=== PATIENT | male | born 1945 | race Caucasian/White ===

== ENCOUNTER 2017-10-15 05:40 | Inpatient (IN) | payer MEDICARE, OTHER ==
[2017-10-15 06:41] LABS: ALT (SGPT) 83 U/L (8-55); AST (SGOT) 104 U/L (5-34); Albumin 3.8 g/dL (3.4-4.8); Alkaline Phosphatase 94 U/L (40-150); Anion Gap 16 mmol/L (10-20); BUN (Urea Nitrogen) 13 mg/dL (8.4-25.7); Bilirubin, Total 0.6 mg/dL (0.2-1.2); Calc. Creatinine Clearance 0 mL/min (70-130); Calcium 8.8 mg/dL (7.8-10.44); Carbon Dioxide 19 mmol/L (23-31); Chloride 103 mmol/L (98-107); Estimated GFR-MDRD 84; Glucose 181 mg/dL (83-110); Magnesium 2.1 mg/dL (1.6-2.6); Potassium 3.6 mmol/L (3.5-5.1); Protein, Total 6.8 g/dL (5.8-8.1); Sodium 134 mmol/L (136-145)
[2017-10-15 06:45] LABS: CKMB 3.6 ng/mL (0-6.6); Troponin I 0.083 ng/mL (< 0.028)
[2017-10-15] MEDS ORDERED: cefTRIAXone\\ROCEPHIN 2 GM, Admixture Fee 1 EACH in Sodium Chloride 0.9% 100 ML IVPB SCH (06:45)
[2017-10-15] MEDS ORDERED: Azithromycin 500 MG, Admixture Fee 1 EACH in Sodium Chloride 0.9% 250 ML 250 ML IVPB SCH (07:00)
[2017-10-15 07:11] LABS: #Lymphocytes 1.4 thou/uL (1.20-3.40); #Monocytes 0.7 thou/uL (0.11-0.59); #Neutrophils 4.1 thou/uL (1.40-6.50); %Basophils 0.5 % (0.0-1.0); %Eosinophils 0.3 % (0.0-10.0); %Lymphocytes 23.1 % (21.0-51.0); %Monocytes 10.4 % (0.0-10.0); %Neutrophils 65.7 % (42.0-75.0); Hemoglobin 14.5 g/dL (14.0-18.0); Mean Corpuscular HGB CONC 33.4 g/dL (32.0-36.0); Mean Corpuscular Hemoglobin 29.6 pg (27.0-31.0); Mean Corpuscular Volume 88.6 fl (80.0-94.0); Mean Platelet Volume 8.6 fL (7.4-10.4); PLT Morphology Comment Appears Decreased; Platelet Count 98 thou/uL (130-400); RBC Distribution Width 12.4 % (11.5-14.5); Red Blood Cell (RBC) Count 4.89 mill/uL (4.70-6.10); White Blood Cell (WBC) Count 6.3 thou/uL (4.8-10.8)
--- NOTE | 2017-10-15 08:00 | RAD ---
PORTABLE CHEST 1 VIEW: DATE: 10/15/17. TIME: 6:11 a.m. HISTORY: Fever, flu-like symptoms. FINDINGS: Comparison is made with the exam of 02/07/10. The heart size is borderline. The lungs are expanded without focal areas of consolidation, pneumotho rax, sheridan pulmonary edema, or pleural effusions. IMPRESSION: No radiographic evidence of acute cardiopulmonary process. POS: [facility]
[2017-10-15] MEDS ORDERED: Dextrose 50% Abboject 50 ML SYRINGE SLOW IVP PRN ×2 (08:45→20:38)
[2017-10-15] MEDS ORDERED: Bisacodyl 5 MG TAB PO PRN (08:45)
[2017-10-15] MEDS ORDERED: Ondansetron ODT 4 MG TAB PO PRN (08:45)
[2017-10-15] MEDS ORDERED: Ondansetron HCl/PF 4 MG/2 ML Vial IVP PRN (08:45)
[2017-10-15] MEDS ORDERED: HumaLOG 300 UNITS/3 ML VIAL SC PRN ×2 (08:45)
[2017-10-15] MEDS ORDERED: Acetaminophen 325 MG TAB PO PRN (08:45)
[2017-10-15] MEDS ORDERED: Dextrose 5% in Water 1,000 ML IV PRN ×2 (08:45→20:38)
[2017-10-15] MEDS ORDERED: Loperamide HCl 2 MG CAP PO PRN (08:45)
[2017-10-15] MEDS ORDERED: Azithromycin 500 MG in Sodium Chloride 0.9% 250 ML 250 ML IVPB SCH (09:00)
[2017-10-15] MEDS ORDERED: Insulin Detemir 100 UNITS/ML 100 UNITS in Admixture Fee 1 EACH SC SCH ×2 (09:00→21:00)
[2017-10-15] MEDS: Sodium Chloride 0.9% 1,000 ML IV SCH ×2 (09:00→16:10)
[2017-10-15] MEDS ORDERED: Non-Formulary Item 1 EACH (Clonazepam [Clonazepam] 1 MG) PO SCH (09:00)
[2017-10-15] MEDS ORDERED: Insulin Regular 300 UNITS/3 ML VIAL SC SCH ×2 (09:00→21:00)
[2017-10-15] MEDS ORDERED: clonazePAM 1 MG TAB ONE (09:15)
[2017-10-15 09:47] LABS: Troponin I 0.111 ng/mL (< 0.028)
--- NOTE | 2017-10-15 11:45 | PDOC.EVN ---
Event Note - Event Note Event Note: Attending H&P I personally evaluated the patient and discussed the management with Dr. Disla. I have reviewed the written H&P and it is repeated by me. I agree with the History, Examination, Assessment and Plan documented above with any addition or exceptions noted below.
[2017-10-15 12:53] LABS: Troponin I 0.175 ng/mL (< 0.028)
[2017-10-15] MEDS ORDERED: Digoxin 0.25 MG TAB ONE (13:53)
[2017-10-15] MEDS ORDERED: Furosemide 40 MG TAB ONE (13:53)
--- NOTE | 2017-10-15 14:00 | HP-2 ---
DATE OF ADMISSION: 10/15/2017 CODE STATUS: DO NOT INTUBATE, CPR, and chemical code will be okay, but attempt for no longer than 10 minutes. This decision was made amongst the patient, his , and his granddaughter. PRIMARY CARE PHYSICIAN: Dr. Schaefer at the [place]. ATTENDING PHYSICIAN: Dr. Mike. RESIDENT: Dr. Beatriz Disla. CHIEF COMPLAINT: Shortness of breath and difficulty breathing. HISTORY OF PRESENT ILLNESS: This is a 72-year-old male with a history of CHF with an ejection fraction possibly 30%-40% per the patient, obstructive sleep apnea, insulin-dependent diabetes, hypertension, GERD, history of MIs - no history of stent placement, COPD, he presents for difficulty breathing this morning. Patient states that he felt very weak this morning and could not get out of bed and then he slid to the floor. With help from his , he was able to get up. He states that his has had the flu for the last week and he has had similar symptoms for the last 4 days. The patient states he has had a fever of 102 for the last couple of days. He reports some nasal congestion, lethargy, malaise. Upon interview, the patient is able to answer all questions appropriately; however, he repetitively states that he is discombobulated and that he needs his clonazepam for PTSD. In the EMS en route to the ER, the patient received DuoNeb, mag, Solu-Medrol, and a fluid bolus of 500 mL. Patient received Rocephin and azithromycin in the ER. PAST MEDICAL HISTORY: 1. Insulin-dependent diabetes, type 2. 2. Obstructive sleep apnea. 3. Congestive heart failure with a questionable ejection fraction of 30%-40%. 4. Hypertension. 5. Gastroesophageal reflux disease. 6. Chronic obstructive pulmonary disease - not on any medications. 7. History of myocardial infarctions - no history of stent placement for CABG. 8. Fatty liver disease. PAST SURGICAL HISTORY: Back surgery and tonsillectomy. ALLERGIES: No known drug allergies. MEDICATIONS: 1. U-500 90 units in the morning and 65 units in the evening subcutaneously. 2. Metformin HCL 1000 mg half a tablet 2 times a day by mouth. 3. Levothyroxine 0.1 mg p.o. daily. 4. Allopurinol 150 mg p.o. daily. 5. Atenolol 25 mg tabs p.o. daily. 6. Lisinopril 40 mg p.o. daily. 7. Omeprazole 20 mg capsule p.o. 1-2 times daily. 8. Digoxin 0.25 mg p.o. daily. 9. Furosemide 40 mg p.o. 1-2 times daily pending symptoms. 10. Aspirin 81 mg p.o. daily. 11. Clonazepam 2 mg half a tablet b.i.d. 12. Nitroglycerin patch 0.2 mg per hour, 1 patch transdermally daily. FAMILY HISTORY: Mom has heart disease and lung cancer. Dad had heart disease. The daughter has severe sarcoidosis. SOCIAL HISTORY: The patient denies tobacco, alcohol, or drug use. Patient is , has children and most recently has ill contacts of the family with the flu. REVIEW OF SYSTEMS: General: Positive for fever, chills, malaise, and no energy. Eyes: No vision changes. ENT: Positive for nasal congestion, rhinorrhea. Respiratory: Positive for a nonproductive cough and congestion and difficulty breathing. Cardiovascular: The patient denies chest pain or palpitations. No edema, no PND, nor orthopnea. Gastrointestinal: Positive for nausea and he complains of diarrhea for 4 days. He does not report any abdominal pain with that; however. No GI bleeding. Genitourinary: Denies dysuria or polyuria. Skin: Denies any rashes or lesions. Musculoskeletal: Positive for myalgias, but denies any pain or tenderness. Neuro: Denies weakness or numbness. Psychiatric: Positive for PTSD. PHYSICAL EXAMINATION: VITAL SIGNS: Blood pressure 144/67, pulse 97, respiratory rate 22, T-max 99.1, pulse ox 97% on room air, and current weight 117 kilograms. VITAL SIGNS: The patient is alert and oriented x4 to person, place, date, and situation, but he does appear somewhat uncomfortable. He is morbidly obese and is appropriately interactive. He is answering questions appropriately. EYES: PERRLA, EOMI. ENT: Tympanic membranes pearly figueroa without bulging or erythema. His oropharynx is within normal limits. NECK: Supple, without lymphadenopathy or thyromegaly. CARDIOVASCULAR: Regular rate and rhythm with a systolic 2/6 murmur heard best in the second intercostal space left of the sternum. No gallops heard. RESPIRATORY: Normal effort with decreased air movement in the bilateral lower lobes, but this is very difficult to examine due to habitus. There is some E-A egophony in the right lower lobe posteriorly. ABDOMEN: Soft and nontender to palpation. Bowel sounds are present. EXTREMITIES: No clubbing, cyanosis, or edema in lower extremities noted. MUSCULOSKELETAL: His structure is within normal limits, muscle strength 5/5, and he has full range of motion. NEUROLOGIC: No focal deficits. Sensation is within normal limits. Cranial nerves II-XII appear to be intact. PSYCHIATRIC: He appears anxious. LABORATORY DATA: White blood cells 6.3, hemoglobin 14.5, hematocrit 43.4, platelets 98. Sodium 134, potassium 3.6, chloride 103, bicarbonate 19, BUN 13, creatinine 0.89, and his glucose is 181. GFR is 84. Calcium is 8.8, AST 104, ALT 83, alkaline phosphatase 94, protein 6.8, albumin 3.8. His total bilirubin is 0.6. BNP is 14.9. His lactic acid is 1.2 and his troponin is 0.083. His Flu A and B were negative. EKG showed normal sinus rhythm with no ST elevation ; however, there is some evidence for an old septal infarct in the inferior leads. Chest x-ray shows a right lower lobe infiltrate. ASSESSMENT AND PLAN: This is a 72-year-old male with a history of hypertension , uncontrolled diabetes, and congestive heart failure, who presents with complaints of difficulty breathing. 1. Sepsis secondary to community-acquired pneumonia. The patient's blood pressures remain within normal limits, he has an increased respiratory rate upon arrival, but is satting well on room air. However, supplemental oxygen will be given for comfort, he has normal lactic acid and white blood cell count at this time. The patient has been started on Rocephin and azithromycin in the ER. A 500 mL bolus was given en route to the ER and we will give another 500 mL bolus at this time and then continue him at a rate of 100 mL per hour. Due to the unknown status of his congestive heart failure, we are not being more aggressive with his fluid resuscitation and will be requesting an echocardiogram. We will check a CBC and a CMP in the morning. A pulmonary embolism was considered in this situation. However, he has a Wells score for pulmonary embolism of 0, making this a very low probability. However, we will continue to consider it depending on his clinical course. 2. Hypertension within normal limits and we will continue his home medications. 3. Insulin-dependent diabetes, type 2 - this is poorly controlled per the . He has currently been increased to U-500. We will continue his home regimen with likely an equivalent to the U-500 in the hospital and get a.c. and at bedtime Accu-Cheks and sliding scale insulin. 4. Congestive heart failure. We will be checking an echocardiogram at this time and does not appear to be fluid overload, and his BNP is within normal limits. 5. Transaminitis - patient reports a history of fatty liver disease and has had multiple attacks of his hepatitis C in the past per the as well as human immunodeficiency virus, which have all been negative. 6. History of coronary artery disease. 7. History of post-traumatic stress disorder. We will continue patient's clonazepam, which is a home medication. 8. Chronic obstructive pulmonary disease. We will be giving p.r.n. DuoNeb. However, the patient does not have a smoking history and is on no home medications for this, so this is a questionable diagnosis. 9. For deep vein thrombosis prophylaxis, platelets are at 98. We will go ahead and give a shot of Lovenox and continue to monitor his platelets. DISPOSITION AND LENGTH OF HOSPITAL STAY: Likely at least 3 days. Symptomatic medications will be provided. History and physical exam as well as management have been discussed with Dr. Mike, who is in agreement with the plan. JEROD
[2017-10-15 19:29] VITALS: BMI 43.5
[2017-10-15] MEDS: Aspirin 81 mg Enteric Coated Tablet PO SCH (19:49)
[2017-10-15] MEDS: Atenolol 25 MG TAB PO SCH (19:49)
[2017-10-15] MEDS: Allopurinol 300 MG TAB PO SCH (19:49)
[2017-10-15] MEDS: clonazePAM 1 MG TAB PO SCH ×2 (19:50→20:57)
[2017-10-15] MEDS: Digoxin 0.25 MG TAB PO SCH (19:50)
[2017-10-15] MEDS: Furosemide 40 MG TAB PO SCH (19:50)
[2017-10-15] MEDS: Lisinopril 20 MG TAB PO SCH (19:51)
[2017-10-15] MEDS: HumaLOG 300 UNITS/3 ML VIAL SC PRN (20:53)
[2017-10-16] MEDS ORDERED: Albuterol Sulfate 2.5 mg/3 ml Neb NEB PRN (00:51)
[2017-10-16] MEDS: Insulin Detemir 100 UNITS/ML 20 UNITS in Pre-Filled Syringe 1 EACH SC SCH (01:10)
[2017-10-16] MEDS: Levothyroxine Sodium 100 MCG TAB PO SCH (05:11)
[2017-10-16] MEDS: Sodium Chloride 0.9% 1,000 ML IV SCH (05:11)
[2017-10-16 05:23] LABS: #Lymphocytes 1.1 thou/uL (1.20-3.40); #Monocytes 0.5 thou/uL (0.11-0.59); #Neutrophils 4.5 thou/uL (1.40-6.50); %Basophils 0.7 % (0.0-1.0); %Eosinophils 0.1 % (0.0-10.0); %Lymphocytes 18.1 % (21.0-51.0); %Neutrophils 73.1 % (42.0-75.0); Hemoglobin 14.9 g/dL (14.0-18.0); Mean Corpuscular HGB CONC 34.4 g/dL (32.0-36.0); Mean Corpuscular Hemoglobin 30.2 pg (27.0-31.0); Mean Corpuscular Volume 87.8 fl (80.0-94.0); Mean Platelet Volume 8.7 fL (7.4-10.4); Platelet Count 115 thou/uL (130-400); RBC Distribution Width 12.2 % (11.5-14.5); Red Blood Cell (RBC) Count 4.92 mill/uL (4.70-6.10); White Blood Cell (WBC) Count 6.1 thou/uL (4.8-10.8)
[2017-10-16 05:43] LABS: ALT (SGPT) 68 U/L (8-55); AST (SGOT) 67 U/L (5-34); Albumin 3.8 g/dL (3.4-4.8); Alkaline Phosphatase 93 U/L (40-150); Anion Gap 11 mmol/L (10-20); BUN (Urea Nitrogen) 18 mg/dL (8.4-25.7); Bilirubin, Total 0.3 mg/dL (0.2-1.2); Calc. Creatinine Clearance 178 mL/min (70-130); Carbon Dioxide 25 mmol/L (23-31); Chloride 105 mmol/L (98-107); Estimated GFR-MDRD Greater than 90; Globulin 3.2 g/dL (2.4-3.5); Glucose 200 mg/dL (83-110); Potassium 4.3 mmol/L (3.5-5.1); Sodium 137 mmol/L (136-145)
[2017-10-16 08:18] LABS: Troponin I 0.42 ng/mL (< 0.028)
--- NOTE | 2017-10-16 09:09 | PDOC.FM ---
- Subjective Subjective: Patient sitting up in bed this morning and states he feels much better. He has been breathing without difficulty this morning and overnight. Denies chest pain. Tolerating PO well. He is laughing and making jokes this morning. - Objective MAR Reviewed: Yes Vital Signs & Weight: Weight Weight 141.549 kg I&O: 10/15/17 10/16/17 10/17/17 06:59 06:59 06:59 Intake Total 1483 Balance 1483 Result Diagrams: 10/16/17 04:17 10/16/17 04:17 <Beatriz Disla - Last Filed: 10/16/17 08:46> - Objective Vital Signs & Weight: Vital Signs (12 hours) Temp Pulse Resp BP BP Pulse Ox 10/16/17 09:57 58 L 138/78 10/16/17 09:56 58 L 10/16/17 08:11 96.3 F L 58 L 22 H 130/78 98 Weight Weight 141.549 kg I&O: 10/15/17 10/16/17 10/17/17 06:59 06:59 06:59 Intake Total 1483 Balance 1483 Result Diagrams: 10/16/17 04:17 10/16/17 04:17 <Tj Mike - Last Filed: 10/16/17 11:01> Phys Exam - Physical Examination Constitutional: NAD Respiratory: no wheezing, no rales, no rhonchi, clear to auscultation bilateral Difficulty to assess due to body habitus but air movement heard throughout. Cardiovascular: RRR, no significant murmur Gastrointestinal: soft, non-tender Musculoskeletal: no edema Neurological: non-focal, normal sensation, moves all 4 limbs Psychiatric: normal affect, A&O x 3 <Beatriz Disla - Last Filed: 10/16/17 08:46> Dx/Plan (1) Community acquired pneumonia Code(s): J18.9 - PNEUMONIA, UNSPECIFIED ORGANISM Status: Acute Plan: Significant improvement on azithromycin and rocephin. Will give todays dose and plan to transition to oral augmentin or levaquin. (2) Sepsis Code(s): A41.9 - SEPSIS, UNSPECIFIED ORGANISM Status: Acute Plan: improved with fluids and antibiotics. (3) Hypertension Code(s): I10 - ESSENTIAL (PRIMARY) HYPERTENSION Status: Acute Plan: well controlled on home meds. (4) Uncontrolled diabetes mellitus Code(s): E11.65 - TYPE 2 DIABETES MELLITUS WITH HYPERGLYCEMIA Status: Chronic QualifierTitle: Diabetes mellitus type: type 2 Plan: taking his home insulin since it is non formulary and BG improved with it. Cont routine outpatient mgmt. (5) PTSD (post-traumatic stress disorder) Code(s): F43.10 - POST-TRAUMATIC STRESS DISORDER, UNSPECIFIED Status: Acute (6) Hx of congestive heart failure Code(s): Z86.79 - PERSONAL HISTORY OF OTHER DISEASES OF THE CIRCULATORY SYSTEM Status: Resolved Plan: ECHO would not indicate CHF. EF 55-60% with no mention of diastolic failure. (7) Fatty liver Code(s): K76.0 - FATTY (CHANGE OF) LIVER, NOT ELSEWHERE CLASSIFIED Status: Chronic Plan: per history from , patient has known fatty liver disease and LFTs are chronically elevated. She states he has been tested for HIV and hep C numerous times and requested we not work that up further. (8) Elevated troponin I level Code(s): R74.8 - ABNORMAL LEVELS OF OTHER SERUM ENZYMES Status: Acute Plan: Patient has no complaint of chest pain or SOB, no other symptoms congruent with AK. EKG yesterday without changes, will recheck today and recheck a trop. <Beatriz Disla A - Last Filed: 10/16/17 08:46> Attending Addendum - Attending Addendum I personally evaluated the patient and discussed the management with Dr. Disla. I agree with the History, Examination, Assessment and Plan documented above with any addition or exceptions noted below. Viridiana is feeling well adn was hoping for discharge today. He denies any CP or SOB. EKG is remarkable for sinus bradycardia with rate of 58. No ischemic changes noted. If troponins continue to trend upwards, then cards consult. Trop pending. <Tj Mike - Last Filed: 10/16/17 11:01>
[2017-10-16] MEDS: Digoxin 0.25 MG TAB PO SCH (09:56)
[2017-10-16] MEDS: Allopurinol 300 MG TAB PO SCH (09:56)
[2017-10-16] MEDS: Aspirin 81 mg Enteric Coated Tablet PO SCH (09:57)
[2017-10-16] MEDS: Atenolol 25 MG TAB PO SCH (09:57)
[2017-10-16] MEDS: Furosemide 40 MG TAB PO SCH (09:57)
[2017-10-16] MEDS: clonazePAM 1 MG TAB PO SCH ×2 (09:57→21:43)
[2017-10-16] MEDS: Lisinopril 20 MG TAB PO SCH (09:57)
[2017-10-16] MEDS: Azithromycin 500 MG in Sodium Chloride 0.9% 250 ML 250 ML IVPB SCH (10:00)
[2017-10-16] MEDS: cefTRIAXone\\ROCEPHIN 2 GM in Sodium Chloride 0.9% 100 ML IVPB SCH (10:00)
[2017-10-16] MEDS: Enoxaparin Sodium 40 MG/0.4 ML SYRINGE SC SCH (10:01)
[2017-10-16] MEDS: metFORMIN 500 MG TAB PO SCH ×3 (10:01→21:43)
[2017-10-16 10:45] LABS: Troponin I 0.422 ng/mL (< 0.028)
[2017-10-16] MEDS: HumaLOG 300 UNITS/3 ML VIAL SC PRN (12:35)
[2017-10-16 15:01] LABS: Critical Call Chem Troponin I RESULT DECREASING; Troponin I 0.384 ng/mL (< 0.028)
[2017-10-16 16:23] LABS: CKMB 6.5 ng/mL (0-6.6)
[2017-10-16] MEDS ORDERED: INSULIN REGULAR HUMAN SC SCH (22:15)
[2017-10-17] MEDS: Insulin Detemir 100 UNITS/ML 20 UNITS in Pre-Filled Syringe 1 EACH SC SCH (02:37)
[2017-10-17] MEDS: Levothyroxine Sodium 100 MCG TAB PO SCH (05:38)
[2017-10-17 05:44] LABS: #Basophils 0.1 thou/uL (0.0-0.2); #Lymphocytes 2.8 thou/uL (1.20-3.40); #Monocytes 0.5 thou/uL (0.11-0.59); #Neutrophils 3.1 thou/uL (1.40-6.50); %Basophils 0.8 % (0.0-1.0); %Eosinophils 0.5 % (0.0-10.0); %Lymphocytes 43.3 % (21.0-51.0); %Monocytes 7.6 % (0.0-10.0); %Neutrophils 47.7 % (42.0-75.0); Hemoglobin 15.5 g/dL (14.0-18.0); Mean Corpuscular HGB CONC 34.3 g/dL (32.0-36.0); Mean Corpuscular Hemoglobin 30.1 pg (27.0-31.0); Mean Corpuscular Volume 87.9 fl (80.0-94.0); Mean Platelet Volume 8.4 fL (7.4-10.4); Platelet Count 124 thou/uL (130-400); RBC Distribution Width 12.3 % (11.5-14.5); Red Blood Cell (RBC) Count 5.15 mill/uL (4.70-6.10); White Blood Cell (WBC) Count 6.5 thou/uL (4.8-10.8)
[2017-10-17 06:03] LABS: ALT (SGPT) 54 U/L (8-55); AST (SGOT) 59 U/L (5-34); Albumin 3.8 g/dL (3.4-4.8); Alkaline Phosphatase 94 U/L (40-150); Anion Gap 12 mmol/L (10-20); BUN (Urea Nitrogen) 17 mg/dL (8.4-25.7); Bilirubin, Total 0.4 mg/dL (0.2-1.2); Calc. Creatinine Clearance 158 mL/min (70-130); Calcium 9.1 mg/dL (7.8-10.44); Carbon Dioxide 27 mmol/L (23-31); Chloride 104 mmol/L (98-107); Estimated GFR-MDRD 88; Globulin 3.2 g/dL (2.4-3.5); Glucose 100 mg/dL (83-110); Potassium 3.5 mmol/L (3.5-5.1); Sodium 139 mmol/L (136-145)
[2017-10-17] MEDS: cefTRIAXone\\ROCEPHIN 2 GM in Sodium Chloride 0.9% 100 ML IVPB SCH (06:38)
--- NOTE | 2017-10-17 08:57 | PDOC.FM ---
- Subjective Subjective: Patient sitting up in bed, breathing on room air and in no distress. Afebrile, VSS He is asking if he can go home - Objective MAR Reviewed: Yes Vital Signs & Weight: Vital Signs (12 hours) Temp Pulse Resp BP Pulse Ox 10/17/17 04:29 97.6 F 61 20 122/60 94 L Weight Weight 141.549 kg I&O: 10/16/17 10/17/17 10/18/17 06:59 06:59 06:59 Intake Total 1483 340 Balance 1483 340 Result Diagrams: 10/17/17 04:42 10/17/17 04:42 <Kenneth Vines - Last Filed: 10/17/17 08:55> - Objective Vital Signs & Weight: Vital Signs (12 hours) Temp Pulse Resp BP BP Pulse Ox 10/17/17 09:24 67 127/68 10/17/17 09:22 67 127/68 10/17/17 09:20 97.7 F 67 20 127/68 10/17/17 04:29 97.6 F 61 20 122/60 94 L Weight Weight 141.549 kg I&O: 10/16/17 10/17/17 10/18/17 06:59 06:59 06:59 Intake Total 1483 340 Balance 1483 340 Result Diagrams: 10/17/17 04:42 10/17/17 04:42 <Tj Mike - Last Filed: 10/17/17 11:40> Phys Exam - Physical Examination Constitutional: NAD Neck: no JVD Respiratory: no wheezing, no rales, no rhonchi reduced air movement Cardiovascular: RRR, no significant murmur Gastrointestinal: soft, non-tender Neurological: moves all 4 limbs Psychiatric: normal affect, A&O x 3 <Kenneth Vines - Last Filed: 10/17/17 08:55> Dx/Plan (1) Community acquired pneumonia Code(s): J18.9 - PNEUMONIA, UNSPECIFIED ORGANISM Status: Acute Plan: Breathing has improved. He is maintaining sats on room air. Transition to oral Abx today (2) Hypertension Code(s): I10 - ESSENTIAL (PRIMARY) HYPERTENSION Status: Acute Plan: Continue home medications (3) Uncontrolled diabetes mellitus Code(s): E11.65 - TYPE 2 DIABETES MELLITUS WITH HYPERGLYCEMIA Status: Chronic QualifierTitle: Diabetes mellitus type: type 2 Plan: Patient back on home medication regimen. Medications are not on formulary here at hospital (4) PTSD (post-traumatic stress disorder) Code(s): F43.10 - POST-TRAUMATIC STRESS DISORDER, UNSPECIFIED Status: Acute (5) Fatty liver Code(s): K76.0 - FATTY (CHANGE OF) LIVER, NOT ELSEWHERE CLASSIFIED Status: Chronic (6) Hx of congestive heart failure Code(s): Z86.79 - PERSONAL HISTORY OF OTHER DISEASES OF THE CIRCULATORY SYSTEM Status: Resolved Plan: questionable history considering normal Echo - Plan Plan: Plan: -transition to PO abx and discharge today <Kenneth Vines - Last Filed: 10/17/17 08:55> Attending Addendum - Attending Addendum I personally evaluated the patient and discussed the management with Dr. Vines. I agree with the History, Examination, Assessment and Plan documented above with any addition or exceptions noted below. Stable for discharge. <Tj Mike - Last Filed: 10/17/17 11:40>
[2017-10-17] MEDS ORDERED: INSULIN REGULAR HUMAN SC SCH ×2 (09:00→21:00)
[2017-10-17 09:21] VITALS: BP 127/68; TEMP 97.7
[2017-10-17] MEDS: Azithromycin 500 MG in Sodium Chloride 0.9% 250 ML 250 ML IVPB SCH (09:21)
[2017-10-17] MEDS: metFORMIN 500 MG TAB PO SCH (09:22)
[2017-10-17] MEDS: Furosemide 40 MG TAB PO SCH (09:22)
[2017-10-17] MEDS: Enoxaparin Sodium 40 MG/0.4 ML SYRINGE SC SCH (09:22)
[2017-10-17] MEDS: Lisinopril 20 MG TAB PO SCH (09:22)
[2017-10-17] MEDS: Aspirin 81 mg Enteric Coated Tablet PO SCH (09:22)
[2017-10-17] MEDS: Digoxin 0.25 MG TAB PO SCH (09:22)
[2017-10-17] MEDS: clonazePAM 1 MG TAB PO SCH (09:22)
[2017-10-17] MEDS: Allopurinol 300 MG TAB PO SCH (09:23)
[2017-10-17] MEDS: Atenolol 25 MG TAB PO SCH (09:24)
--- NOTE | 2017-10-17 11:10 | PQF ---
DATE: 10-17-17 ATTN: DR. CINDI YOUNG / DR. KEL IRENE Please exercise your independent, professional judgment in responding to the clarification form. Clinical indicators are provided on the bottom of this form for your review Please check appropriate box(s): [ x ] Demand Ischemia [ ] SC (type: ) [ ] Insignificant Lab Value [ ] Unable to determine In addition, please specify: Present on Admission (POA): [ x ] Yes [ ] No [ ] Unable to determine For continuity of documentation, please document condition throughout progress notes and discharge summary. Thank You. CLINICAL INDICATORS - SIGNS / SYMPTOMS/ LABS are present in the medical record: Lab Results: TROPONIN: 10-15-17: 0.083 0.111 0.175 10-16-17: 0.420 0.422 0.384 RISK FACTORS: ER DOCUMENTATION: HX OF CHF, DM 2, HTN, GERD H&P: HX OF CHF, HTN, CAD TREATMENT: SERIES OF LABS PN 10-16-17: IF TROPONIN CONTINUE TO TREND UPWARDS, THEN CARDS CONSULT. TROP PENDING. (This form is maintained as a part of the permanent medical record) 2014 [employer] All Rights Reserved JOSE [email or web address] Office: [phone] [facility] HOSPITALBeto
[2017-10-17] MEDS ORDERED: Azithromycin 250 MG TAB PO SCH (11:15)
[2017-10-18] MEDS ORDERED: cefTRIAXone\\ROCEPHIN 2 GM in Sodium Chloride 0.9% 100 ML IVPB SCH (06:00)
[2017-10-18] MEDS ORDERED: Azithromycin 250 MG TAB PO SCH (09:00)
--- NOTE | 2017-10-20 13:47 | EKG ---
Test Reason : Blood Pressure : / mmHG Vent. Rate : 095 BPM Atrial Rate : 095 BPM P-R Int : 172 ms QRS Dur : 084 ms QT Int : 380 ms P-R-T Axes : 040 049 034 degrees QTc Int : 477 ms Normal sinus rhythm Low voltage QRS Septal infarct , age undetermined Abnormal ECG Confirmed by RANDA SHEPPARD ([id number]), visual effects editor NILAM PIERCE ([id number]) on 10/20/2017 1:47:00 PM Referred By: Confirmed By:RANDA SHEPPARD
--- NOTE | 2017-10-20 14:25 | EKG ---
Test Reason : SOB Blood Pressure : / mmHG Vent. Rate : 074 BPM Atrial Rate : 074 BPM P-R Int : 200 ms QRS Dur : 084 ms QT Int : 410 ms P-R-T Axes : 052 047 027 degrees QTc Int : 455 ms Normal sinus rhythm Septal infarct , age undetermined Abnormal ECG Confirmed by BRENT BELTRAN, HERB ([id number]), editor in chief newspaper NILAM PIERCE ([id number]) on 10/20/2017 2:25:06 PM Referred By: MICHAEL Confirmed By:HERB KENNEDY MD
--- NOTE | 2017-10-22 00:42 | DIS-2 ---
DATE OF ADMISSION: 10/15/2017 DATE OF DISCHARGE: 10/17/2017 RESIDENT: Beatriz Disla M.D. DISCHARGE ATTENDING: Tj Mike M.D. ADMITTING ATTENDING: Tj Mike M.D. PRIMARY DIAGNOSES: 1. Sepsis secondary to community-acquired pneumonia. 2. Hypertension. 3. Insulin-dependent diabetes type 2. 4. Congestive heart failure with a normal echo during this hospitalization. 5. Transaminitis secondary to fatty liver disease. 6. History of coronary artery disease. 7. History of posttraumatic stress disorder. 8. Chronic obstructive pulmonary disease. DISCHARGE MEDICATIONS: 1. Allopurinol 150 mg p.o. daily. 2. Clonazepam 1 mg p.o. b.i.d. 3. Omeprazole 20 mg p.o. daily. 4. Lisinopril 40 mg p.o. daily. 5. Furosemide 20 mg p.o. b.i.d. 6. Digoxin 0.25 mg p.o. daily. 7. Atenolol 25 mg p.o. daily. 8. Aspirin 81 mg p.o. daily. 9. Nitroglycerin patch 0.2 mg topically daily. 10. Synthroid 100 mcg p.o. daily. 11. Metformin 500 mg p.o. b.i.d. 12. Humulin R u500 of 65 units subcutaneously at bedtime and 90 units subcutaneously q.a.m. 13. Levaquin 750 mg p.o. daily for 3 days. PROCEDURES AND IMAGIN. Echocardiogram notes left ventricular size to be normal, ejection fraction estimated at 55-60%. There is reported trace tricuspid regurgitation. HISTORY OF PRESENT ILLNESS AND HOSPITAL COURSE: This is a 72-year-old male with past medical history of coronary artery disease, COPD, presented to the ER with complaints of confusion and weakness and was found to meet SIRS criteria with the finding of pneumonia on chest x-ray and was given fluids and started on antibiotics appropriate for the community-acquired pneumonia. The patient's clinical course continued to improve by the second day of his hospitalization. By the second day of hospitalization, he was no longer requiring oxygen and continued to clinically improve. He was transitioned to oral antibiotics on day 3 of his hospital stay and was sent home with a short course of antibiotics. In regards to his other chronic medical conditions, he did use his home medication and his diabetes remained fairly well controlled during hospitalization. He is to follow up with his PCP for continued management of this. The patient did have troponins reach an NSTEMI range during hospitalization; however, it was thought this is likely secondary to history of coronary artery disease and strain on his heart during this acute illness. He reported no chest pain throughout hospitalization and there were no changes on EKG. He was offered an inpatient workup versus following with his [place] doctor for an outpatient stress test and the pt opted to have close followup with his city carrier assistant in the outpatient setting shortly after discharge. The patient does have stable known angina as he takes as needed nitroglycerin patch for unstable angina at home. DISPOSITION: Stable. DISCHARGE INSTRUCTIONS: 1. Location: Home. 2. Activity: As tolerated. 3. Diet: Consistent carbohydrate and heart healthy. 4. Follow up with PCP within 3-5 days and follow up with the city carrier assistant within a week. JEROD
--- NOTE | 2017-12-17 21:22 | EKG ---
Test Reason : Blood Pressure : / mmHG Vent. Rate : 058 BPM Atrial Rate : 058 BPM P-R Int : 208 ms QRS Dur : 092 ms QT Int : 428 ms P-R-T Axes : 055 054 049 degrees QTc Int : 420 ms Sinus bradycardia Anterior infarct (cited on or before 13-DEC-2005) Abnormal ECG When compared with ECG of 15-OCT-2017 11:40, (Unconfirmed) No significant change was found Confirmed by LOC BHAKTA M.D. ([id number]) on 12/17/2017 9:21:53 PM Referred By: MICHAEL Confirmed By:LOC BHAKTA M.D.
== END 2017-10-17 14:46 | disposition home or self-care (01) | DRG 871 ==
LOC: ERS 05:40 → ERHOLD 08:11 → 2NO 16:16
PROVIDERS: ADMIT Family Medicine; ATTEND Family Medicine
DX: A41.9 Sepsis, unspecified organism (principal); J18.9 Pneumonia, unspecified organism; I11.0 Hypertensive heart disease with heart failure; I24.8 Other forms of acute ischemic heart disease; E11.65 Type 2 diabetes mellitus with hyperglycemia; I50.9 Heart failure, unspecified; E66.01 Morbid (severe) obesity due to excess calories; J44.0 Chronic obstructive pulmonary disease with (acute) lower respiratory infection; Z68.41 Body mass index [BMI] 40.0-44.9, adult; Z79.4 Long term (current) use of insulin; F43.10 Post-traumatic stress disorder, unspecified; R74.8 Abnormal levels of other serum enzymes
CPT/HCPCS: 36415; 36416; 71045; 80053; 82553; 83605; 83735; 83880; 84484; 85025; 87040; 87804; 93005; 93010; 93306; 94640; 96361; 96365; G8978-GP-CH; G8979-GP-CH; G8980-GP-CH; J0456; J0696; J1650; J1815; J7050; J7620

== ENCOUNTER 2019-05-01 11:31 | Inpatient (IN) | payer MEDICARE ==
--- NOTE | 2019-05-01 12:18 | RAD ---
Exam: Chest one view HISTORY:Dyspnea. Shortness of breath Comparison: 10/15/2017 FINDINGS: Cardiac silhouette: Normal Aorta: Unremarkable Pulmonary vessels: Normal Costophrenic angles: Clear LUNGS: Hyperinflation with chronic changes. No masses or consolidation. Pneumothorax: None Osseous abnormalities: None IMPRESSION: No acute cardiopulmonary process.
[2019-05-01 12:57] LABS: #Basophils 0.1 thou/uL (0.0-0.2); #Eosinphils 0.2 thou/uL (0.0-0.7); #Lymphocytes 2.6 thou/uL (1.20-3.40); #Monocytes 0.7 thou/uL (0.11-0.59); #Neutrophils 3.7 thou/uL (1.40-6.50); %Basophils 0.9 % (0.0-1.0); %Eosinophils 2.4 % (0.0-10.0); %Monocytes 9.3 % (0.0-10.0); %Neutrophils 51.5 % (42.0-75.0); Hemoglobin 17.6 g/dL (14.0-18.0); Mean Corpuscular HGB CONC 34.1 g/dL (32.0-36.0); Mean Corpuscular Hemoglobin 29.2 pg (27.0-31.0); Mean Corpuscular Volume 85.5 fL (78.0-98.0); Platelet Count 127 thou/uL (130-400); RBC Distribution Width 12.9 % (11.5-14.5); Red Blood Cell (RBC) Count 6.02 mill/uL (4.70-6.10); White Blood Cell (WBC) Count 7.2 thou/uL (4.8-10.8)
[2019-05-01 13:06] LABS: Bicarbonate (HCO3v) 25.1 mmol/L (22.0-28.0); CO2 Tension (PvCO2) 41.4 mmHg (40.0-50.0); Calcium, Ionized 1.13 mmol/L (See Comments:); Chloride 104 mmol/L (98-107); Potassium 4.2 mmol/L (3.5-5.1); Sodium 138 mmol/L (138-145); T. Carbon Dioxide 26.4 mmol/L (22.0-28.0)
[2019-05-01 13:20] LABS: ALT (SGPT) 48 U/L (8-55); AST (SGOT) 44 U/L (5-34); Albumin 4.2 g/dL (3.4-4.8); Alkaline Phosphatase 141 U/L (40-150); Anion Gap 11 mmol/L (10-20); BUN (Urea Nitrogen) 15 mg/dL (8.4-25.7); Bilirubin, Total 0.5 mg/dL (0.2-1.2); Calc. Creatinine Clearance 0 mL/min (70-130); Calcium 9.5 mg/dL (7.8-10.44); Carbon Dioxide 26 mmol/L (23-31); Chloride 100 mmol/L (98-107); Estimated GFR-MDRD 69; Globulin 3.1 g/dL (2.4-3.5); Glucose 287 mg/dL (83-110); Lipase 38 U/L (8-78); Magnesium 1.7 mg/dL (1.6-2.6); Phosphorus 3.2 mg/dL (2.3-4.7); Potassium 4.1 mmol/L (3.5-5.1); Protein, Total 7.3 g/dL (5.8-8.1); Sodium 133 mmol/L (136-145)
[2019-05-01 13:41] LABS: CKMB 2.6 ng/mL (0-6.6)
[2019-05-01 14:22] LABS: Digoxin 1.03 ng/mL (0.8-2.0)
[2019-05-01] MEDS ORDERED: Aspirin 325 MG TAB ONE (14:50)
[2019-05-01] MEDS ORDERED: Dextrose 5% in Water 1,000 ML IV PRN (16:03)
[2019-05-01] MEDS ORDERED: HumaLOG 300 UNITS/3 ML VIAL SC PRN (16:03)
[2019-05-01] MEDS ORDERED: Dextrose 50% Abboject 50 ML SYRINGE SLOW IVP PRN (16:03)
[2019-05-01] MEDS ORDERED: Nitroglycerin 0.4 MG TAB (25 Tab Bottle) PO PRN (16:03)
--- NOTE | 2019-05-01 16:29 | PDOC.EVN ---
Event Note - Event Note Event Note: conversation re code status- full code
[2019-05-01 16:30] LABS: Troponin I 0.073 ng/mL (< 0.028)
--- NOTE | 2019-05-01 17:08 | HP ---
PRIMARY CARE PROVIDER: [facility]. Referred to [facility] by [facility]. CHIEF COMPLAINT: Shortness of breath. He states he wakes at night short of breath, confused with a burning in his chest. He notes he sleeps with CPAP and on a couple of pillows. He notes no cough, very occasional wheezing, dyspnea on exertion, usually less than 50 feet. He states he has the burning in his lungs, anxiety attacks, and takes tranquilizer to relieve it. PAST MEDICAL HISTORY: Pertinent for multiple myocardial infarctions in the past. He has insulin-dependent type 2 diabetes. He has a history of congestive heart failure. However, his last echo done 18 months ago showed a normal LVEF. He has obstructive sleep apnea, hypertension, gastroesophageal reflux disease. He has a questionable history of chronic obstructive pulmonary disease. He is not on any medicines. PAST SURGICAL HISTORY: Pertinent for back surgery, tonsillectomy, and cataract surgery. CURRENT MEDICATIONS: These were confirmed with him are, 1. Metformin 500 mg twice a day. 2. Allopurinol 150 mg once a day. 3. Atenolol 25 mg a day. 4. Lisinopril 40 mg a day. 5. Omeprazole 20 mg a day one to two times a day. 6. Digoxin 250 mcg a day. 7. Lasix 40 mg once or twice a day. 8. Aspirin 81 mg a day. 9. Klonopin 1 mg twice a day and apparently p.r.n. 10. Transdermal nitroglycerin patch 0.2 mg/hour one daily. 11. Levothyroxine 112 mcg a day. 12. He takes 90 units of insulin in the morning, 65 in the evening. ALLERGIES: HE HAS NO KNOWN DRUG ALLERGIES. FAMILY HISTORY: Mother had heart and lung disease. Father had heart disease. He has a daughter with sarcoidosis. SOCIAL HISTORY: . Chemical code only. , next of kin is surrogate decision maker. Denies tobacco, alcohol, or illicit drug use. REVIEW OF SYSTEMS: GENERAL: He gets dizzy and disoriented occasionally. No fainting. EYES: He has had recent cataract surgery and his vision is excellent at this point. EARS, NOSE, AND THROAT: No ear pain or drainage. No nasal bleeding. No trouble swallowing or oral pain. CARDIAC: See present illness. He has known definite pressure in his chest. His symptoms are consistent with orthopnea and paroxysmal nocturnal dyspnea. RESPIRATORY: See present illness. GASTROINTESTINAL: No nausea, vomiting, or abdominal pain. He does have constipation for which he takes stool softeners. GENITOURINARY: He has some hesitancy, postvoid dribbling. No hematuria. MUSCULOSKELETAL: He does not swell in his legs. Has no muscle pains or particular joint pains. NEUROLOGIC: No strokes, seizures, or focal weakness. PSYCHIATRIC: He has panic anxiety attacks when he is short of breath, gets the burning in his lungs at these times. SKIN: No bruising, bleeding, or rash. HEME/LYMPH: No tender or swollen lymph nodes in the axilla, inguinal, or cervical area. PHYSICAL EXAMINATION: GENERAL: The patient is alert, oriented, cooperative gentleman, in no distress when I saw him. VITAL SIGNS: Blood pressure 129/71, pulse is ranged from 55 to 62, respirations are 20, temperature is 97.7, and O2 saturation is 97% on room air. HEAD, EYES, EARS, NOSE, AND THROAT: Revealed bilateral lens implants. Extraocular movements are intact. Sclerae are white. Tympanic membranes are clear. Nose is clear. Oral mucous membranes are wet. Dental hygiene is good. NECK: Supple without jugular venous distention, adenopathy, thyromegaly, or bruits. CHEST: Clear to auscultation and percussion. He has good breath sounds. HEART: Regular rate and rhythm. First and second second heart sounds are clear. There are no murmurs, no gallops. ABDOMEN: Protuberant. No tenderness, hepatosplenomegaly, mass, or bruits. Bowel sounds are normal. EXTREMITIES: No cyanosis, clubbing, or edema. PULSES: Carotid, radial, femoral, and dorsalis pedis pulses intact. SKIN: Warm and dry without bruises or rash. HEME/LYMPH: No tender or swollen lymph nodes in the axilla, inguinal, or cervical area. NEUROLOGIC: Cranial nerves 2 through 12 are intact. Deep tendon reflexes minimal, symmetric. Moves all extremities. DIAGNOSTIC STUDIES: IMAGING STUDIES: EKG; regular sinus rhythm with nonspecific ST-T abnormality, reviewed by me. Chest x-ray, mild hyperinflation, no cardiomegaly, no CHF, no infiltrate, reviewed by me. LABORATORY RESULTS: Arterial blood gas shows pH of 7.39, pCO2 of 41.4, and O2 of 61.5 with greater than 90% saturation. Comprehensive metabolic profile; sodium 133, potassium 4.1, BUN 15, creatinine 1.05, blood sugar 287, calcium 9.5, bilirubin 0.5, AST 44, ALT 48, troponin 0.041. BNP 31.4. Digoxin level was 1.03. DISCUSSION: The patient's shortness of breath is not manifested by hypoxia, any wheezing or rales on chest exam. His lung evans are clear and his heart has a normal sinus. With his long-term diabetes, the burning in his chest with the shortness of breath spells, I am highly concerned that this is an acute coronary syndrome. He has coronary artery disease. He has diabetes mellitus type 2, insulin dependent. He has hypertension. He has a history of congestive heart failure, which is certainly not manifested at this time and a normal EF 18 months ago. He has possible history of chronic obstructive pulmonary disease, however, he has no bronchodilators. He has no wheezing and he has a normal O2 saturation on room air. The patient will be placed in the hospital on acute coronary syndrome protocol with serial troponins. He will be given Lovenox therapeutic dose acutely. As he is asymptomatic right now, I do not believe a Cardiology consult is required until more data is obtained. His home medicines will be continued. Accu-Cheks and sliding scales will be followed. Job ID: [id number] MTDD
--- NOTE | 2019-05-01 18:02 | PDOC.EVN ---
Event Note - Event Note Event Note: discussed with Cardiology. NPO post 12MN for probable cardiac cath
[2019-05-01] MEDS ORDERED: Enoxaparin Sodium 100 MG/ML SYRINGE SC SCH (19:30)
[2019-05-01] MEDS ORDERED: Enoxaparin Sodium 40 MG/0.4 ML SYRINGE SC SCH (19:30)
[2019-05-01 19:33] LABS: Troponin I 0.046 ng/mL (< 0.028)
[2019-05-01] MEDS: Insulin Regular 300 UNITS/3 ML VIAL SC SCH (21:00)
[2019-05-01] MEDS ORDERED: Enoxaparin Sodium 120 MG/0.8 ML SYRINGE SC SCH (21:00)
[2019-05-01] MEDS: clonazePAM 1 MG TAB PO SCH (21:00)
[2019-05-01] MEDS ORDERED: metFORMIN 500 MG TAB PO SCH (21:00)
[2019-05-01] MEDS: Furosemide 40 MG TAB PO SCH (21:00)
[2019-05-01] MEDS ORDERED: Insulin Regular 300 UNITS/3 ML VIAL SC SCH (22:30)
[2019-05-02] MEDS: Levothyroxine Sodium 100 MCG TAB PO SCH (05:38)
[2019-05-02] MEDS ORDERED: Enoxaparin Sodium 100 MG/ML SYRINGE SC SCH (09:00)
[2019-05-02] MEDS ORDERED: Enoxaparin Sodium 40 MG/0.4 ML SYRINGE SC SCH (09:00)
[2019-05-02] MEDS ORDERED: Communication Order-Pharmacy FS SCH (09:00)
[2019-05-02] MEDS ORDERED: Sodium Chloride 0.9% 1,000 ML IV SCH ×2 (09:00→11:05)
[2019-05-02] MEDS ORDERED: Lidocaine 1% (PF) 30 ML VIAL ONE (09:31)
[2019-05-02] MEDS ORDERED: Heparin 10,000 UNITS/1 ML VIAL ONE (09:31)
[2019-05-02] MEDS ORDERED: Fentanyl 100 MCG/2 ML VIAL ONE (10:09)
[2019-05-02] MEDS ORDERED: Midazolam HCl 2 mg/2 ml Vial ONE (10:09)
[2019-05-02 10:15] LABS: Cardiac Risk 7.3 (Less than 4.5); Cholesterol 218 mg/dl (< 200 Desired); HDL Cholesterol 30 mg/dL (>60 Neg Risk); Triglycerides 469 mg/dL (Less than 150)
--- NOTE | 2019-05-02 10:35 | CON ---
DATE OF CONSULTATION: HISTORY OF PRESENT ILLNESS: Hugo Odell is a 73-year-old white male, admitted with nocturnal shortness of breath and chest burning. He states that he has been told in the past that he had a weak heart; however, an echocardiogram here in September 2017 revealed that he had an ejection fraction of 55% to 60% with trace tricuspid regurgitation. He states that he has had 5 heart attacks in the past. He has never undergone cardiac catheterization. Over the last 2 months, he has had 5 episodes, where he will awaken at night extremely short of breath and with burning in his chest. He states that the chest burning would last approximately 3 hours. Also during the day, if he would walk a long distance, he would have the same type of discomfort. After the most recent episode, his brought him to the emergency room for further evaluation. PAST MEDICAL HISTORY: Hypertension, hypercholesterolemia, diabetes, GERD, obstructive sleep apnea, congestive heart failure, obesity. PAST SURGICAL HISTORY: Back surgery, tonsillectomy, cataract surgery. MEDICATIONS: (His states that he was just placed on a cholesterol medicine , but he has not picked it up). 1. Allopurinol 150 daily. 2. Aspirin 81 daily. 3. Atenolol 25 mg b.i.d. 4. Clonazepam 1 mg b.i.d. 5. Digoxin 0.25 daily. 6. Furosemide 40 b.i.d. 7. Gemfibrozil 600 mg b.i.d. 8. Humulin R. 9. Synthroid 0.15 mg daily. 10. Lisinopril 40 daily. 11. Metformin 500 b.i.d. 12. Nitroglycerin patch 0.2 topically. 13. Omeprazole 20 mg daily. ALLERGIES: NONE. SOCIAL HISTORY: He has not smoked or drank now or in the past. FAMILY HISTORY: Father of myocardial infarction in his 50s. Mother had CABG. REVIEW OF SYSTEMS: Ten-point review of systems is otherwise unremarkable. PHYSICAL EXAMINATION: VITAL SIGNS: Blood pressure of 136/65, pulse of 60. HEENT: PERRL. NECK: Supple. CHEST: Clear. CARDIAC: S1 and S2 normal without any S3, S4, or murmurs. Carotid upstrokes normal without bruits. ABDOMEN: Obese. Normal bowel sounds. No tenderness or organomegaly. EXTREMITIES: Revealed no clubbing, cyanosis, or edema. NEUROLOGIC: Grossly intact. SKIN: Warm and dry. IMAGING STUDIES: EKG reveals sinus bradycardia with a rate of 59 per minute with inverted T-waves and II, III, F, and V5 and V6. The inverted T-waves are minimal. Chest x-ray revealed no acute process. Echo is pending. LABORATORY DATA: Hemoglobin 17.6, hematocrit 51.4, white count 7200, platelets 127,000. Troponin I 0.073 (In September 2017, he had a troponin I up to 0.422). BNP 31.4. Sodium 133, potassium 4.1, chloride 100, carbon dioxide 26, BUN 15, creatinine 1.05, glucose 287. IMPRESSION: 1. Probable acute coronary syndrome with exertional episode as well as nocturnal episodes of chest burning and shortness of breath. 2. History of probable cardiomyopathy; however, last ejection fraction in September 2017 was 55% to 60%. 3. Hypertension. 4. Diabetes. 5. Hypercholesterolemia, currently not on medication. 6. Hypothyroidism. 7. Obesity. 8. Obstructive sleep apnea. 9. Gastroesophageal reflux disease. RECOMMENDATIONS: The situation discussed with Mr. Odell and his . It is recommended that he undergo cardiac catheterization. Risks of catheterization were discussed including , myocardial infarction, dye reaction, vascular injury, CVA, transfusion, limb loss, renal loss, etc. Also, risk of intervention with PTCA and stent placement were discussed including , myocardial infarction, emergent CABG, restenosis, stent thrombosis, vessel perforation, etc. He has no history of gastrointestinal bleeding and has never had a stroke. He does not have any upcoming surgical procedures planned. It is recommended that a drug-eluting stent be placed if required. The patient is uncertain if he wishes to proceed, and if he agrees , catheterization will be performed later today. Job ID: [id number] [facility]
[2019-05-02] MEDS ORDERED: Protamine Sulfate 50 MG/5 ML VIAL ONE (10:50)
[2019-05-02] MEDS ORDERED: Nitroglycerin 0.4 MG TAB (25 Tab Bottle) SL PRN (11:03)
[2019-05-02] MEDS ORDERED: Acetaminophen/Codeine 30-300mg Tablet PO PRN ×2 (11:03)
[2019-05-02] MEDS ORDERED: Sodium Chloride 0.9% 200 ML IV PRN (11:03)
[2019-05-02 11:16] LABS: Anion Gap 18 mmol/L (10-20); BUN (Urea Nitrogen) 18 mg/dL (8.4-25.7); Calc. Creatinine Clearance 108 mL/min (70-130); Calcium 9.5 mg/dL (7.8-10.44); Carbon Dioxide 22 mmol/L (23-31); Chloride 99 mmol/L (98-107); Estimated GFR-MDRD 57; Glucose 249 mg/dL (83-110); Sodium 135 mmol/L (136-145)
--- NOTE | 2019-05-02 11:59 | PDOC.HOSPP ---
- Subjective Encounter Date: 05/02/19 Encounter Time: 11:27 Subjective: 73 y/o morbidly obese male with CAD, CHF, DM, LYNDSAY on CPAP amongst others admitted with acute onset of chest pain and SOB that woke him up at night.Found to have mild elecation in troponin. Had cardiac cath which showed severe CAD and CABG is recommended. currently chest pain free. - Objective Vital Signs & Weight: Vital Signs (12 hours) Temp Pulse Resp BP Pulse Ox 05/02/19 07:33 98.7 F 60 18 136/65 94 L 05/02/19 07:10 95 05/02/19 04:00 99.3 F 77 16 104/43 L 95 05/02/19 00:00 97.5 F L 58 L 16 113/56 L 93 L Weight Weight 312 lb 3.2 oz I&O: 05/01/19 05/02/19 05/03/19 06:59 06:59 06:59 Intake Total 300 Output Total 300 Balance 0 Result Diagrams: 05/01/19 12:46 05/02/19 09:44 Additional Labs: Accuchecks 05/02/19 05/02/19 05/01/19 11:17 06:06 22:54 POC Glucose 247 H 246 H 159 H ROS - Medication Medications: Active Medications Generic Name Dose Route Start Last Admin Trade Name Maddi PRN Reason Stop Dose Admin Clonazepam 1 mg 05/01/19 21:00 05/01/19 21:00 Klonopin PO 1 mg BID ALESIA Administration Furosemide 40 mg 05/01/19 21:00 05/01/19 21:00 Lasix PO 40 mg BID ALESIA Administration Insulin Human Regular 65 units 05/01/19 21:00 05/01/19 21:00 Humulin R SC Not Given HS ALESIA Levothyroxine Sodium 100 mcg 05/02/19 06:00 05/02/19 05:38 Synthroid PO 100 mcg 0600 ALESIA Administration Sodium Chloride 10 ml 05/01/19 21:00 05/01/19 21:00 Flush - Normal Saline IVF 10 ml Q12HR ALESIA Administration - Exam awake alert General - other findings: morbidly obese Eye: anicteric sclera ENT: normocephalic atraumatic Neck: supple, symmetric Heart: RRR Respiratory: no wheezes, no rales, no ronchi, normal chest expansion Gastrointestinal: soft, non-tender, non-distended, normal bowel sounds Gastrointestinal - other findings: morbidly obese Extremities: no cyanosis, no edema Neurological: CN's grossly intact, no focal deficits Musculoskeletal: normal tone, no muscle wasting Psychiatric: normal affect, A&O x 3 Hosp A/P (1) Acute non-ST elevation myocardial infarction (NSTEMI) Code(s): I21.4 - NON-ST ELEVATION (NSTEMI) MYOCARDIAL INFARCTION Status: Acute (2) Acute coronary syndrome Code(s): I24.9 - ACUTE ISCHEMIC HEART DISEASE, UNSPECIFIED Status: Acute (3) CAD (coronary artery disease) Code(s): I25.10 - ATHSCL HEART DISEASE OF [place] CORONARY ARTERY W/O ANG PCTRS Status: Acute (4) Morbid obesity Code(s): E66.01 - MORBID (SEVERE) OBESITY DUE TO EXCESS CALORIES Status: Acute (5) LYNDSAY on CPAP Code(s): G47.33 - OBSTRUCTIVE SLEEP APNEA (ADULT) (PEDIATRIC); Z99.89 - DEPENDENCE ON OTHER ENABLING MACHINES AND DEVICES Status: Acute (6) Chronic CHF Code(s): I50.9 - HEART FAILURE, UNSPECIFIED Status: Acute (7) GERD (gastroesophageal reflux disease) Code(s): K21.9 - GASTRO-ESOPHAGEAL REFLUX DISEASE WITHOUT ESOPHAGITIS Status: Acute (8) Hypothyroidism Code(s): E03.9 - HYPOTHYROIDISM, UNSPECIFIED Status: Acute (9) Elevated troponin I level Code(s): R74.8 - ABNORMAL LEVELS OF OTHER SERUM ENZYMES Status: Acute (10) Hypertension Code(s): I10 - ESSENTIAL (PRIMARY) HYPERTENSION Status: Acute (11) PTSD (post-traumatic stress disorder) Code(s): F43.10 - POST-TRAUMATIC STRESS DISORDER, UNSPECIFIED Status: Acute (12) Uncontrolled diabetes mellitus Code(s): E11.65 - TYPE 2 DIABETES MELLITUS WITH HYPERGLYCEMIA Status: Chronic Qualifiers: Diabetes mellitus type: type 2 - Plan Change to aggressive insulin therapy Cardiothoracic consult has been requested. Continue CPAP at night. Continue benzodiazepine as needed continue to hold metformin. Will consider adding lantus. get BMP and HBa1c in the am.
[2019-05-02] MEDS: clonazePAM 1 MG TAB PO SCH ×2 (12:06→21:25)
[2019-05-02] MEDS: Lisinopril 20 MG TAB PO SCH (12:10)
[2019-05-02] MEDS: Atenolol 25 MG TAB PO SCH (12:10)
[2019-05-02] MEDS: Furosemide 40 MG TAB PO SCH ×2 (12:11→21:25)
[2019-05-02] MEDS: Aspirin 325 mg Enteric Coated Tablet PO SCH (12:11)
[2019-05-02] MEDS: Digoxin 0.25 MG TAB PO SCH (12:11)
[2019-05-02] MEDS: Allopurinol 300 MG TAB PO SCH (12:12)
[2019-05-02] MEDS: Insulin Regular 300 UNITS/3 ML VIAL SC SCH ×2 (12:13→21:20)
[2019-05-02] MEDS ORDERED: Iopamidol 370 76% 50 ML VIAL FS ONE (14:59)
[2019-05-02] MEDS ORDERED: Iopamidol 370 76% 100 ML VIAL ONE (14:59)
[2019-05-02] MEDS: Nitroglycerin 0.2mg/Hour PATCH TOP SCH (16:36)
[2019-05-03 05:34] LABS: Hemoglobin A1c 8.8 % (4.0-6.0)
[2019-05-03 05:40] LABS: Platelet Count 114 thou/uL (130-400)
[2019-05-03] MEDS: Levothyroxine Sodium 100 MCG TAB PO SCH (05:47)
[2019-05-03 05:50] LABS: Anion Gap 15 mmol/L (10-20); BUN (Urea Nitrogen) 16 mg/dL (8.4-25.7); Calc. Creatinine Clearance 129 mL/min (70-130); Calcium 9.3 mg/dL (7.8-10.44); Carbon Dioxide 24 mmol/L (23-31); Chloride 100 mmol/L (98-107); Estimated GFR-MDRD 70; Glucose 158 mg/dL (83-110); Potassium 3.7 mmol/L (3.5-5.1); Sodium 135 mmol/L (136-145)
[2019-05-03] MEDS: Allopurinol 300 MG TAB PO SCH (08:27)
[2019-05-03] MEDS: Nitroglycerin 0.2mg/Hour PATCH TOP SCH (08:27)
[2019-05-03] MEDS: Atenolol 25 MG TAB PO SCH (08:27)
[2019-05-03] MEDS: Lisinopril 20 MG TAB PO SCH (08:27)
[2019-05-03] MEDS: Aspirin 325 mg Enteric Coated Tablet PO SCH (08:27)
[2019-05-03] MEDS: Digoxin 0.25 MG TAB PO SCH (08:27)
[2019-05-03] MEDS: Furosemide 40 MG TAB PO SCH ×2 (08:28→16:21)
[2019-05-03] MEDS: clonazePAM 1 MG TAB PO SCH ×2 (08:28→20:41)
[2019-05-03] MEDS: Insulin Regular 300 UNITS/3 ML VIAL SC SCH (12:38)
[2019-05-03] MEDS ORDERED: Insulin Glargine 50 UNITS in Pre-Filled Syringe 1 EACH SC SCH (14:30)
--- NOTE | 2019-05-03 14:31 | PDOC.HOSPP ---
- Subjective Encounter Date: 05/03/19 Encounter Time: 09:30 Subjective: 73 y/o morbidly obese male with CAD, CHF, DM, LYNDSAY on CPAP amongst others admitted with acute onset of chest pain and SOB that woke him up at night. Found to have mild elevation in troponin. Had cardiac cath which showed severe 3 vessel disease with severe impaired cardiac functio. CABG is contemplated and CTS surgery consult has been requested. No new problem. chest pain free currently. - Objective Vital Signs & Weight: Vital Signs (12 hours) Temp Pulse Resp BP Pulse Ox 05/03/19 12:23 98.2 F 65 18 113/64 95 05/03/19 08:27 63 05/03/19 07:45 97.8 F 65 18 123/85 95 05/03/19 07:20 93 L 05/03/19 04:00 97.4 F L 63 20 116/57 L 96 Weight Weight 312 lb 3.2 oz I&O: 05/02/19 05/03/19 05/04/19 06:59 06:59 06:59 Intake Total 300 1090 Output Total 300 1700 Balance 0 -610 Result Diagrams: 05/03/19 05:15 05/03/19 05:15 Additional Labs: Accuchecks 05/03/19 05/03/19 05/02/19 10:38 05:51 20:23 POC Glucose 223 H 174 H 75 05/02/19 17:04 POC Glucose 117 H ROS - Medication Medications: Active Medications Generic Name Dose Route Start Last Admin Trade Name Freq PRN Reason Stop Dose Admin Allopurinol 150 mg 05/02/19 09:00 05/03/19 08:27 Zyloprim PO 150 mg DAILY ALESIA Administration Aspirin 325 mg 05/02/19 09:00 05/03/19 08:27 Ecotrin PO 325 mg DAILY ALESIA Administration Atenolol 25 mg 05/02/19 09:00 05/03/19 08:27 Tenormin PO 25 mg DAILY ALESIA Administration Clonazepam 1 mg 05/01/19 21:00 05/03/19 08:28 Klonopin PO 1 mg BID ALESIA Administration Digoxin 0.25 mg 05/02/19 09:00 05/03/19 08:27 Lanoxin PO 0.25 mg DAILY ALESIA Administration Levothyroxine Sodium 100 mcg 05/02/19 06:00 05/03/19 05:47 Synthroid PO 100 mcg 0600 ALESIA Administration Lisinopril 40 mg 05/02/19 09:00 05/03/19 08:27 Zestril PO 40 mg DAILY ALESIA Administration Nitroglycerin 0.2 mg 05/02/19 09:00 05/03/19 08:27 Nitro-Dur Patch TOP 0.2 mg DAILY ALESIA Administration Pantoprazole Sodium 40 mg 05/02/19 09:00 05/03/19 08:27 Protonix PO 40 mg DAILY ALESIA Administration Sodium Chloride 10 ml 05/01/19 21:00 05/03/19 08:32 Flush - Normal Saline IVF 10 ml Q12HR ALESIA Administration - Exam awake alert General - other findings: morbidly obese Eye: anicteric sclera ENT: normocephalic atraumatic Neck: supple Heart: RRR Respiratory: no wheezes, no rales, no ronchi Respiratory - other findings: fair air entry bilaterally Gastrointestinal: soft, non-tender, non-distended, normal bowel sounds Gastrointestinal - other findings: morbidly obese with pannus Extremities: no cyanosis, no edema Neurological: CN's grossly intact, no focal deficits Psychiatric: normal affect, A&O x 3 Hosp A/P (1) Acute non-ST elevation myocardial infarction (NSTEMI) Code(s): I21.4 - NON-ST ELEVATION (NSTEMI) MYOCARDIAL INFARCTION Status: Acute (2) Acute coronary syndrome Code(s): I24.9 - ACUTE ISCHEMIC HEART DISEASE, UNSPECIFIED Status: Acute (3) CAD (coronary artery disease) Code(s): I25.10 - ATHSCL HEART DISEASE OF [place] CORONARY ARTERY W/O ANG PCTRS Status: Acute (4) Morbid obesity Code(s): E66.01 - MORBID (SEVERE) OBESITY DUE TO EXCESS CALORIES Status: Acute (5) LYNDSAY on CPAP Code(s): G47.33 - OBSTRUCTIVE SLEEP APNEA (ADULT) (PEDIATRIC); Z99.89 - DEPENDENCE ON OTHER ENABLING MACHINES AND DEVICES Status: Acute (6) Chronic CHF Code(s): I50.9 - HEART FAILURE, UNSPECIFIED Status: Acute (7) GERD (gastroesophageal reflux disease) Code(s): K21.9 - GASTRO-ESOPHAGEAL REFLUX DISEASE WITHOUT ESOPHAGITIS Status: Acute (8) Hypothyroidism Code(s): E03.9 - HYPOTHYROIDISM, UNSPECIFIED Status: Acute (9) Elevated troponin I level Code(s): R74.8 - ABNORMAL LEVELS OF OTHER SERUM ENZYMES Status: Acute (10) Hypertension Code(s): I10 - ESSENTIAL (PRIMARY) HYPERTENSION Status: Acute (11) PTSD (post-traumatic stress disorder) Code(s): F43.10 - POST-TRAUMATIC STRESS DISORDER, UNSPECIFIED Status: Acute (12) Uncontrolled diabetes mellitus Code(s): E11.65 - TYPE 2 DIABETES MELLITUS WITH HYPERGLYCEMIA Status: Chronic Qualifiers: Diabetes mellitus type: type 2 (13) Ischemic cardiomyopathy Code(s): I25.5 - ISCHEMIC CARDIOMYOPATHY Status: Acute (14) Gout Code(s): M10.9 - GOUT, UNSPECIFIED Status: Acute (15) LYNDSAY (obstructive sleep apnea) Code(s): G47.33 - OBSTRUCTIVE SLEEP APNEA (ADULT) (PEDIATRIC) Status: Acute - Plan Change to aggressive insulin therapy with lantus and meal time short actig insulin Continue atenolol and lisinopril. PRn lasix as needed Continue CPAP at night. Awaiting CTS evaluation.
[2019-05-03] MEDS: HumaLOG 300 UNITS/3 ML VIAL SC PRN ×2 (18:51→20:44)
--- NOTE | 2019-05-03 22:08 | CON ---
DATE OF CONSULTATION: HISTORY OF PRESENT ILLNESS: Mr. Odell is a 73-year-old gentleman who was admitted on 05/02 with chest pain and shortness of breath. He has a history of previous myocardial infarctions, which were managed medically at the [facility]. He has never had a cardiac catheterization. Last echocardiogram was performed in September 2017 that showed an ejection fraction of 55% to 60% with trace tricuspid regurgitation. He underwent cardiac catheterization yesterday revealing critical severe multivessel coronary artery disease. His ejection fraction on his echo was 15%. Ventriculogram confirmed his ejection fraction. I have been asked to see him and discuss further management strategies. PAST MEDICAL HISTORY: 1. Coronary artery disease. 2. Hypertension. 3. Hypercholesterolemia. 4. Diabetes mellitus. 5. Morbid obesity. 6. GERD. 7. Obstructive sleep apnea. 8. Congestive heart failure. PAST SURGICAL HISTORY: 1. Back surgery. 2. Tonsillectomy. 3. Cataract surgery. MEDICATIONS: At home: 1. Aspirin 81 mg daily. 2. Atenolol 25 mg b.i.d. 3. Clonazepam 1 mg b.i.d. 4. Digoxin 0.25 mg daily. 5. Lasix 40 mg b.i.d. 6. Gemfibrozil 600 mg b.i.d. 7. Allopurinol 150 mg daily. 8. Humulin R per schedule. 9. Metformin 500 mg b.i.d. 10. Synthroid 0.15 mg daily. 11. Lisinopril 40 mg daily. 12. Omeprazole 20 mg daily. ALLERGIES: NONE. SOCIAL HISTORY: He does not use tobacco or alcohol. REVIEW OF SYSTEMS: A 10-point review of systems performed is negative except as above. PHYSICAL EXAMINATION: GENERAL: This is a morbidly obese gentleman, resting without complaint on the telemetry unit. VITAL SIGNS: Height 5 feet 11 inches. Weight is 312 pounds. BSA is 2.66. Temperature is 98.2, pulse is 65 and regular and blood pressure is 113/65. HEENT: Sclerae nonicteric. Pupils are equal and round bilaterally. NECK: Supple without adenopathy. There is no carotid bruit. CHEST: Clear bilaterally. HEART: Rhythm is regular without murmur. ABDOMEN: Soft and nontender. It is so obese, I could not palpate any masses, if there were present. EXTREMITIES: There is no edema. VASCULAR: Palpable carotid, radial, femoral, posterior tibial pulses bilaterally. VENOUS: There are no venous varicosities or venous stasis changes. PSYCHIATRIC: Awake, alert, and oriented to person, place, and time. LABORATORY DATA: Of note his hemoglobin A1c is 8.8, hemoglobin is 17.0, creatinine is 1.04, potassium 3.7. IMAGING: Chest x-ray shows mild cardiomegaly. There is no lung mass. ASSESSMENT AND PLAN: This is a morbidly obese uncontrolled diabetic male who has had multiple cardiac events in the past. He now has severe coronary disease. On his cath films, his ejection fraction is severely diminished. He has visualized on his films. From a surgical standpoint, bypassable targets include the ramus and posterior descending artery. There may be an OM, I cannot tell for sure. I do not think there is any left anterior diagonal or diagonal bypassable target. This is problematic as from a survival benefit. There is really no survival benefit to doing bypass, but for relief of his congestive failure and chest pain, we may be able to help him. I would like to recheck an echo next week. We will see kind of where things land from an ejection fraction standpoint after his most recent event and proceed from there. I have had a very sheridan discussion with him about the difficulties of recovering from surgery with his weight and size. We discussed sternal healing problems with his weight and size, and the question of utility of surgery and his anatomic situation. He is also at risk for needing balloon pump to come off bypass with the way his ventricle looks. We will reassess his situation as time goes and make some decisions along with him. Job ID: [id number]
[2019-05-04] MEDS: Levothyroxine Sodium 100 MCG TAB PO SCH (05:31)
[2019-05-04] MEDS: Atenolol 25 MG TAB PO SCH (08:33)
[2019-05-04] MEDS: Allopurinol 300 MG TAB PO SCH (08:34)
[2019-05-04] MEDS: Digoxin 0.25 MG TAB PO SCH (08:34)
[2019-05-04] MEDS: clonazePAM 1 MG TAB PO SCH (08:34)
[2019-05-04] MEDS: Furosemide 40 MG TAB PO SCH ×2 (08:34→16:03)
[2019-05-04] MEDS: Aspirin 325 mg Enteric Coated Tablet PO SCH (08:35)
[2019-05-04] MEDS: Nitroglycerin 0.2mg/Hour PATCH TOP SCH (08:35)
[2019-05-04] MEDS: Lisinopril 20 MG TAB PO SCH (08:35)
[2019-05-04] MEDS ORDERED: Insulin Glargine 50 UNITS in Pre-Filled Syringe 1 EACH SC SCH (09:00)
[2019-05-04] MEDS: HumaLOG 300 UNITS/3 ML VIAL SC PRN ×3 (12:14→21:41)
--- NOTE | 2019-05-04 15:37 | PDOC.HOSPP ---
- Subjective Subjective: Seen and examined. Ungergoing repeat Echo this AM. Family at bedside able to aid in history. Denies chest pain at this time. Breathing better. - Objective Vital Signs & Weight: Vital Signs (12 hours) Temp Pulse Pulse Pulse Resp BP BP 05/04/19 14:01 61 61 138/73 169/74 H 05/04/19 12:08 97.4 F L 57 L 15 05/04/19 08:34 63 05/04/19 08:28 97.5 F L 63 16 05/04/19 08:00 05/04/19 03:58 98.0 F 56 L 18 BP BP Pulse Ox 05/04/19 14:01 05/04/19 12:08 161/70 H 96 05/04/19 08:34 05/04/19 08:28 141/74 H 95 05/04/19 08:00 95 05/04/19 03:58 104/54 L 97 Weight Weight 305 lb 12.8 oz I&O: 05/03/19 05/04/19 05/05/19 06:59 06:59 06:59 Intake Total 1090 50 Output Total 1700 Balance -610 50 Result Diagrams: 05/03/19 05:15 05/03/19 05:15 Additional Labs: Accuchecks 05/04/19 05/03/19 05/03/19 11:14 20:31 16:55 POC Glucose 305 H 338 H 315 H ROS - Medication Medications: Active Medications Generic Name Dose Route Start Last Admin Trade Name Freq PRN Reason Stop Dose Admin Allopurinol 150 mg 05/02/19 09:00 05/04/19 08:34 Zyloprim PO 150 mg DAILY ALESIA Administration Aspirin 325 mg 05/02/19 09:00 05/04/19 08:35 Ecotrin PO 325 mg DAILY ALESIA Administration Atenolol 25 mg 05/02/19 09:00 05/04/19 08:33 Tenormin PO 25 mg DAILY ALESIA Administration Clonazepam 1 mg 05/01/19 21:00 05/04/19 08:34 Klonopin PO 1 mg BID ALESIA Administration Digoxin 0.25 mg 05/02/19 09:00 05/04/19 08:34 Lanoxin PO 0.25 mg DAILY ALESIA Administration Furosemide 40 mg 05/03/19 14:00 05/04/19 08:34 Lasix PO 40 mg 0900,1400 ALESIA Administration Insulin Glargine 50 units/ 0.5 mls @ 0 mls/hr 05/04/19 09:00 05/04/19 08:36 Miscellaneous Medication SC 0.5 mls QAM ALESIA Administration Insulin Human Lispro 0 units 05/02/19 12:10 05/04/19 12:14 Humalog SC 11 unit .AGGRESSIVE SLIDING PRN Administration Aggressive Correctional Scale Insulin Human Lispro 0 units 05/03/19 20:36 05/03/19 20:44 Humalog SC 4 unit .BEDTIME SLIDING SC PRN Administration Bedtime Correctional Scale Levothyroxine Sodium 100 mcg 05/02/19 06:00 05/04/19 05:31 Synthroid PO 100 mcg 0600 ALESIA Administration Lisinopril 40 mg 05/02/19 09:00 05/04/19 08:35 Zestril PO 40 mg DAILY ALESIA Administration Nitroglycerin 0.2 mg 05/02/19 09:00 05/04/19 08:35 Nitro-Dur Patch TOP 0.2 mg DAILY ALESIA Administration Pantoprazole Sodium 40 mg 05/02/19 09:00 05/04/19 08:35 Protonix PO 40 mg DAILY ALESIA Administration Sodium Chloride 10 ml 05/01/19 21:00 05/04/19 08:36 Flush - Normal Saline IVF 10 ml Q12HR ALESIA Administration - Exam NAD, awake alert Eye: PERRL Eye - other findings: EOMI ENT: normocephalic atraumatic, no oropharyngeal lesions Neck: supple, no JVD Heart: no gallops, no rubs Heart - other findings: S1 and S2 present, no murmur appreciated Respiratory: CTAB, no wheezes, no rales, no ronchi Respiratory - other findings: Decreased breath sounds secondary to body habitus Gastrointestinal: soft, non-tender, non-distended, normal bowel sounds Extremities: no cyanosis Neurological: CN's grossly intact, normal sensation to touch, no focal deficits , no new deficit Psychiatric: A&O x 3, somnolent Hosp A/P - Plan old records reviewed/req Plan: CVT surgery following, recommendations appreciated Echo repeat, pending With symptomatic multi vessel disease patient is open to options and discussing with surgery Patient with elevated BMI will be elevated risk CXR to monitor for volume overload CHF regimen: -Carvedilol 6.25 mg BID -Lasix 40mg BID -Lisinopril 40mg daily Atenolol - D/c DM regimen: -Lantus 27 units BID - increased and change to BID dosing -ISS - High/ aggressive GI PPX DVT PPX
--- NOTE | 2019-05-04 19:01 | RAD ---
PORTABLE CHEST 1 VIEW: Date: 05/04/19 Time: 1816 hours HISTORY: Shortness of breath. FINDINGS: The heart size is normal. The lungs are expanded without focal areas of consolidation, pneumothoraces , or pleural effusions. IMPRESSION: No radiographic evidence of acute cardiopulmonary process. POS: RENATAA
[2019-05-04] MEDS: clonazePAM 1 MG TAB PO PRN (20:24)
[2019-05-04] MEDS: Insulin Glargine 27 UNITS in Pre-Filled Syringe 1 EACH SC SCH (21:40)
[2019-05-05] MEDS: Lisinopril 20 MG TAB PO SCH (08:31)
[2019-05-05] MEDS: Carvedilol 6.25 MG TAB PO SCH ×2 (08:31→17:31)
[2019-05-05] MEDS: Insulin Glargine 27 UNITS in Pre-Filled Syringe 1 EACH SC SCH (08:31)
[2019-05-05] MEDS: Furosemide 40 MG TAB PO SCH ×2 (08:31→13:51)
[2019-05-05] MEDS: Digoxin 0.25 MG TAB PO SCH (08:32)
[2019-05-05] MEDS: Allopurinol 300 MG TAB PO SCH (08:32)
[2019-05-05] MEDS: Aspirin 325 mg Enteric Coated Tablet PO SCH (08:32)
[2019-05-05] MEDS: Levothyroxine Sodium 100 MCG TAB PO SCH (08:32)
[2019-05-05] MEDS: Nitroglycerin 0.2mg/Hour PATCH TOP SCH (08:35)
[2019-05-05] MEDS: HumaLOG 300 UNITS/3 ML VIAL SC PRN ×4 (08:35→21:46)
--- NOTE | 2019-05-05 13:34 | PDOC.HOSPP ---
- Subjective Subjective: Seen and examined. Clinically improving. Slept well on CPAP. Satting well off supplemental O2. No LE edema. at bedside, questions were asked and all were answered. - Objective Vital Signs & Weight: Vital Signs (12 hours) Temp Pulse Pulse Resp BP BP BP 05/05/19 12:00 98.1 F 68 18 129/79 05/05/19 10:53 66 145/77 H 05/05/19 08:32 64 05/05/19 07:46 97.6 F 64 18 118/61 05/05/19 04:00 97.7 F 68 20 115/66 05/05/19 03:10 Pulse Ox 05/05/19 12:00 64 L 05/05/19 10:53 05/05/19 08:32 05/05/19 07:46 95 05/05/19 04:00 97 05/05/19 03:10 97 Weight Weight 310 lb 4.8 oz I&O: 05/04/19 05/05/19 05/06/19 06:59 06:59 06:59 Intake Total 50 2380 Output Total 1700 Balance 50 680 Result Diagrams: 05/03/19 05:15 05/03/19 05:15 Additional Labs: Accuchecks 05/05/19 05/05/19 05/04/19 10:53 05:34 20:19 POC Glucose 268 H 309 H 313 H 05/04/19 05/04/19 16:44 05:21 POC Glucose 317 H 221 H Radiology Reviewed by me: Yes (Chest x ray) ROS - Medication Medications: Active Medications Generic Name Dose Route Start Last Admin Trade Name Freq PRN Reason Stop Dose Admin Allopurinol 150 mg 05/02/19 09:00 05/05/19 08:32 Zyloprim PO 150 mg DAILY ALESIA Administration Aspirin 325 mg 05/02/19 09:00 05/05/19 08:32 Ecotrin PO 325 mg DAILY ALESIA Administration Carvedilol 6.25 mg 05/05/19 08:00 05/05/19 08:31 Coreg PO 6.25 mg BID-WM ALESIA Administration Clonazepam 1 mg 05/04/19 15:45 05/04/19 20:24 Klonopin PO 1 mg BID PRN Administration Anxiety Digoxin 0.25 mg 05/02/19 09:00 05/05/19 08:32 Lanoxin PO 0.25 mg DAILY ALESIA Administration Furosemide 40 mg 05/03/19 14:00 05/05/19 08:31 Lasix PO 40 mg 0900,1400 ALESIA Administration Insulin Human Lispro 0 units 05/02/19 12:10 05/05/19 12:09 Humalog SC 9 unit .AGGRESSIVE SLIDING PRN Administration Aggressive Correctional Scale Insulin Human Lispro 0 units 05/03/19 20:36 05/04/19 21:41 Humalog SC 4 unit .BEDTIME SLIDING SC PRN Administration Bedtime Correctional Scale Levothyroxine Sodium 100 mcg 05/02/19 06:00 05/05/19 08:32 Synthroid PO 100 mcg 0600 ALESIA Administration Lisinopril 40 mg 05/02/19 09:00 05/05/19 08:31 Zestril PO 40 mg DAILY ALESIA Administration Nitroglycerin 0.2 mg 05/02/19 09:00 05/05/19 08:35 Nitro-Dur Patch TOP 0.2 mg DAILY ALESIA Administration Pantoprazole Sodium 40 mg 05/02/19 09:00 05/05/19 08:32 Protonix PO 40 mg DAILY LAESIA Administration Sodium Chloride 10 ml 05/01/19 21:00 05/05/19 08:38 Flush - Normal Saline IVF Not Given Q12HR ALESIA - Exam NAD, awake alert Eye: PERRL, anicteric sclera Eye - other findings: EOMI ENT: moist mucosa Neck: supple, symmetric Heart: RRR, no murmur, no gallops, no rubs Respiratory: CTAB, no wheezes, no rales, no ronchi, normal chest expansion Gastrointestinal: soft, non-tender, non-distended, no guarding, no rigidity Extremities: no edema Neurological: CN's grossly intact, no weakness, no focal deficits Musculoskeletal: normal tone, no muscle wasting Psychiatric: normal affect, A&O x 3 Hosp A/P - Plan Plan: CVT surgery following, recommendations appreciated Echo repeat, noted with improving EF now 35-40% With symptomatic multi vessel disease patient is open to options and discussing with surgery Patient with elevated BMI will be elevated risk CXR negative for acute CHF CHF regimen: -Carvedilol 6.25 mg BID -Lasix 40mg BID -Lisinopril 40mg daily Atenolol - D/c DM regimen: -Lantus 32 units BID - increased again -ISS - High/ aggressive GI PPX DVT PPX
[2019-05-05] MEDS: clonazePAM 1 MG TAB PO PRN (19:27)
[2019-05-05] MEDS ORDERED: Insulin Glargine 30 UNITS in Pre-Filled Syringe 1 EACH SC SCH (21:00)
[2019-05-05] MEDS: Insulin Glargine 32 UNITS in Pre-Filled Syringe 1 EACH SC SCH (21:42)
[2019-05-06] MEDS: Levothyroxine Sodium 100 MCG TAB PO SCH (05:51)
[2019-05-06] MEDS: clonazePAM 1 MG TAB PO PRN ×2 (07:18→20:08)
[2019-05-06] MEDS: Carvedilol 6.25 MG TAB PO SCH ×2 (09:38→16:41)
[2019-05-06] MEDS: Lisinopril 20 MG TAB PO SCH (09:38)
[2019-05-06] MEDS: Aspirin 325 mg Enteric Coated Tablet PO SCH (09:38)
[2019-05-06] MEDS: Furosemide 40 MG TAB PO SCH ×2 (09:39→14:39)
[2019-05-06] MEDS: Nitroglycerin 0.2mg/Hour PATCH TOP SCH (09:39)
[2019-05-06] MEDS: HumaLOG 300 UNITS/3 ML VIAL SC PRN ×3 (09:39→17:02)
[2019-05-06] MEDS: Digoxin 0.25 MG TAB PO SCH (09:39)
[2019-05-06] MEDS: Allopurinol 300 MG TAB PO SCH (09:39)
[2019-05-06] MEDS: Insulin Glargine 32 UNITS in Pre-Filled Syringe 1 EACH SC SCH (09:42)
[2019-05-06] MEDS ORDERED: Insulin Glargine 40 UNITS in Pre-Filled Syringe 1 EACH SC SCH ×2 (10:40→11:00)
[2019-05-06] MEDS ORDERED: Communication Order-Pharmacy FS SCH (10:49)
[2019-05-06] MEDS ORDERED: Insulin Glargine 8 UNITS in Pre-Filled Syringe 1 EACH SC SCH (11:30)
--- NOTE | 2019-05-06 12:11 | PDOC.HOSPP ---
- Subjective Subjective: Seen and examined. Clinically improving. Breathing comfortable. Walking laps around the rosales. No chest discomfort this AM. Patient discussing options with surgery. - Objective Vital Signs & Weight: Vital Signs (12 hours) Temp Pulse Resp BP Pulse Ox 05/06/19 09:39 66 05/06/19 07:31 97.5 F L 66 17 143/82 H 94 L 05/06/19 02:18 95 Weight Weight 311 lb 2 oz I&O: 05/05/19 05/06/19 05/07/19 06:59 06:59 06:59 Intake Total 2380 2560 Output Total 1700 800 Balance 680 1760 Result Diagrams: 05/03/19 05:15 05/03/19 05:15 Additional Labs: Accuchecks 05/06/19 05/05/19 05/05/19 05:38 20:23 17:06 POC Glucose 214 H 317 H 211 H ROS - Medication Medications: Active Medications Generic Name Dose Route Start Last Admin Trade Name Freq PRN Reason Stop Dose Admin Allopurinol 150 mg 05/02/19 09:00 05/06/19 09:39 Zyloprim PO 150 mg DAILY ALESIA Administration Aspirin 325 mg 05/02/19 09:00 05/06/19 09:38 Ecotrin PO 325 mg DAILY ALESIA Administration Carvedilol 6.25 mg 05/05/19 08:00 05/06/19 09:38 Coreg PO 6.25 mg BID-WM ALESIA Administration Clonazepam 1 mg 05/04/19 15:45 05/06/19 07:18 Klonopin PO 1 mg BID PRN Administration Anxiety Digoxin 0.25 mg 05/02/19 09:00 05/06/19 09:39 Lanoxin PO 0.25 mg DAILY ALESIA Administration Furosemide 40 mg 05/03/19 14:00 05/06/19 09:39 Lasix PO 40 mg 0900,1400 ALESIA Administration Insulin Human Lispro 0 units 05/02/19 12:10 05/06/19 09:39 Humalog SC 6 unit .AGGRESSIVE SLIDING PRN Administration Aggressive Correctional Scale Insulin Human Lispro 0 units 05/03/19 20:36 05/05/19 21:46 Humalog SC 4 unit .BEDTIME SLIDING SC PRN Administration Bedtime Correctional Scale Levothyroxine Sodium 100 mcg 05/02/19 06:00 05/06/19 05:51 Synthroid PO 100 mcg 0600 ALESIA Administration Lisinopril 40 mg 05/02/19 09:00 05/06/19 09:38 Zestril PO 40 mg DAILY ALESIA Administration Nitroglycerin 0.2 mg 05/02/19 09:00 05/06/19 09:39 Nitro-Dur Patch TOP 0.2 mg DAILY ALESIA Administration Pantoprazole Sodium 40 mg 05/02/19 09:00 05/06/19 09:38 Protonix PO 40 mg DAILY ALESIA Administration Sodium Chloride 10 ml 05/01/19 21:00 05/06/19 09:43 Flush - Normal Saline IVF 10 ml Q12HR ALESIA Administration - Exam NAD, awake alert Eye: PERRL, anicteric sclera ENT: moist mucosa Neck: supple, no JVD Heart: RRR, no murmur, no gallops, no rubs Heart - other findings: Distant heart sounds secondary to body habitus Respiratory: no wheezes, no rales, no ronchi Respiratory - other findings: Deminished breath sounds secondary to body habitus Gastrointestinal: soft, non-tender, non-distended, normal bowel sounds, no guarding, no rigidity Gastrointestinal - other findings: Elevated BMI Extremities: 1+ LE edema Skin: no lesions Neurological: CN's grossly intact, normal sensation to touch, no focal deficits Musculoskeletal: normal strength Psychiatric: normal affect, A&O x 3 Hosp A/P - Plan Plan: CVT surgery following, recommendations appreciated Echo repeat, noted with improving EF now 35-40% With symptomatic multi vessel disease patient is open to options and discussing with surgery Patient with elevated BMI will be elevated risk CXR negative for acute CHF CHF regimen: -Carvedilol 6.25 mg BID -Lasix 40mg BID -Lisinopril 40mg daily Atenolol - D/c DM regimen: -Lantus 32 units BID - blood sugars now in the low 200's, still spikes with meals -ISS - High/ aggressive GI PPX DVT PPX
[2019-05-06] MEDS: Insulin Glargine 40 UNITS in Pre-Filled Syringe 1 EACH SC SCH ×2 (20:08→21:37)
[2019-05-07] MEDS ORDERED: CEFAZOLIN 2 GM in Premix Bag 1 BAG IVPB SCH (02:30)
[2019-05-07] MEDS: Lisinopril 20 MG TAB PO SCH (05:34)
[2019-05-07] MEDS: Carvedilol 6.25 MG TAB PO SCH (05:34)
[2019-05-07] MEDS: Levothyroxine Sodium 100 MCG TAB PO SCH (05:34)
[2019-05-07] MEDS ORDERED: ceFAZolin Sodium (SDC) 2 GM/100 ML BAG ONE (08:36)
[2019-05-07] MEDS ORDERED: Heparin 10,000 UNITS/1 ML VIAL 30,000 UNITS in Sodium Chloride 0.9% 1,000 ML FS SCH (08:45)
[2019-05-07] MEDS ORDERED: Dexamethasone 4 mg/ml Vial ONE (08:52)
[2019-05-07] MEDS ORDERED: Bupivacaine HCl 0.5%/Epinephrine 1:200,000/PF 30 ml Vial ONE (08:52)
[2019-05-07] MEDS ORDERED: Albumin 5% 500 ML ONE ×2 (08:52→20:42)
[2019-05-07] MEDS ORDERED: Fentanyl 250 MCG/5 ML VIAL ONE ×3 (09:01→19:33)
[2019-05-07] MEDS ORDERED: Midazolam HCl 5 mg/5 ml Vial ONE ×2 (09:01→19:33)
[2019-05-07] MEDS ORDERED: Norepinephrine 4 MG/4 ML VIAL ONE ×3 (09:02→19:34)
[2019-05-07] MEDS ORDERED: Milrinone 10 MG/10 ML VIAL ONE (09:02)
[2019-05-07] MEDS ORDERED: Insulin Regular 300 UNITS/3 ML VIAL ONE (09:19)
[2019-05-07] MEDS ORDERED: Aminocaproic Acid 5 GM/20 ML VIAL ONE (11:31)
[2019-05-07] MEDS ORDERED: PHENYLEPHRINE-NS 100 MCG/ML 10 ML SYRINGE ONE (11:31)
[2019-05-07] MEDS ORDERED: Mannitol 12.5 GM/50 ML ONE (11:31)
[2019-05-07] MEDS ORDERED: Heparin 5,000 UNITS/ML VIAL ONE (11:31)
[2019-05-07] MEDS ORDERED: Protamine Sulfate 250 MG/25 ML VIAL ONE (11:31)
[2019-05-07] MEDS ORDERED: Thrombin 5000 UNITS/5 ML VIAL ONE (11:31)
[2019-05-07] MEDS ORDERED: Calcium Chloride 1 GM/10 ML Abboject SYRINGE ONE (11:31)
[2019-05-07] MEDS ORDERED: Cardioplegic Soln 1,000 ML BAG ONE (11:31)
[2019-05-07] MEDS ORDERED: Lidocaine 1% PF 5 ML VIAL ONE (11:31)
[2019-05-07] MEDS ORDERED: Magnesium 5 GM/10 ML VIAL ONE (11:31)
[2019-05-07] MEDS ORDERED: Rocuronium Bromide 10 MG/ML (10ML VIAL) ONE (11:31)
[2019-05-07] MEDS ORDERED: ePHEDrine 50 MG/ML VIAL ONE (11:31)
[2019-05-07] MEDS ORDERED: Sodium Bicarb 50 MEQ/50 ML VIAL ONE (11:31)
[2019-05-07] MEDS ORDERED: Potassium Chloride 60 MEQ/30 ML VIAL ONE (11:31)
[2019-05-07] MEDS ORDERED: Heparin 30,000 units/30 ml VIAL ONE (11:31)
[2019-05-07] MEDS ORDERED: Papaverine 60 MG/2 ML VIAL ONE (11:31)
[2019-05-07] MEDS ORDERED: Lidocaine 2% PF 100 mg/5 ml Syringe ONE (11:31)
[2019-05-07] MEDS ORDERED: Protamine Sulfate 50 MG/5 ML VIAL ONE (12:46)
--- NOTE | 2019-05-07 12:46 | PDOC.HOSPP ---
- Subjective Subjective: Seen and examined. Going for CABG this AM. resting in bed comfortably. Clinically unchanged. - Objective Vital Signs & Weight: Vital Signs (12 hours) Temp Pulse Resp BP BP Pulse Ox 05/07/19 05:34 117/59 L 05/07/19 03:35 97.7 F 60 18 117/59 L 95 Weight Weight 311 lb I&O: 05/06/19 05/07/19 05/08/19 06:59 06:59 06:59 Intake Total 2560 2410 Output Total 800 Balance 1760 2410 Result Diagrams: 05/03/19 05:15 05/03/19 05:15 Additional Labs: Accuchecks 05/07/19 05/07/19 05/07/19 12:28 12:06 11:20 POC Glucose 177 H 178 H 175 H 05/07/19 05/07/19 05/06/19 10:05 05:29 21:09 POC Glucose 221 H 230 H 291 H 05/06/19 05/06/19 16:50 10:58 POC Glucose 251 H 227 H ROS - Medication Medications: Active Medications Generic Name Dose Route Start Last Admin Trade Name Freq PRN Reason Stop Dose Admin Allopurinol 150 mg 05/02/19 09:00 05/06/19 09:39 Zyloprim PO 150 mg DAILY ALESIA Administration Aspirin 325 mg 05/02/19 09:00 05/06/19 09:38 Ecotrin PO 325 mg DAILY ALESIA Administration Carvedilol 6.25 mg 05/05/19 08:00 05/07/19 05:34 Coreg PO 6.25 mg BID-WM ALESIA Administration Clonazepam 1 mg 05/04/19 15:45 05/06/19 20:08 Klonopin PO 1 mg BID PRN Administration Anxiety Digoxin 0.25 mg 05/02/19 09:00 05/06/19 09:39 Lanoxin PO 0.25 mg DAILY ALESIA Administration Furosemide 40 mg 05/03/19 14:00 05/06/19 14:39 Lasix PO 40 mg 0900,1400 ALESIA Administration Insulin Glargine 40 units/ 0.4 mls @ 0 mls/hr 05/06/19 21:00 05/06/19 21:37 Miscellaneous Medication SC 0.4 mls BID ALESIA Administration As Directed Insulin Human Lispro 0 units 05/02/19 12:10 05/06/19 17:02 Humalog SC 9 unit .AGGRESSIVE SLIDING PRN Administration Aggressive Correctional Scale Insulin Human Lispro 0 units 05/03/19 20:36 05/05/19 21:46 Humalog SC 4 unit .BEDTIME SLIDING SC PRN Administration Bedtime Correctional Scale Levothyroxine Sodium 100 mcg 05/02/19 06:00 05/07/19 05:34 Synthroid PO Not Given 0600 ALESIA Lisinopril 40 mg 05/02/19 09:00 05/07/19 05:34 Zestril PO 40 mg DAILY ALESIA Administration Nitroglycerin 0.2 mg 05/02/19 09:00 05/06/19 09:39 Nitro-Dur Patch TOP 0.2 mg DAILY ALESIA Administration Pantoprazole Sodium 40 mg 05/02/19 09:00 05/06/19 09:38 Protonix PO 40 mg DAILY ALESIA Administration Sodium Chloride 10 ml 05/06/19 21:00 05/06/19 20:13 Flush - Normal Saline IVF Not Given Q12HR ALESIA - Exam NAD, awake alert Eye: anicteric sclera Eye - other findings: EOMI ENT: normocephalic atraumatic, dry oral mucosa Neck: supple, no JVD Heart: RRR, no murmur, no rubs Respiratory: CTAB, no wheezes, no rales Respiratory - other findings: Faint breath sounds Gastrointestinal: soft, non-tender, no guarding, no rigidity Extremities: 1+ LE edema Skin: no rashes Neurological: CN's grossly intact, no weakness, no focal deficits, no new deficit Musculoskeletal: normal strength Psychiatric: normal affect, A&O x 3 Hosp A/P - Plan Plan: CABG this AM Pulm/ CC consult, recommendations appreciated Post op care/ drip management CVT surgery following, recommendations appreciated Echo repeat, noted with improving EF now 35-40% With symptomatic multi vessel disease patient is open to options and discussing with surgery Patient with elevated BMI will be elevated risk CHF regimen: -Carvedilol 6.25 mg BID -Lasix 40mg BID -Lisinopril 40mg daily Atenolol - D/c DM regimen: -Lantus 40 units BID -ISS - High/ aggressive GI PPX DVT PPX
[2019-05-07] MEDS ORDERED: HYDROcodone/Acetaminophen 5/325 mg Tablet PO PRN ×2 (13:48)
[2019-05-07] MEDS ORDERED: Bisacodyl 10 MG SUPP PR PRN (13:48)
[2019-05-07] MEDS ORDERED: Mag-Al 1200 mg/1200 mg/30 ML UDCUP PO PRN (13:48)
[2019-05-07] MEDS ORDERED: Norepinephrine 8 MG/0.9% NS 250 ML IVPB PRN (13:48)
[2019-05-07] MEDS ORDERED: Hetastarch 6% 500 ML 500 ML IVPB PRN (13:48)
[2019-05-07] MEDS ORDERED: hydrALAZINE 20 MG/ML VIAL SLOW IVP PRN (13:48)
[2019-05-07] MEDS ORDERED: Fentanyl 100 MCG/2 ML VIAL SLOW IVP PRN (13:48)
[2019-05-07] MEDS ORDERED: Guaifenesin DM 100-10/5 ML UDCUP PO PRN (13:48)
[2019-05-07] MEDS ORDERED: Potassium Chloride 20 MEQ/100 ML PREMIX BAG IVPB PRN (13:48)
[2019-05-07] MEDS ORDERED: Bisacodyl 5 MG TAB PO PRN (13:48)
[2019-05-07] MEDS ORDERED: Magnesium 2 GM/50 ML 2 GM in Premix Bag 1 BAG IVPB SCH (13:48)
[2019-05-07] MEDS ORDERED: Post-Op Insulin Drip Protocol IVPB ONE (13:48)
[2019-05-07] MEDS ORDERED: Promethazine HCl 25 MG/ML VIAL IM PRN (13:48)
[2019-05-07] MEDS ORDERED: Nitroglycerin 50 MG/250 ML BOT 250 ML IVPB PRN (13:48)
[2019-05-07] MEDS ORDERED: Nitroglycerin 0.4 MG TAB (25 Tab Bottle) ONE (14:16)
[2019-05-07] MEDS ORDERED: Dextrose 5% in Water 1,000 ML IV PRN (14:17)
[2019-05-07] MEDS ORDERED: Dextrose 50% Abboject 50 ML SYRINGE SLOW IVP PRN (14:17)
[2019-05-07] MEDS ORDERED: Nitroglycerin 50 MG/250 ML BOT 250 ML ONE ×2 (14:17→19:34)
[2019-05-07 14:23] LABS: #Eosinphils 0.2 thou/uL (0.0-0.7); #Lymphocytes 2.9 thou/uL (1.20-3.40); #Monocytes 0.5 thou/uL (0.11-0.59); #Neutrophils 10.8 thou/uL (1.40-6.50); %Basophils 0.2 % (0.0-1.0); %Eosinophils 1.3 % (0.0-10.0); %Lymphocytes 20.1 % (21.0-51.0); %Monocytes 3.3 % (0.0-10.0); Hemoglobin 14.2 g/dL (14.0-18.0); Mean Corpuscular HGB CONC 34.4 g/dL (32.0-36.0); Mean Corpuscular Hemoglobin 29.3 pg (27.0-31.0); Mean Corpuscular Volume 85.2 fL (78.0-98.0); Mean Platelet Volume 8.6 fL (7.4-10.4); Platelet Count 131 thou/uL (130-400); RBC Distribution Width 12.6 % (11.5-14.5); Red Blood Cell (RBC) Count 4.84 mill/uL (4.70-6.10); White Blood Cell (WBC) Count 14.5 thou/uL (4.8-10.8)
[2019-05-07 14:31] LABS: INR-International Normal Ratio 1.2; PTT 39.3 SEC (22.9-36.1); Prothrombin Time 15.6 SEC (12.0-14.7)
[2019-05-07 14:37] LABS: Anion Gap 14 mmol/L (10-20); BUN (Urea Nitrogen) 16 mg/dL (8.4-25.7); Calc. Creatinine Clearance 119 mL/min (70-130); Carbon Dioxide 22 mmol/L (23-31); Chloride 104 mmol/L (98-107); Estimated GFR-MDRD 64; Potassium 3.9 mmol/L (3.5-5.1); Sodium 136 mmol/L (136-145)
[2019-05-07 14:38] LABS: Calcium 8.1 mg/dL (7.8-10.44); Glucose 151 mg/dL (83-110)
[2019-05-07] MEDS: Fentanyl 100 MCG/2 ML VIAL SLOW IVP PRN ×2 (14:43→18:20)
[2019-05-07] MEDS: D5 1/2 NS w/20 mEq KCL 1,000 ML IV SCH (14:45)
[2019-05-07] MEDS: Morphine 4 MG/ML VIAL ONE ×3 (14:55→15:47)
[2019-05-07] MEDS: HUMULIN R 100 UNITS in Sodium Chloride 0.9% 100 ML IVPB SCH (14:56)
[2019-05-07 15:14] LABS: Actual Bicarbonate (HCO3a) 21.7 mEq/L (22-28); Base Excess (BEa) -3.2 mEq/L (-2.0 to +3.0); CO2 Tension 38.6 mmHg (35.0-45.0); Calcium, Ionized 1.03 mmol/L (1.12-1.30); Carboxyhemoglobin (COHb) 1.6 gm% (0.0-3.0); O2 Tension (PaO2) 166.6 mmHg (> 70.0); Potassium - ABG Lab 3.46 mmol/L (3.70-5.30); pH, Arterial 7.37 (7.35-7.45)
[2019-05-07 15:15] LABS: Puncture Site ALINE
--- NOTE | 2019-05-07 15:40 | RAD ---
RADIOGRAPH CHEST 1 VIEW: DATE: 05/07/2019 TIME: 2:00 PM HISTORY: 73-year-old male status post open heart surgery COMPARISON: 05/04/2019 FINDINGS: New findings of widening of mediastinum, endotracheal tube at mid thoracic trachea, sternotomy wires, and right subclavian central line overlying the SVC/right atrial junction and 2 paramedian chest tubes ascending from below overlying right and left cardiac shadows. No pneumothorax or pulmonary diana ma. No gross consolidation. Lateral costophrenic angles are sharp. IMPRESSION: Recently status post open heart surgery with life support lines as listed above.
[2019-05-07] MEDS: CEFAZOLIN 2 GM in Premix Bag 1 BAG IVPB SCH (17:59)
[2019-05-07] MEDS: Ketorolac Tromethamine 30 MG/ML VIAL IVP SCH ×2 (18:14→23:03)
[2019-05-07] MEDS ORDERED: Propofol 1,000 MG/100 ML VIAL IV ONE (19:17)
[2019-05-07] MEDS ORDERED: Heparin 10,000 UNITS/1 ML VIAL 30,000 UNITS in Sodium Chloride 0.9% 1,000 ML IVPB SCH (19:30)
[2019-05-07] MEDS ORDERED: Phenylephrine HCL 10 MG/ML VIAL ONE (19:34)
[2019-05-07 19:38] LABS: Hemoglobin 10.7 g/dL (14.0-18.0)
[2019-05-07 19:46] LABS: Potassium 3.1 mmol/L (3.5-5.1)
[2019-05-07 20:03] LABS: INR-International Normal Ratio 1.4; PTT 46.4 SEC (22.9-36.1); Prothrombin Time 16.9 SEC (12.0-14.7)
--- NOTE | 2019-05-07 20:45 | OP ---
DATE OF PROCEDURE: 05/07/2019 PREOPERATIVE DIAGNOSES: Coronary artery disease/status post myocardial infarction/severely depressed left ventricular ejection fraction/hypertension/dyslipidemia/morbid obesity/diabetes mellitus. POSTOPERATIVE DIAGNOSES: Coronary artery disease/status post myocardial infarction/severely depressed left ventricular ejection fraction/hypertension/dyslipidemia/morbid obesity/diabetes mellitus. PROCEDURES PERFORMED: Coronary artery bypass grafting x3; 1. Left internal mammary artery 2.5 mm distal LAD at the apex - good conduit target. Note, the apex was infarcted, thinned, and there was no viable muscle on the left ventricular apical area of the heart. 2. Reverse saphenous vein to 2.0 mm diffusely diseased, heavily calcified OM. 3. Reverse saphenous vein to 2.0 mm diffusely diseased, heavily calcified PDA. Note, I would not redo this patient under any circumstance. WOODWORKING BENCH CARPENTER SURGEON: Dr. Eusebio Sahni. ANESTHESIA: General endotracheal - Dr. Ger Zamora. PUMP TIME: 62 minutes. CROSS-CLAMP TIME: 32 minutes. LOW CORE TEMPERATURE: 34-degree Celsius. SOLAR INSTALLATION SUPERVISOR: Raysa Lawson. DRAINS: 24-Nigerian chest tubes x2. DRIPS: Levophed at 5 mcg. TRANSFUSIONS: None. DESCRIPTION OF PROCEDURE: After consent was obtained, the patient was brought to the operating room, placed in supine position on the operating room table. Appropriate central line and monitors were placed, and general endotracheal anesthesia was induced. Chest and legs were prepped and draped in usual sterile fashion. Greater saphenous vein was harvested from the left lower extremity utilizing an endoscopic technique. Wound was irrigated and closed in layers. Median sternotomy was performed. Left internal mammary artery was harvested as a pedicle graft. The patient was systemically heparinized. Distal pedicle was divided and infused with papaverine. Thymic fat and pericardium were divided with electrocautery. Pericardial stay sutures were placed. Aortic and atrial cannulations were performed. After adequate heparinization, retrograde prime was performed. The patient was placed on cardiopulmonary bypass. Distal targets were marked. Aortic cross-clamp was applied. An antegrade sanguineous cardioplegic arrest was obtained. 1 L of antegrade cold [place] cardioplegia was given. Topical cold solution was used. Reverse saphenous vein was anastomosed to the PDA in end-to-side fashion 7-0 Prolene suture. Anastomosis was tested and was hemostatic. Reverse saphenous vein was anastomosed to the OM in end-to-side fashion with running 7-0 Prolene suture. Anastomosis was tested and was hemostatic. Mammary artery was brought through a window in the pericardium and anastomosed to distal LAD in end-to-side fashion with running 7-0 Prolene suture. On release of mammary clamps, there were good hooding of anastomosis and good distal flow. Pedicle was secured with interrupted 6-0 Prolene suture. Cross-clamp was removed, and partial occluding clamp was placed. Saphenous veins were anastomosed to individual punch sites on the aorta with running 6-0 Prolene suture. Partial-occluding clamp was removed. Dital anastomoses were inspected for hemostasis, which was good. The patient was warmed and weaned from cardiopulmonary bypass. After resumption of sinus rhythm, good hemodynamics, temperature greater than 36.5, bypass was discontinued. Transfusion was given. Protamine was administered. Decannulation was performed, and pursestring suture was secured. 24-Nigerian chest tubes x2 were placed in the mediastinum. Sternum was treated with vancomycin paste. After adequate hemostasis had been obtained, sternum was closed with #7 wire, 3 in the manubrium, 1 in the distal sternum, and 4 zip ties in the body of the sternum. Sternum was treated with platelet-rich plasma, and wires were twisted. Zip ties were tightened and cut. Wound was irrigated and treated with platelet poor plasma and closed in multiple layers. Needle, sponge, and instrument counts were all reported as correct at the end of the procedure. The patient tolerated the procedure well, was transferred to the intensive care unit in stable, but critical condition. Job ID: [id number]
[2019-05-07] MEDS ORDERED: Ventilator Sedation Protocol 1 EACH FS SCH (21:36)
[2019-05-07] MEDS ORDERED: Lorazepam 2 MG/ML VIAL SLOW IVP PRN (21:43)
[2019-05-07] MEDS ORDERED: Propofol BOLUS 1,000 MG/100 ML VIAL IV PRN (21:43)
[2019-05-07] MEDS ORDERED: Fentanyl BOLUS 250 ML IVPB PRN (21:43)
[2019-05-07] MEDS ORDERED: DISCONTINUE PREVIOUS NARCOTIC PAIN MEDICATIONS AND BENZODIAZEPINES FS SCH (21:43)
[2019-05-07] MEDS ORDERED: Morphine 2 MG/ML SYRINGE SLOW IVP PRN (21:43)
[2019-05-07 21:56] LABS: #Lymphocytes 0.7 thou/uL (1.20-3.40); #Monocytes 0.5 thou/uL (0.11-0.59); #Neutrophils 11.3 thou/uL (1.40-6.50); %Basophils 0.2 % (0.0-1.0); %Eosinophils 0.4 % (0.0-10.0); %Lymphocytes 5.8 % (21.0-51.0); %Monocytes 3.9 % (0.0-10.0); %Neutrophils 89.7 % (42.0-75.0); Hemoglobin 13.2 g/dL (14.0-18.0); Mean Corpuscular HGB CONC 34.5 g/dL (32.0-36.0); Mean Corpuscular Volume 86.8 fL (78.0-98.0); Mean Platelet Volume 8.8 fL (7.4-10.4); Platelet Count 129 thou/uL (130-400); White Blood Cell (WBC) Count 12.6 thou/uL (4.8-10.8)
[2019-05-07] MEDS: Aspirin 325 mg Enteric Coated Tablet PO SCH (22:12)
[2019-05-07] MEDS: Allopurinol 300 MG TAB PO SCH (22:12)
[2019-05-07 22:13] LABS: Anion Gap 13 mmol/L (10-20); BUN (Urea Nitrogen) 15 mg/dL (8.4-25.7); Calc. Creatinine Clearance 127 mL/min (70-130); Calcium 7.6 mg/dL (7.8-10.44); Carbon Dioxide 20 mmol/L (23-31); Chloride 108 mmol/L (98-107); Estimated GFR-MDRD 69; Glucose 218 mg/dL (83-110); Potassium 4.1 mmol/L (3.5-5.1); Sodium 137 mmol/L (136-145)
[2019-05-07] MEDS: Nitroglycerin 0.2mg/Hour PATCH TOP SCH (22:13)
[2019-05-07] MEDS: Digoxin 0.25 MG TAB PO SCH (22:13)
[2019-05-07] MEDS: Furosemide 40 MG TAB PO SCH (22:13)
[2019-05-07] MEDS: Insulin Glargine 40 UNITS in Pre-Filled Syringe 1 EACH SC SCH (22:13)
[2019-05-07] MEDS: Famotidine/PF 20 mg/2ml Vial SLOW IVP SCH (23:03)
--- NOTE | 2019-05-07 23:44 | OP ---
DATE OF PROCEDURE: 05/07/2019 PREOPERATIVE DIAGNOSIS: Postoperative hemorrhage, status post coronary artery bypass grafting. POSTOPERATIVE DIAGNOSIS: Postoperative hemorrhage, status post coronary artery bypass grafting. PROCEDURE PERFORMED: Sternal re-exploration and controlled hemorrhage. ANESTHESIA: General endotracheal. DESCRIPTION OF PROCEDURE: The patient was emergently brought back from the intensive care unit after he began to have significant drainage from his chest tubes approximately 8 hours postoperatively. On opening the chest, he was found to have a large amount of clot both anterior to the heart and surrounding the heart to the pericardium. The clot was completely evacuated. There was an area on the PDA graft that was bleeding just proximal to the anastomosis. This was controlled with interrupted 6-0 Prolene pursestring suture. The chest was completely irrigated and there was no other areas of bleeding. All anastomoses and cannulation sites were inspected. The sternum was hemostatic. Mammary bed was hemostatic. After clearing the chest of clot and confirming there was no further hemorrhage, sternum was reclosed with #7 wire, three in the manubrium, one in the distal sternum, and four zip ties in the mid body of the sternum. Wounds were then irrigated, closed in multiple layers and Dermabond applied to the skin. The patient was transferred back to the intensive care unit in critical condition. Job ID: [id number]
[2019-05-08] MEDS: HUMULIN R 100 UNITS in Sodium Chloride 0.9% 100 ML IVPB SCH ×2 (01:05→10:02)
[2019-05-08] MEDS: Propofol 1,000 MG/100 ML VIAL IV PRN ×3 (01:05→20:56)
[2019-05-08] MEDS: CEFAZOLIN 2 GM in Premix Bag 1 BAG IVPB SCH ×2 (01:06→09:27)
[2019-05-08] MEDS: Norepinephrine 8 MG, Admixture Fee 1 EACH in Sodium Chloride 0.9% 250 ML 250 ML IVPB PRN ×3 (03:42→21:53)
[2019-05-08 05:14] LABS: #Lymphocytes 1.1 thou/uL (1.20-3.40); #Neutrophils 9.9 thou/uL (1.40-6.50); %Basophils 0.3 % (0.0-1.0); %Eosinophils 0.4 % (0.0-10.0); %Lymphocytes 8.8 % (21.0-51.0); %Monocytes 8.2 % (0.0-10.0); %Neutrophils 82.3 % (42.0-75.0); Hemoglobin 13.2 g/dL (14.0-18.0); Mean Corpuscular HGB CONC 32.9 g/dL (32.0-36.0); Mean Corpuscular Hemoglobin 28.8 pg (27.0-31.0); Mean Corpuscular Volume 87.5 fL (78.0-98.0); Platelet Count 129 thou/uL (130-400); RBC Distribution Width 13.1 % (11.5-14.5); Red Blood Cell (RBC) Count 4.59 mill/uL (4.70-6.10); White Blood Cell (WBC) Count 12.1 thou/uL (4.8-10.8)
[2019-05-08 05:20] LABS: Anion Gap 13 mmol/L (10-20); BUN (Urea Nitrogen) 16 mg/dL (8.4-25.7); Calc. Creatinine Clearance 110 mL/min (70-130); Calcium 8.1 mg/dL (7.8-10.44); Carbon Dioxide 22 mmol/L (23-31); Chloride 108 mmol/L (98-107); Estimated GFR-MDRD 59; Glucose 142 mg/dL (83-110); Potassium 4.3 mmol/L (3.5-5.1); Sodium 139 mmol/L (136-145)
[2019-05-08] MEDS: Ketorolac Tromethamine 30 MG/ML VIAL IVP SCH ×3 (05:20→17:44)
[2019-05-08] MEDS ORDERED: Furosemide 40 MG/4 ML VIAL SLOW IVP SCH (06:45)
[2019-05-08 06:46] LABS: Actual Bicarbonate (HCO3a) 21.4 mEq/L (22-28); Base Excess (BEa) -2.4 mEq/L (-2.0 to +3.0); Calcium, Ionized 1.06 mmol/L (1.12-1.30); Carboxyhemoglobin (COHb) 1.2 gm% (0.0-3.0); Hemoglobin (Hb) 13.6 g/dL (14.0-18.0); O2 Tension (PaO2) 140.7 mmHg (> 70.0); Potassium - ABG Lab 4.11 mmol/L (3.70-5.30); pH, Arterial 7.42 (7.35-7.45)
--- NOTE | 2019-05-08 07:20 | CON ---
DATE OF CONSULTATION: HISTORY OF PRESENT ILLNESS: He is a 73-year-old morbidly obese gentleman, status post CABG. He is still intubated on the vent. His is at the bedside, who gave more than adequate history. He has been consulted regarding his ICU care. He has been in the hospital since the , underwent further workup. His EF was 55% to 60%. He has had previous multiple myocardial infarction. He has never undergone cardiac catheterization. His states he gets care normally in the [place] system. On most days, he can barely walk even a couple of 100 feet without getting marked short of breath. He has gained considerable weight. He is a former smoker. No history of TB, pneumonia, or asthma. PAST MEDICAL HISTORY: Hypertension, CHF, sleep apnea, COPD, diabetes, and reflux. PAST SURGICAL HISTORY: Previous surgeries; cataract, tonsil, and back surgery. HOME MEDICATIONS: Includes; 1. Clonazepam 1 mg b.i.d. 2. Omeprazole 20. 3. Insulin 50 units. 4. Atenolol 25 b.i.d. 5. Allopurinol 150. 6. Lasix 40 b.i.d. 7. Digoxin 0.25 daily. 8. Aspirin. 9. Synthroid. 10. Lisinopril 40. 11. Nitroglycerin. 12. Metformin 500 b.i.d. ALLERGIES: NONE. REVIEW OF SYSTEMS: Otherwise unobtainable, on the vent. PHYSICAL EXAMINATION: GENERAL: He is awake and responsive. VITAL SIGNS: Temperature 97, blood pressure 120/53, saturations 95%, respiratory rate 18, and pulse 60. CHEST: Decreased breath sounds. Anterior rhonchi. CARDIAC: Normal S1 and S2. No gallops. ABDOMEN: No masses. EXTREMITIES: No edema. LABORATORY DATA: A pO2 is 166, pCO2 is 38, pH 7.37, rate 12 and 650 tidal volume. Creatinine normal. Glucose 151. Chest x-ray shows no acute infiltrates. White count 14,000 and platelet count is normal. ASSESSMENT: 1. Status post coronary artery bypass grafting. 2. Morbid obesity, sleep apnea, diabetes, and hypertension. PLAN: Wean per protocol. was told to bring his home CPAP, which he will continue daily and nighttime. Empiric NEB treatments. Aggressive PT and supportive care. We will follow while in the ICU. Consultation note, 70 minutes, 50% direct patient care. Job ID: [id number]
[2019-05-08 07:22] LABS: Puncture Site ALINE
--- NOTE | 2019-05-08 08:40 | PRG ---
DATE OF SERVICE: 05/08/2019 SUBJECTIVE: This morning, he is awake, alert, responsive, he went back to surgery last night. Postoperative hemorrhage, status post bypass graft, total reexploration and control of hemorrhage was done. This morning, his x-ray still looks relatively clear. He is awake and responsive. OBJECTIVE: VITAL SIGNS: Blood pressure 123/59, pulse 80, respiratory rate 18, saturations 95%. NEUROLOGIC: Awake, alert and responsive. CHEST: Decreased breath sounds. No wheezing. CARDIAC: Normal S1, S2. No gallops. ABDOMEN: No masses. LABORATORY DATA: His PO2 was 140, pCO2 34, on a rate of 12 and 40%. His white count 00975, H and H 13 and 40. His creatinine is 1.21. ASSESSMENT: 1. Status post coronary artery bypass graft. 2. Status post sternal wound bleed. 3. Obesity. 4. Sleep apnea. 5. Chronic obstructive pulmonary disease. PLAN: Wean per protocol. Neb treatments and supportive care we will follow. One-half hour of critical time. Job ID: [id number]
[2019-05-08 09:27] LABS: Actual Bicarbonate (HCO3a) 16.3 mEq/L (22-28); Base Excess (BEa) -4.3 mEq/L (-2.0 to +3.0); Calcium, Ionized 1.03 mmol/L (1.12-1.30); Carboxyhemoglobin (COHb) 1.5 gm% (0.0-3.0); O2 Tension (PaO2) 98.9 mmHg (> 70.0); Potassium - ABG Lab 3.88 mmol/L (3.70-5.30); pH, Arterial 7.52 (7.35-7.45)
[2019-05-08] MEDS: Magnesium 2 GM/50 ML 2 GM in Premix Bag 1 BAG IVPB SCH (09:27)
[2019-05-08] MEDS: Famotidine/PF 20 mg/2ml Vial SLOW IVP SCH ×2 (09:27→20:01)
[2019-05-08 09:35] LABS: CO2 Tension 20.2 mmHg (35.0-45.0); Puncture Site ALINE
[2019-05-08] MEDS: fentaNYL Citrate/PF 2,000 MCG in Sodium Chloride 0.9% 60 ML IV SCH (09:53)
--- NOTE | 2019-05-08 10:23 | RAD ---
CHEST 1 VIEW: HISTORY: Heart surgery. Followup. COMPARISON: 05/07/2019. FINDINGS: Cardiac silhouette is magnified and enlarged. Pulmonary vasculature remains engorged. Mediastinum i s midline with postoperative changes. New opaque catheter over the midline has the appearance of a n asogastric tube, although the distal portion is not well visualized. Other lines and tubes appear un changed in position. Mild left basilar atelectasis. library monitor leads overlie the chest. IMPRESSION: 1. Probable new nasogastric tube. Distal portion not well visualized. 2. Otherwise, stable postoperative appearance of the chest. POS: [facility]
[2019-05-08] MEDS: Aspirin 325 MG TAB PO SCH (10:57)
[2019-05-08] MEDS: D5 1/2 NS w/20 mEq KCL 1,000 ML IV SCH (14:22)
--- NOTE | 2019-05-08 21:07 | PDOC.HOSPP ---
- Subjective Encounter Date: 05/08/19 Encounter Time: 08:30 non-verbal Subjective: Patient seen and examined for NSTEMI. s/p CABG. On [facility] Vent. No overnight events - Objective Vital Signs & Weight: Vital Signs (12 hours) Temp Pulse Resp BP Pulse Ox 05/08/19 20:00 98 05/08/19 19:00 99.2 F 05/08/19 18:45 79 12 98 05/08/19 18:00 12 05/08/19 16:00 98.9 F 12 05/08/19 14:59 86 121/59 L 05/08/19 14:00 16 05/08/19 13:14 83 116/64 05/08/19 13:12 85 12 97 05/08/19 12:00 99.7 F H 19 05/08/19 11:46 83 100/52 L 05/08/19 10:00 15 Weight Admit Weight 312 lb Weight 319 lb 3.669 oz Most Recent Monitor Data Heart Rate from ECG 81 NIBP 118/59 NIBP BP-Mean 78 Respiration from ECG 12 SpO2 97 I&O: 05/07/19 05/08/19 05/09/19 06:59 06:59 06:59 Intake Total 2410 1310.4 911.3 Output Total 985 840 Balance 2410 325.4 71.3 Result Diagrams: 05/09/19 04:20 05/09/19 04:20 Additional Labs: Accuchecks 05/08/19 05/08/19 05/08/19 18:54 17:46 16:25 POC Glucose 129 H 162 H 158 H 05/08/19 05/08/19 05/08/19 15:27 13:59 12:48 POC Glucose 128 H 139 H 95 05/08/19 05/08/19 05/08/19 12:03 10:29 09:22 POC Glucose 107 153 H 164 H 05/08/19 05/08/19 05/08/19 08:02 06:38 03:38 POC Glucose 165 H 97 134 H 05/08/19 05/08/19 05/08/19 02:19 01:18 00:05 POC Glucose 156 H 177 H 176 H 05/07/19 05/07/19 22:32 21:28 POC Glucose 202 H 214 H EKG Reviewed by me: Yes (Tele SR) ROS - Review of Systems ROS unobtainable: due to mental status - Medication Medications: Active Medications Generic Name Dose Route Start Last Admin Trade Name Panchitoq PRN Reason Stop Dose Admin Albuterol/Ipratropium 3 ml 05/07/19 19:00 05/08/19 18:45 Duoneb NEB 3 ml [id number] ALESIA Administration Aspirin 325 mg 05/08/19 09:00 05/08/19 10:57 Aspirin PO Not Given DAILY ALESIA Famotidine 20 mg 05/07/19 21:00 05/08/19 20:01 Pepcid SLOW IVP 20 mg Q12HR ALESIA Administration Potassium Chloride/Dextrose/Sod Cl 1,000 mls @ 40 mls/hr 05/07/19 13:48 05/08 14:22 D5 1/2 Ns W/20 Meq Kcl IV 1,000 mls .Q24H ALESIA Administration Magnesium Sulfate 2 gm/ Device 50 mls @ 50 mls/hr 05/08/19 09:00 05/08/19 09: 27 IVPB 05/09/19 09:59 50 mls QAM ALESIA Administration Insulin Human Regular 100 101 mls @ 0 mls/hr 05/07/19 14:17 05/08/19 10:02 units/ Sodium Chloride IVPB 101 mls INF ALESIA Administration Protocol As Directed Norepinephrine Bitartrate 8 mg 258 mls @ 0 mls/hr 05/07/19 19:09 05/08/19 05: 21 / Miscellaneous Medication 1 IVPB 258 mls each/ Sodium Chloride PRN PRN Administration To maintain SBP > 90 mmHG Protocol Titrate Fentanyl Citrate 2,000 mcg/ 100 mls @ 0 mls/hr 05/07/19 21:43 05/08/19 09:53 Sodium Chloride IV 06/06/19 21:43 100 mls INF ALESIA Administration Protocol Per Protocol Ketorolac Tromethamine 30 mg 05/07/19 18:00 05/08/19 17:44 Toradol IVP 05/10/19 18:01 30 mg Q6HR ALESIA Administration Lorazepam 2 mg 05/07/19 21:43 05/08/19 12:47 Ativan SLOW IVP 06/06/19 21:43 2 mg Q1H PRN Administration Breakthrough agitation Potassium Chloride 20 meq 05/07/19 13:48 05/07/19 17:47 Kcl IVPB 20 meq PRN PRN Administration K level </= 4.0 Propofol 1,000 mg 05/07/19 21:43 05/08/19 20:56 Diprivan IV 06/06/19 21:43 1,000 mg INF PRN Administration TO ACHIEVE GOAL RASS Protocol - Exam NAD (on Vent) Neck: no JVD Heart: RRR, no gallops Respiratory: CTAB, no rales Gastrointestinal: soft, non-tender, normal bowel sounds Extremities: no cyanosis, no clubbing Hosp A/P (1) Acute non-ST elevation myocardial infarction (NSTEMI) Code(s): I21.4 - NON-ST ELEVATION (NSTEMI) MYOCARDIAL INFARCTION Status: Acute (2) CAD (coronary artery disease) Code(s): I25.10 - ATHSCL HEART DISEASE OF [place] CORONARY ARTERY W/O ANG PCTRS Status: Chronic (3) GERD (gastroesophageal reflux disease) Code(s): K21.9 - GASTRO-ESOPHAGEAL REFLUX DISEASE WITHOUT ESOPHAGITIS Status: Chronic (4) Hypothyroidism Code(s): E03.9 - HYPOTHYROIDISM, UNSPECIFIED Status: Chronic (5) DM2 (diabetes mellitus, type 2) Status: Chronic Qualifiers: Chronic kidney disease stage: stage 2 (mild) (6) Morbid obesity with BMI of 40.0-44.9, adult Code(s): E66.01 - MORBID (SEVERE) OBESITY DUE TO EXCESS CALORIES; Z68.41 - BODY MASS INDEX (BMI) 40.0-44.9, ADULT Status: Chronic (7) S/P CABG (coronary artery bypass graft) Code(s): Z95.1 - PRESENCE OF AORTOCORONARY BYPASS GRAFT Status: Acute (8) Other issues per previous notes - Plan DVT proph w/SCDs Cont supportive care Cont ASA On Insulin drip Vent sedation protocol Cont other med as below
[2019-05-09] MEDS: Ketorolac Tromethamine 30 MG/ML VIAL IVP SCH ×4 (00:35→17:33)
[2019-05-09] MEDS: fentaNYL Citrate/PF 2,000 MCG in Sodium Chloride 0.9% 60 ML IV SCH (02:32)
[2019-05-09] MEDS: HUMULIN R 100 UNITS in Sodium Chloride 0.9% 100 ML IVPB SCH (04:14)
[2019-05-09] MEDS: Propofol 1,000 MG/100 ML VIAL IV PRN (04:15)
[2019-05-09 04:35] LABS: #Basophils 0.1 thou/uL (0.0-0.2); #Eosinphils 0.2 thou/uL (0.0-0.7); #Lymphocytes 3.4 thou/uL (1.20-3.40); #Monocytes 1.5 thou/uL (0.11-0.59); #Neutrophils 10.6 thou/uL (1.40-6.50); %Basophils 0.6 % (0.0-1.0); %Eosinophils 1.3 % (0.0-10.0); %Lymphocytes 21.4 % (21.0-51.0); %Monocytes 9.6 % (0.0-10.0); %Neutrophils 67.2 % (42.0-75.0); Hemoglobin 11.9 g/dL (14.0-18.0); Mean Corpuscular HGB CONC 34.3 g/dL (32.0-36.0); Mean Corpuscular Hemoglobin 30.4 pg (27.0-31.0); Mean Corpuscular Volume 88.7 fL (78.0-98.0); Mean Platelet Volume 8.5 fL (7.4-10.4); Platelet Count 149 thou/uL (130-400); RBC Distribution Width 13.3 % (11.5-14.5); Red Blood Cell (RBC) Count 3.91 mill/uL (4.70-6.10); White Blood Cell (WBC) Count 15.9 thou/uL (4.8-10.8)
[2019-05-09 04:54] LABS: Anion Gap 12 mmol/L (10-20); BUN (Urea Nitrogen) 18 mg/dL (8.4-25.7); Calc. Creatinine Clearance 112 mL/min (70-130); Calcium 8.1 mg/dL (7.8-10.44); Carbon Dioxide 24 mmol/L (23-31); Chloride 107 mmol/L (98-107); Estimated GFR-MDRD 58; Glucose 125 mg/dL (83-110); Potassium 4.1 mmol/L (3.5-5.1); Sodium 139 mmol/L (136-145)
[2019-05-09 07:18] LABS: Actual Bicarbonate (HCO3a) 23.7 mEq/L (22-28); Base Excess (BEa) -1.5 mEq/L (-2.0 to +3.0); CO2 Tension 41.4 mmHg (35.0-45.0); Calcium, Ionized 1.09 mmol/L (1.12-1.30); Carboxyhemoglobin (COHb) 1.2 gm% (0.0-3.0); Hemoglobin (Hb) 12.3 g/dL (14.0-18.0); O2 Tension (PaO2) 94.1 mmHg (> 70.0); Potassium - ABG Lab 4.13 mmol/L (3.70-5.30); pH, Arterial 7.38 (7.35-7.45)
[2019-05-09 07:20] LABS: Puncture Site LINE
[2019-05-09] MEDS ORDERED: DC Sedation Protocol FS ONE (07:49)
--- NOTE | 2019-05-09 07:57 | RAD ---
PORTABLE CHEST 1 VIEW: Date: 05/09/19 Time: 0429 hours HISTORY: Postop open heart surgery. Respiratory failure. FINDINGS/IMPRESSION: The nasogastric tube appears to have been removed in the interim. The remainder of the exam is otherw ise stable. POS: [facility]
--- NOTE | 2019-05-09 08:38 | PRG ---
DATE OF SERVICE: 05/09/2019 SUBJECTIVE: This morning, is awake, alert, responsive, and agitated. He is coughing and gagging. OBJECTIVE: VITAL SIGNS: Blood pressure is 137/56, pulse 107, respiratory rate 18, sats %. GENERAL: He is awake. CHEST: Decreased breath sounds. Minimal rhonchi. CARDIAC: Normal S1, S2. No gallops. ABDOMEN: No masses. EXTREMITIES: Moves all 4 extremities. No edema. IMPRESSION: 1. Status post coronary artery bypass graft. 2. Chronic obstructive pulmonary disease. 3. Obesity sleep apnea, mild azotemia. PLAN: We are going to wean and extubate today. Continue CPAP, neb treatment, supportive care. We will follow. One-half hour of critical time. Job ID: [id number]
[2019-05-09] MEDS: Famotidine/PF 20 mg/2ml Vial SLOW IVP SCH ×2 (09:10→20:36)
[2019-05-09] MEDS: Ondansetron PF 4 MG/2 ML Vial IVP PRN ×2 (09:10→18:45)
[2019-05-09] MEDS: Magnesium 2 GM/50 ML 2 GM in Premix Bag 1 BAG IVPB SCH (09:12)
--- NOTE | 2019-05-09 09:48 | PQF ---
DATE: 05-09-19 ATTN: DR. INGRID GARCIA Please exercise your independent, professional judgment in responding to the clarification form. Clinical indicators are provided on the bottom of this form for your review Please check appropriate box(s): [ x] Hyponatremia please specify etiology, if known [ ] Insignificant Lab Values [ ] Other diagnosis [ ] Unable to determine In addition, please specify: Present on Admission (POA): [x] Yes [ ] No [ ] Unable to determine CLINICAL INDICATORS - SIGNS / SYMPTOMS / LABS: SODIUM: 05-01-19: 133 05-02-19: 135 05-03-19: 135 H&P: SOB, CONFUSED RISK FACTORS: H&P: SOB, CONFUSED WITH BURNING IN HIS CHEST, CPAP AT NIGHT AND PILLOWS, HX LA, DM 2, CHF, HTN, GERD, COPD TREATMENTS: ER: NS IVF SERIES OF LABS (This form is maintained as a part of the permanent medical record) 2014 [employer]. All Rights Reserved JOSE [email or web address] Office: [phone] [facility]
--- NOTE | 2019-05-09 10:22 | PQF ---
DATE: 05-09-19 ATTN: DR. INGRID GARCIA Please exercise your independent, professional judgment in responding to the clarification form. Clinical indicators are provided on the bottom of this form for your review Please check appropriate box(s): HEART FAILURE: A. TYPE: [ ] Systolic / HFrEF [ ] Diastolic / HFpEF [ x ] Combined Systolic / Diastolic B. ACUITY [ ] Acute [ x ] Acute on Chronic [ ] Chronic [ ] Other diagnosis [ ] Unable to determine In addition, please specify: Present on Admission (POA): [ x ] Yes [ ] No [ ] Unable to determine For continuity of documentation, please document condition throughout progress notes and discharge summary. Thank You. CLINICAL INDICATORS - SIGNS / SYMPTOMS / LABS: H&P: SOB, HE SLEEPS WITH CPAP AND ON COUPLE OF PILLOWS, HX CHF, DM2 H&P: CURRENT MEDS: LASIX, LISINOPRIL ECHO 05-02-19: EF ESTIMATED 20-25% ECHO 05-04-19: EF ESTIMATED 35-40% PN DR. SWE[place] 05-04-19: CHF REGIMEN: CARVEDILOL , LASIX, LISINOPRIL RISKS: H&P: SOB, HE SLEEPS WITH CPAP AND ON COUPLE OF PILLOWS, HX CHF, DM2 ER: HX CHF, DM 2, PNEUMONIA, HTN, GERD, PTSD TREATMENTS: ECHO 05-02-19 AND 05-04-19 LASIX IV 05-08-19 (This form is maintained as a part of the permanent medical record) 2014 [employer]. All Rights Reserved JOSE [email or web address] Office: [phone] [facility]
[2019-05-09] MEDS: Insulin Regular 300 UNITS/3 ML VIAL SC PRN ×3 (12:06→21:33)
[2019-05-09] MEDS: Acetaminophen 325 MG TAB PO PRN (12:06)
[2019-05-09] MEDS: Aspirin 325 MG TAB PO SCH (12:10)
[2019-05-09] MEDS ORDERED: HYDROcodone/Acetaminophen 7.5/325 mg Tablet PO PRN (13:32)
[2019-05-09] MEDS: HYDROcodone/Acetaminophen 7.5/325 mg Tablet PO PRN ×2 (13:42→20:37)
[2019-05-09] MEDS: D5 1/2 NS w/20 mEq KCL 1,000 ML IV SCH (17:33)
[2019-05-09] MEDS ORDERED: NPH, Human Insulin Isophane 300 UNIT/3 ML VIAL SC SCH (18:30)
[2019-05-09] MEDS ORDERED: 1/2 NS w/KCL 20 mEq 1,000 ML IV SCH (18:30)
[2019-05-09] MEDS: Budesonide 0.5 MG/2 ML NEB INH SCH (18:40)
--- NOTE | 2019-05-09 19:55 | PDOC.HOSPP ---
- Subjective Encounter Date: 05/09/19 Encounter Time: 18:15 Subjective: Patient seen and examined for NSTEMI. s/p CABG. Extubated. No overnight events - Objective Vital Signs & Weight: Vital Signs (12 hours) Temp Pulse Resp Pulse Ox 05/09/19 18:40 97 18 95 05/09/19 17:00 99.4 F 05/09/19 13:57 95 21 H 99 05/09/19 13:00 99.0 F 05/09/19 09:00 98.7 F Weight Admit Weight 312 lb Weight 320 lb 1.779 oz Most Recent Monitor Data Heart Rate from ECG 95 NIBP 153/71 NIBP BP-Mean 98 Respiration from ECG 15 SpO2 94 I&O: 05/08/19 05/09/19 05/10/19 06:59 06:59 06:59 Intake Total 1310.4 1808.3 557.8 Output Total 985 1320 830 Balance 325.4 488.3 -272.2 Result Diagrams: 05/10/19 05:00 05/10/19 03:30 Additional Labs: Accuchecks 05/09/19 05/09/19 05/09/19 17:27 12:08 09:12 POC Glucose 305 H 243 H 184 H 05/09/19 05/09/19 05/09/19 07:22 06:16 03:02 POC Glucose 127 H 131 H 123 H 05/09/19 05/08/19 05/08/19 01:03 23:29 22:05 POC Glucose 143 H 139 H 141 H 05/08/19 05/08/19 21:02 20:00 POC Glucose 107 117 H EKG Reviewed by me: Yes (Tele SR) ROS - Review of Systems ROS unobtainable: due to mental status - Medication Medications: Active Medications Generic Name Dose Route Start Last Admin Trade Name Freq PRN Reason Stop Dose Admin Acetaminophen 650 mg 05/07/19 13:48 05/09/19 12:06 Tylenol PO 650 mg Q6H PRN Administration Headache/Fever Or Mild Pain Hydrocodone Bitart/Acetaminophen 2 tab 05/09/19 13:32 05/09/19 13:42 [place] 7.5/325 PO 2 tab Q6H PRN Administration Severe Pain (7-10) Albuterol/Ipratropium 3 ml 05/07/19 19:00 05/09/19 18:40 Duoneb NEB 3 ml [id number] ALESIA Administration Aspirin 325 mg 05/08/19 09:00 05/09/19 12:10 Aspirin PO 325 mg DAILY ALESIA Administration Budesonide 0.5 mg 05/09/19 18:30 05/09/19 18:40 Pulmicort Neb Solution INH 0.5 mg BID-RT ALESIA Administration Famotidine 20 mg 05/07/19 21:00 05/09/19 09:10 Pepcid SLOW IVP 20 mg Q12HR ALESIA Administration Insulin Human Regular 0 units 05/07/19 14:17 05/09/19 17:25 Humulin R SC 10 unit Q4H PRN Administration POST CABG SLIDING SCALE Protocol Ketorolac Tromethamine 30 mg 05/07/19 18:00 05/09/19 17:33 Toradol IVP 05/10/19 18:01 30 mg Q6HR ALSEIA Administration Ondansetron HCl 4 mg 05/07/19 13:48 05/09/19 18:45 Zofran IVP 4 mg Q6H PRN Administration Nausea/Vomiting Potassium Chloride 20 meq 05/07/19 13:48 05/07/19 17:47 Kcl IVPB 20 meq PRN PRN Administration K level </= 4.0 - Exam NAD Heart: RRR, no rubs Respiratory: CTAB, no rales Respiratory - other findings: dec AE at bases Gastrointestinal: soft, non-tender, normal bowel sounds Hosp A/P (1) Acute non-ST elevation myocardial infarction (NSTEMI) Code(s): I21.4 - NON-ST ELEVATION (NSTEMI) MYOCARDIAL INFARCTION Status: Acute (2) DM (diabetes mellitus), type 2, uncontrolled Code(s): E11.65 - TYPE 2 DIABETES MELLITUS WITH HYPERGLYCEMIA Status: Acute (3) S/P CABG (coronary artery bypass graft) Code(s): Z95.1 - PRESENCE OF AORTOCORONARY BYPASS GRAFT (4) Acute on chronic combined systolic and diastolic heart failure Code(s): I50.43 - ACUTE ON CHRONIC COMBINED SYSTOLIC AND DIASTOLIC HRT FAIL Status: Acute (5) CAD (coronary artery disease) Code(s): I25.10 - ATHSCL HEART DISEASE OF [place] CORONARY ARTERY W/O ANG PCTRS Status: Chronic (6) Hyponatremia Code(s): E87.1 - HYPO-OSMOLALITY AND HYPONATREMIA Status: Acute (7) Morbid obesity with BMI of 40.0-44.9, adult Code(s): E66.01 - MORBID (SEVERE) OBESITY DUE TO EXCESS CALORIES; Z68.41 - BODY MASS INDEX (BMI) 40.0-44.9, ADULT Status: Chronic (8) Hypothyroidism Code(s): E03.9 - HYPOTHYROIDISM, UNSPECIFIED Status: Chronic (9) GERD (gastroesophageal reflux disease) Code(s): K21.9 - GASTRO-ESOPHAGEAL REFLUX DISEASE WITHOUT ESOPHAGITIS Status: Chronic (10) Other issues per previous notes - Plan Add NPH 10 units BID - unable to verify home insulin dose - He is only on short acting insulin per home med list No family at bedside Cont CABG sliding scale DC IVF with Dextrose Cont Q4h sugar check Cont ASA Cont other med as below
[2019-05-10] MEDS: Ketorolac Tromethamine 30 MG/ML VIAL IVP SCH ×2 (01:34→06:11)
[2019-05-10] MEDS: HYDROcodone/Acetaminophen 7.5/325 mg Tablet PO PRN ×2 (01:35→20:48)
[2019-05-10 05:22] LABS: #Eosinphils 0.1 thou/uL (0.0-0.7); #Lymphocytes 1.9 thou/uL (1.20-3.40); #Monocytes 0.8 thou/uL (0.11-0.59); #Neutrophils 7.3 thou/uL (1.40-6.50); %Basophils 0.1 % (0.0-1.0); %Eosinophils 0.7 % (0.0-10.0); %Lymphocytes 19.2 % (21.0-51.0); %Monocytes 7.5 % (0.0-10.0); %Neutrophils 72.4 % (42.0-75.0); Elliptocytes SLIGHT = 2-5 cells (100X) (0-1/hpf); Hemoglobin 10.3 g/dL (14.0-18.0); MDiff Complete? YES; Mean Corpuscular HGB CONC 33.6 g/dL (32.0-36.0); Mean Corpuscular Volume 89.3 fL (78.0-98.0); Mean Platelet Volume 8.2 fL (7.4-10.4); Platelet Count 108 thou/uL (130-400); Platelet Morphology Comment Appears Decreased; RBC Distribution Width 13.4 % (11.5-14.5); Red Blood Cell (RBC) Count 3.44 mill/uL (4.70-6.10); White Blood Cell (WBC) Count 10.1 thou/uL (4.8-10.8)
[2019-05-10 05:24] LABS: Anion Gap 12 mmol/L (10-20); BUN (Urea Nitrogen) 26 mg/dL (8.4-25.7); Calc. Creatinine Clearance 105 mL/min (70-130); Calcium 8.3 mg/dL (7.8-10.44); Carbon Dioxide 25 mmol/L (23-31); Chloride 105 mmol/L (98-107); Estimated GFR-MDRD 54; Glucose 274 mg/dL (83-110); Potassium 4.6 mmol/L (3.5-5.1); Sodium 137 mmol/L (136-145)
[2019-05-10] MEDS: Insulin Regular 300 UNITS/3 ML VIAL SC PRN ×3 (06:12→17:18)
[2019-05-10] MEDS: Budesonide 0.5 MG/2 ML NEB INH SCH ×2 (07:09→18:42)
[2019-05-10] MEDS ORDERED: Dextrose 5% in Water 1,000 ML IV PRN (07:46)
[2019-05-10] MEDS: Acetaminophen 325 MG TAB PO PRN (08:35)
[2019-05-10] MEDS: Famotidine 20 MG TAB PO SCH ×2 (08:35→20:52)
[2019-05-10] MEDS: Aspirin 325 MG TAB PO SCH (08:35)
[2019-05-10] MEDS ORDERED: NPH, Human Insulin Isophane 300 UNIT/3 ML VIAL SC SCH ×2 (09:00)
--- NOTE | 2019-05-10 09:00 | PRG ---
DATE OF SERVICE: 05/10/2019 SUBJECTIVE: Mr. Odell this morning, sitting on the side of the bed. He said he is sick. Asked him any question, he is sick. Short of breath, he is sick. OBJECTIVE: VITAL SIGNS: But, his saturations are 98% on room air, pulse 80, blood pressure 169/70, and respiratory rate 18. CHEST: No wheezing or crackles. CARDIAC: Normal S1 and S2. No gallops. ABDOMEN: No masses. LABORATORY DATA: Creatinine 1.31, baseline slightly elevated. White count 10,000, H and H 10 and 30, and platelet count is 108. IMPRESSION: 1. Status post coronary artery bypass graft. 2. Status post resternotomy for bleeding. 3. Mild azotemias. 4. Sleep apnea. 5. Chronic obstructive pulmonary disease. 6. Severe deconditioning. PLAN: His cough has been much improved. Continue neb treatments, Symbicort, PT, and supportive care. Eventually transferred out of the ICU. We will follow. Job ID: [id number]
--- NOTE | 2019-05-10 09:02 | PDOC.CTH ---
Cardiology Progress Note - Subjective Complaining of nausea No CP. Mild SOB Increase bP to 215 systolic - Objective Vital Signs Temp Pulse Resp BP Pulse Ox 05/10/19 08:36 80 169/70 H 05/10/19 07:09 84 16 98 05/10/19 07:06 84 16 98 05/10/19 05:00 98.3 F 05/10/19 01:00 99.0 F Admit Weight 312 lb Weight 320 lb 1.779 oz 05/09/19 05/10/19 05/11/19 06:59 06:59 06:59 Intake Total 1808.3 1066.8 Output Total 1320 1405 Balance 488.3 -338.2 - Physical Examination General/Neuro: NAD Neck: no JVD present Lungs: CTA, unlabored respirations Heart: PMI normal, RRR Abdomen: NT/ND, soft Extremities: + femoral B - Labs Result Diagrams: 05/10/19 05:00 05/10/19 03:30 Troponin/CKMB CK-MB (CK-2) 2.6 ng/mL (0-6.6) 05/01/19 12:46 Troponin I 0.046 ng/mL (< 0.028) H 05/01/19 18:58 - Assessment/Plan NQWMI CAD s/p CABG DM Add BB, statin Add IV nitro as BP meds take effect No PO BP meds given this am As BP meds begin to take effect, wean off nitro Lasix IV
--- NOTE | 2019-05-10 09:24 | RAD ---
CHEST 1 VIEW: COMPARISON: 05/09/2019. HISTORY: Status post open heart surgery. FINDINGS: There are sternotomy wires. There is a stable right-sided central venous catheter. Interval removal of endotracheal tube. Heart is enlarged and pulmonary vessels are prominent. Patchy interstitial opacities, similar to the previous examination. Improved aeration of the left lung base. IMPRESSION: Findings compatible with a recent open heart surgery. POS: [facility]
[2019-05-10] MEDS: Ondansetron PF 4 MG/2 ML Vial IVP PRN ×2 (11:14→21:38)
[2019-05-10] MEDS ORDERED: Insulin Regular 300 UNITS/3 ML VIAL SC SCH ×2 (11:30→16:30)
[2019-05-10] MEDS ORDERED: Mag-Al 1200 mg/1200 mg/30 ML UDCUP PO PRN (11:32)
[2019-05-10] MEDS ORDERED: Calcium Carbonate 500 MG ChewTAB PO PRN (11:33)
[2019-05-10] MEDS ORDERED: Furosemide 40 MG/4 ML VIAL IVP SCH (11:45)
[2019-05-10] MEDS ORDERED: Carvedilol 3.125 MG TAB PO SCH ×2 (11:45→17:00)
[2019-05-10] MEDS ORDERED: Lisinopril 20 MG TAB PO SCH (12:00)
[2019-05-10] MEDS ORDERED: Carvedilol 6.25 MG TAB PO SCH (12:15)
[2019-05-10] MEDS: Carvedilol 6.25 MG TAB PO SCH (20:49)
[2019-05-10] MEDS: Atorvastatin Calcium 10 MG TAB PO SCH (20:53)
[2019-05-10] MEDS ORDERED: Insulin Glargine 20 UNITS in Pre-Filled Syringe 1 EACH SC SCH (21:00)
--- NOTE | 2019-05-10 21:28 | PDOC.HOSPP ---
- Subjective Encounter Date: 05/10/19 Encounter Time: 08:00 Subjective: Patient seen and examined for NSTEMI. Sitting on chair. Nausea +. No new complaints. No overnight events - Objective Vital Signs & Weight: Vital Signs (12 hours) Temp Pulse Resp BP Pulse Ox 05/10/19 20:49 162/73 H 05/10/19 18:43 80 10 L 97 05/10/19 18:42 80 15 93 L 05/10/19 16:00 97.4 F L 05/10/19 14:20 77 17 98 05/10/19 12:13 169/70 H 05/10/19 12:00 97.9 F Weight Admit Weight 312 lb Weight 320 lb 1.779 oz Most Recent Monitor Data Heart Rate from ECG 77 NIBP 114/44 NIBP BP-Mean 67 Respiration from ECG 19 SpO2 96 I&O: 05/09/19 05/10/19 05/11/19 06:59 06:59 06:59 Intake Total 1808.3 1066.8 116 Output Total 1320 1405 1765 Balance 488.3 -338.2 -1649 Result Diagrams: 05/11/19 04:15 05/11/19 04:15 Additional Labs: Accuchecks 05/10/19 05/10/19 05/10/19 20:53 17:19 11:14 POC Glucose 248 H 298 H 312 H 05/10/19 05/09/19 06:11 21:30 POC Glucose 312 H 313 H ROS - Review of Systems Respiratory: denies: cough, dry, shortness of breath, hemoptysis, SOB with excertion, pleuritic pain, sputum, wheezing, other Cardiovascular: denies: chest pain, palpitations, orthopnea, paroxysmal noc. dyspnea, edema, light headedness, other - Medication Medications: Active Medications Generic Name Dose Route Start Last Admin Trade Name Freq PRN Reason Stop Dose Admin Acetaminophen 650 mg 05/07/19 13:48 05/10/19 08:35 Tylenol PO 650 mg Q6H PRN Administration Headache/Fever Or Mild Pain Hydrocodone Bitart/Acetaminophen 2 tab 05/09/19 13:32 05/10/19 20:48 [place] 7.5/325 PO 2 tab Q6H PRN Administration Severe Pain (7-10) Al Hydroxide/Mg Hydroxide 30 ml 05/10/19 11:32 05/10/19 11:44 Maalox PO 30 ml Q6H PRN Administration Heartburn or Indigestion Albuterol/Ipratropium 3 ml 05/07/19 19:00 05/10/19 18:43 Duoneb NEB 3 ml [id number] ALESIA Administration Aspirin 325 mg 05/08/19 09:00 05/10/19 08:35 Aspirin PO 325 mg DAILY ALESIA Administration Atorvastatin Calcium 10 mg 05/10/19 21:00 05/10/19 20:53 Lipitor PO 10 mg HS ALESIA Administration Budesonide 0.5 mg 05/09/19 18:30 05/10/19 18:42 Pulmicort Neb Solution INH 0.5 mg BID-RT ALESIA Administration Carvedilol 6.25 mg 05/10/19 21:00 05/10/19 20:49 Coreg PO 6.25 mg BID ALESIA Administration Famotidine 20 mg 05/10/19 09:00 05/10/19 20:52 Pepcid PO 20 mg BID ALESIA Administration Hydralazine HCl 10 mg 05/07/19 13:48 05/10/19 08:36 Apresoline SLOW IVP 10 mg Q6H PRN Administration To Maintain SBP< 140mmHG Nitroglycerin/Dextrose 250 mls @ 0 mls/hr 05/07/19 13:48 05/10/19 11:30 Nitroglycerin 50 Mg/250 Ml Bot IVPB 250 mls PRN PRN Administration To Maintain SBP< 140mmHG Protocol Titrate Insulin Glargine 20 units/ 0.2 mls @ 20 mls/hr 05/10/19 21:00 05/10/19 20:54 Miscellaneous Medication SC 0.2 mls HS ALESIA Administration Insulin Human Regular 0 units 05/07/19 14:17 05/10/19 17:18 Humulin R SC 8 unit Q4H PRN Administration POST CABG SLIDING SCALE Protocol Ondansetron HCl 4 mg 05/07/19 13:48 05/10/19 11:14 Zofran IVP 4 mg Q6H PRN Administration Nausea/Vomiting Potassium Chloride 20 meq 05/07/19 13:48 05/07/19 17:47 Kcl IVPB 20 meq PRN PRN Administration K level </= 4.0 - Exam NAD Heart: RRR, no rubs Respiratory: CTAB, no rales Respiratory - other findings: dec AE at bases Gastrointestinal: soft, non-tender, normal bowel sounds Neurological: no new deficit Psychiatric: somnolent Hosp A/P (1) Acute non-ST elevation myocardial infarction (NSTEMI) Code(s): I21.4 - NON-ST ELEVATION (NSTEMI) MYOCARDIAL INFARCTION Status: Acute (2) DM (diabetes mellitus), type 2, uncontrolled Code(s): E11.65 - TYPE 2 DIABETES MELLITUS WITH HYPERGLYCEMIA Status: Acute Qualifiers: Glycemic state: with hyperglycemia Qualified Code(s): E11.65 - Type 2 diabetes mellitus with hyperglycemia (3) S/P CABG (coronary artery bypass graft) Code(s): Z95.1 - PRESENCE OF AORTOCORONARY BYPASS GRAFT (4) Acute on chronic combined systolic and diastolic heart failure Code(s): I50.43 - ACUTE ON CHRONIC COMBINED SYSTOLIC AND DIASTOLIC HRT FAIL Status: Acute (5) CAD (coronary artery disease) Code(s): I25.10 - ATHSCL HEART DISEASE OF [place] CORONARY ARTERY W/O ANG PCTRS Status: Chronic (6) Hyponatremia Code(s): E87.1 - HYPO-OSMOLALITY AND HYPONATREMIA Status: Acute (7) Morbid obesity with BMI of 40.0-44.9, adult Code(s): E66.01 - MORBID (SEVERE) OBESITY DUE TO EXCESS CALORIES; Z68.41 - BODY MASS INDEX (BMI) 40.0-44.9, ADULT Status: Chronic (8) Hypothyroidism Code(s): E03.9 - HYPOTHYROIDISM, UNSPECIFIED Status: Chronic (9) GERD (gastroesophageal reflux disease) Code(s): K21.9 - GASTRO-ESOPHAGEAL REFLUX DISEASE WITHOUT ESOPHAGITIS Status: Chronic (10) Other issues per previous notes - Plan plan discussed w/ family Home meds verified - He takes concentrated Regular insulin 125 units QAM, 90 units QPM (Can add 10 more units if sugars elevated) Lantus 20 units BID started - Will increase as needed Cont CABG sliding scale DC IVF Cont Q4h acuchecks Cont ASA Lisinopril/Coreg restarted Cont other med as below
[2019-05-11 04:32] LABS: #Eosinphils 0.2 thou/uL (0.0-0.7); #Lymphocytes 2.2 thou/uL (1.20-3.40); #Monocytes 0.8 thou/uL (0.11-0.59); #Neutrophils 6.8 thou/uL (1.40-6.50); %Basophils 0.3 % (0.0-1.0); %Eosinophils 1.6 % (0.0-10.0); %Lymphocytes 22.3 % (21.0-51.0); %Monocytes 7.6 % (0.0-10.0); %Neutrophils 68.2 % (42.0-75.0); Hemoglobin 10.2 g/dL (14.0-18.0); Mean Corpuscular HGB CONC 33.6 g/dL (32.0-36.0); Mean Corpuscular Hemoglobin 30.1 pg (27.0-31.0); Mean Corpuscular Volume 89.3 fL (78.0-98.0); Platelet Count 135 thou/uL (130-400); RBC Distribution Width 13.4 % (11.5-14.5); Red Blood Cell (RBC) Count 3.39 mill/uL (4.70-6.10)
[2019-05-11 04:49] LABS: Anion Gap 14 mmol/L (10-20); BUN (Urea Nitrogen) 25 mg/dL (8.4-25.7); Calc. Creatinine Clearance 128 mL/min (70-130); Calcium 8.7 mg/dL (7.8-10.44); Carbon Dioxide 25 mmol/L (23-31); Chloride 106 mmol/L (98-107); Estimated GFR-MDRD 68; Glucose 242 mg/dL (83-110); Magnesium 2.1 mg/dL (1.6-2.6); Potassium 4.5 mmol/L (3.5-5.1); Sodium 140 mmol/L (136-145)
[2019-05-11] MEDS: Levothyroxine 150 MCG TAB PO SCH (05:36)
[2019-05-11] MEDS: HYDROcodone/Acetaminophen 7.5/325 mg Tablet PO PRN (05:37)
[2019-05-11] MEDS: Insulin Regular 300 UNITS/3 ML VIAL SC PRN (06:33)
[2019-05-11] MEDS: Budesonide 0.5 MG/2 ML NEB INH SCH ×2 (06:47→19:13)
[2019-05-11] MEDS ORDERED: Mag-Al 1200 mg/1200 mg/30 ML UDCUP PO PRN (07:20)
[2019-05-11] MEDS ORDERED: Guaifenesin DM 100-10/5 ML UDCUP PO PRN (07:20)
[2019-05-11] MEDS ORDERED: Nitroglycerin 0.4 MG TAB (25 Tab Bottle) SL PRN (07:20)
[2019-05-11] MEDS ORDERED: Bisacodyl 5 MG TAB PO PRN (07:20)
[2019-05-11] MEDS ORDERED: Bisacodyl 10 MG SUPP PR PRN (07:20)
[2019-05-11] MEDS ORDERED: Acetaminophen 325 MG TAB PO PRN (07:20)
[2019-05-11] MEDS ORDERED: Mineral Oil ENEMA PR PRN (07:20)
[2019-05-11] MEDS ORDERED: Milk Of Magnesia 30 ML UDCUP PO PRN (07:20)
[2019-05-11] MEDS ORDERED: Insulin Regular 300 UNITS/3 ML VIAL SC SCH (07:30)
[2019-05-11] MEDS: Ibuprofen 600 MG TAB PO SCH ×3 (08:00→21:35)
[2019-05-11] MEDS ORDERED: Potassium Chloride 10 MEQ TAB PO SCH (08:00)
[2019-05-11] MEDS: Lisinopril 20 MG TAB PO SCH (08:01)
[2019-05-11] MEDS: Aspirin 325 mg Enteric Coated Tablet PO SCH (08:01)
[2019-05-11] MEDS: clonazePAM 0.5 MG TAB PO SCH ×2 (08:01→21:35)
[2019-05-11] MEDS: Carvedilol 6.25 MG TAB PO SCH ×2 (08:01→21:35)
[2019-05-11] MEDS: Polyethylene Glycol 3350 17 GM Packet PO SCH (08:02)
[2019-05-11] MEDS: Insulin Glargine 40 UNITS in Pre-Filled Syringe 1 EACH SC SCH (08:10)
[2019-05-11] MEDS ORDERED: Furosemide 40 MG/4 ML VIAL SLOW IVP SCH (09:00)
[2019-05-11] MEDS ORDERED: Insulin Glargine 20 UNITS in Pre-Filled Syringe 1 EACH SC SCH (09:00)
[2019-05-11] MEDS ORDERED: Insulin Glargine 30 UNITS in Pre-Filled Syringe 1 EACH SC SCH ×2 (09:00→21:00)
[2019-05-11] MEDS ORDERED: Nitroglycerin 50 MG/250 ML BOT IVPB SCH (09:00)
--- NOTE | 2019-05-11 10:12 | PRG ---
DATE OF SERVICE: 05/11/2019 SUBJECTIVE: This morning, he is still complaining he is sick, vague chest pain, and shortness of breath. OBJECTIVE: VITAL SIGNS: Saturations are 98% on room air, blood pressure 160/73, respiratory rate 18, and pulse 80. CHEST: No wheezing or crackles. CARDIAC: Normal S1 and S2. No gallops. ABDOMEN: No masses. LABORATORY DATA: Glucose 260. ASSESSMENT: Chronic obstructive pulmonary disease, morbid obesity, sleep apnea, status post coronary artery bypass grafting, and cough. PLAN: He is better. Continue aggressive PT and supportive care. We will follow. Job ID: [id number]
[2019-05-11] MEDS ORDERED: Ketorolac Tromethamine 30 MG/ML VIAL IVP SCH (12:45)
--- NOTE | 2019-05-11 12:47 | PDOC.CTH ---
Cardiology Progress Note - Subjective C/O MSK pain. Recently up with rehab team. No SOB. - Objective Vital Signs Temp Pulse Pulse Pulse Resp BP BP 05/11/19 11:36 119/74 05/11/19 09:26 70 70 136/65 05/11/19 08:01 162/73 H 05/11/19 07:35 05/11/19 07:00 97.4 F L 05/11/19 06:47 70 17 05/11/19 06:45 74 19 05/11/19 04:00 98.3 F BP BP Pulse Ox Pulse Ox Pulse Ox 05/11/19 11:36 120/59 L 140/60 05/11/19 09:26 120/57 L 96 96 05/11/19 08:01 05/11/19 07:35 98 05/11/19 07:00 05/11/19 06:47 100 05/11/19 06:45 98 05/11/19 04:00 Admit Weight 312 lb Weight 310 lb 3.046 oz 05/10/19 05/11/19 05/12/19 06:59 06:59 06:59 Intake Total 1066.8 116 Output Total 1405 2750 0 Balance -338.2 -2634 0 - Physical Examination General/Neuro: alert & oriented x3 Neck: no JVD present Lungs: CTA Heart: RRR Abdomen: NT/ND - Telemetry Telemetry Rhythm: SR - Labs Result Diagrams: 05/11/19 04:15 05/11/19 04:15 Troponin/CKMB CK-MB (CK-2) 2.6 ng/mL (0-6.6) 05/01/19 12:46 Troponin I 0.046 ng/mL (< 0.028) H 05/01/19 18:58 - Assessment/Plan 1. NQWMI 2. CAD s/p CABG 3. DM 4. HTN Add toradol x 1 for pain. BP improving. Continue rehab.
--- NOTE | 2019-05-11 14:20 | PDOC.HOSPP ---
- Subjective Encounter Date: 05/11/19 Encounter Time: 14:17 Subjective: Patient seen and examined for NSTEMI. No CP. No new complaints. No overnight events - Objective Vital Signs & Weight: Vital Signs (12 hours) Temp Pulse Pulse Pulse Resp BP BP 05/11/19 13:43 75 16 05/11/19 11:36 119/74 05/11/19 09:26 70 70 136/65 05/11/19 08:01 162/73 H 05/11/19 07:35 05/11/19 07:00 97.4 F L 05/11/19 06:47 70 17 05/11/19 06:45 74 19 05/11/19 04:00 98.3 F BP BP Pulse Ox Pulse Ox Pulse Ox 05/11/19 13:43 96 05/11/19 11:36 120/59 L 140/60 05/11/19 09:26 120/57 L 96 96 05/11/19 08:01 05/11/19 07:35 98 05/11/19 07:00 05/11/19 06:47 100 05/11/19 06:45 98 05/11/19 04:00 Weight Admit Weight 312 lb Weight 310 lb 3.046 oz Most Recent Monitor Data Heart Rate from ECG 72 NIBP 158/73 NIBP BP-Mean 101 Respiration from ECG 15 SpO2 100 I&O: 05/10/19 05/11/19 05/12/19 06:59 06:59 06:59 Intake Total 1066.8 116 Output Total 1405 2750 0 Balance -338.2 -2634 0 Result Diagrams: 05/11/19 04:15 05/11/19 04:15 Additional Labs: Accuchecks 05/11/19 05/10/19 05/10/19 06:32 20:53 17:19 POC Glucose 260 H 248 H 298 H EKG Reviewed by me: Yes (Tele SR) ROS - Review of Systems Cardiovascular: denies: chest pain, palpitations, orthopnea, paroxysmal noc. dyspnea, edema, light headedness, other Gastrointestinal: denies: nausea, vomitting, abdominal pain, diarrhea, constipation, melena, hematochezia, other - Medication Medications: Active Medications Generic Name Dose Route Start Last Admin Trade Name Freq PRN Reason Stop Dose Admin Albuterol/Ipratropium 3 ml 05/07/19:00 05/11/19 13:43 Duoneb NEB 3 ml [id number] ALESIA Administration Aspirin 325 mg 05/11/19 09:00 05/11/19 08:01 Ecotrin PO 325 mg DAILY ALESIA Administration Atorvastatin Calcium 10 mg 05/10/19 21:00 05/10/19 20:53 Lipitor PO 10 mg HS ALESIA Administration Budesonide 0.5 mg 05/09/19 18:30 05/11/19 06:47 Pulmicort Neb Solution INH 0.5 mg BID-RT ALESIA Administration Carvedilol 6.25 mg 05/10/19 21:00 05/11/19 08:01 Coreg PO 6.25 mg BID ALESIA Administration Clonazepam 0.5 mg 05/11/19 09:00 05/11/19 08:01 Klonopin PO 0.5 mg BID ALESIA Administration Furosemide 40 mg 05/11/19 09:00 05/11/19 08:01 Lasix SLOW IVP 40 mg DAILY ALESIA Administration Hydralazine HCl 10 mg 05/07/19 13:48 05/10/19 08:36 Apresoline SLOW IVP 10 mg Q6H PRN Administration To Maintain SBP< 140mmHG Insulin Glargine 40 units/ 0.4 mls @ 0 mls/hr 05/11/19 09:00 05/11/19 08:10 Miscellaneous Medication SC 0.4 mls QAM ALESIA Administration Ibuprofen 600 mg 05/11/19 08:00 05/11/19 13:15 Motrin PO 600 mg Q6H ALESIA Administration Ketorolac Tromethamine 15 mg 05/11/19 12:45 05/11/19 13:16 Toradol IVP 05/11/19 16:00 15 mg NOW ALESIA Administration Levothyroxine Sodium 150 mcg 05/11/19 06:00 05/11/19 05:36 Synthroid PO 150 mcg 0600 ALESIA Administration Lisinopril 40 mg 05/11/19 09:00 05/11/19 08:01 Zestril PO 40 mg DAILY ALESIA Administration Polyethylene Glycol 17 gm 05/11/19 09:00 05/11/19 08:02 Miralax PO 17 gm DAILY ALESIA Administration Potassium Chloride 10 meq 05/11/19 08:00 05/11/19 08:01 Klor-Con 10 PO 10 meq QAM-WM ALESIA Administration Sodium Chloride 10 ml 05/11/19 09:00 05/11/19 08:03 Flush - Normal Saline IVF 10 ml Q12HR ALESIA Administration - Exam NAD Neck: supple, no JVD Heart: RRR, no rubs Respiratory: CTAB, no wheezes Respiratory - other findings: dec AE at bases Gastrointestinal: soft, non-tender, normal bowel sounds Neurological: no new deficit Hosp A/P (1) Acute non-ST elevation myocardial infarction (NSTEMI) Code(s): I21.4 - NON-ST ELEVATION (NSTEMI) MYOCARDIAL INFARCTION Status: Acute (2) DM (diabetes mellitus), type 2, uncontrolled Code(s): E11.65 - TYPE 2 DIABETES MELLITUS WITH HYPERGLYCEMIA Status: Chronic Qualifiers: Glycemic state: with hyperglycemia Qualified Code(s): E11.65 - Type 2 diabetes mellitus with hyperglycemia (3) S/P CABG (coronary artery bypass graft) Code(s): Z95.1 - PRESENCE OF AORTOCORONARY BYPASS GRAFT (4) Acute on chronic combined systolic and diastolic heart failure Code(s): I50.43 - ACUTE ON CHRONIC COMBINED SYSTOLIC AND DIASTOLIC HRT FAIL Status: Acute (5) CAD (coronary artery disease) Code(s): I25.10 - ATHSCL HEART DISEASE OF [place] CORONARY ARTERY W/O ANG PCTRS Status: Chronic (6) Hyponatremia Code(s): E87.1 - HYPO-OSMOLALITY AND HYPONATREMIA Status: Acute (7) Morbid obesity with BMI of 40.0-44.9, adult Code(s): E66.01 - MORBID (SEVERE) OBESITY DUE TO EXCESS CALORIES; Z68.41 - BODY MASS INDEX (BMI) 40.0-44.9, ADULT Status: Chronic (8) Hypothyroidism Code(s): E03.9 - HYPOTHYROIDISM, UNSPECIFIED Status: Chronic (9) GERD (gastroesophageal reflux disease) Code(s): K21.9 - GASTRO-ESOPHAGEAL REFLUX DISEASE WITHOUT ESOPHAGITIS Status: Chronic (10) Other issues per previous notes - Plan plan discussed w/ family, DVT proph w/SCDs Increase Lantus 40 QAM and 30 HS Cont CABG sliding scale ACHS acuchecks Cont ASA/Lisinopril/Coreg Cont other med as below Cardiac Rehab
[2019-05-11] MEDS: HYDROcodone/Acetaminophen 5/325 mg Tablet PO PRN (17:34)
[2019-05-11] MEDS ORDERED: Metoclopramide HCl 10 MG/2 ML VIAL IVP SCH (18:45)
[2019-05-11] MEDS: Atorvastatin Calcium 10 MG TAB PO SCH (21:36)
[2019-05-11] MEDS: Fentanyl 100 MCG/2 ML VIAL SLOW IVP PRN (21:43)
[2019-05-12] MEDS: Fentanyl 100 MCG/2 ML VIAL SLOW IVP PRN ×2 (00:03→22:46)
[2019-05-12] MEDS: Metoclopramide HCl 10 MG/2 ML VIAL IVP SCH ×4 (00:03→17:54)
[2019-05-12] MEDS: HYDROcodone/Acetaminophen 5/325 mg Tablet PO PRN ×4 (02:09→20:24)
[2019-05-12] MEDS: Ibuprofen 600 MG TAB PO SCH ×4 (02:10→20:23)
[2019-05-12 05:31] LABS: Anion Gap 12 mmol/L (10-20); BUN (Urea Nitrogen) 25 mg/dL (8.4-25.7); Calc. Creatinine Clearance 121 mL/min (70-130); Calcium 8.5 mg/dL (7.8-10.44); Carbon Dioxide 26 mmol/L (23-31); Chloride 102 mmol/L (98-107); Estimated GFR-MDRD 66; Glucose 204 mg/dL (83-110); Potassium 3.8 mmol/L (3.5-5.1); Sodium 136 mmol/L (136-145)
[2019-05-12] MEDS: Levothyroxine 150 MCG TAB PO SCH (05:49)
[2019-05-12] MEDS: Budesonide 0.5 MG/2 ML NEB INH SCH ×2 (06:42→18:11)
[2019-05-12] MEDS: Polyethylene Glycol 3350 17 GM Packet PO SCH (08:27)
[2019-05-12] MEDS: Carvedilol 6.25 MG TAB PO SCH ×2 (08:28→20:23)
[2019-05-12] MEDS: Aspirin 325 mg Enteric Coated Tablet PO SCH (08:28)
[2019-05-12] MEDS: clonazePAM 0.5 MG TAB PO SCH ×2 (08:29→20:24)
[2019-05-12] MEDS: Potassium Chloride 10 MEQ TAB PO SCH ×2 (08:29→18:01)
[2019-05-12] MEDS: Insulin Glargine 40 UNITS in Pre-Filled Syringe 1 EACH SC SCH (08:29)
[2019-05-12] MEDS: Lisinopril 20 MG TAB PO SCH (08:29)
--- NOTE | 2019-05-12 10:08 | PRG ---
DATE OF SERVICE: 05/12/2019 SUBJECTIVE: This morning, he is awake, alert, responsive, doing better, less pain, and less shortness of breath. OBJECTIVE: VITAL SIGNS: Temperature 97, blood pressure 120/57, pulse 67, and saturations 94 on room air. CHEST: No wheezing or crackles. CARDIAC: Normal S1 and S2. No gallops. ABDOMEN: No masses. LABORATORY DATA: Lytes are normal. Creatinine is normal. Glucose 277. ASSESSMENT: Morbid obesity, chronic obstructive pulmonary disease, sleep apnea, status post coronary artery bypass grafting, and severe deconditioning. PLAN: Continue PT, supportive care, and nocturnal CPAP. We will follow. Job ID: [id number]
[2019-05-12] MEDS: Furosemide 40 MG/4 ML VIAL SLOW IVP SCH (15:19)
[2019-05-12] MEDS ORDERED: Insulin Regular 300 UNITS/3 ML VIAL SC PRN (16:33)
[2019-05-12] MEDS: Insulin Regular 300 UNITS/3 ML VIAL SC PRN (18:00)
[2019-05-12] MEDS: Atorvastatin Calcium 10 MG TAB PO SCH (20:24)
[2019-05-12] MEDS: Nystatin Powder 15 GM BOT TOP SCH (20:24)
[2019-05-12] MEDS: Insulin Glargine 40 UNITS in Pre-Filled Syringe SC SCH (20:44)
--- NOTE | 2019-05-12 21:53 | PDOC.HOSPP ---
- Subjective Encounter Date: 05/12/19 Encounter Time: 17:00 Subjective: Patient seen and examined for NSTEMI s/p CABG. No CP or SOB. No new complaints. No overnight events - Objective Vital Signs & Weight: Vital Signs (12 hours) Temp Pulse Resp BP BP BP Pulse Ox 05/12/19 20:23 132/62 05/12/19 18:11 74 18 95 05/12/19 16:20 97.9 F 80 18 119/58 L 93 L 05/12/19 13:03 77 16 98 05/12/19 12:10 98.2 F 78 20 129/74 95 Weight Admit Weight 312 lb 3.2 oz Weight 313 lb Most Recent Monitor Data Heart Rate from ECG 72 NIBP 158/73 NIBP BP-Mean 101 Respiration from ECG 15 SpO2 100 I&O: 05/11/19 05/12/19 05/13/19 06:59 06:59 06:59 Intake Total 116 1020 120 Output Total 2750 1260 600 Balance -7204 -903 -471 Result Diagrams: 05/11/19 04:15 05/12/19 04:53 Additional Labs: Accuchecks 05/12/19 05/12/19 05/12/19 20:32 16:37 10:15 POC Glucose 222 H 252 H 301 H 05/12/19 05:37 POC Glucose 227 H EKG Reviewed by me: Yes (Tele SR) ROS - Review of Systems Cardiovascular: denies: chest pain, palpitations, orthopnea, paroxysmal noc. dyspnea, edema, light headedness, other Gastrointestinal: denies: nausea, vomitting, abdominal pain, diarrhea, constipation, melena, hematochezia, other - Medication Medications: Active Medications Generic Name Dose Route Start Last Admin Trade Name Freq PRN Reason Stop Dose Admin Hydrocodone Bitart/Acetaminophen 1 tab 05/11/19 07:20 05/12/19 20:24 [place] 5/325 PO 1 tab Q4H PRN Administration Moderate Pain (4-6) Al Hydroxide/Mg Hydroxide 30 ml 05/11/19 07:20 05/11/19 16:09 Maalox PO 30 ml Q4H PRN Administration Indigestion Albuterol/Ipratropium 3 ml 05/07/19 19:00 05/12/19 18:11 Duoneb NEB 3 ml [id number] ALESIA Administration Aspirin 325 mg 05/11/19 09:00 05/12/19 08:28 Ecotrin PO 325 mg DAILY ALESIA Administration Atorvastatin Calcium 10 mg 05/10/19 21:00 05/12/19 20:24 Lipitor PO 10 mg HS ALESIA Administration Budesonide 0.5 mg 05/09/19 18:30 05/12/19 18:11 Pulmicort Neb Solution INH 0.5 mg BID-RT ALESIA Administration Calcium Carbonate 1,000 mg 05/10/19 11:33 05/11/19 17:26 Tums PO 1,000 mg Q4H PRN Administration Heartburn or Indigestion Carvedilol 6.25 mg 05/10/19 21:00 05/12/19 20:23 Coreg PO 6.25 mg BID ALESIA Administration Clonazepam 0.5 mg 05/11/19 09:00 05/12/19 20:24 Klonopin PO 0.5 mg BID ALESIA Administration Fentanyl 25 mcg 05/11/19 07:20 05/12/19 00:03 Sublimaze SLOW IVP 25 mcg Q2H PRN Administration Moderate breakthrough pain Furosemide 40 mg 05/12/19 14:00 05/12/19 15:19 Lasix SLOW IVP 40 mg 0600,1400 ALESIA Administration Hydralazine HCl 10 mg 05/07/19 13:48 05/10/19 08:36 Apresoline SLOW IVP 10 mg Q6H PRN Administration To Maintain SBP< 140mmHG Insulin Glargine 40 units/ 0.4 mls @ 0 mls/hr 05/12/19 21:00 05/12/19 20:44 Miscellaneous Medication SC 0.4 mls HS ALESIA Administration Ibuprofen 600 mg 05/11/19 08:00 05/12/19 20:23 Motrin PO 600 mg Q6H ALESIA Administration Insulin Human Regular 0 units 05/12/19 16:33 05/12/19 18:00 Humulin R SC 9 units .AGGRESSIVE SLIDING PRN Administration Aggressive Sliding Scale Levothyroxine Sodium 150 mcg 05/11/19 06:00 05/12/19 05:49 Synthroid PO 150 mcg 0600 ALESIA Administration Lisinopril 40 mg 05/11/19 09:00 05/12/19 08:29 Zestril PO 40 mg DAILY ALESIA Administration Metoclopramide HCl 10 mg 05/11/19 23:59 05/12/19 17:54 Reglan IVP 10 mg Q6HR ALESIA Administration Nystatin 0 gm 05/12/19 21:00 05/12/19 20:24 Mycostatin Powder TOP 1 applic BID ALESIA Administration Polyethylene Glycol 17 gm 05/11/19 09:00 05/12/19 08:27 Miralax PO 17 gm DAILY ALESIA Administration Potassium Chloride 10 meq 05/12/19 08:00 05/12/19 18:01 Klor-Con 10 PO 10 meq BID-WM ALESIA Administration Sodium Chloride 10 ml 05/11/19 09:00 05/12/19 20:24 Flush - Normal Saline IVF 10 ml Q12HR ALESIA Administration - Exam NAD Heart: RRR, no rubs Respiratory: CTAB, no ronchi Gastrointestinal: soft, non-tender, normal bowel sounds Hosp A/P (1) Acute non-ST elevation myocardial infarction (NSTEMI) Code(s): I21.4 - NON-ST ELEVATION (NSTEMI) MYOCARDIAL INFARCTION Status: Acute (2) DM (diabetes mellitus), type 2, uncontrolled Code(s): E11.65 - TYPE 2 DIABETES MELLITUS WITH HYPERGLYCEMIA Status: Chronic Qualifiers: Glycemic state: with hyperglycemia Qualified Code(s): E11.65 - Type 2 diabetes mellitus with hyperglycemia (3) S/P CABG (coronary artery bypass graft) Code(s): Z95.1 - PRESENCE OF AORTOCORONARY BYPASS GRAFT (4) Acute on chronic combined systolic and diastolic heart failure Code(s): I50.43 - ACUTE ON CHRONIC COMBINED SYSTOLIC AND DIASTOLIC HRT FAIL Status: Acute (5) CAD (coronary artery disease) Code(s): I25.10 - ATHSCL HEART DISEASE OF [place] CORONARY ARTERY W/O ANG PCTRS Status: Chronic (6) Hyponatremia Code(s): E87.1 - HYPO-OSMOLALITY AND HYPONATREMIA Status: Acute (7) Morbid obesity with BMI of 40.0-44.9, adult Code(s): E66.01 - MORBID (SEVERE) OBESITY DUE TO EXCESS CALORIES; Z68.41 - BODY MASS INDEX (BMI) 40.0-44.9, ADULT Status: Chronic (8) Hypothyroidism Code(s): E03.9 - HYPOTHYROIDISM, UNSPECIFIED Status: Chronic (9) GERD (gastroesophageal reflux disease) Code(s): K21.9 - GASTRO-ESOPHAGEAL REFLUX DISEASE WITHOUT ESOPHAGITIS Status: Chronic (10) Other issues per previous notes - Plan dc guevara (in AM) Increase Lantus 50 QAM and 40 HS Cont sliding scale - Aggressive ACHS acuchecks Cont ASA,Lisinopril & Coreg Cont other med as below Cont Cardiac Rehab DC Guevara in AM
[2019-05-13] MEDS: Metoclopramide HCl 10 MG/2 ML VIAL IVP SCH ×4 (00:15→18:10)
[2019-05-13] MEDS: Ibuprofen 600 MG TAB PO SCH ×4 (03:31→20:04)
[2019-05-13] MEDS ORDERED: Metolazone 5 MG TAB PO SCH (05:30)
[2019-05-13] MEDS: Furosemide 40 MG/4 ML VIAL SLOW IVP SCH ×2 (06:09→13:44)
[2019-05-13] MEDS: Levothyroxine 150 MCG TAB PO SCH (06:10)
[2019-05-13] MEDS: Budesonide 0.5 MG/2 ML NEB INH SCH ×2 (06:52→18:02)
[2019-05-13] MEDS: Aspirin 325 MG TAB PO SCH (09:21)
[2019-05-13] MEDS: Carvedilol 6.25 MG TAB PO SCH ×2 (09:21→20:05)
[2019-05-13] MEDS: Lisinopril 20 MG TAB PO SCH (09:21)
--- NOTE | 2019-05-13 09:21 | PRG ---
DATE OF SERVICE: 05/13/2019 SUBJECTIVE: This morning, he is better, still weak, less short of breath. OBJECTIVE: VITAL SIGNS: Temperature 99, pulse 84, respirations 18, saturations 94% on room air, blood pressure 125/59. CHEST: No wheezing or crackles. CARDIAC: Normal S1 and S2. No gallops. ABDOMEN: No masses. IMPRESSION: Status post coronary artery bypass graft, sleep apnea, and chronic obstructive pulmonary disease, stable. DISPOSITION: As per surgery. PT, supportive care. We will follow. Job ID: [id number] MTDD
[2019-05-13] MEDS: Polyethylene Glycol 3350 17 GM Packet PO SCH ×2 (09:22→09:27)
[2019-05-13] MEDS: clonazePAM 0.5 MG TAB PO SCH ×2 (09:22→20:06)
[2019-05-13] MEDS: Insulin Glargine 50 UNITS in Pre-Filled Syringe SC SCH (09:22)
[2019-05-13] MEDS: HYDROcodone/Acetaminophen 5/325 mg Tablet PO PRN ×3 (09:40→20:05)
[2019-05-13] MEDS: Potassium Chloride 10 MEQ TAB PO SCH (10:33)
[2019-05-13] MEDS: Nystatin Powder 15 GM BOT TOP SCH ×2 (10:37→20:06)
[2019-05-13] MEDS: Insulin Regular 300 UNITS/3 ML VIAL SC PRN ×2 (13:45→18:11)
--- NOTE | 2019-05-13 19:48 | PDOC.HOSPP ---
- Subjective Encounter Date: 05/13/19 Encounter Time: 12:00 Subjective: Patient seen and examined for CAD/NSTEMI s/p CABG. Isaac shepherd today. No CP or SOB. No new complaints. No overnight events - Objective Vital Signs & Weight: Vital Signs (12 hours) Temp Pulse Pulse Pulse Resp BP BP 05/13/19 18:02 81 14 05/13/19 15:40 98.4 F 79 18 05/13/19 13:34 82 16 05/13/19 13:24 82 80 120/71 121/73 05/13/19 11:44 97.7 F 75 18 05/13/19 09:03 86 142/65 H 05/13/19 08:14 99.2 F 83 18 BP BP Pulse Ox Pulse Ox Pulse Ox 05/13/19 18:02 98 05/13/19 15:40 105/57 L 97 05/13/19 13:34 98 05/13/19 13:24 98 99 05/13/19 11:44 131/68 95 05/13/19 09:03 95 05/13/19 08:14 125/59 L 95 Weight Admit Weight 312 lb 3.2 oz Weight 317 lb Most Recent Monitor Data Heart Rate from ECG 72 NIBP 158/73 NIBP BP-Mean 101 Respiration from ECG 15 SpO2 100 I&O: 05/12/19 05/13/19 05/14/19 06:59 06:59 06:59 Intake Total 1020 120 950 Output Total 9196 516 3506 [facility] -480 -2011 Result Diagrams: 05/14/19 05:04 05/14/19 05:04 Additional Labs: Accuchecks 05/13/19 05/13/19 05/13/19 16:55 10:46 05:26 POC Glucose 191 H 189 H 153 H 05/12/19 20:32 POC Glucose 222 H EKG Reviewed by me: Yes (Tele SR) Hospitalist ROS - Review of Systems Cardiovascular: denies: chest pain, palpitations, orthopnea, paroxysmal noc. dyspnea, edema, light headedness, other Gastrointestinal: denies: nausea, vomitting, abdominal pain, diarrhea, constipation, melena, hematochezia, other - Medication Medications: Active Medications Generic Name Dose Route Start Last Admin Trade Name Freq PRN Reason Stop Dose Admin Hydrocodone Bitart/Acetaminophen 1 tab 05/11/19 07:20 05/13/19 14:22 [place] 5/325 PO 1 tab Q4H PRN Administration Moderate Pain (4-6) Al Hydroxide/Mg Hydroxide 30 ml 05/11/19 07:20 05/11/19 16:09 Maalox PO 30 ml Q4H PRN Administration Indigestion Albuterol/Ipratropium 3 ml 05/07/19 19:00 05/13/19 18:02 Duoneb NEB 3 ml [id number] ALESIA Administration Aspirin 325 mg 05/13/19 09:00 05/13/19 09:21 Aspirin PO 325 mg DAILY ALESIA Administration Atorvastatin Calcium 10 mg 05/10/19 21:00 05/12/19 20:24 Lipitor PO 10 mg HS ALESIA Administration Budesonide 0.5 mg 05/09/19 18:30 05/13/19 18:02 Pulmicort Neb Solution INH 0.5 mg BID-RT ALESIA Administration Calcium Carbonate 1,000 mg 05/10/19 11:33 05/11/19 17:26 Tums PO 1,000 mg Q4H PRN Administration Heartburn or Indigestion Carvedilol 6.25 mg 05/10/19 21:00 05/13/19 09:21 Coreg PO 6.25 mg BID ALESIA Administration Clonazepam 0.5 mg 05/11/19 09:00 05/13/19 09:22 Klonopin PO 0.5 mg BID ALESIA Administration Fentanyl 25 mcg 05/11/19 07:20 05/12/19 22:46 Sublimaze SLOW IVP 25 mcg Q2H PRN Administration Moderate breakthrough pain Furosemide 40 mg 05/12/19 14:00 05/13/19 13:44 Lasix SLOW IVP 40 mg 0600,1400 ALESIA Administration Hydralazine HCl 10 mg 05/07/19 13:48 05/10/19 08:36 Apresoline SLOW IVP 10 mg Q6H PRN Administration To Maintain SBP< 140mmHG Insulin Glargine 40 units/ 0.4 mls @ 0 mls/hr 05/12/19 21:00 05/12/19 20:44 Miscellaneous Medication SC 0.4 mls HS ALESIA Administration Insulin Glargine 50 units/ 0.5 mls @ 0 mls/hr 05/13/19 09:00 05/13/19 09:22 Miscellaneous Medication SC 0.5 mls QAM ALESIA Administration Ibuprofen 600 mg 05/11/19 08:00 05/13/19 13:44 Motrin PO 600 mg Q6H ALESIA Administration Insulin Human Regular 0 units 05/12/19 16:33 05/13/19 18:11 Humulin R SC 3 units .AGGRESSIVE SLIDING PRN Administration Aggressive Sliding Scale Levothyroxine Sodium 150 mcg 05/11/19 06:00 05/13/19 06:10 Synthroid PO 150 mcg 0600 ALESIA Administration Lisinopril 40 mg 05/11/19 09:00 05/13/19 09:21 Zestril PO 40 mg DAILY ALESIA Administration Metoclopramide HCl 10 mg 05/11/19 23:59 05/13/19 18:10 Reglan IVP 10 mg Q6HR ALESIA Administration Nystatin 0 gm 05/12/19 21:00 05/13/19 10:37 Mycostatin Powder TOP Not Given BID ALESIA Polyethylene Glycol 17 gm 05/11/19 09:00 05/13/19 09:27 Miralax PO Not Given DAILY ALESIA Potassium Chloride 10 meq 05/13/19 08:00 05/13/19 18:10 Klor-Con PO 10 meq BID-WM ALESIA Administration Sodium Chloride 10 ml 05/11/19 09:00 05/13/19 09:22 Flush - Normal Saline IVF 10 ml Q12HR ALESIA Administration - Exam General Appearance: NAD Heart: RRR, no rubs Respiratory: CTAB, no ronchi Gastrointestinal: soft, non-tender, normal bowel sounds Extremities: no edema Neurological: no new deficit Hosp A/P (1) Acute non-ST elevation myocardial infarction (NSTEMI) Code(s): I21.4 - NON-ST ELEVATION (NSTEMI) MYOCARDIAL INFARCTION Status: Acute (2) DM (diabetes mellitus), type 2, uncontrolled Code(s): E11.65 - TYPE 2 DIABETES MELLITUS WITH HYPERGLYCEMIA Status: Chronic Qualifiers: Glycemic state: with hyperglycemia Qualified Code(s): E11.65 - Type 2 diabetes mellitus with hyperglycemia (3) S/P CABG (coronary artery bypass graft) Code(s): Z95.1 - PRESENCE OF AORTOCORONARY BYPASS GRAFT (4) Acute on chronic combined systolic and diastolic heart failure Code(s): I50.43 - ACUTE ON CHRONIC COMBINED SYSTOLIC AND DIASTOLIC HRT FAIL Status: Acute (5) CAD (coronary artery disease) Code(s): I25.10 - ATHSCL HEART DISEASE OF [place] CORONARY ARTERY W/O ANG PCTRS Status: Chronic (6) Hyponatremia Code(s): E87.1 - HYPO-OSMOLALITY AND HYPONATREMIA Status: Acute (7) Morbid obesity with BMI of 40.0-44.9, adult Code(s): E66.01 - MORBID (SEVERE) OBESITY DUE TO EXCESS CALORIES; Z68.41 - BODY MASS INDEX (BMI) 40.0-44.9, ADULT Status: Chronic (8) Hypothyroidism Code(s): E03.9 - HYPOTHYROIDISM, UNSPECIFIED Status: Chronic (9) GERD (gastroesophageal reflux disease) Code(s): K21.9 - GASTRO-ESOPHAGEAL REFLUX DISEASE WITHOUT ESOPHAGITIS Status: Chronic (10) Other issues per previous notes - Plan Cont ASA, Lisinopril & Coreg Cont Lantus 50 QAM and 40 HS Cont sliding scale - Aggressive ACHS acuchecks Cont other med as below Await repeat Echo Isaac shepherd today
[2019-05-13] MEDS: Atorvastatin Calcium 10 MG TAB PO SCH (20:04)
[2019-05-13] MEDS: Insulin Glargine 40 UNITS in Pre-Filled Syringe SC SCH (22:14)
[2019-05-14] MEDS: Ibuprofen 600 MG TAB PO SCH ×4 (02:04→21:12)
[2019-05-14] MEDS: Metoclopramide HCl 10 MG/2 ML VIAL IVP SCH ×5 (02:04→22:44)
[2019-05-14] MEDS: Furosemide 40 MG/4 ML VIAL SLOW IVP SCH ×2 (05:30→14:17)
[2019-05-14] MEDS: Levothyroxine 150 MCG TAB PO SCH (05:30)
[2019-05-14 05:31] LABS: #Basophils 0.1 thou/uL (0.0-0.2); #Eosinphils 0.5 thou/uL (0.0-0.7); #Lymphocytes 4.6 thou/uL (1.20-3.40); #Monocytes 1.2 thou/uL (0.11-0.59); #Neutrophils 9.7 thou/uL (1.40-6.50); %Basophils 0.5 % (0.0-1.0); %Eosinophils 2.8 % (0.0-10.0); %Lymphocytes 28.5 % (21.0-51.0); %Monocytes 7.5 % (0.0-10.0); %Neutrophils 60.7 % (42.0-75.0); Mean Corpuscular HGB CONC 34.4 g/dL (32.0-36.0); Mean Corpuscular Hemoglobin 30.2 pg (27.0-31.0); Mean Corpuscular Volume 87.9 fL (78.0-98.0); Mean Platelet Volume 7.6 fL (7.4-10.4); Platelet Count 246 thou/uL (130-400); RBC Distribution Width 13.5 % (11.5-14.5); Red Blood Cell (RBC) Count 4.32 mill/uL (4.70-6.10)
[2019-05-14] MEDS: HYDROcodone/Acetaminophen 5/325 mg Tablet PO PRN ×3 (05:45→18:49)
[2019-05-14 05:54] LABS: Anion Gap 17 mmol/L (10-20); BUN (Urea Nitrogen) 19 mg/dL (8.4-25.7); Calc. Creatinine Clearance 114 mL/min (70-130); Calcium 9.6 mg/dL (7.8-10.44); Carbon Dioxide 26 mmol/L (23-31); Chloride 96 mmol/L (98-107); Estimated GFR-MDRD 64; Glucose 140 mg/dL (83-110); Potassium 3.5 mmol/L (3.5-5.1); Sodium 135 mmol/L (136-145)
[2019-05-14] MEDS: Budesonide 0.5 MG/2 ML NEB INH SCH ×2 (06:49→18:32)
[2019-05-14 08:24] LABS: Actual Bicarbonate (HCO3a) 22.3 mEq/L (22-28); Analyzer IN Cardio OR; Base Excess (BEa) -2.6 mEq/L (-2.0 to +3.0); CO2 Tension 39.3 mmHg (35.0-45.0); Calcium, Ionized 1.07 mmol/L (1.12-1.30); Carboxyhemoglobin (COHb) 1.3 gm% (0.0-3.0); O2 Tension (PaO2) 291.1 mmHg (> 70.0); Potassium - ABG Lab 3.45 mmol/L (3.70-5.30); pH, Arterial 7.37 (7.35-7.45)
[2019-05-14 08:24] LABS: Analyzer IN Cardio OR; Base Excess (BEa) -1.3 mEq/L (-2.0 to +3.0); CO2 Tension 47.2 mmHg (35.0-45.0); Calcium, Ionized 1.13 mmol/L (1.12-1.30); Carboxyhemoglobin (COHb) 1.2 gm% (0.0-3.0); Hemoglobin (Hb) 15.9 g/dL (14.0-18.0); O2 Tension (PaO2) 393.9 mmHg (> 70.0); Potassium - ABG Lab 4.02 mmol/L (3.70-5.30); pH, Arterial 7.34 (7.35-7.45)
[2019-05-14 08:25] LABS: Actual Bicarbonate (HCO3a) 22.9 mEq/L (22-28); Analyzer IN Cardio OR; Base Excess (BEa) -2.7 mEq/L (-2.0 to +3.0); CO2 Tension 43.1 mmHg (35.0-45.0); Calcium, Ionized 1.02 mmol/L (1.12-1.30); Hemoglobin (Hb) 12.5 g/dL (14.0-18.0); O2 Tension (PaO2) 460.7 mmHg (> 70.0); Potassium - ABG Lab 3.77 mmol/L (3.70-5.30); pH, Arterial 7.34 (7.35-7.45)
[2019-05-14 08:26] LABS: Analyzer IN Cardio OR; Base Excess (BEa) 1.2 mEq/L (-2.0 to +3.0); CO2 Tension 47.7 mmHg (35.0-45.0); Calcium, Ionized 0.95 mmol/L (1.12-1.30); Carboxyhemoglobin (COHb) 0.7 gm% (0.0-3.0); Hemoglobin (Hb) 11.8 g/dL (14.0-18.0); Potassium - ABG Lab 3.79 mmol/L (3.70-5.30); pH, Arterial 7.37 (7.35-7.45)
[2019-05-14 08:27] LABS: Actual Bicarbonate (HCO3a) 24.5 mEq/L (22-28); Analyzer IN Cardio OR; Base Excess (BEa) -0.9 mEq/L (-2.0 to +3.0); CO2 Tension 43.3 mmHg (35.0-45.0); Calcium, Ionized 1.03 mmol/L (1.12-1.30); Carboxyhemoglobin (COHb) 0.9 gm% (0.0-3.0); Hemoglobin (Hb) 12.2 g/dL (14.0-18.0); O2 Tension (PaO2) 345.2 mmHg (> 70.0); Potassium - ABG Lab 3.56 mmol/L (3.70-5.30); pH, Arterial 7.37 (7.35-7.45)
[2019-05-14 08:27] LABS: Actual Bicarbonate (HCO3a) 19.3 mEq/L (22-28); Analyzer IN Cardio OR; Base Excess (BEa) -6.9 mEq/L (-2.0 to +3.0); CO2 Tension 40.9 mmHg (35.0-45.0); Calcium, Ionized 1.01 mmol/L (1.12-1.30); Carboxyhemoglobin (COHb) 0.6 gm% (0.0-3.0); Hemoglobin (Hb) 12.9 g/dL (14.0-18.0); O2 Tension (PaO2) 445.2 mmHg (> 70.0); Potassium - ABG Lab 4.43 mmol/L (3.70-5.30); pH, Arterial 7.29 (7.35-7.45)
[2019-05-14 08:28] LABS: Puncture Site ALINE
[2019-05-14 08:28] LABS: Puncture Site ALINE
[2019-05-14 08:29] LABS: Puncture Site ALINE
[2019-05-14 08:29] LABS: Puncture Site ALINE
[2019-05-14 08:30] LABS: Puncture Site ALINE
[2019-05-14 08:31] LABS: Puncture Site ALINE
[2019-05-14] MEDS: clonazePAM 0.5 MG TAB PO SCH ×2 (08:59→21:13)
[2019-05-14] MEDS: Aspirin 325 MG TAB PO SCH (08:59)
[2019-05-14] MEDS: Lisinopril 20 MG TAB PO SCH (09:00)
[2019-05-14] MEDS: Nystatin Powder 15 GM BOT TOP SCH ×2 (09:00→21:12)
[2019-05-14] MEDS: Polyethylene Glycol 3350 17 GM Packet PO SCH (09:01)
[2019-05-14] MEDS: Carvedilol 6.25 MG TAB PO SCH ×2 (09:02→21:12)
[2019-05-14] MEDS: Insulin Glargine 50 UNITS in Pre-Filled Syringe SC SCH ×2 (09:22→21:51)
--- NOTE | 2019-05-14 09:27 | PRG ---
DATE OF SERVICE: 05/14/2019 SUBJECTIVE: This morning, he is doing better, walking in the halls. OBJECTIVE: VITAL SIGNS: Saturations are 94% on room air, respiratory rate 18, temperature 97, blood [id number]. CHEST: No wheezing or crackles. CARDIAC: Normal S1 and S2. No gallops. ABDOMEN: No masses. ASSESSMENT: Coronary artery bypass graft, sleep apnea, congestive heart failure , deconditioning. PLAN: Disposition as per Surgery. Continue neb treatment and PT. Job ID: [id number] [facility]
[2019-05-14] MEDS: Insulin Regular 300 UNITS/3 ML VIAL SC PRN ×2 (11:31→17:49)
[2019-05-14] MEDS: Atorvastatin Calcium 10 MG TAB PO SCH (21:12)
--- NOTE | 2019-05-14 22:03 | PDOC.HOSPP ---
- Subjective Encounter Date: 05/14/19 Encounter Time: 09:30 Subjective: Patient seen and examined for ACS. Pain controlled. Sitting on chair. No CP or SOB. No new complaints. No overnight events - Objective Vital Signs & Weight: Vital Signs (12 hours) Temp Pulse Pulse Resp BP BP BP 05/14/19 18:33 73 16 05/14/19 18:32 73 16 05/14/19 16:10 98.1 F 92 16 107/64 05/14/19 14:33 97 119/71 05/14/19 13:21 82 14 05/14/19 11:25 96.4 F L 88 16 89/52 L Pulse Ox 05/14/19 18:33 97 05/14/19 18:32 97 05/14/19 16:10 96 05/14/19 14:33 05/14/19 13:21 98 05/14/19 11:25 96 Weight Admit Weight 312 lb 3.2 oz Weight 298 lb Most Recent Monitor Data Heart Rate from ECG 72 NIBP 158/73 NIBP BP-Mean 101 Respiration from ECG 15 SpO2 100 I&O: 05/13/19 05/14/19 05/15/19 06:59 06:59 06:59 Intake Total 120 950 Output Total 600 2962 Balance - Result Diagrams: 05/15/19 06:29 05/14/19 23:55 Additional Labs: Accuchecks 05/14/19 05/14/19 05/14/19 21:03 17:13 11:12 POC Glucose 161 H 173 H 322 H 05/14/19 05/14/19 05:15 02:56 POC Glucose 146 H 134 H EKG Reviewed by me: Yes (Tele SR) Hospitalist ROS - Review of Systems Respiratory: denies: cough, dry, shortness of breath, hemoptysis, SOB with excertion, pleuritic pain, sputum, wheezing, other Cardiovascular: denies: chest pain, palpitations, orthopnea, paroxysmal noc. dyspnea, edema, light headedness, other - Medication Medications: Active Medications Generic Name Dose Route Start Last Admin Trade Name Freq PRN Reason Stop Dose Admin Hydrocodone Bitart/Acetaminophen 1 tab 05/11/19 07:20 05/14/19 18:49 [place] 5/325 PO 1 tab Q4H PRN Administration Moderate Pain (4-6) Al Hydroxide/Mg Hydroxide 30 ml 05/11/19 07:20 05/11/19 16:09 Maalox PO 30 ml Q4H PRN Administration Indigestion Albuterol/Ipratropium 3 ml 05/07/19 19:00 05/14/19 18:33 Duoneb NEB 3 ml [id number] ALESIA Administration Aspirin 325 mg 05/13/19 09:00 05/14/19 08:59 Aspirin PO 325 mg DAILY ALESIA Administration Atorvastatin Calcium 10 mg 05/10/19 21:00 05/14/19 21:12 Lipitor PO 10 mg HS ALESIA Administration Budesonide 0.5 mg 05/09/19 18:30 05/14/19 18:32 Pulmicort Neb Solution INH 0.5 mg BID-RT ALESIA Administration Calcium Carbonate 1,000 mg 05/10/19 11:33 05/11/19 17:26 Tums PO 1,000 mg Q4H PRN Administration Heartburn or Indigestion Carvedilol 6.25 mg 05/10/19 21:00 05/14/19 21:12 Coreg PO 6.25 mg BID ALESIA Administration Clonazepam 0.5 mg 05/11/19 09:00 05/14/19 21:13 Klonopin PO 0.5 mg BID ALESIA Administration Fentanyl 25 mcg 05/11/19 07:20 05/12/19 22:46 Sublimaze SLOW IVP 25 mcg Q2H PRN Administration Moderate breakthrough pain Furosemide 40 mg 05/12/19 14:00 05/14/19 14:17 Lasix SLOW IVP 40 mg 0600,1400 ALESIA Administration Hydralazine HCl 10 mg 05/07/19 13:48 05/10/19 08:36 Apresoline SLOW IVP 10 mg Q6H PRN Administration To Maintain SBP< 140mmHG Insulin Glargine 50 units/ 0.5 mls @ 0 mls/hr 05/14/19 21:00 05/14/19 21:51 Miscellaneous Medication SC 0.5 mls HS ALESIA Administration As Directed Ibuprofen 600 mg 05/11/19 08:00 05/14/19 21:12 Motrin PO 600 mg Q6H ALESIA Administration Insulin Human Regular 0 units 05/12/19 16:33 05/14/19 17:49 Humulin R SC 3 units .AGGRESSIVE SLIDING PRN Administration Aggressive Sliding Scale Levothyroxine Sodium 150 mcg 05/11/19 06:00 05/14/19 05:30 Synthroid PO 150 mcg 0600 ALESIA Administration Lisinopril 40 mg 05/11/19 09:00 05/14/19 09:00 Zestril PO 40 mg DAILY ALESIA Administration Metoclopramide HCl 10 mg 05/11/19 23:59 05/14/19 17:48 Reglan IVP 10 mg Q6HR ALESIA Administration Nystatin 0 gm 05/12/19 21:00 05/14/19 21:12 Mycostatin Powder TOP Not Given BID ALESIA Polyethylene Glycol 17 gm 05/11/19 09:00 05/14/19 09:01 Miralax PO Not Given DAILY ALESIA Potassium Chloride 10 meq 05/13/19 08:00 05/14/19 17:49 Klor-Con PO 10 meq BID-WM ALESIA Administration Sodium Chloride 10 ml 05/11/19 09:00 05/14/19 21:14 Flush - Normal Saline IVF 10 ml Q12HR ALESIA Administration - Exam General Appearance: NAD Heart: RRR, no gallops Respiratory: CTAB, no rales Gastrointestinal: soft, non-tender, normal bowel sounds Neurological: no new deficit Hosp A/P (1) Acute non-ST elevation myocardial infarction (NSTEMI) Code(s): I21.4 - NON-ST ELEVATION (NSTEMI) MYOCARDIAL INFARCTION Status: Acute (2) DM (diabetes mellitus), type 2, uncontrolled Code(s): E11.65 - TYPE 2 DIABETES MELLITUS WITH HYPERGLYCEMIA Status: Chronic Qualifiers: Glycemic state: with hyperglycemia Qualified Code(s): E11.65 - Type 2 diabetes mellitus with hyperglycemia (3) S/P CABG (coronary artery bypass graft) Code(s): Z95.1 - PRESENCE OF AORTOCORONARY BYPASS GRAFT (4) Acute on chronic combined systolic and diastolic heart failure Code(s): I50.43 - ACUTE ON CHRONIC COMBINED SYSTOLIC AND DIASTOLIC HRT FAIL Status: Acute (5) CAD (coronary artery disease) Code(s): I25.10 - ATHSCL HEART DISEASE OF [place] CORONARY ARTERY W/O ANG PCTRS Status: Chronic (6) Hyponatremia Code(s): E87.1 - HYPO-OSMOLALITY AND HYPONATREMIA Status: Acute (7) Morbid obesity with BMI of 40.0-44.9, adult Code(s): E66.01 - MORBID (SEVERE) OBESITY DUE TO EXCESS CALORIES; Z68.41 - BODY MASS INDEX (BMI) 40.0-44.9, ADULT Status: Chronic (8) Hypothyroidism Code(s): E03.9 - HYPOTHYROIDISM, UNSPECIFIED Status: Chronic (9) GERD (gastroesophageal reflux disease) Code(s): K21.9 - GASTRO-ESOPHAGEAL REFLUX DISEASE WITHOUT ESOPHAGITIS Status: Chronic (10) Other issues per previous notes - Plan Cont ASA, Lisinopril & Coreg Cont Lantus 50 QAM and 40 HS Cont sliding scale - Aggressive ACHS acuchecks Cont other med as below [facility] at dc Patient agrees with short stay at rehab
[2019-05-14] MEDS: Ondansetron PF 4 MG/2 ML Vial IVP PRN (22:45)
[2019-05-14] MEDS ORDERED: Sodium Chloride 0.9% 500 ML IV SCH (23:45)
--- NOTE | 2019-05-14 23:50 | RAD ---
RADIOGRAPH CHEST 1 VIEW: DATE: 05/14/2019 Time: 11:16 PM HISTORY: 73-year-old male with hypotension and dyspnea FINDINGS: Suboptimal study due to suboptimal positioning: Reversed lordotic. There is no airspace density, pulm onary edema, or pneumothorax. The lateral costophrenic angles are not effaced. Nonspecific partial effacement of left hemidiaphragm, perhaps representing mild left lower lobe atelectasis and/or small left pleural effusion. This appears similar to 05/10/2019. Sternotomy wires. IMPRESSION: 1. Questionable mild atelectasis and/or small left pleural effusion at left lung base. 2. No other evidence of potentially acute pulmonary findings. 3. Status post open heart surgery..
[2019-05-15 00:10] LABS: Mean Corpuscular Volume 86.9 fL (78.0-98.0)
[2019-05-15 00:18] LABS: Actual Bicarbonate (HCO3a) 25.9 mEq/L (22-28); Base Excess (BEa) 3.2 mEq/L (-2.0 to +3.0); CO2 Tension 33.7 mmHg (35.0-45.0); Calcium, Ionized 1.08 mmol/L (1.12-1.30); Carboxyhemoglobin (COHb) 1.7 gm% (0.0-3.0); Hemoglobin (Hb) 13.2 g/dL (14.0-18.0); Potassium - ABG Lab 3.59 mmol/L (3.70-5.30)
[2019-05-15 00:25] LABS: Anion Gap 18 mmol/L (10-20); BUN (Urea Nitrogen) 27 mg/dL (8.4-25.7); Band 3 % (5-11); Calc. Creatinine Clearance 75 mL/min (70-130); Calcium 9.3 mg/dL (7.8-10.44); Carbon Dioxide 25 mmol/L (23-31); Chloride 95 mmol/L (98-107); Estimated GFR-MDRD 40; Glucose 156 mg/dL (83-110); Hemoglobin 13.1 g/dL (14.0-18.0); Lymphocytes 15 % (21-51); MDiff Complete? YES; Mean Corpuscular HGB CONC 35.2 g/dL (32.0-36.0); Mean Corpuscular Hemoglobin 30.6 pg (27.0-31.0); Mean Platelet Volume 7.8 fL (7.4-10.4); Monocytes 6 % (0-10); Neutrophil 76 % (42-75); Platelet Count 267 thou/uL (130-400); Platelet Morphology Comment Appears Adequate; Potassium 3.8 mmol/L (3.5-5.1); RBC Distribution Width 13.6 % (11.5-14.5); Red Blood Cell (RBC) Count 4.28 mill/uL (4.70-6.10); Sodium 134 mmol/L (136-145); White Blood Cell (WBC) Count 22.8 thou/uL (4.8-10.8)
[2019-05-15] MEDS ORDERED: Sodium Chloride 0.9% 500 ML IV SCH (00:30)
[2019-05-15] MEDS ORDERED: DOBUTamine 500 mg/250 ml 500 MG in Premix Bag 1 BAG IVPB SCH (00:30)
--- NOTE | 2019-05-15 01:54 | PDOC.EVN ---
Event Note - Event Note Event Note: Patient became diaphoretic and pale while ambulating to the bathroom. [place] SOB , and lightheaded. BP initially 80s systolic, then 60s per manual cuff. Patient lethargic, and slow to respond. Patient moved to CCU: labwork indicated patient dry, fluids given, and dobutamine started. Dr. Davila and myself have seen and evaluated the patient.
[2019-05-15] MEDS: Ibuprofen 600 MG TAB PO SCH ×4 (03:23→20:46)
[2019-05-15 05:06] LABS: Bacteria/HPF 4+ HPF (None Seen); Bilirubin Negative (Negative); Blood, Urine 1+ (Negative); Clarity Turbid (Clear); Glucose, Urine (Dipstick) Normal (Negative); Leukocyte 500 Leu/uL (Negative); Nitrite Negative (Negative); Protein, Urine (Dipstick) 20 mg/dL (Neg-Trace); Squamous Epithelial 0-3 HPF (0-3); WBC/HPF Greater than 50 HPF (0-3)
[2019-05-15 05:08] LABS: Urine Culture Reflex Yes Yes
[2019-05-15] MEDS: Furosemide 40 MG/4 ML VIAL SLOW IVP SCH (05:44)
[2019-05-15] MEDS: Metoclopramide HCl 10 MG/2 ML VIAL IVP SCH ×2 (05:44→11:25)
[2019-05-15] MEDS: Levothyroxine 150 MCG TAB PO SCH (05:44)
[2019-05-15] MEDS: Insulin Regular 300 UNITS/3 ML VIAL SC PRN ×2 (05:52→10:51)
[2019-05-15 06:29] LABS: ALV-art Gradient 33.605 (0-20)
[2019-05-15 06:54] LABS: Hemoglobin 12.9 g/dL (14.0-18.0); Mean Corpuscular Hemoglobin 30.1 pg (27.0-31.0); Mean Corpuscular Volume 86.2 fL (78.0-98.0); Mean Platelet Volume 7.8 fL (7.4-10.4); Platelet Count 259 thou/uL (130-400); RBC Distribution Width 13.6 % (11.5-14.5); Red Blood Cell (RBC) Count 4.28 mill/uL (4.70-6.10); White Blood Cell (WBC) Count 22.4 thou/uL (4.8-10.8)
[2019-05-15] MEDS: Budesonide 0.5 MG/2 ML NEB INH SCH ×2 (07:50→18:16)
[2019-05-15] MEDS: metroNIDAZOLE 500 MG in Premix Bag 1 BAG IVPB SCH ×2 (07:51→16:49)
[2019-05-15] MEDS: Carvedilol 6.25 MG TAB PO SCH (08:14)
[2019-05-15] MEDS: Lisinopril 20 MG TAB PO SCH (08:15)
[2019-05-15] MEDS: Nystatin Powder 15 GM BOT TOP SCH ×2 (08:15→20:46)
[2019-05-15 08:18] LABS: Band 4 % (5-11); Lymphocytes 13 % (21-51); MDiff Complete? YES; Monocytes 4 % (0-10); Neutrophil 79 % (42-75); RBC Morphology Normal
[2019-05-15] MEDS: clonazePAM 0.5 MG TAB PO SCH ×2 (08:30→20:46)
[2019-05-15] MEDS: Aspirin 325 MG TAB PO SCH (08:30)
[2019-05-15] MEDS: Insulin Glargine 60 UNITS in Pre-Filled Syringe SC SCH (08:31)
[2019-05-15] MEDS: Meropenem 2 GM, Admixture Fee 1 EACH in Sodium Chloride 0.9% 100 ML IVPB SCH ×3 (08:36→23:15)
[2019-05-15] MEDS: Polyethylene Glycol 3350 17 GM Packet PO SCH (08:37)
--- NOTE | 2019-05-15 09:21 | PRG ---
DATE OF SERVICE: 05/15/2019 SUBJECTIVE: This morning, he is awake, alert, and responsive. Events noted. Last night, he became nauseated, going to the bathroom became hypotensive and diaphoretic. Blood pressure dropped. He was transferred to the ICU. This morning, he is still on his nasal CPAP. OBJECTIVE: VITAL SIGNS: Pulse 82, saturations are 100%, respiratory rate 18, and blood pressure 94/56. GENERAL: He said he is not feeling well, but he is moving all 4 extremities. CHEST: Decreased breath sounds. No wheezing. CARDIAC: Normal S1 and S2. No gallops. ABDOMEN: No masses. LABORATORY DATA: His blood gases last night, pO2 of 74 and pCO2 30%, pH 7.50 apparently room air. His white count is elevated 22,000, H and H 12 and 36, and platelet count normal. His creatinine has increased to 1.70. He got evidence of may be UTI. ASSESSMENT AND PLAN: Hypertension, rule out sepsis, urinary tract infection, chronic obstructive pulmonary disease, sleep apnea, and status post coronary artery bypass grafting. He is started on meropenem this morning. Continue supportive care and PT. We will follow. Job ID: [id number]
--- NOTE | 2019-05-15 16:22 | PDOC.HOSPP ---
- Subjective Encounter Date: 05/15/19 Encounter Time: 13:30 Subjective: Patient seen and examined for CHF/NSTEMI. No CP. No new complaints. Overnight events noted. - Objective Vital Signs & Weight: Vital Signs (12 hours) Temp Pulse Resp BP Pulse Ox 05/15/19 13:28 101 H 23 H 99 05/15/19 12:00 98.4 F 05/15/19 08:15 94/56 L 05/15/19 08:14 94/58 L 05/15/19 07:50 93 17 98 05/15/19 07:48 93 17 98 05/15/19 07:23 100 Weight Admit Weight 312 lb 3.2 oz Weight 296 lb 4.82 oz Most Recent Monitor Data Heart Rate from ECG 92 NIBP 114/66 NIBP BP-Mean 82 Respiration from ECG 31 SpO2 100 I&O: 05/14/19 05/15/19 05/16/19 06:59 06:59 06:59 Intake Total 950 976 260 Output Total 2962 125 1200 897 -564 Result Diagrams: 05/15/19 06:29 05/14/19 23:55 Additional Labs: Accuchecks 05/15/19 05/14/19 05/14/19 00:06 22:59 21:03 POC Glucose 158 H 175 H 161 H 05/14/19 17:13 POC Glucose 173 H EKG Reviewed by me: Yes (Tele SR) Hospitalist ROS - Review of Systems Cardiovascular: denies: chest pain, palpitations, orthopnea, paroxysmal noc. dyspnea, edema, light headedness, other Gastrointestinal: denies: nausea, vomitting, abdominal pain, diarrhea, constipation, melena, hematochezia, other - Medication Medications: Active Medications Generic Name Dose Route Start Last Admin Trade Name Freq PRN Reason Stop Dose Admin Hydrocodone Bitart/Acetaminophen 1 tab 05/11/19 07:20 05/14/19 18:49 [place] 5/325 PO 1 tab Q4H PRN Administration Moderate Pain (4-6) Al Hydroxide/Mg Hydroxide 30 ml 05/11/19 07:20 05/11/19 16:09 Maalox PO 30 ml Q4H PRN Administration Indigestion Albuterol/Ipratropium 3 ml 05/15/19 07:00 05/15/19 13:28 Duoneb EZPAP 3 ml [id number] ALESIA Administration Aspirin 325 mg 05/13/19 09:00 05/15/19 08:30 Aspirin PO 325 mg DAILY ALESIA Administration Atorvastatin Calcium 10 mg 05/10/19 21:00 05/14/19 21:12 Lipitor PO 10 mg HS ALESIA Administration Budesonide 0.5 mg 05/09/19 18:30 05/15/19 07:50 Pulmicort Neb Solution INH 0.5 mg BID-RT ALESIA Administration Calcium Carbonate 1,000 mg 05/10/19 11:33 05/11/19 17:26 Tums PO 1,000 mg Q4H PRN Administration Heartburn or Indigestion Clonazepam 0.5 mg 05/11/19 09:00 05/15/19 08:30 Klonopin PO 0.5 mg BID ALESIA Administration Fentanyl 25 mcg 05/11/19 07:20 05/12/19 22:46 Sublimaze SLOW IVP 25 mcg Q2H PRN Administration Moderate breakthrough pain Hydralazine HCl 10 mg 05/07/19 13:48 05/10/19 08:36 Apresoline SLOW IVP 10 mg Q6H PRN Administration To Maintain SBP< 140mmHG Insulin Glargine 50 units/ 0.5 mls @ 0 mls/hr 05/14/19 21:00 05/14/19 21:51 Miscellaneous Medication SC 0.5 mls HS ALESIA Administration As Directed Insulin Glargine 60 units/ 0.6 mls @ 0 mls/hr 05/15/19 09:00 05/15/19 08:31 Miscellaneous Medication SC 0.6 mls QAM ALESIA Administration As Directed Meropenem 2 gm/ Miscellaneous 100 mls @ 200 mls/hr 05/15/19 08:00 05/15/19 08 :36 Medication 1 each/ Sodium IVPB 100 mls Chloride 0800,1600,2359 ALESIA Administration Metronidazole 500 mg/ Device 100 mls @ 100 mls/hr 05/15/19 08:00 05/15/19 07: 51 IVPB 100 mls 0800,1600,2359 ALESIA Administration Ibuprofen 600 mg 05/11/19 08:00 05/15/19 13:52 Motrin PO 600 mg Q6H ALESIA Administration Insulin Human Regular 0 units 05/12/19 16:33 05/15/19 10:51 Humulin R SC 3 units .AGGRESSIVE SLIDING PRN Administration Aggressive Sliding Scale Levothyroxine Sodium 150 mcg 05/11/19 06:00 05/15/19 05:44 Synthroid PO 150 mcg 0600 ALESIA Administration Metoclopramide HCl 10 mg 05/11/19 23:59 05/15/19 11:25 Reglan IVP Not Given Q6HR ALESIA Nystatin 0 gm 05/12/19 21:00 05/15/19 08:15 Mycostatin Powder TOP 1 applic BID ALESIA Administration Ondansetron HCl 4 mg 05/11/19 18:33 05/14/19 22:45 Zofran IVP 4 mg Q6H PRN Administration Nausea/Vomiting Polyethylene Glycol 17 gm 05/11/19 09:00 05/15/19 08:37 Miralax PO Not Given DAILY ALESIA Potassium Chloride 10 meq 05/13/19 08:00 05/15/19 08:14 Klor-Con PO 10 meq BID-WM ALESIA Administration Sodium Chloride 10 ml 05/11/19 09:00 05/15/19 08:37 Flush - Normal Saline IVF 10 ml Q12HR ALESIA Administration - Exam General Appearance: NAD Heart: RRR, no rubs Respiratory: CTAB, no ronchi Gastrointestinal: soft, non-tender, normal bowel sounds Hosp A/P (1) Acute non-ST elevation myocardial infarction (NSTEMI) Code(s): I21.4 - NON-ST ELEVATION (NSTEMI) MYOCARDIAL INFARCTION Status: Acute (2) DM (diabetes mellitus), type 2, uncontrolled Code(s): E11.65 - TYPE 2 DIABETES MELLITUS WITH HYPERGLYCEMIA Status: Chronic Qualifiers: Glycemic state: with hyperglycemia Qualified Code(s): E11.65 - Type 2 diabetes mellitus with hyperglycemia (3) S/P CABG (coronary artery bypass graft) Code(s): Z95.1 - PRESENCE OF AORTOCORONARY BYPASS GRAFT (4) Acute on chronic combined systolic and diastolic heart failure Code(s): I50.43 - ACUTE ON CHRONIC COMBINED SYSTOLIC AND DIASTOLIC HRT FAIL Status: Acute (5) CAD (coronary artery disease) Code(s): I25.10 - ATHSCL HEART DISEASE OF [place] CORONARY ARTERY W/O ANG PCTRS Status: Chronic (6) Hyponatremia Code(s): E87.1 - HYPO-OSMOLALITY AND HYPONATREMIA Status: Acute (7) Morbid obesity with BMI of 40.0-44.9, adult Code(s): E66.01 - MORBID (SEVERE) OBESITY DUE TO EXCESS CALORIES; Z68.41 - BODY MASS INDEX (BMI) 40.0-44.9, ADULT Status: Chronic (8) Hypothyroidism Code(s): E03.9 - HYPOTHYROIDISM, UNSPECIFIED Status: Chronic (9) GERD (gastroesophageal reflux disease) Code(s): K21.9 - GASTRO-ESOPHAGEAL REFLUX DISEASE WITHOUT ESOPHAGITIS Status: Chronic (10) Diarrhea Code(s): R19.7 - DIARRHEA, UNSPECIFIED Status: Acute Qualifiers: Diarrhea type: unspecified type Qualified Code(s): R19.7 - Diarrhea, unspecified (11) UTI (urinary tract infection) Status: Acute (12) Other issues per previous notes - Plan Cont ASA Lisinopril, Lasix & Coreg held due to hypotension Cont Lantus with sliding scale Stool negative for C diff On Meropenem Cont other med as below Hold Reglan and Miralax due to diarrhea [facility]
[2019-05-15] MEDS ORDERED: Senokot 8.6 MG TAB PO PRN (16:28)
[2019-05-15] MEDS: Insulin Glargine 50 UNITS in Pre-Filled Syringe SC SCH (20:46)
[2019-05-15] MEDS: Atorvastatin Calcium 10 MG TAB PO SCH (20:46)
[2019-05-15] MEDS: Saccharomyces boulardii 250 MG CAP PO SCH (20:46)
[2019-05-16] MEDS: metroNIDAZOLE 500 MG in Premix Bag 1 BAG IVPB SCH (00:24)
[2019-05-16] MEDS: Ibuprofen 600 MG TAB PO SCH ×3 (03:17→15:57)
[2019-05-16 05:52] LABS: #Basophils 0.1 thou/uL (0.0-0.2); #Eosinphils 0.2 thou/uL (0.0-0.7); #Lymphocytes 3.7 thou/uL (1.20-3.40); #Monocytes 1.6 thou/uL (0.11-0.59); #Neutrophils 16.4 thou/uL (1.40-6.50); %Basophils 0.2 % (0.0-1.0); %Eosinophils 0.8 % (0.0-10.0); %Lymphocytes 16.8 % (21.0-51.0); %Monocytes 7.4 % (0.0-10.0); %Neutrophils 74.7 % (42.0-75.0); Hemoglobin 13.4 g/dL (14.0-18.0); Mean Corpuscular HGB CONC 34.4 g/dL (32.0-36.0); Mean Corpuscular Hemoglobin 30.5 pg (27.0-31.0); Mean Corpuscular Volume 88.8 fL (78.0-98.0); Mean Platelet Volume 7.6 fL (7.4-10.4); Platelet Count 234 thou/uL (130-400); RBC Distribution Width 13.5 % (11.5-14.5); Red Blood Cell (RBC) Count 4.38 mill/uL (4.70-6.10)
[2019-05-16 05:55] LABS: ALT (SGPT) 20 U/L (8-55); AST (SGOT) 25 U/L (5-34); Albumin 3.4 g/dL (3.4-4.8); Alkaline Phosphatase 165 U/L (40-150); Anion Gap 17 mmol/L (10-20); BUN (Urea Nitrogen) 31 mg/dL (8.4-25.7); Bilirubin, Total 1.2 mg/dL (0.2-1.2); Calc. Creatinine Clearance 90 mL/min (70-130); Carbon Dioxide 24 mmol/L (23-31); Chloride 95 mmol/L (98-107); Estimated GFR-MDRD 49; Globulin 3.2 g/dL (2.4-3.5); Glucose 128 mg/dL (83-110); Magnesium 1.9 mg/dL (1.6-2.6); Phosphorus 3.4 mg/dL (2.3-4.7); Potassium 3.3 mmol/L (3.5-5.1); Protein, Total 6.6 g/dL (5.8-8.1); Sodium 133 mmol/L (136-145)
[2019-05-16] MEDS: Levothyroxine 150 MCG TAB PO SCH (06:01)
[2019-05-16] MEDS: Meropenem 2 GM, Admixture Fee 1 EACH in Sodium Chloride 0.9% 100 ML IVPB SCH ×3 (08:30→23:48)
[2019-05-16] MEDS: clonazePAM 0.5 MG TAB PO SCH ×2 (08:31→21:36)
[2019-05-16] MEDS: Aspirin 325 MG TAB PO SCH (08:31)
[2019-05-16] MEDS: Budesonide 0.5 MG/2 ML NEB INH SCH ×2 (08:40→18:47)
[2019-05-16] MEDS: Nystatin Powder 15 GM BOT TOP SCH ×2 (08:42→21:38)
--- NOTE | 2019-05-16 09:45 | PRG ---
DATE OF SERVICE: 05/16/2019 SUBJECTIVE: This morning, he is awake, alert, and responsive, in no distress. He is weak though. OBJECTIVE: VITAL SIGNS: Temperature 98, pulse 104, saturations 90%, and blood pressure 90/56. CHEST: Decreased breath sounds. No wheezing. CARDIAC: Normal S1 and S2. No gallops. ABDOMEN: No masses. LABORATORY DATA: Creatinine 1.4. White count 20,000. IMPRESSION: 1. Severe deconditioning post coronary artery bypass graft. 2. Sleep apnea. 3. UTI. PLAN: He is on meropenem, which should be adequate. Otherwise continue PT and supportive care. We will follow. Job ID: [id number]
[2019-05-16] MEDS: Insulin Glargine 60 UNITS in Pre-Filled Syringe SC SCH (09:51)
[2019-05-16] MEDS: Ondansetron PF 4 MG/2 ML Vial IVP PRN (20:03)
[2019-05-16] MEDS: Atorvastatin Calcium 10 MG TAB PO SCH (21:36)
[2019-05-16] MEDS: Insulin Glargine 50 UNITS in Pre-Filled Syringe SC SCH (21:36)
[2019-05-16] MEDS: Saccharomyces boulardii 250 MG CAP PO SCH (21:36)
--- NOTE | 2019-05-16 22:36 | PDOC.HOSPP ---
- Subjective Encounter Date: 05/16/19 Encounter Time: 08:00 Subjective: Patient seen and examined for NSTEMI. BP better. Sitting on EOB. No new complaints. No overnight events - Objective Vital Signs & Weight: Vital Signs (12 hours) Temp Pulse Pulse Pulse Pulse Resp BP 05/16/19 20:00 98.7 F 05/16/19 18:48 103 H 28 H 05/16/19 18:47 106 H 23 H 05/16/19 15:35 98.2 F 05/16/19 14:51 100 102 H 98 106/81 05/16/19 13:20 102 H 15 05/16/19 11:12 98.3 F BP BP Pulse Ox 05/16/19 20:00 05/16/19 18:48 97 05/16/19 18:47 97 05/16/19 15:35 05/16/19 14:51 127/67 104/58 L 05/16/19 13:20 05/16/19 11:12 Weight Admit Weight 312 lb 3.2 oz Weight 290 lb 9.108 oz Most Recent Monitor Data Heart Rate from ECG 94 NIBP 103/50 NIBP BP-Mean 67 Respiration from ECG 31 SpO2 75 I&O: 05/15/19 05/16/19 05/17/19 06:59 06:59 06:59 Intake Total 976 720 680 Output Total 125 1550 Balance 851 -830 680 Result Diagrams: 05/16/19 05:12 05/17/19 03:55 Additional Labs: Accuchecks 05/16/19 05/16/19 05/16/19 20:40 16:35 10:56 POC Glucose 210 H 210 H 195 H 05/15/19 05/15/19 05/15/19 10:52 05:54 00:58 POC Glucose 159 H 164 H 153 H EKG Reviewed by me: Yes (Tele SR) Hospitalist ROS - Review of Systems Cardiovascular: denies: chest pain, palpitations, orthopnea, paroxysmal noc. dyspnea, edema, light headedness, other Gastrointestinal: denies: nausea, vomitting, abdominal pain, diarrhea, constipation, melena, hematochezia, other - Medication Medications: Active Medications Generic Name Dose Route Start Last Admin Trade Name Freq PRN Reason Stop Dose Admin Hydrocodone Bitart/Acetaminophen 1 tab 05/11/19 07:20 05/14/19 18:49 [place] 5/325 PO 1 tab Q4H PRN Administration Moderate Pain (4-6) Al Hydroxide/Mg Hydroxide 30 ml 05/11/19 07:20 05/11/19 16:09 Maalox PO 30 ml Q4H PRN Administration Indigestion Albuterol/Ipratropium 3 ml 05/15/19 07:00 05/16/19 18:48 Duoneb EZPAP 3 ml Q6EX-EN ALESIA Administration Aspirin 325 mg 05/13/19 09:00 05/16/19 08:31 Aspirin PO 325 mg DAILY ALESIA Administration Atorvastatin Calcium 10 mg 05/10/19 21:00 05/16/19 21:36 Lipitor PO 10 mg HS ALESIA Administration Budesonide 0.5 mg 05/09/19 18:30 05/16/19 18:47 Pulmicort Neb Solution INH 0.5 mg BID-RT ALESIA Administration Calcium Carbonate 1,000 mg 05/10/19 11:33 05/11/19 17:26 Tums PO 1,000 mg Q4H PRN Administration Heartburn or Indigestion Clonazepam 0.5 mg 05/11/19 09:00 05/16/19 21:36 Klonopin PO 0.5 mg BID ALESIA Administration Fentanyl 25 mcg 05/11/19 07:20 05/12/19 22:46 Sublimaze SLOW IVP 25 mcg Q2H PRN Administration Moderate breakthrough pain Hydralazine HCl 10 mg 05/07/19 13:48 05/10/19 08:36 Apresoline SLOW IVP 10 mg Q6H PRN Administration To Maintain SBP< 140mmHG Insulin Glargine 50 units/ 0.5 mls @ 0 mls/hr 05/14/19 21:00 05/16/19 21:36 Miscellaneous Medication SC 0.5 mls HS ALESIA Administration As Directed Insulin Glargine 60 units/ 0.6 mls @ 0 mls/hr 05/15/19 09:00 05/16/19 09:51 Miscellaneous Medication SC 0.6 mls QAM ALESIA Administration As Directed Meropenem 2 gm/ Miscellaneous 100 mls @ 200 mls/hr 05/15/19 08:00 05/16/19 17 :17 Medication 1 each/ Sodium IVPB 100 mls Chloride 0800,1600,2359 ALESIA Administration Insulin Human Regular 0 units 05/12/19 16:33 05/15/19 10:51 Humulin R SC 3 units .AGGRESSIVE SLIDING PRN Administration Aggressive Sliding Scale Levothyroxine Sodium 150 mcg 05/11/19 06:00 05/16/19 06:01 Synthroid PO 150 mcg 0600 ALESIA Administration Nystatin 0 gm 05/12/19 21:00 05/16/19 21:38 Mycostatin Powder TOP 1 applic BID ALESIA Administration Ondansetron HCl 4 mg 05/11/19 18:33 05/16/19 20:03 Zofran IVP 4 mg Q6H PRN Administration Nausea/Vomiting Potassium Chloride 10 meq 05/13/19 08:00 05/16/19 17:17 Klor-Con PO 10 meq BID-WM ALESIA Administration Saccharomyces Boulardii 250 mg 05/15/19 21:00 05/16/19 21:36 Florastor PO 250 mg HS ALESIA Administration Sodium Chloride 10 ml 05/11/19 09:00 05/16/19 20:03 Flush - Normal Saline IVF 10 ml Q12HR ALESIA Administration - Exam General Appearance: NAD Heart: RRR, no gallops Respiratory: CTAB, no wheezes, no ronchi Gastrointestinal: soft, non-tender, normal bowel sounds Hosp A/P (1) Acute non-ST elevation myocardial infarction (NSTEMI) Code(s): I21.4 - NON-ST ELEVATION (NSTEMI) MYOCARDIAL INFARCTION Status: Acute (2) S/P CABG (coronary artery bypass graft) Code(s): Z95.1 - PRESENCE OF AORTOCORONARY BYPASS GRAFT (3) Acute on chronic combined systolic and diastolic heart failure Code(s): I50.43 - ACUTE ON CHRONIC COMBINED SYSTOLIC AND DIASTOLIC HRT FAIL Status: Acute (4) CAD (coronary artery disease) Code(s): I25.10 - ATHSCL HEART DISEASE OF [place] CORONARY ARTERY W/O ANG PCTRS Status: Chronic (5) Hyponatremia Code(s): E87.1 - HYPO-OSMOLALITY AND HYPONATREMIA Status: Acute (6) Morbid obesity with BMI of 40.0-44.9, adult Code(s): E66.01 - MORBID (SEVERE) OBESITY DUE TO EXCESS CALORIES; Z68.41 - BODY MASS INDEX (BMI) 40.0-44.9, ADULT Status: Chronic (7) GERD (gastroesophageal reflux disease) Code(s): K21.9 - GASTRO-ESOPHAGEAL REFLUX DISEASE WITHOUT ESOPHAGITIS Status: Chronic (8) Acute kidney injury superimposed on CKD Code(s): N17.9 - ACUTE KIDNEY FAILURE, UNSPECIFIED; N18.9 - CHRONIC KIDNEY DISEASE, UNSPECIFIED Status: Acute (9) Diarrhea Code(s): R19.7 - DIARRHEA, UNSPECIFIED Status: Acute Qualifiers: Diarrhea type: unspecified type Qualified Code(s): R19.7 - Diarrhea, unspecified (10) UTI (urinary tract infection) Status: Acute (11) DM2 (diabetes mellitus, type 2) Status: Acute Qualifiers: Chronic kidney disease stage: stage 2 (mild) (12) Hypothyroidism Code(s): E03.9 - HYPOTHYROIDISM, UNSPECIFIED Status: Chronic (13) Other issues per previous notes - Plan Lisinopril, Lasix & Coreg on hold due to hypotension Cont current dose of Lantus with sliding scale On Meropenem for UTI - Await cultures Cont other med as above [facility] eval
[2019-05-17 04:34] LABS: Anion Gap 14 mmol/L (10-20); BUN (Urea Nitrogen) 29 mg/dL (8.4-25.7); Calc. Creatinine Clearance 102 mL/min (70-130); Carbon Dioxide 26 mmol/L (23-31); Chloride 96 mmol/L (98-107); Estimated GFR-MDRD 58; Glucose 132 mg/dL (83-110); Potassium 3.2 mmol/L (3.5-5.1); Sodium 133 mmol/L (136-145)
[2019-05-17] MEDS: Levothyroxine 150 MCG TAB PO SCH (05:11)
[2019-05-17] MEDS: Budesonide 0.5 MG/2 ML NEB INH SCH ×2 (06:39→18:38)
[2019-05-17] MEDS: clonazePAM 0.5 MG TAB PO SCH ×2 (08:42→20:32)
[2019-05-17] MEDS: Meropenem 2 GM, Admixture Fee 1 EACH in Sodium Chloride 0.9% 100 ML IVPB SCH ×3 (09:09→23:43)
[2019-05-17] MEDS: Aspirin 325 MG TAB PO SCH (09:09)
[2019-05-17] MEDS: Nystatin Powder 15 GM BOT TOP SCH ×2 (09:09→20:32)
[2019-05-17] MEDS: Insulin Glargine 60 UNITS in Pre-Filled Syringe SC SCH (11:11)
--- NOTE | 2019-05-17 15:15 | PDOC.HOSPP ---
- Subjective Subjective: Seen and examined. Significant other at bedside, able to aid in history. Patient worked with therapy, out of bed to chair and is exhausted after. Low energy/ easily fatigable. Sleeping comfortably on room air. Diarrhea improving. Not eating much. - Objective Vital Signs & Weight: Vital Signs (12 hours) Temp Pulse Resp Pulse Ox 05/17/19 12:26 104 H 24 H 05/17/19 10:23 99.2 F 05/17/19 07:06 99.3 F 05/17/19 06:56 99 05/17/19 06:39 103 H 22 H 99 05/17/19 03:54 98.7 F Weight Admit Weight 312 lb 3.2 oz Weight 290 lb 12.635 oz Most Recent Monitor Data Heart Rate from ECG 101 NIBP 129/74 NIBP BP-Mean 92 Respiration from ECG 23 SpO2 100 I&O: 05/16/19 05/17/19 05/18/19 06:59 06:59 06:59 Intake Total 720 1400 Output Total 1550 Balance -830 1400 Result Diagrams: 05/16/19 05:12 05/17/19 03:55 Additional Labs: Accuchecks 05/17/19 05/17/19 05/16/19 10:09 06:09 20:40 POC Glucose 174 H 133 H 210 H 05/16/19 05/15/19 05/15/19 16:35 10:52 05:54 POC Glucose 210 H 159 H 164 H 05/15/19 00:58 POC Glucose 153 H Hospitalist ROS - Medication Medications: Active Medications Generic Name Dose Route Start Last Admin Trade Name [facility] PRN Reason Stop Dose Admin Acetaminophen 650 mg 05/11/19 07:20 05/17/19 11:12 Tylenol PO 650 mg Q6H PRN Administration Headache/Fever or Pain Hydrocodone Bitart/Acetaminophen 1 tab 05/11/19 07:20 05/14/19 18:49 [place] 5/325 PO 1 tab Q4H PRN Administration Moderate Pain (4-6) Al Hydroxide/Mg Hydroxide 30 ml 05/11/19 07:20 05/11/19 16:09 Maalox PO 30 ml Q4H PRN Administration Indigestion Albuterol/Ipratropium 3 ml 05/15/19 07:00 05/17/19 12:26 Duoneb EZPAP 3 ml [id number] ALESAI Administration Aspirin 325 mg 05/13/19 09:00 05/17/19 09:09 Aspirin PO 325 mg DAILY ALESIA Administration Atorvastatin Calcium 10 mg 05/10/19 21:00 05/16/19 21:36 Lipitor PO 10 mg HS ALESIA Administration Budesonide 0.5 mg 05/09/19 18:30 05/17/19 06:39 Pulmicort Neb Solution INH 0.5 mg BID-RT ALESIA Administration Calcium Carbonate 1,000 mg 05/10/19 11:33 05/11/19 17:26 Tums PO 1,000 mg Q4H PRN Administration Heartburn or Indigestion Clonazepam 0.5 mg 05/11/19 09:00 05/17/19 08:42 Klonopin PO Not Given BID ALESIA Fentanyl 25 mcg 05/11/19 07:20 05/12/19 22:46 Sublimaze SLOW IVP 25 mcg Q2H PRN Administration Moderate breakthrough pain Hydralazine HCl 10 mg 05/07/19 13:48 05/10/19 08:36 Apresoline SLOW IVP 10 mg Q6H PRN Administration To Maintain SBP< 140mmHG Insulin Glargine 50 units/ 0.5 mls @ 0 mls/hr 05/14/19 21:00 05/16/19 21:36 Miscellaneous Medication SC 0.5 mls HS ALESIA Administration As Directed Insulin Glargine 60 units/ 0.6 mls @ 0 mls/hr 05/15/19 09:00 05/17/19 11:11 Miscellaneous Medication SC 0.6 mls QAM ALESIA Administration As Directed Meropenem 2 gm/ Miscellaneous 100 mls @ 200 mls/hr 05/15/19 08:00 05/17/19 09 :09 Medication 1 each/ Sodium IVPB 100 mls Chloride 0800,1600,2359 ALESIA Administration Insulin Human Regular 0 units 05/12/19 16:33 05/15/19 10:51 Humulin R SC 3 units .AGGRESSIVE SLIDING PRN Administration Aggressive Sliding Scale Levothyroxine Sodium 150 mcg 05/11/19 06:00 05/17/19 05:11 Synthroid PO 150 mcg 0600 ALESIA Administration Nystatin 0 gm 05/12/19 21:00 05/17/19 09:09 Mycostatin Powder TOP 1 applic BID ALESIA Administration Ondansetron HCl 4 mg 05/11/19 18:33 05/16/19 20:03 Zofran IVP 4 mg Q6H PRN Administration Nausea/Vomiting Potassium Chloride 10 meq 05/13/19 08:00 05/17/19 09:09 Klor-Con PO 10 meq BID-WM ALESIA Administration Saccharomyces Boulardii 250 mg 05/15/19 21:00 05/16/19 21:36 Florastor PO 250 mg HS ALESIA Administration Sodium Chloride 10 ml 05/11/19 09:00 05/17/19 09:09 Flush - Normal Saline IVF 10 ml Q12HR ALESIA Administration - Exam General Appearance: NAD General - other findings: Resting comfortable Eye: PERRL Eye - other findings: EOMI ENT: moist mucosa Neck: supple, no JVD Heart: RRR, no murmur, no gallops Heart - other findings: Midline sternal incision healing well Respiratory: CTAB, no wheezes, no rales, no ronchi, normal chest expansion Gastrointestinal: soft, non-tender, non-distended Skin: no lesions, no rashes Neurological: CN's grossly intact, no focal deficits Musculoskeletal: generalized weakness Psychiatric: A&O x 3, somnolent Hosp A/P (1) Acute coronary syndrome Code(s): I24.9 - ACUTE ISCHEMIC HEART DISEASE, UNSPECIFIED Status: Resolved (2) Acute on chronic combined systolic and diastolic heart failure Code(s): I50.43 - ACUTE ON CHRONIC COMBINED SYSTOLIC AND DIASTOLIC HRT FAIL Status: Chronic (3) DM2 (diabetes mellitus, type 2) Status: Chronic Qualifiers: Chronic kidney disease stage: stage 2 (mild) (4) Diarrhea Code(s): R19.7 - DIARRHEA, UNSPECIFIED Status: Acute Qualifiers: Diarrhea type: unspecified type Qualified Code(s): R19.7 - Diarrhea, unspecified (5) Morbid obesity Code(s): E66.01 - MORBID (SEVERE) OBESITY DUE TO EXCESS CALORIES Status: Chronic (6) LYNDSAY on CPAP Code(s): G47.33 - OBSTRUCTIVE SLEEP APNEA (ADULT) (PEDIATRIC); Z99.89 - DEPENDENCE ON OTHER ENABLING MACHINES AND DEVICES Status: Chronic (7) UTI (urinary tract infection) Status: Acute (8) Sepsis Code(s): A41.9 - SEPSIS, UNSPECIFIED ORGANISM Status: Resolved - Plan Plan: IMCU CVT surgery following, recommendations appreciated Cardiology following, recommendations appreciated Pulm/ CC following, recommendations appreciated Off all titrateable drips Klebsiella UTI sensitive to Meropenem Probiotic to replenish gut amalia C.diff negative Cardiomyopathy regimen, as tolerated by vitals Long and stort acting insulin for glucose control GI PPX DVT PPX
--- NOTE | 2019-05-17 18:01 | PRG ---
DATE OF SERVICE: 05/17/2019 SUBJECTIVE: Hugo Odell was sitting up in a chair, taking a nap. OBJECTIVE: GENERAL: He is in no distress. VITAL SIGNS: He is afebrile. Blood pressure is 101/53, heart rate is 92, respiratory rate in the low 20s. LUNGS: Clear. HEART: Regular rhythm. ABDOMEN: Soft. LABORATORY DATA: Sodium 133, potassium 3.2, chloride 96, bicarb 26, BUN 29, and creatinine 1.2. IMPRESSION: 1. Status post coronary artery bypass grafting. 2. Deconditioning. 3. Obesity. 4. Sleep apnea. 5. Urinary tract infection. PLAN: Continue antimicrobial therapy, physical therapy, etc. He appears to be stable at this time. Job ID: [id number]
[2019-05-17] MEDS: Ibuprofen 600 MG TAB PO PRN (20:31)
[2019-05-17] MEDS: Saccharomyces boulardii 250 MG CAP PO SCH (20:31)
[2019-05-17] MEDS: Atorvastatin Calcium 10 MG TAB PO SCH (20:32)
[2019-05-17] MEDS: Insulin Glargine 50 UNITS in Pre-Filled Syringe SC SCH (20:32)
[2019-05-18] MEDS: Levothyroxine 150 MCG TAB PO SCH (05:26)
[2019-05-18] MEDS: Budesonide 0.5 MG/2 ML NEB INH SCH ×2 (06:48→18:50)
[2019-05-18] MEDS: clonazePAM 0.5 MG TAB PO SCH ×2 (09:21→20:22)
[2019-05-18] MEDS: Aspirin 325 MG TAB PO SCH (09:21)
[2019-05-18] MEDS: Meropenem 2 GM, Admixture Fee 1 EACH in Sodium Chloride 0.9% 100 ML IVPB SCH ×2 (09:34→17:44)
[2019-05-18] MEDS: Nystatin Powder 15 GM BOT TOP SCH ×2 (09:35→20:22)
[2019-05-18] MEDS: Insulin Glargine 60 UNITS in Pre-Filled Syringe SC SCH (09:36)
--- NOTE | 2019-05-18 12:34 | PDOC.HOSPP ---
- Subjective Subjective: Seen and examined. Clinically improving. Ambulating better today. Less short of breath. Diarrhea is slowing per patient. Afebrile. Non toxic appearing. - Objective Vital Signs & Weight: Vital Signs (12 hours) Temp Pulse Resp Pulse Ox 05/18/19 10:37 99.2 F 05/18/19 08:00 100 05/18/19 07:08 98.6 F 05/18/19 07:05 100 05/18/19 06:48 85 19 100 05/18/19 03:12 98.0 F Weight Admit Weight 312 lb 3.2 oz Weight 298 lb 11.622 oz Most Recent Monitor Data Heart Rate from ECG 88 NIBP 107/68 NIBP BP-Mean 81 Respiration from ECG 24 SpO2 100 I&O: 05/17/19 05/18/19 05/19/19 06:59 06:59 06:59 Intake Total 1400 2220 Output Total 700 Balance 1400 1520 Result Diagrams: 05/16/19 05:12 05/17/19 03:55 Additional Labs: Accuchecks 05/18/19 05/18/19 05/17/19 10:16 05:49 20:07 POC Glucose 240 H 145 H 202 H 05/17/19 16:19 POC Glucose 175 H Hospitalist ROS - Medication Medications: Active Medications Generic Name Dose Route Start Last Admin Trade Name Freq PRN Reason Stop Dose Admin Acetaminophen 650 mg 05/11/19 07:20 05/17/19 11:12 Tylenol PO 650 mg Q6H PRN Administration Headache/Fever or Pain Hydrocodone Bitart/Acetaminophen 1 tab 05/11/19 07:20 05/14/19 18:49 [place] 5/325 PO 1 tab Q4H PRN Administration Moderate Pain (4-6) Al Hydroxide/Mg Hydroxide 30 ml 05/11/19 07:20 05/11/19 16:09 Maalox PO 30 ml Q4H PRN Administration Indigestion Albuterol/Ipratropium 3 ml 05/15/19 07:00 05/18/19 06:48 Duoneb EZPAP 3 ml [id number] ALESIA Administration Aspirin 325 mg 05/13/19 09:00 05/18/19 09:21 Aspirin PO 325 mg DAILY ALESIA Administration Atorvastatin Calcium 10 mg 05/10/19 21:00 05/17/19 20:32 Lipitor PO 10 mg HS ALESIA Administration Budesonide 0.5 mg 05/09/19 18:30 05/18/19 06:48 Pulmicort Neb Solution INH 0.5 mg BID-RT ALESIA Administration Calcium Carbonate 1,000 mg 05/10/19 11:33 05/11/19 17:26 Tums PO 1,000 mg Q4H PRN Administration Heartburn or Indigestion Clonazepam 0.5 mg 05/11/19 09:00 05/18/19 09:21 Klonopin PO 0.5 mg BID ALESIA Administration Fentanyl 25 mcg 05/11/19 07:20 05/12/19 22:46 Sublimaze SLOW IVP 25 mcg Q2H PRN Administration Moderate breakthrough pain Hydralazine HCl 10 mg 05/07/19 13:48 05/10/19 08:36 Apresoline SLOW IVP 10 mg Q6H PRN Administration To Maintain SBP< 140mmHG Insulin Glargine 50 units/ 0.5 mls @ 0 mls/hr 05/14/19 21:00 05/17/19 20:32 Miscellaneous Medication SC 0.5 mls HS ALESIA Administration As Directed Insulin Glargine 60 units/ 0.6 mls @ 0 mls/hr 05/15/19 09:00 05/18/19 09:36 Miscellaneous Medication SC 0.6 mls QAM ALESIA Administration As Directed Meropenem 2 gm/ Miscellaneous 100 mls @ 200 mls/hr 05/15/19 08:00 05/18/19 09 :34 Medication 1 each/ Sodium IVPB 100 mls Chloride 0800,1600,2359 ALESIA Administration Ibuprofen 600 mg 05/16/19 16:08 05/17/19 20:31 Motrin PO 600 mg Q6H PRN Administration Pain Insulin Human Regular 0 units 05/12/19 16:33 05/15/19 10:51 Humulin R SC 3 units .AGGRESSIVE SLIDING PRN Administration Aggressive Sliding Scale Levothyroxine Sodium 150 mcg 05/11/19 06:00 05/18/19 05:26 Synthroid PO 150 mcg 0600 ALESIA Administration Nystatin 0 gm 05/12/19 21:00 05/18/19 09:35 Mycostatin Powder TOP 1 applic BID ALESIA Administration Ondansetron HCl 4 mg 05/11/19 18:33 05/16/19 20:03 Zofran IVP 4 mg Q6H PRN Administration Nausea/Vomiting Potassium Chloride 10 meq 05/13/19 08:00 05/18/19 09:21 Klor-Con PO 10 meq BID-WM ALESIA Administration Saccharomyces Bokarriedii 250 mg 05/15/19 21:00 05/17/19 20:31 Florastor PO 250 mg HS ALESIA Administration Sodium Chloride 10 ml 05/11/19 09:00 05/18/19 09:53 Flush - Normal Saline IVF Not Given Q12HR ALESIA - Exam General Appearance: NAD, awake alert Eye: PERRL Eye - other findings: EOMI ENT: moist mucosa Neck: supple, symmetric Heart: no murmur, no gallops, no rubs Heart - other findings: S1 and S2 present. Respiratory: CTAB, no wheezes, no rales, no ronchi Gastrointestinal: soft, non-tender, non-distended, no guarding, no rigidity Extremities: no edema Skin: no lesions, no rashes Neurological: CN's grossly intact, no weakness, no focal deficits Musculoskeletal: normal strength Psychiatric: normal affect, A&O x 3 Hosp A/P (1) Acute coronary syndrome Code(s): I24.9 - ACUTE ISCHEMIC HEART DISEASE, UNSPECIFIED Status: Resolved (2) Acute on chronic combined systolic and diastolic heart failure Code(s): I50.43 - ACUTE ON CHRONIC COMBINED SYSTOLIC AND DIASTOLIC HRT FAIL Status: Chronic (3) DM2 (diabetes mellitus, type 2) Status: Chronic Qualifiers: Chronic kidney disease stage: stage 2 (mild) (4) Diarrhea Code(s): R19.7 - DIARRHEA, UNSPECIFIED Status: Acute Qualifiers: Diarrhea type: unspecified type Qualified Code(s): R19.7 - Diarrhea, unspecified (5) Morbid obesity Code(s): E66.01 - MORBID (SEVERE) OBESITY DUE TO EXCESS CALORIES Status: Chronic (6) LYNDSAY on CPAP Code(s): G47.33 - OBSTRUCTIVE SLEEP APNEA (ADULT) (PEDIATRIC); Z99.89 - DEPENDENCE ON OTHER ENABLING MACHINES AND DEVICES Status: Chronic (7) UTI (urinary tract infection) Status: Acute (8) Sepsis Code(s): A41.9 - SEPSIS, UNSPECIFIED ORGANISM Status: Resolved - Plan Plan: IMCU CVT surgery following, recommendations appreciated Cardiology following, recommendations appreciated Pulm/ CC following, recommendations appreciated Clinically improving with maximum medical therapy Off all titrateable drips Klebsiella UTI sensitive to Meropenem Probiotic to replenish gut amalia C.diff negative Cardiomyopathy regimen, as tolerated by vitals Blood sugars controlled on Long and stort acting insulin GI PPX DVT PPX
[2019-05-18] MEDS: HYDROcodone/Acetaminophen 5/325 mg Tablet PO PRN ×2 (14:15→17:43)
--- NOTE | 2019-05-18 15:29 | PRG ---
DATE OF SERVICE: 05/18/2019 SUBJECTIVE: Hugo Odell is in no distress. His says he is much better than he was yesterday. OBJECTIVE: VITAL SIGNS: Heart rate is 98, respiratory rate is 23, oximetry is 95% on room air. He has been up ambulating. His blood pressure is 127/83. Intake and outputs recorded as positive 1520. LUNGS: Clear. HEART: Regular rhythm. ABDOMEN: Soft. IMPRESSION: 1. Status post coronary artery bypass grafting. 2. Deconditioning. 3. Obesity. 4. Sleep apnea. 5. Urinary tract infection. Klebsiella isolated in his urine. For all practical purposes, this is pansensitive. 6. Appears his antibiotics have been discontinued. We will continue to follow. Job ID: [id number]
[2019-05-18] MEDS: Insulin Glargine 50 UNITS in Pre-Filled Syringe SC SCH (20:22)
[2019-05-18] MEDS: Saccharomyces boulardii 250 MG CAP PO SCH (20:22)
[2019-05-18] MEDS: Atorvastatin Calcium 10 MG TAB PO SCH (20:22)
[2019-05-19] MEDS: Meropenem 2 GM, Admixture Fee 1 EACH in Sodium Chloride 0.9% 100 ML IVPB SCH ×3 (01:26→17:05)
[2019-05-19] MEDS: Levothyroxine 150 MCG TAB PO SCH (05:59)
[2019-05-19] MEDS: Budesonide 0.5 MG/2 ML NEB INH SCH ×2 (07:59→19:23)
[2019-05-19] MEDS: Aspirin 325 MG TAB PO SCH (09:11)
[2019-05-19] MEDS: clonazePAM 0.5 MG TAB PO SCH ×2 (09:11→21:06)
[2019-05-19] MEDS: HYDROcodone/Acetaminophen 5/325 mg Tablet PO PRN ×2 (09:11→13:39)
[2019-05-19] MEDS: Ibuprofen 600 MG TAB PO PRN (09:14)
[2019-05-19] MEDS: Insulin Glargine 60 UNITS in Pre-Filled Syringe SC SCH (09:15)
[2019-05-19] MEDS: Nystatin Powder 15 GM BOT TOP SCH ×2 (09:15→21:05)
--- NOTE | 2019-05-19 12:05 | PDOC.HOSPP ---
- Subjective Subjective: Seen and examined. Clinically improving. Walking around the unit with improved exercise tolerance. Still with shortness of breath at times, improving. Still with loose stools, improving. Patient looking very good this AM. - Objective Vital Signs & Weight: Vital Signs (12 hours) Temp Pulse Resp Pulse Ox 05/19/19 11:10 97.2 F L 05/19/19 08:00 95 05/19/19 07:59 99 05/19/19 07:56 85 15 99 05/19/19 07:38 97.7 F 05/19/19 04:00 97.8 F 05/19/19 01:08 97 Weight Admit Weight 312 lb 3.2 oz Weight 295 lb 3 oz Most Recent Monitor Data Heart Rate from ECG 92 NIBP 114/68 NIBP BP-Mean 83 Respiration from ECG 20 SpO2 97 I&O: 05/18/19 05/19/19 05/20/19 06:59 06:59 06:59 Intake Total 2220 1610 Output Total 700 1000 Balance 1520 610 Result Diagrams: 05/16/19 05:12 05/17/19 03:55 Additional Labs: Accuchecks 05/19/19 05/19/19 05/18/19 10:36 06:01 20:24 POC Glucose 215 H 85 159 H 05/18/19 16:27 POC Glucose 181 H Hospitalist ROS - Medication Medications: Active Medications Generic Name Dose Route Start Last Admin Trade Name Freq PRN Reason Stop Dose Admin Acetaminophen 650 mg 05/11/19 07:20 05/17/19 11:12 Tylenol PO 650 mg Q6H PRN Administration Headache/Fever or Pain Hydrocodone Bitart/Acetaminophen 1 tab 05/11/19 07:20 05/19/19 09:11 [place] 5/325 PO 1 tab Q4H PRN Administration Moderate Pain (4-6) Al Hydroxide/Mg Hydroxide 30 ml 05/11/19 07:20 05/11/19 16:09 Maalox PO 30 ml Q4H PRN Administration Indigestion Albuterol/Ipratropium 3 ml 05/15/19 07:00 05/19/19 07:56 Duoneb EZPAP 3 ml [id number] ALESIA Administration Aspirin 325 mg 05/13/19 09:00 05/19/19 09:11 Aspirin PO 325 mg DAILY ALESIA Administration Atorvastatin Calcium 10 mg 05/10/19 21:00 05/18/19 20:22 Lipitor PO 10 mg HS ALESIA Administration Budesonide 0.5 mg 05/09/19 18:30 05/19/19 07:59 Pulmicort Neb Solution INH 0.5 mg BID-RT ALESIA Administration Calcium Carbonate 1,000 mg 05/10/19 11:33 05/11/19 17:26 Tums PO 1,000 mg Q4H PRN Administration Heartburn or Indigestion Clonazepam 0.5 mg 05/11/19 09:00 05/19/19 09:11 Klonopin PO 0.5 mg BID ALESIA Administration Fentanyl 25 mcg 05/11/19 07:20 05/12/19 22:46 Sublimaze SLOW IVP 25 mcg Q2H PRN Administration Moderate breakthrough pain Hydralazine HCl 10 mg 05/07/19 13:48 05/10/19 08:36 Apresoline SLOW IVP 10 mg Q6H PRN Administration To Maintain SBP< 140mmHG Insulin Glargine 50 units/ 0.5 mls @ 0 mls/hr 05/14/19 21:00 05/18/19 20:22 Miscellaneous Medication SC 0.5 mls HS ALESIA Administration As Directed Insulin Glargine 60 units/ 0.6 mls @ 0 mls/hr 05/15/19 09:00 05/19/19 09:15 Miscellaneous Medication SC 0.6 mls QAM ALESIA Administration As Directed Meropenem 2 gm/ Miscellaneous 100 mls @ 200 mls/hr 05/15/19 08:00 05/19/19 09 :10 Medication 1 each/ Sodium IVPB 100 mls Chloride 0800,1600,2359 ALESIA Administration Ibuprofen 600 mg 05/16/19 16:08 05/19/19 09:14 Motrin PO 600 mg Q6H PRN Administration Pain Insulin Human Regular 0 units 05/12/19 16:33 05/15/19 10:51 Humulin R SC 3 units .AGGRESSIVE SLIDING PRN Administration Aggressive Sliding Scale Levothyroxine Sodium 150 mcg 05/11/19 06:00 05/19/19 05:59 Synthroid PO 150 mcg 0600 ALESIA Administration Nystatin 0 gm 05/12/19 21:00 05/19/19 09:15 Mycostatin Powder TOP Not Given BID ALESIA Ondansetron HCl 4 mg 05/11/19 18:33 05/16/19 20:03 Zofran IVP 4 mg Q6H PRN Administration Nausea/Vomiting Potassium Chloride 10 meq 05/13/19 08:00 05/19/19 09:10 Klor-Con PO 10 meq BID-WM ALESIA Administration Saccharomyces Boulardii 250 mg 05/15/19 21:00 05/18/19 20:22 Florastor PO 250 mg HS ALESIA Administration Sodium Chloride 10 ml 05/11/19 09:00 05/19/19 09:15 Flush - Normal Saline IVF 10 ml Q12HR ALESIA Administration - Exam General Appearance: NAD, awake alert Eye: PERRL, anicteric sclera Eye - other findings: EOMI ENT: no oropharyngeal lesions, moist mucosa Neck: supple, symmetric Heart: no murmur, no gallops, no rubs Heart - other findings: S1 and S2 present Respiratory: CTAB, no wheezes, no rales, no ronchi, normal chest expansion, no tachypnea Gastrointestinal: soft, non-tender, non-distended, normal bowel sounds, no guarding, no rigidity Extremities: 1+ LE edema Skin: no lesions, no rashes Neurological: CN's grossly intact, normal sensation to touch, no focal deficits Musculoskeletal: generalized weakness Psychiatric: normal affect, A&O x 3 Hosp A/P (1) Acute coronary syndrome Code(s): I24.9 - ACUTE ISCHEMIC HEART DISEASE, UNSPECIFIED Status: Resolved (2) Acute on chronic combined systolic and diastolic heart failure Code(s): I50.43 - ACUTE ON CHRONIC COMBINED SYSTOLIC AND DIASTOLIC HRT FAIL Status: Chronic (3) DM2 (diabetes mellitus, type 2) Status: Chronic Qualifiers: Chronic kidney disease stage: stage 2 (mild) (4) Diarrhea Code(s): R19.7 - DIARRHEA, UNSPECIFIED Status: Acute Qualifiers: Diarrhea type: unspecified type Qualified Code(s): R19.7 - Diarrhea, unspecified (5) Morbid obesity Code(s): E66.01 - MORBID (SEVERE) OBESITY DUE TO EXCESS CALORIES Status: Chronic (6) LYNDSAY on CPAP Code(s): G47.33 - OBSTRUCTIVE SLEEP APNEA (ADULT) (PEDIATRIC); Z99.89 - DEPENDENCE ON OTHER ENABLING MACHINES AND DEVICES Status: Chronic (7) UTI (urinary tract infection) Status: Acute (8) Sepsis Code(s): A41.9 - SEPSIS, UNSPECIFIED ORGANISM Status: Resolved - Plan Plan: IMCU CVT surgery following, recommendations appreciated Cardiology following, recommendations appreciated Pulm/ CC following, recommendations appreciated Continues to improve with maximum medical therapy Off all titrateable drips Klebsiella UTI sensitive to Meropenem Probiotic to replenish gut amalia C.diff negative Cardiomyopathy regimen, as tolerated by vitals Blood sugars controlled on Long and stort acting insulin PT/ OT daily, will require inpatient care on D/c GI PPX DVT PPX
[2019-05-19] MEDS: Insulin Regular 300 UNITS/3 ML VIAL SC PRN (12:18)
[2019-05-19 12:27] VITALS: BMI 41.1
[2019-05-19 12:59] VITALS: BP 142/87
--- NOTE | 2019-05-19 14:28 | PRG ---
DATE OF SERVICE: 05/19/2019 SUBJECTIVE: He is doing well. He is up in a chair. He has no complaints. OBJECTIVE: VITAL SIGNS: Temperature is 97.2, pulse 81, blood pressure 141/89. HEENT: Unremarkable. NECK: No adenopathy or JVD. CHEST: Clear anteriorly. CARDIAC: S1, S2. Regular. ABDOMEN: Soft. EXTREMITIES: No edema. LABORATORY DATA: No labs were checked today. ASSESSMENT: 1. Status post coronary artery bypass grafting surgery. 2. Deconditioning. 3. Urinary tract infection. 4. Obstructive sleep apnea. PLAN: From my standpoint, he is ready for transfer to telemetry. Continue nocturnal CPAP for LYNDSAY. Job ID: [id number]
[2019-05-19] MEDS: Carvedilol 3.125 MG TAB PO SCH (17:04)
[2019-05-19] MEDS: Atorvastatin Calcium 10 MG TAB PO SCH (21:06)
[2019-05-19] MEDS: Saccharomyces boulardii 250 MG CAP PO SCH (21:06)
[2019-05-19] MEDS: Insulin Glargine 50 UNITS in Pre-Filled Syringe SC SCH (21:06)
[2019-05-20] MEDS: Meropenem 2 GM, Admixture Fee 1 EACH in Sodium Chloride 0.9% 100 ML IVPB SCH ×2 (00:08→17:33)
[2019-05-20] MEDS: Levothyroxine 150 MCG TAB PO SCH (05:10)
[2019-05-20] MEDS: HYDROcodone/Acetaminophen 5/325 mg Tablet PO PRN (06:42)
[2019-05-20] MEDS: Budesonide 0.5 MG/2 ML NEB INH SCH ×2 (08:02→19:00)
--- NOTE | 2019-05-20 08:54 | PRG ---
DATE OF SERVICE: 05/20/2019 SUBJECTIVE: Hugo Odell is a 73-year-old gentleman this morning, he is doing better. He is less short of breath, less cough, less pain, sitting on the side of bed, eating breakfast. OBJECTIVE: VITAL SIGNS: Saturations 100% on room air, respirations 16, pulse 84, blood pressure 120/60. CHEST: Decreased breath sounds. No wheezing. CARDIAC: Normal S1 and S2. No gallops. ABDOMEN: No masses. IMPRESSION: Status post coronary artery bypass graft, chronic obstructive pulmonary disease, sleep apnea, urinary tract infection, klebsella_resolved. PLAN: Continue PT, supportive care, probably can switch him over to oral antibiotics. We will follow. Job ID: [id number] MTDD
[2019-05-20 09:32] VITALS: TEMP 98.1
[2019-05-20] MEDS: Aspirin 325 MG TAB PO SCH (10:00)
[2019-05-20] MEDS: Carvedilol 3.125 MG TAB PO SCH ×2 (10:00→17:04)
[2019-05-20] MEDS: Insulin Glargine 60 UNITS in Pre-Filled Syringe SC SCH (10:00)
[2019-05-20] MEDS: Nystatin Powder 15 GM BOT TOP SCH ×2 (10:03→20:32)
[2019-05-20] MEDS: clonazePAM 0.5 MG TAB PO SCH ×2 (10:03→20:30)
[2019-05-20] MEDS ORDERED: Lisinopril 2.5 MG TAB PO SCH (11:00)
[2019-05-20] MEDS: Cipro 250 MG TAB PO SCH ×2 (12:14→20:45)
--- NOTE | 2019-05-20 12:59 | PDOC.HOSPP ---
- Subjective Subjective: Seen and examined. Patient was up early walking around the unit. Doing well with PT/OT. Needs more inpatient rehab. Patient breathing well on room air. Does get short of breath with exertion, though improved. Patient in good spirits. - Objective Vital Signs & Weight: Vital Signs (12 hours) Temp Pulse Resp Pulse Ox 05/20/19 12:12 84 05/20/19 12:00 98.1 F 05/20/19 08:02 84 16 100 05/20/19 08:01 84 16 100 05/20/19 08:00 98.1 F 05/20/19 03:56 97.9 F Weight Admit Weight 312 lb 3.2 oz Weight 299 lb Most Recent Monitor Data Heart Rate from ECG 97 NIBP 101/65 NIBP BP-Mean 77 Respiration from ECG 24 SpO2 96 I&O: 05/19/19 05/20/19 05/21/19 06:59 06:59 06:59 Intake Total 1610 2270 Output Total 1000 625 Balance 610 1645 Result Diagrams: 05/16/19 05:12 05/17/19 03:55 Additional Labs: Accuchecks 05/20/19 05/20/19 05/19/19 11:57 05:26 20:01 POC Glucose 201 H 122 H 142 H 05/19/19 16:55 POC Glucose 94 Hospitalist ROS - Review of Systems All other systems reviewed; all pertinent +/- noted in HPI/Subj - Medication Medications: Active Medications Generic Name Dose Route Start Last Admin Trade Name Freq PRN Reason Stop Dose Admin Acetaminophen 650 mg 05/11/19 07:20 05/17/19 11:12 Tylenol PO 650 mg Q6H PRN Administration Headache/Fever or Pain Hydrocodone Bitart/Acetaminophen 1 tab 05/11/19 07:20 05/20/19 06:42 [place] 5/325 PO 1 tab Q4H PRN Administration Moderate Pain (4-6) Al Hydroxide/Mg Hydroxide 30 ml 05/11/19 07:20 05/11/19 16:09 Maalox PO 30 ml Q4H PRN Administration Indigestion Albuterol/Ipratropium 3 ml 05/15/19 07:00 05/20/19 08:01 Duoneb EZPAP 3 ml [id number] ALESIA Administration Aspirin 325 mg 05/13/19 09:00 05/20/19 10:00 Aspirin PO 325 mg DAILY ALESIA Administration Atorvastatin Calcium 10 mg 05/10/19 21:00 05/19/19 21:06 Lipitor PO 10 mg HS ALESIA Administration Budesonide 0.5 mg 05/09/19 18:30 05/20/19 08:02 Pulmicort Neb Solution INH 0.5 mg BID-RT ALESIA Administration Calcium Carbonate 1,000 mg 05/10/19 11:33 05/11/19 17:26 Tums PO 1,000 mg Q4H PRN Administration Heartburn or Indigestion Carvedilol 3.125 mg 05/19/19 17:00 05/20/19 10:00 Coreg PO 3.125 mg BID-WM ALESIA Administration Ciprofloxacin 500 mg 05/20/19 20:00 05/20/19 12:14 Cipro PO 05/25/19 20:01 500 mg BID@0600,2000 ALESIA Administration Clonazepam 0.5 mg 05/11/19 09:00 05/20/19 10:03 Klonopin PO 0.5 mg BID ALESIA Administration Fentanyl 25 mcg 05/11/19 07:20 05/12/19 22:46 Sublimaze SLOW IVP 25 mcg Q2H PRN Administration Moderate breakthrough pain Hydralazine HCl 10 mg 05/07/19 13:48 05/10/19 08:36 Apresoline SLOW IVP 10 mg Q6H PRN Administration To Maintain SBP< 140mmHG Insulin Glargine 50 units/ 0.5 mls @ 0 mls/hr 05/14/19 21:00 05/19/19 21:06 Miscellaneous Medication SC 0.5 mls HS ALESIA Administration As Directed Insulin Glargine 60 units/ 0.6 mls @ 0 mls/hr 05/15/19 09:00 05/20/19 10:00 Miscellaneous Medication SC 0.6 mls QAM ALESIA Administration As Directed Ibuprofen 600 mg 05/16/19 16:08 05/19/19 09:14 Motrin PO 600 mg Q6H PRN Administration Pain Insulin Human Regular 0 units 05/12/19 16:33 05/19/19 12:18 Humulin R SC 6 units .AGGRESSIVE SLIDING PRN Administration Aggressive Sliding Scale Levothyroxine Sodium 150 mcg 05/11/19 06:00 05/20/19 05:10 Synthroid PO 150 mcg 0600 ALESIA Administration Lisinopril 2.5 mg 05/20/19 11:00 05/20/19 12:12 Zestril PO 05/20/19 13:00 2.5 mg NOW ALESIA Administration Nystatin 0 gm 05/12/19 21:00 05/20/19 10:03 Mycostatin Powder TOP 1 applic BID ALESIA Administration Ondansetron HCl 4 mg 05/11/19 18:33 05/16/19 20:03 Zofran IVP 4 mg Q6H PRN Administration Nausea/Vomiting Potassium Chloride 10 meq 05/13/19 08:00 05/20/19 10:00 Klor-Con PO 10 meq BID-WM ALESIA Administration Saccharomyces Boulardii 250 mg 05/15/19 21:00 05/19/19 21:06 Florastor PO 250 mg HS ALESIA Administration Sodium Chloride 10 ml 05/11/19 09:00 05/20/19 10:04 Flush - Normal Saline IVF 10 ml Q12HR ALESIA Administration - Exam General Appearance: NAD, awake alert Eye: PERRL, anicteric sclera Eye - other findings: EOMI ENT: no oropharyngeal lesions, moist mucosa Neck: no JVD, no lymphadenopathy Heart: RRR, no murmur, no gallops, no rubs, normal peripheral pulses Respiratory: CTAB, no wheezes, no rales Gastrointestinal: soft, non-tender, non-distended, no guarding, no rigidity Extremities: no edema Skin: no lesions Neurological: CN's grossly intact, no focal deficits Musculoskeletal: generalized weakness Psychiatric: normal affect, A&O x 3 Hosp A/P (1) Acute coronary syndrome Code(s): I24.9 - ACUTE ISCHEMIC HEART DISEASE, UNSPECIFIED Status: Resolved (2) Acute on chronic combined systolic and diastolic heart failure Code(s): I50.43 - ACUTE ON CHRONIC COMBINED SYSTOLIC AND DIASTOLIC HRT FAIL Status: Chronic (3) DM2 (diabetes mellitus, type 2) Status: Chronic Qualifiers: Chronic kidney disease stage: stage 2 (mild) (4) Diarrhea Code(s): R19.7 - DIARRHEA, UNSPECIFIED Status: Acute Qualifiers: Diarrhea type: unspecified type Qualified Code(s): R19.7 - Diarrhea, unspecified (5) Morbid obesity Code(s): E66.01 - MORBID (SEVERE) OBESITY DUE TO EXCESS CALORIES Status: Chronic (6) LYNDSAY on CPAP Code(s): G47.33 - OBSTRUCTIVE SLEEP APNEA (ADULT) (PEDIATRIC); Z99.89 - DEPENDENCE ON OTHER ENABLING MACHINES AND DEVICES Status: Chronic (7) UTI (urinary tract infection) Status: Acute (8) Sepsis Code(s): A41.9 - SEPSIS, UNSPECIFIED ORGANISM Status: Resolved - Plan Plan: IMCU CVT surgery following, recommendations appreciated Cardiology following, recommendations appreciated Pulm/ CC following, recommendations appreciated Continues to improve with maximum medical therapy Off all titrateable drips Klebsiella UTI sensitive Cipro, changed to orals Probiotic to replenish gut amalia C.diff negative Cardiomyopathy regimen, as tolerated by vitals Caution for volume overload Blood sugars controlled on Long and stort acting insulin PT/ OT daily, will require inpatient care on D/c GI PPX DVT PPX
[2019-05-20] MEDS: Saccharomyces boulardii 250 MG CAP PO SCH (20:30)
[2019-05-20] MEDS: Atorvastatin Calcium 10 MG TAB PO SCH (20:30)
[2019-05-20] MEDS: Insulin Glargine 50 UNITS in Pre-Filled Syringe SC SCH (20:31)
[2019-05-21] MEDS ORDERED: Lisinopril 2.5 MG TAB PO SCH (09:00)
== END 2019-05-20 20:55 | DRG 233 ==
LOC: ERS 11:31 → ERHOLD 16:10 → 2NO 19:49 → CCU 05-07 08:19 → 2NO 05-11 08:47 → CCU 05-15 00:20 → IMCU/EMU 05-15 14:46
PROVIDERS: ADMIT Internal Medicine; ATTEND Internal Medicine
PROC: 4A023N7 Measurement of Cardiac Sampling and Pressure, Left Heart, Percutaneous Approach (ICD-10-PCS; principal; 2019-05-01)
PROC: B2111ZZ Fluoroscopy of Multiple Coronary Arteries using Low Osmolar Contrast (ICD-10-PCS; 2019-05-01)
PROC: B2151ZZ Fluoroscopy of Left Heart using Low Osmolar Contrast (ICD-10-PCS; 2019-05-01)
PROC: 02100Z9 Bypass Coronary Artery, One Artery from Left Internal Mammary, Open Approach (ICD-10-PCS; 2019-05-07)
PROC: 021109W Bypass Coronary Artery, Two Arteries from Aorta with Autologous Venous Tissue, Open Approach (ICD-10-PCS; 2019-05-07)
PROC: 06BQ4ZZ Excision of Left Saphenous Vein, Percutaneous Endoscopic Approach (ICD-10-PCS; 2019-05-07)
PROC: 0W3C0ZZ Control Bleeding in Mediastinum, Open Approach (ICD-10-PCS; 2019-05-07)
PROC: 0W9C0ZZ Drainage of Mediastinum, Open Approach (ICD-10-PCS; 2019-05-07)
PROC: 5A1221Z Performance of Cardiac Output, Continuous (ICD-10-PCS; 2019-05-07)
DX: I21.4 Non-ST elevation (NSTEMI) myocardial infarction (principal); A41.9 Sepsis, unspecified organism; I50.43 Acute on chronic combined systolic (congestive) and diastolic (congestive) heart failure; I97.611 Postprocedural hemorrhage of a circulatory system organ or structure following cardiac bypass; E87.1 Hypo-osmolality and hyponatremia; Z68.41 Body mass index [BMI] 40.0-44.9, adult; N39.0 Urinary tract infection, site not specified; I13.0 Hypertensive heart and chronic kidney disease with heart failure and stage 1 through stage 4 chronic kidney disease, or unspecified chronic kidney disease; I25.10 Atherosclerotic heart disease of native coronary artery without angina pectoris; J44.9 Chronic obstructive pulmonary disease, unspecified; G47.33 Obstructive sleep apnea (adult) (pediatric); I25.5 Ischemic cardiomyopathy; E78.00 Pure hypercholesterolemia, unspecified; E66.01 Morbid (severe) obesity due to excess calories; E03.9 Hypothyroidism, unspecified; N18.2 Chronic kidney disease, stage 2 (mild); F43.10 Post-traumatic stress disorder, unspecified; E11.22 Type 2 diabetes mellitus with diabetic chronic kidney disease; M10.9 Gout, unspecified; E11.65 Type 2 diabetes mellitus with hyperglycemia; K21.9 Gastro-esophageal reflux disease without esophagitis; R19.7 Diarrhea, unspecified; Y83.9 Surgical procedure, unspecified as the cause of abnormal reaction of the patient, or of later complication, without mention of misadventure at the time of the procedure; B96.1 Klebsiella pneumoniae [K. pneumoniae] as the cause of diseases classified elsewhere; Z79.4 Long term (current) use of insulin; Z87.01 Personal history of pneumonia (recurrent); I25.2 Old myocardial infarction
CPT/HCPCS: 36415; 36416; 36430; 71045; 80048; 80053; 80061; 80162; 81001; 82010; 82330; 82553; 82803; 82805; 83036; 83690; 83735; 83880; 84100; 84443; 84484; 85014; 85018; 85025; 85049; 85347; 85610; 85730; 86850; 86900; 86901; 87040; 87077; 87086; 87186; 87324; 87449; 93005; 93010; 93306; 93458; 93798; 94002; 94003; 94640; 94760; 96360; 96361; 99152; 99153; C1769; J0360; J0670; J0690; J1100; J1250; J1642; J1644; J1650; J1815; J1885; J1940; J2001; J2060; J2150; J2185; J2250; J2260; J2270; J2370; J2405; J2440; J2550; J2704; J2720; J2765; J3010; J3370; J3475; J3480; J3490; J7050; J7620; J7626; P9016; P9045; Q9967; S0017; S0028

== ENCOUNTER 2019-07-15 08:33 | Observation (INO) | payer OTHER ==
[2019-07-15] MEDS ORDERED: Aspirin 325 MG TAB ONE (09:02)
[2019-07-15 09:05] LABS: #Eosinphils 0.5 thou/uL (0.0-0.7); #Lymphocytes 2.5 thou/uL (1.20-3.40); #Monocytes 0.7 thou/uL (0.11-0.59); #Neutrophils 4.2 thou/uL (1.40-6.50); %Basophils 0.4 % (0.0-1.0); %Eosinophils 6.4 % (0.0-10.0); %Lymphocytes 32.1 % (21.0-51.0); %Monocytes 8.6 % (0.0-10.0); %Neutrophils 52.5 % (42.0-75.0); Hemoglobin 14.4 g/dL (14.0-18.0); Mean Corpuscular HGB CONC 32.7 g/dL (32.0-36.0); Mean Corpuscular Hemoglobin 27.5 pg (27.0-31.0); Mean Corpuscular Volume 84.3 fL (78.0-98.0); Mean Platelet Volume 9.3 fL (7.4-10.4); Platelet Count 147 thou/uL (130-400); RBC Distribution Width 13.2 % (11.5-14.5); Red Blood Cell (RBC) Count 5.22 mill/uL (4.70-6.10); White Blood Cell (WBC) Count 7.9 thou/uL (4.8-10.8)
[2019-07-15 09:14] LABS: ALT (SGPT) 25 U/L (8-55); AST (SGOT) 22 U/L (5-34); Albumin 4.1 g/dL (3.4-4.8); Alkaline Phosphatase 166 U/L (40-110); Anion Gap 13 mmol/L (10-20); BUN (Urea Nitrogen) 12 mg/dL (8.4-25.7); Bilirubin, Total 0.6 mg/dL (0.2-1.2); Calc. Creatinine Clearance 0 mL/min (70-130); Calcium 9.7 mg/dL (7.8-10.44); Carbon Dioxide 24 mmol/L (23-31); Chloride 104 mmol/L (98-107); Estimated GFR-MDRD 81; Globulin 3.2 g/dL (2.4-3.5); Glucose 202 mg/dL (83-110); Lipase 30 U/L (8-78); Potassium 4.3 mmol/L (3.5-5.1); Protein, Total 7.3 g/dL (5.8-8.1); Sodium 137 mmol/L (136-145)
--- NOTE | 2019-07-15 09:27 | RAD ---
XR Chest 1 View Portable History: Chest pain Comparison: Radiograph April 2019 Findings: Heart size is enlarged. Chronic appearing interstitial markings in both lung bases likely s car. No pneumothorax or effusion. Midline sternotomy wires are without displacement. No acute osseous abnormality. Impression: Chronic findings. No acute intrathoracic abnormality.
--- NOTE | 2019-07-15 11:04 | CT ---
EXAM: Abdomen and pelvic CT scan with contrast: HISTORY: Pain COMPARISON: None FINDINGS: Partially imaged moderate left pleural effusion. Adjacent atelectasis of the left lung is partially v isualized. Liver: Mild nodularity of the hepatic contour, indicative of cirrhosis. Calcification of the inferior right hepatic lobe is present adjacent to the gallbladder fossa. Gallbladder: Moderate distention. Pancreas: Unremarkable Spleen: Mild splenic enlargement Adrenal glands: Unremarkable. Kidneys: Extrarenal pelvis is present on the left. There is a large exophytic cyst that emanates from the lower pole of the left kidney Bowel: No evidence for bowel obstruction. Urinary Bladder: Mild distention with mild wall prominence which may relate to physiologic contractio n. Adenopathy: No adenopathy within the abdomen or pelvis. Free Air: No free air. Ascites: No ascites. Scattered vascular disease. Osseous structures: No acute osseous abnormalities. IMPRESSION: 1. Cirrhosis and splenic enlargement that may relate to associated portal hypertension. 2. Incidental moderate left pleural effusion with associated atelectasis. Correlate clinically. 3. Additional findings are detailed above. Transcribed Date/Time: 07/15/2019 11:17 AM
[2019-07-15 12:26] LABS: Bilirubin Negative (Negative); Blood, Urine Negative (Negative); Clarity Clear (Clear); Glucose, Urine (Dipstick) Normal (Negative); Leukocyte Negative Leu/uL (Negative); Nitrite Negative (Negative); Protein, Urine (Dipstick) 10 mg/dL (Neg-Trace); Urobilinogen Normal mg/dL (Less than 2)
[2019-07-15] MEDS ORDERED: Acetaminophen 325 MG TAB PO PRN (13:56)
[2019-07-15] MEDS ORDERED: Acetaminophen 650 MG Suppository PR PRN (13:56)
[2019-07-15] MEDS ORDERED: Dextrose 50% Abboject 50 ML SYRINGE SLOW IVP PRN (14:00)
[2019-07-15] MEDS ORDERED: Dextrose 5% in Water 1,000 ML IV PRN (14:00)
[2019-07-15] MEDS ORDERED: HumaLOG 300 UNITS/3 ML VIAL SC PRN ×2 (14:00)
--- NOTE | 2019-07-15 14:11 | PDOC.HHP ---
Hospitalist HPI - History of Present Illness shortness of breath History of Present Illness: Mr. Odell is a pleasant 73M who presents complaining of shortness of breath for the last 2-3 weeks. States he has been having pain in the left lower rib cage, he reports feeling a gurgling sensation in that area. Pain is a 7/10 in severity and he has tried antacids without relief. Reports having a constant cough and wheezing. No hemoptysis. Denies any central chest pain. No n/v but reports diarrhea for the last couple of days. He states he has been wheezing since he was discharged from the hospital. Denies history of smoking, COPD or asthma. He is status post CABG x 3 and has had 5 MIs in the past. During his last admission he had an echo that showed an EF of 20-25%. ED Course: EKG done in the ED showed NSR, HR 91 with fusion complexes and PACs, also first degree AV block. Had a chest xray done showing chronic findings with no acute intrathoracic abnormalities. Initial troponin negative. A CT A/P with contrast was done showing cirrhosis and splenic enlargement possibly associated to portal hypertension. Also an incidental moderate left pleural effusion with associated atelectasis. He was given 325 mg of Aspirin. Hospitalist ROS - Review of Systems Constitutional: reports: other (Fatigue). denies: fever, chills, sweats, weakness, malaise Eyes: denies: pain, vision change, conjunctivae inflammation, eyelid inflammation, redness, other ENT: denies: ear pain, ear discharge, nose pain, nose discharge, nose congestion , mouth pain, mouth swelling, throat pain, throat swelling, other Respiratory: reports: cough, dry, shortness of breath (at rest and worse with exertion) Cardiovascular: reports: chest pain (left lower rib cage), orthopnea (He uses a CPAP). denies: palpitations, paroxysmal noc. dyspnea, edema, light headedness, other Gastrointestinal: reports: diarrhea (for the last 2-3 days. No bloody or tarry stools.). denies: nausea, vomiting, abdominal pain, constipation, melena, hematochezia, other Genitourinary: denies: dysuria, frequency, incontinence, hematuria, retention, other Musculoskeletal: denies: neck pain, shoulder pain, arm pain, back pain, hand pain, leg pain, foot pain, other Skin: denies: rash, lesions, linda, bruising, other Neurological: denies: weakness, numbness, incoordination, change in speech, confusion, seizures, other - Exam General Appearance: NAD Eye: PERRL, anicteric sclera ENT: normocephalic atraumatic, no oropharyngeal lesions, dry oral mucosa Neck: supple, symmetric, no JVD Heart: RRR, no murmur, no rubs Respiratory: normal chest expansion, no tachypnea, wheezes Gastrointestinal: soft, non-tender, no guarding, no rigidity Gastrointestinal - other findings: obese Extremities: no cyanosis, no clubbing, no edema Skin: normal turgor, no lesions, no rashes Neurological: cranial nerve grossly intact, normal sensation to touch, no weakness, no focal deficits Musculoskeletal: normal tone, normal strength, no muscle wasting Psychiatric: normal affect, normal behavior, A&O x 3 Hospitalist Results - Labs Result Diagrams: 07/15/19 08:42 07/15/19 08:42 Lab results: WBC 7.9 thou/uL (4.8-10.8) 07/15/19 08:42 Hgb 14.4 g/dL (14.0-18.0) 07/15/19 08:42 Hct 44.1 % (42.0-52.0) 07/15/19 08:42 MCV 84.3 fL (78.0-98.0) 07/15/19 08:42 Plt Count 147 thou/uL (130-400) 07/15/19 08:42 Neutrophils % 52.5 % (42.0-75.0) 07/15/19 08:42 Sodium 137 mmol/L (136-145) 07/15/19 08:42 Potassium 4.3 mmol/L (3.5-5.1) 07/15/19 08:42 Chloride 104 mmol/L (98-107) 07/15/19 08:42 Carbon Dioxide 24 mmol/L (23-31) 07/15/19 08:42 BUN 12 mg/dL (8.4-25.7) 07/15/19 08:42 Creatinine 0.92 mg/dL (0.7-1.3) 07/15/19 08:42 Glucose 202 mg/dL (83-110) H 07/15/19 08:42 Calcium 9.7 mg/dL (7.8-10.44) 07/15/19 08:42 Total Bilirubin 0.6 mg/dL (0.2-1.2) 07/15/19 08:42 AST 22 U/L (5-34) 07/15/19 08:42 ALT 25 U/L (8-55) 07/15/19 08:42 Alkaline Phosphatase 166 U/L (40-110) H 07/15/19 08:42 Troponin I 0.024 ng/mL (< 0.028) 07/15/19 12:41 Serum Total Protein 7.3 g/dL (5.8-8.1) 07/15/19 08:42 Albumin 4.1 g/dL (3.4-4.8) 07/15/19 08:42 Lipase 30 U/L (8-78) 07/15/19 08:42 Urine Ketones Negative mg/dL (Negative) 07/15/19 12:10 Urine Blood Negative (Negative) 07/15/19 12:10 Urine Nitrite Negative (Negative) 07/15/19 12:10 Ur Leukocyte Esterase Negative Katina/uL (Negative) 07/15/19 12:10 - Radiology Interpretation CT scan - abdomen Status: report reviewed by sd Hospitalist H&P A/P - Problem (1) Moderate sized pleural effusion Code(s): J90 - PLEURAL EFFUSION, NOT ELSEWHERE CLASSIFIED Status: Acute (2) Cirrhosis of liver Code(s): K74.60 - UNSPECIFIED CIRRHOSIS OF LIVER Status: Acute (3) Diarrhea Code(s): R19.7 - DIARRHEA, UNSPECIFIED Status: Acute Qualifiers: Diarrhea type: unspecified type Qualified Code(s): R19.7 - Diarrhea, unspecified (4) Chronic CHF Code(s): I50.9 - HEART FAILURE, UNSPECIFIED Status: Acute (5) Hypertension Code(s): I10 - ESSENTIAL (PRIMARY) HYPERTENSION Status: Acute (6) S/P CABG (coronary artery bypass graft) Code(s): Z95.1 - PRESENCE OF AORTOCORONARY BYPASS GRAFT Status: Acute (7) CAD (coronary artery disease) Code(s): I25.10 - ATHSCL HEART DISEASE OF [place] CORONARY ARTERY W/O ANG PCTRS Status: Chronic (8) DM2 (diabetes mellitus, type 2) Status: Chronic Qualifiers: Chronic kidney disease stage: stage 2 (mild) (9) Morbid obesity Code(s): E66.01 - MORBID (SEVERE) OBESITY DUE TO EXCESS CALORIES Status: Chronic (10) LYNDSAY on CPAP Code(s): G47.33 - OBSTRUCTIVE SLEEP APNEA (ADULT) (PEDIATRIC); Z99.89 - DEPENDENCE ON OTHER ENABLING MACHINES AND DEVICES Status: Chronic - Plan Plan: Continue to trend troponins. Main complaint is SOB, does have a moderate sized pleural effusion. Has been having diarrhea and also underwent CT a/p with contrast, may require gentle hydration. Will discuss with Dr. Culver before diuresing. Awaiting on BNP. Venous doppler ordered. May require V/Q scan. Duonebs and continuous O2 sat monitoring. ABG. CPAP ordered for bedtime (autopap). Known CHF. Cardiac rehab consult. Monitor glucose. ISS. Monitor BP. Reconcile home medications once verified. Palliative Care consult to discuss advanced directive. Patient contemplating being DNAR. Surrogate decision maker: His Vivi Odell.
[2019-07-15 14:54] LABS: Actual Bicarbonate (HCO3a) 22.5 mEq/L (22-28); Analyzer IN Cardio ER; Base Excess (BEa) -0.8 mEq/L (-2.0 to +3.0); CO2 Tension 33.6 mmHg (35.0-45.0); Calcium, Ionized 1.17 mmol/L (1.12-1.30); Carboxyhemoglobin (COHb) 0.9 gm% (0.0-3.0); O2 Tension (PaO2) 74.1 mmHg (> 70.0); Potassium - ABG Lab 3.95 mmol/L (3.70-5.30); pH, Arterial 7.44 (7.35-7.45)
[2019-07-15 14:56] LABS: Puncture Site RRA
--- NOTE | 2019-07-15 15:37 | ULT ---
EXAM: Bilateral lower extremity venous duplex: Deep veins evaluated with color Doppler, spectral analysis, and compression. INDICATIONS: Bilateral lower extremity pain and edema. FINDINGS: Deep veins interrogated include common femoral vein, femoral vein, popliteal vein, and post erior tibial vein. These veins show normal compression and blood flow. No evidence of DVT. IMPRESSION: Negative Bilateral venous duplex exam.
[2019-07-15 16:20] VITALS: BMI 40.2
[2019-07-15 16:55] LABS: Troponin I 0.034 ng/mL (< 0.028)
[2019-07-15 18:42] LABS: Lactic Acid 1.5 mmol/L (0.5-2.2)
[2019-07-15] MEDS ORDERED: clonazePAM 1 MG TAB PO PRN (19:32)
[2019-07-15] MEDS ORDERED: Famotidine/PF 20 mg/2ml Vial SLOW IVP SCH (21:00)
[2019-07-15] MEDS ORDERED: Atorvastatin Calcium 10 MG TAB PO SCH (21:00)
--- NOTE | 2019-07-15 21:36 | NM ---
NUCLEAR MEDICINE LUNG VENTILATORY AND PERFUSION EVALUATION INDICATION: Elevated d-dimer and shortness of breath Radiopharmaceutical: Ventilation: 10.7 mCi xenon-133 inhaled. Perfusion: 6.3 mCi technetium 99m MAA IV. COMPARISON: Chest radiograph dated July 15, 2019 at 8:47 AM FINDINGS: Ventilation: There is diminished subsegmental ventilatory activity within portions of the left lower lobe Perfusion: There is a matched subsegmental diminished perfusion activity within portions of the left lower lobe Mismatch: No mismatched ventilatory or perfusion abnormality is demonstrated. Additional findings: None. IMPRESSION: Low probability VQ scan for PE. No mismatched ventilatory and perfusion abnormality demon strated. There is predominantly matched perfusion and ventilatory activity within a subsegmental distribution of the left lower lobe which may be related to subsegmental volume loss from the patient 's left-sided pleural effusion.
[2019-07-16] MEDS ORDERED: Levothyroxine 150 MCG TAB PO SCH (06:00)
[2019-07-16 06:14] LABS: #Eosinphils 0.5 thou/uL (0.0-0.7); #Lymphocytes 2.1 thou/uL (1.20-3.40); #Monocytes 0.6 thou/uL (0.11-0.59); #Neutrophils 3.4 thou/uL (1.40-6.50); %Basophils 0.5 % (0.0-1.0); %Lymphocytes 31.1 % (21.0-51.0); %Monocytes 8.3 % (0.0-10.0); Hemoglobin 13.2 g/dL (14.0-18.0); Mean Corpuscular HGB CONC 33.1 g/dL (32.0-36.0); Mean Corpuscular Hemoglobin 27.6 pg (27.0-31.0); Mean Corpuscular Volume 83.2 fL (78.0-98.0); Mean Platelet Volume 9.3 fL (7.4-10.4); Platelet Count 141 thou/uL (130-400); RBC Distribution Width 13.2 % (11.5-14.5); White Blood Cell (WBC) Count 6.6 thou/uL (4.8-10.8)
[2019-07-16 06:29] LABS: Anion Gap 14 mmol/L (10-20); BUN (Urea Nitrogen) 13 mg/dL (8.4-25.7); Calc. Creatinine Clearance 150 mL/min (70-130); Calcium 9.1 mg/dL (7.8-10.44); Carbon Dioxide 21 mmol/L (23-31); Chloride 104 mmol/L (98-107); Estimated GFR-MDRD Greater than 90; Glucose 203 mg/dL (83-110); Potassium 4.1 mmol/L (3.5-5.1); Sodium 135 mmol/L (136-145)
[2019-07-16] MEDS ORDERED: [UNRECOGNIZED DRUG - OTHER] SQ SCH (09:00)
[2019-07-16] MEDS ORDERED: Aspirin 81 mg Enteric Coated Tablet PO SCH (09:00)
[2019-07-16] MEDS ORDERED: Allopurinol 300 MG TAB PO SCH (09:00)
[2019-07-16] MEDS: Carvedilol 3.125 MG TAB PO SCH ×2 (10:00→16:51)
--- NOTE | 2019-07-16 15:26 | CT ---
CT CHEST WITHOUT CONTRAST: HISTORY: Left chest pain. Dyspnea. FINDINGS: A small amount of left pleural fluid in the dependent portion of the left pleural space. Minimal mark cent atelectasis. Mild scarring in the left upper lobe. No lobar consolidation. Right lung is well in flated. Lack of contrast limits evaluation of the soft tissues. No evidence of mediastinal adenopathy. Promin ent calcification in the coronary arteries. Degenerative changes in the thoracic spine. Findings of t he upper abdomen better detailed on recent CT abdomen. IMPRESSION: 1. Small left pleural effusion. Cause is not evident. No acute process is demonstrated. 2. Atherosclerosis. POS: TPC
[2019-07-16 16:18] VITALS: BP 109/71; TEMP 97.5
[2019-07-16] MEDS ORDERED: [UNRECOGNIZED DRUG - OTHER] SQ SCH (18:00)
== END 2019-07-16 18:47 | disposition home or self-care (01) ==
LOC: ERS 08:33 → 2SW 13:45
PROVIDERS: ADMIT Internal Medicine; ATTEND Internal Medicine
DX: J90 Pleural effusion, not elsewhere classified (principal); I25.2 Old myocardial infarction; I44.0 Atrioventricular block, first degree; K74.60 Unspecified cirrhosis of liver; R19.7 Diarrhea, unspecified; I25.10 Atherosclerotic heart disease of native coronary artery without angina pectoris; I13.0 Hypertensive heart and chronic kidney disease with heart failure and stage 1 through stage 4 chronic kidney disease, or unspecified chronic kidney disease; E11.22 Type 2 diabetes mellitus with diabetic chronic kidney disease; N18.2 Chronic kidney disease, stage 2 (mild); I50.9 Heart failure, unspecified; G47.33 Obstructive sleep apnea (adult) (pediatric); K21.9 Gastro-esophageal reflux disease without esophagitis; E66.01 Morbid (severe) obesity due to excess calories; Z68.41 Body mass index [BMI] 40.0-44.9, adult; Z79.82 Long term (current) use of aspirin; Z79.4 Long term (current) use of insulin; Z79.899 Other long term (current) drug therapy; Z95.1 Presence of aortocoronary bypass graft; Z99.89 Dependence on other enabling machines and devices
CPT/HCPCS: 36415; 36416; 71045; 71250; 74177; 78582; 80048; 80053; 81003; 82805; 83605; 83630; 83690; 83735; 83880; 84484; 85025; 85379; 87045; 87046; 87324; 87328; 87329; 87427; 87449; 93798; 93970; 94640; A9540; A9558; G0378; J7620

== ENCOUNTER 2019-08-11 12:41 | Outpatient (CLI) | payer OTHER ==
--- NOTE | 2019-08-11 14:44 | RAD ---
CHEST 2 VIEWS: Date: 08/11/19 HISTORY: Congestive heart failure, unspecified chronicity, unspecified heart failure type. COMPARISON: 07/16/19 CT chest. FINDINGS: Moderate size left pleural effusion showing increase from the prior CT scan of 07/16/19, with patchy parenchymal changes in the left mid and lower lung zone, which could possibly represent some associat ed partial atelectasis. Postop midline sternotomy. Minimal increased markings in the right perihilar region. Heart size within normal limits. IMPRESSION: Increasing left pleural effusion. Increased linear and interstitial markings in the left mid and lowe r lung zone, possibly subsegmental atelectasis versus mild pneumonitis. Stable appearing right chest. POS: TPC
== END 2019-08-11 12:42 | disposition home or self-care (01) ==
LOC: RAD 12:41
PROVIDERS: ATTEND Internal Medicine Cardiovascular Disease
DX: I50.9 Heart failure, unspecified (principal); J90 Pleural effusion, not elsewhere classified
CPT/HCPCS: 71046

== ENCOUNTER 2019-09-11 17:57 | Inpatient (IN) | payer MEDICARE, OTHER ==
[2019-09-11 18:28] LABS: #Basophils 0.1 thou/uL (0.0-0.2); #Eosinphils 0.3 thou/uL (0.0-0.7); #Lymphocytes 2.6 thou/uL (1.20-3.40); #Monocytes 0.5 thou/uL (0.11-0.59); #Neutrophils 3.6 thou/uL (1.40-6.50); %Basophils 1.1 % (0.0-1.0); %Eosinophils 4.8 % (0.0-10.0); %Lymphocytes 36.3 % (21.0-51.0); %Monocytes 7.4 % (0.0-10.0); %Neutrophils 50.4 % (42.0-75.0); Hemoglobin 14.5 g/dL (14.0-18.0); Mean Corpuscular HGB CONC 33.2 g/dL (32.0-36.0); Mean Corpuscular Hemoglobin 27.2 pg (27.0-31.0); Mean Corpuscular Volume 81.9 fL (78.0-98.0); Mean Platelet Volume 9.9 fL (7.4-10.4); Platelet Count 129 thou/uL (130-400); RBC Distribution Width 14.3 % (11.5-14.5); Red Blood Cell (RBC) Count 5.32 mill/uL (4.70-6.10); White Blood Cell (WBC) Count 7.2 thou/uL (4.8-10.8)
[2019-09-11 18:48] LABS: ALT (SGPT) 22 U/L (8-55); AST (SGOT) 21 U/L (5-34); Albumin 3.9 g/dL (3.4-4.8); Alkaline Phosphatase 137 U/L (40-110); Anion Gap 15 mmol/L (10-20); BUN (Urea Nitrogen) 15 mg/dL (8.4-25.7); Bilirubin, Total 0.5 mg/dL (0.2-1.2); CK (CPK) 32 U/L (30-200); Calc. Creatinine Clearance 0 mL/min (70-130); Calcium 9.3 mg/dL (7.8-10.44); Carbon Dioxide 24 mmol/L (23-31); Chloride 104 mmol/L (98-107); Estimated GFR-MDRD 64; Globulin 2.9 g/dL (2.4-3.5); Glucose 209 mg/dL (83-110); Potassium 4.2 mmol/L (3.5-5.1); Protein, Total 6.8 g/dL (5.8-8.1); Sodium 139 mmol/L (136-145)
--- NOTE | 2019-09-11 18:57 | RAD ---
EXAM: Two views chest PROVIDED CLINICAL HISTORY: Cough and shortness of breath. COMPARISON: 08/11/2019. FINDINGS: Moderate size left pleural effusion is again present and slightly larger in size compared to prior st udy. There are persistent linear densities in the lateral left midlung zone and at the left lung base which may be related to atelectasis. The right lung remains clear. The left cardiac border is ob scured. Median sternotomy wires are again seen. No other interval change. IMPRESSION: Moderate size left pleural effusion and associated atelectasis.
[2019-09-11] MEDS ORDERED: Furosemide 40 MG/4 ML VIAL ONE (19:28)
[2019-09-11] MEDS ORDERED: Albuterol Sulfate 2.5 mg/3 ml Neb ONE (19:57)
[2019-09-11 22:38] VITALS: BMI 40.3
[2019-09-12] MEDS ORDERED: Acetaminophen 650 MG Suppository PR PRN (01:35)
[2019-09-12] MEDS ORDERED: Dextrose 50% Abboject 50 ML SYRINGE SLOW IVP PRN (01:37)
[2019-09-12] MEDS ORDERED: Dextrose 5% in Water 1,000 ML IV PRN (01:37)
--- NOTE | 2019-09-12 03:40 | HP ---
TIME OF ADMISSION: 99 TIME OF ASSESSMENT: 99. CHIEF COMPLAINT: Shortness of breath. HISTORY OF PRESENT ILLNESS: Mr. Odell is a 73-year-old gentleman with a known history of CHF with a reduced EF of 15% to 20%, who states he has been dealing with persistent pleural effusions for the last month. The patient has been seen by Dr. Scales who is helping to manage his heart failure. He last had his medications adjusted 3 weeks ago and has been taking Lasix 40 mg p.o. daily with instructions to take 2 tablets daily if needed. He has had progressively worsening shortness of breath over the last several days, which prompted him to come to the emergency department today. He was recently hospitalized in June 2019. He was treated for a small left pleural effusion at that time. The patient is status post a CABG in April 2019. He states he has had issues with pleural effusions since that time. His last echo was on May 13, 2019, which showed overall left ventricular function severely depressed with an EF of 25% to 30% and dyskinetic motion of the apical wall noted in the left ventricle. There was moderate mitral regurgitation present and mild tricuspid regurgitation with sclerotic aortic valve present. The patient states he was told in the past he might require thoracentesis. On arrival to the emergency department today, he was noted to have normal sats and his respiratory rate was normal at 18. His states he recently has had productive cough for clear phlegm/fluid. No hemoptysis. No fevers or chills. states a recent echo was done on August 11, 2019, which showed an EF of 15% to 20%. In the ED, he had an EKG, which showed normal sinus rhythm with a heart rate of 84 and evidence of a first-degree AV block. He underwent a chest x-ray demonstrating a moderate-size left pleural effusion and associated atelectasis. The pleural effusion appeared slightly larger in size compared to prior chest x-ray done August 11, 2019. The patient was treated with DuoNeb and given 40 mg IV Lasix. According to his , she has noted brown-colored urine; however, after the Lasix, she states his urine has cleared up. Denies any hematuria. No urinary symptoms. No abdominal pain. No chest pain. All other review of systems are negative. PAST MEDICAL HISTORY: 1. CHF. 2. History of ID. 3. COPD. 4. Type 2 diabetes. 5. History of pneumonia. 6. Hypertension. 7. GERD. 8. Obesity. 9. History of PTSD. PAST SURGICAL HISTORY: 1. Tonsillectomy. 2. Back surgery. 3. CABG x3 in April 2019. SOCIAL HISTORY: The patient denies any tobacco use, alcohol consumption, or illicit drug use. ALLERGIES: NO KNOWN DRUG ALLERGIES. CURRENT MEDICATIONS: 1. Metformin. 2. Allopurinol. 3. Omeprazole. 4. Lasix. 5. Aspirin. 6. Clonazepam. 7. Levothyroxine. 8. Humulin. 9. Liptruzet. 10. Valsartan. 11. Atorvastatin. 12. Carvedilol. PHYSICAL EXAMINATION: GENERAL: The patient appears obese, well developed, in no acute distress. He was found resting comfortably with CPAP on. VITAL SIGNS: Temperature 97.5, pulse 86, blood pressure 99/70, respirations 18, O2 saturation 95%. HEENT: Normocephalic and atraumatic. Pupils are equal, round, and reactive to light. Sclerae without icterus. Oropharynx is clear. NECK: Supple. LUNGS: With reduced breath sounds at the bilateral bases. CARDIAC: Regular rate and rhythm. ABDOMEN: Soft, obese, nontender, nondistended. Normoactive bowel sounds present. No guarding or rigidity. EXTREMITIES: No lower leg swelling or edema. NEUROLOGIC: Alert and oriented x3. SKIN: Warm and dry. INVESTIGATIONS: As mentioned above in the HPI. IMPRESSION AND PLAN: Mr. Odell is a 73-year-old gentleman with known history of congestive heart failure and persisting pleural effusion, who is being admitted for management of the following. 1. Congestive heart failure exacerbation. The patient not responding to p.o. Lasix given at home. He has been following instructions provided by Dr. Scales. In the ED, he received 40 mg of IV Lasix and reports some slight improvement. The patient is expressing concern about making sure Dr. Scales is aware he is here and wants to make sure he is seen by Dr. Rosado. He states he was previously told he might benefit from thoracentesis. Consultation placed to Pulmonary Medicine. We will obtain most recent echo done in Dr. Scales's office in July 2019. Of note, the patient's BNP was elevated at 618.5, compared to 99.8 in the past. Consult placed for heart failure disease management, cardiac rehab and orders placed for fluid restrictions as well as daily weights. 2. Coronary artery disease. We will resume home medications once verified. 3. Hypertension. We will monitor blood pressure. We will hold antihypertensives for now given low blood pressure. 4. Diabetes mellitus. Monitor blood glucose and resume home medications once verified. 5. Gastroesophageal reflux disease. Resume home omeprazole. 6. Hypothyroidism. Resume home medication once verified. Check TSH. 7. Deep vein thrombosis prophylaxis with mechanical SCDs. 8. Code status full. Surrogate decision maker is his , Vivi Odell. The patient's case was discussed with attending. Job ID: [id number]
[2019-09-12] MEDS: Furosemide 40 MG/4 ML VIAL SLOW IVP SCH ×2 (04:31→14:55)
[2019-09-12 05:29] LABS: #Basophils 0.1 thou/uL (0.0-0.2); #Eosinphils 0.4 thou/uL (0.0-0.7); #Monocytes 0.5 thou/uL (0.11-0.59); #Neutrophils 3.7 thou/uL (1.40-6.50); %Basophils 0.7 % (0.0-1.0); %Lymphocytes 39.4 % (21.0-51.0); %Monocytes 6.6 % (0.0-10.0); %Neutrophils 48.2 % (42.0-75.0); Hemoglobin 14.7 g/dL (14.0-18.0); Mean Corpuscular HGB CONC 32.8 g/dL (32.0-36.0); Mean Corpuscular Hemoglobin 27.3 pg (27.0-31.0); Mean Corpuscular Volume 83.1 fL (78.0-98.0); Mean Platelet Volume 10.2 fL (7.4-10.4); Platelet Count 124 thou/uL (130-400); RBC Distribution Width 14.3 % (11.5-14.5); White Blood Cell (WBC) Count 7.6 thou/uL (4.8-10.8)
[2019-09-12 05:46] LABS: Anion Gap 13 mmol/L (10-20); BUN (Urea Nitrogen) 15 mg/dL (8.4-25.7); Calc. Creatinine Clearance 105 mL/min (70-130); Calcium 9.3 mg/dL (7.8-10.44); Carbon Dioxide 30 mmol/L (23-31); Chloride 101 mmol/L (98-107); Estimated GFR-MDRD 61; Glucose 164 mg/dL (83-110); Potassium 3.7 mmol/L (3.5-5.1); Sodium 140 mmol/L (136-145)
[2019-09-12 06:04] LABS: Magnesium 1.6 mg/dL (1.6-2.6)
[2019-09-12] MEDS: Levothyroxine Sodium 125 MCG TAB PO SCH (06:17)
[2019-09-12] MEDS: HumaLOG 300 UNITS/3 ML VIAL SC PRN ×2 (06:18→12:36)
[2019-09-12] MEDS: clonazePAM 1 MG TAB PO PRN ×2 (06:21→17:51)
[2019-09-12] MEDS ORDERED: Famotidine/PF 20 mg/2ml Vial SLOW IVP SCH (09:00)
[2019-09-12] MEDS: Allopurinol 300 MG TAB PO SCH (09:39)
[2019-09-12] MEDS: Carvedilol 3.125 MG TAB PO SCH ×2 (09:39→17:51)
[2019-09-12] MEDS: Aspirin 81 mg Enteric Coated Tablet PO SCH (09:39)
--- NOTE | 2019-09-12 11:32 | CON ---
DATE OF CONSULTATION: 09/12/2019 CONSULTING PHYSICIAN: Hospitalist Group. REASON FOR CONSULTATION: Left pleural effusion. HISTORY OF PRESENT ILLNESS: Mr. Odell is a 73-year-old, who was hospitalized yesterday with complaints of increasing shortness of breath, clear productive sputum, and a cough. Symptoms have been going on for quite sometime. He has been taking diuretics as an outpatient. He has a history of a cardiomyopathy with EF of 15% to 20%. He had undergone bypass surgery back in April that was somewhat complicated. PAST MEDICAL HISTORY: 1. Systolic heart failure. 2. Myocardial infarction. 3. COPD. 4. Diabetes mellitus. 5. Pneumonia. 6. Hypertension. 7. Gastroesophageal reflux. 8. PTSD. PAST SURGICAL HISTORY: 1. Tonsillectomy. 2. Back surgeries. 3. Coronary artery bypass grafting surgery. SOCIAL HISTORY: Denies tobacco use. Does not consume alcohol. Does not use illicit drugs. ALLERGIES: NONE. MEDICATIONS: Prior to admission; 1. Metformin. 2. Allopurinol. 3. Omeprazole. 4. Lasix. 5. Aspirin. 6. Clonazepam. 7. Levothyroxine. 8. Humulin insulin. 9. Valsartan. 10. Atorvastatin. 11. Carvedilol. Current inpatient medications; 1. Metformin. 2. Clonazepam. 3. Entresto. 4. Omeprazole. 5. Synthroid. 6. Lasix. 7. Coreg. 8. Lipitor. 9. Aspirin. 10. Allopurinol. REVIEW OF SYSTEMS: Twelve-point review of systems is otherwise negative. PHYSICAL EXAMINATION: VITAL SIGNS: Temperature 97.4, pulse 76, respirations 22, and O2 saturation is 93% on room air. HEENT: Unremarkable. NECK: No adenopathy or JVD. LUNGS: Diminished breath sounds on the left compared to right with dullness approximately 1[address] up on the left. CARDIOVASCULAR: S1 and S2. Regular. ABDOMEN: Soft and nontender. EXTREMITIES: No edema. LABORATORY DATA: Sodium 140, potassium 3.7, BUN 15, creatinine 1.1, and glucose 164. BNP 618. White blood cell count 7.6, hematocrit 44.9, and platelet count 124. Chest x-ray shows a small left pleural effusion. ASSESSMENT: 1. Acute systolic heart failure. 2. Small left pleural effusion. RECOMMENDATIONS: The effusion is too small to consider thoracentesis. I would diurese him intravenously as you are doing. He should have a followup x-ray in 48 to 96 hours. Job ID: [id number]
--- NOTE | 2019-09-12 13:53 | CON ---
DATE OF CONSULTATION: HISTORY: Hugo Odell is a 73-year-old white male, whom I initially evaluated in April 2019, when he was admitted with chest discomfort. He stated at that time that he had been told previously that he had a weak heart. However, an echocardiogram at this hospital in September 2017 revealed ejection fraction of 55 % to 60% with trace tricuspid regurgitation. He also stated that he has had five heart attacks in the past, but has never undergone cardiac catheterization. When he was admitted in April 2019, he stated that for 2 months, he has had five episodes that would awaken at night extremely short of breath with burning in his chest. The chest burning would last approximately 3 hours. Also during the day , he would walk a long distance and would have the same type of discomfort. His brought him to the emergency room after another episode. He underwent cardiac catheterization, which revealed severe global left ventricular hypokinesis with apical dyskinesis with ejection fraction of 15% to 20%. There was a 40% left main, 70% and 100% proximal LAD. The LAD filled via septal branches from the left and via the apical LAD from the right. The circumflex had a 90% mid lesion and was totally occluded distally. The obtuse marginal filled retrograde from the left. The ramus had a 99% proximal lesion and was a large vessel. The right coronary artery had 70%, 80%, and 70% mid stenosis. There was a 99% right posterolateral stenosis and a 90% intermediate branch. There was a 30% right posterior descending. He was seen by Dr. Hugo Henderson and it was felt that he was at very high risk for bypass surgery with poor targets and uncontrolled diabetes. Repeat echocardiogram prior to bypass surgery revealed that his ejection fraction had improved to 35% to 40%. He ultimately underwent CABG x3 with HUNT to the LAD, saphenous vein graft to the obtuse marginal and the right posterior descending. He needed to undergo reoperation for bleeding from the right posterior descending graft. He did have an episode of hypotension, which was felt to possibly be due to diarrhea after bypass surgery. He ultimately was discharged with a LifeVest after postoperatively another echocardiogram revealed that his ejection fraction was 25% to 30%. He has had the LifeVest since. He was readmitted on July 15, complaining of some left-sided lower chest discomfort. He was found to have a left pleural effusion as well as cirrhosis and splenic enlargement. V/Q scan was performed, which was low probability for pulmonary emboli. He was discharged the day after admission. He was last seen in the office on August 11, 2019, complaining of some dyspnea on exertion, but no edema. He denied any chest discomfort. Echocardiogram in the office on that day revealed ejection fraction of 15% to 20% with aortic valvular sclerosis, moderate mitral regurgitation, mild tricuspid regurgitation, and a moderate left pleural effusion. He was on Entresto one half b.i.d. and this was increased to 24/ one tablet b.i.d. Also an appointment was made for him to see Dr. Arango regarding an ICD. However, the states they got a call from the [place] saying that, that request had to go through his [place] physician and so they canceled the appointment. PAST MEDICAL HISTORY: Hypertension, hypercholesterolemia, diabetes, GERD, obesity, obstructive sleep apnea, congestive heart failure, multiple myocardial infarctions in the past, and COPD. PAST SURGICAL HISTORY: CABG, back surgery, tonsillectomy, and cataract surgery. MEDICATIONS: 1. Allopurinol 150 daily. 2. Aspirin 81 daily. 3. Atorvastatin 10 at bedtime. 4. Carvedilol 3.125 b.i.d. 5. Entresto 24/26 b.i.d. 6. Metformin 500 mg b.i.d. 7. Furosemide 40 mg daily. 8. Levothyroxine 125 mcg daily. 9. Omeprazole 20 mg daily. 10. Insulin. ALLERGIES: TORADOL. SOCIAL HISTORY: He does not smoke or drink. FAMILY HISTORY: Father of myocardial infarction in his 50s. Mother had CABG. REVIEW OF SYSTEMS: A 12-point review of systems negative except as noted above. PHYSICAL EXAMINATION: VITAL SIGNS: Blood pressure 122/82 and pulse 99. HEENT: PERRL. NECK: Supple. CHEST: Reveals distant breath sounds, somewhat dull with the left base. CARDIOVASCULAR: S1 and S2 normal without any S3, S4, or murmurs. ABDOMEN: Obese. Normal bowel sounds. No tenderness. EXTREMITIES: Revealed trace pretibial edema. NEUROLOGIC: Grossly intact. SKIN: Warm and dry. LABORATORY DATA: EKG revealed normal sinus rhythm with first-degree AV block, PVC, low voltage. CBC is unremarkable. Sodium 140, potassium 3.7, chloride 101, carbon dioxide 30, BUN 15, and creatinine 1.15. Cardiac enzymes were unremarkable. BNP 618.5. Cholesterol 149, triglycerides 134, HDL 38, and LDL 84. IMPRESSION: 1. Acute on chronic systolic congestive heart failure. 2. Ischemic cardiomyopathy with ejection fraction on echo one month ago of 15%- 20%. 3. Status post coronary artery bypass grafting x3 in April 2019. 4. History of five myocardial infarctions according to the patient. 5. Hypertension. 6. Hypercholesterolemia, poorly controlled. 7. Diabetes. 8. Chronic kidney disease. 9. Left pleural effusion. PLAN: Mr. Odell will be diuresed. I agree with holding the Entresto at the present time with initial blood pressure in the 80s. This may be able to be restarted at one-half tablet b.i.d. Also, Electrophysiology will be consulted for possible ICD placement, although at the present time, the patient is somewhat uncertain which way he would want to proceed. Atorvastatin will be increased to 20 mg daily. . Job ID: [id number]
--- NOTE | 2019-09-12 15:20 | PDOC.HOSPP ---
- Subjective Encounter Date: 09/12/19 Encounter Time: 10:30 Subjective: breathing better now at bedside had exertional sob prior to arrival post cabg was ambulating and doing well until now had some dietary indiscretion due to holidays but mostly compliant with diet and medicines per - Objective Vital Signs & Weight: Vital Signs (12 hours) Temp Pulse Pulse Pulse Resp BP BP 09/12/19 14:51 86 20 09/12/19 11:30 97.7 F 82 20 09/12/19 10:40 99 92 122/82 114/75 09/12/19 09:43 91 95 116/70 116/86 09/12/19 07:37 97.4 F L 76 22 H 09/12/19 05:05 86 18 09/12/19 04:00 84 18 BP Pulse Ox Pulse Ox Pulse Ox 09/12/19 14:51 112/66 95 09/12/19 11:30 103/69 95 09/12/19 10:40 09/12/19 09:43 93 L 96 09/12/19 07:37 103/60 97 09/12/19 05:05 110/76 09/12/19 04:00 84/44 L 96 Weight Weight 289 lb I&O: 09/11/19 09/12/19 09/13/19 06:59 06:59 06:59 Output Total 500 Balance -500 Result Diagrams: 09/12/19 05:02 09/12/19 05:02 Additional Labs: Accuchecks 09/12/19 09/11/19 10:34 21:36 POC Glucose 193 H 193 H Hospitalist ROS - Medication Medications: Active Medications Generic Name Dose Route Start Last Admin Trade Name Freq PRN Reason Stop Dose Admin Allopurinol 150 mg 09/12/19 09:00 09/12/19 09:39 Zyloprim PO 150 mg DAILY ALESIA Administration Aspirin 81 mg 09/12/19 09:00 09/12/19 09:39 Ecotrin PO 81 mg DAILY ALESIA Administration Carvedilol 3.125 mg 09/12/19 08:00 09/12/19 09:39 Coreg PO 3.125 mg BID-WM ALESIA Administration Clonazepam 1 mg 09/12/19 01:45 09/12/19 06:21 Klonopin PO 1 mg BID PRN Administration Anxiety Famotidine 20 mg 09/12/19 09:00 09/12/19 09:38 Pepcid SLOW IVP 20 mg Q12HR ALESIA Administration Furosemide 40 mg 09/12/19 06:00 09/12/19 14:55 Lasix SLOW IVP 40 mg 0600,1400 ALESIA Administration Insulin Human Lispro 0 units 09/12/19 01:37 09/12/19 12:36 Humalog SC 2 unit .MILD SLIDING SCALE PRN Administration Mild Correctional Scale Levothyroxine Sodium 125 mcg 09/12/19 06:00 09/12/19 06:17 Synthroid PO 125 mcg 0600 ALESIA Administration Pantoprazole Sodium 40 mg 09/12/19 09:00 09/12/19 09:39 Protonix PO 40 mg DAILY ALESIA Administration Sacubitril/Valsartan 1 tab 09/12/19 09:00 09/12/19 09:43 Entresto 24 Mg-26 Mg Tablet PO 1 tab BID ALESIA Administration - Exam General Appearance: awake alert Eye: PERRL, anicteric sclera ENT: no oropharyngeal lesions, moist mucosa Neck: supple, no JVD Heart: RRR, no murmur Respiratory: no wheezes, no rales Gastrointestinal: soft, non-tender, non-distended, normal bowel sounds Extremities: no cyanosis, no edema Neurological: cranial nerve grossly intact, no focal deficits Psychiatric: normal affect, A&O x 3 Hosp A/P (1) Acute exacerbation of CHF (congestive heart failure) Code(s): I50.9 - HEART FAILURE, UNSPECIFIED Status: Acute Qualifiers: Heart failure type: systolic Qualified Code(s): I50.23 - Acute on chronic systolic (congestive) heart failure (2) Hypertension Code(s): I10 - ESSENTIAL (PRIMARY) HYPERTENSION Status: Chronic Qualifiers: Hypertension type: essential hypertension Qualified Code(s): I10 - Essential (primary) hypertension (3) Ischemic cardiomyopathy Code(s): I25.5 - ISCHEMIC CARDIOMYOPATHY Status: Chronic (4) CAD (coronary artery disease) Code(s): I25.10 - ATHSCL HEART DISEASE OF [place] CORONARY ARTERY W/O ANG PCTRS Status: Chronic Qualifiers: Coronary Disease-Associated Artery/Lesion type: bypass graft [place] vs. transplanted heart: [place] heart Associated angina: without angina Qualified Code(s): I25.810 - Atherosclerosis of coronary artery bypass graft(s) without angina pectoris (5) DM2 (diabetes mellitus, type 2) Status: Chronic Qualifiers: Diabetes mellitus detention insulin use: with detention use (6) Fatty liver Code(s): K76.0 - FATTY (CHANGE OF) LIVER, NOT ELSEWHERE CLASSIFIED Status: Chronic (7) GERD (gastroesophageal reflux disease) Code(s): K21.9 - GASTRO-ESOPHAGEAL REFLUX DISEASE WITHOUT ESOPHAGITIS Status: Chronic Qualifiers: Esophagitis presence: esophagitis presence not specified Qualified Code(s) : K21.9 - Gastro-esophageal reflux disease without esophagitis (8) Hypothyroidism Code(s): E03.9 - HYPOTHYROIDISM, UNSPECIFIED Status: Chronic Qualifiers: Hypothyroidism type: unspecified Qualified Code(s): E03.9 - Hypothyroidism , unspecified (9) Morbid obesity with BMI of 40.0-44.9, adult Code(s): E66.01 - MORBID (SEVERE) OBESITY DUE TO EXCESS CALORIES; Z68.41 - BODY MASS INDEX (BMI) 40.0-44.9, ADULT Status: Chronic (10) Gout Code(s): M10.9 - GOUT, UNSPECIFIED Status: Chronic Qualifiers: Gout site: unspecified site (11) PTSD (post-traumatic stress disorder) Code(s): F43.10 - POST-TRAUMATIC STRESS DISORDER, UNSPECIFIED Status: Chronic (12) LYNDSAY (obstructive sleep apnea) Code(s): G47.33 - OBSTRUCTIVE SLEEP APNEA (ADULT) (PEDIATRIC) Status: Chronic - Plan is on lasix, coreg, entresto, lipitor, asp, synthroid and metformin to use home cpap as 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
--- NOTE | 2019-09-12 16:20 | CON ---
DATE OF CONSULTATION: 09/12/2019 This is Whitley Foster NP dictating a report for Jaspreet Arango MD. CONSULTING PHYSICIAN: Jaspreet Arango MD REASON FOR CONSULTATION: Cardiomyopathy and ICD consideration. HISTORY OF PRESENT ILLNESS: Mr. Odell is a 73-year-old gentleman with a known history of congestive heart failure and ischemic cardiomyopathy with severely reduced ejection fraction of 15% to 20%. His heart failure and coronary artery disease are managed by Dr. Scales. He initially had a heart attack at age 43 with cardiomyopathy, which recovered with an ejection fraction of approximately 50% to 55% after that heart attack. More recently, he had been found to have cardiomyopathy and subsequently underwent bypass grafting in 04/2019. Since that time, he continues to follow with Dr. Scales for his heart failure and coronary artery disease management. He has been on optimal medical management with carvedilol and valsartan in addition to aspirin for his heart failure. Despite that, his ejection fraction remains severely reduced at 15% to 20% by recent echocardiogram. This is actually worse ejection fraction post bypass, at which point it was 25% to 30%. His ongoing cardiomyopathy has prompted electrophysiology consultation for consideration of ICD. Mr. Odell presented to the hospital with shortness of breath and congestive heart failure exacerbation. He had been instructed to increase his Lasix as an outpatient recently, but had progressive worsening of symptoms. He has been undergoing diuresis since being admitted. He is breathing somewhat better. He is no longer having audible crackles, but continues to feel some shortness of breath, especially while recumbent. He does endorse some heart racing and palpitations from time to time, but denies any chest pain, pressure, syncope, near syncope, stroke, or stroke-like symptoms. PAST MEDICAL HISTORY: 1. Ischemic cardiomyopathy and congestive heart failure with severely reduced ejection fraction of 25% to 30%. 2. Myocardial infarctions status post coronary artery bypass grafting. 3. COPD. 4. Type 2 diabetes. 5. Pneumonia. 6. Hypertension. 7. GERD. 8. Obesity. 9. PTSD. 10. Hyperlipidemia. SURGICAL HISTORY: 1. Tonsillectomy. 2. Back surgery. 3. CABG, 3 vessel, in 04/2019. SOCIAL HISTORY: Denies any tobacco or illicit drug use. Negative for alcohol consumption. , has strong family support. FAMILY HISTORY: Negative for sudden cardiac or early onset coronary artery disease. He does have a daughter with ventricular tachycardia issues. ALLERGIES: NO KNOWN DRUG ALLERGIES. HOME MEDICATIONS: Include: 1. Metformin. 2. Allopurinol. 3. Omeprazole. 4. Lasix. 5. Aspirin. 6. Clonazepam. 7. Levothyroxine. 8. Humulin. 9. Liptruzet. 10. Valsartan. 11. Atorvastatin. 12. Carvedilol. OBJECTIVE: VITAL SIGNS: Temperature 97.7, pulse 82, blood pressure 103/69, respirations 20, and oxygen is 95% on room air. Height and weight of 5 feet 11 inches and 289 pounds, and BMI is 40.3. GENERAL: The patient is alert and oriented. Speech is clear. Affect is appropriate. He is in no apparent distress at the time of exam. He is morbidly obese, sitting upright in bed. NECK: Large and supple. There is no lymphadenopathy. Trachea is midline. Jugular venous distention is negative. Hepatojugular reflux is positive. LUNGS: Clear to auscultation bilaterally without wheezes, crackles, or rhonchi. Respirations are even and nonlabored. HEART: Rate is regularly regular with crisp S1 and S2. PMI is not palpable. ABDOMEN: Obese, soft, and nontender without palpable masses. EXTREMITIES: Warm and dry to touch with some bilateral lower extremity edema. No clubbing or cyanosis appreciated. NEUROLOGIC: Grossly intact and nonfocal. Gait was not assessed. DATABASE: EKG today shows sinus rhythm. There is occasionally a first-degree AV block. LABORATORY DATA: Hematology and chemistry were unremarkable. Most recent creatinine is 1.18. Troponins were negative. Magnesium is 1.6. IMPRESSION: 1. Ischemic cardiomyopathy with severely reduced ejection fraction. 2. Coronary artery disease with prior bypass grafting. 3. Morbid obesity. 4. Congestive heart failure exacerbation and fluid overload. PLAN AND RECOMMENDATIONS: Mr. Odell is a pleasant 73-year-old gentleman with a history of cardiomyopathy. He underwent bypass grafting in April, at which point his ejection fraction was found to be 25% to 30%. He has been medically managed by Dr. Scales since that time. Recent echocardiogram reveals his ejection fraction is worsened to 15% to 20% now. He had a long discussion regarding cardiomyopathy and potential benefit from ICD placement. He is a candidate for ICD placement for primary prevention of sudden cardiac in the setting of cardiomyopathy from potential ventricular arrhythmias. We discussed risks, benefits, and alternatives. Risks including pain, bruising, swelling, infection, hemothorax, pneumothorax, pericardial effusions, possible need for chest tube placement, device malfunction, lead fracture, and possible revision. He voices understanding and at this point he wishes to proceed. I have spoken with Dr. Scales at this point we will continue to diurese him over the weekend. We anticipate he will medically be stable for ICD implant on Sunday. We will keep him n.p.o. 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 Thank you for allowing me to participate in the care of this patient. I have participated in the exam and formulation of the above plan with mrs Kristin NP. Agree with above. Job ID: [id number] MTDD
[2019-09-12] MEDS: Famotidine 20 MG TAB PO SCH (19:51)
[2019-09-12] MEDS: Atorvastatin Calcium 20 MG TAB PO SCH (19:52)
[2019-09-12] MEDS ORDERED: Atorvastatin Calcium 10 MG TAB PO SCH (21:00)
[2019-09-13] MEDS: clonazePAM 1 MG TAB PO PRN ×2 (00:24→17:36)
[2019-09-13] MEDS: Levothyroxine Sodium 125 MCG TAB PO SCH (06:24)
[2019-09-13] MEDS: Furosemide 40 MG/4 ML VIAL SLOW IVP SCH ×2 (06:25→13:39)
[2019-09-13] MEDS: HumaLOG 300 UNITS/3 ML VIAL SC PRN ×3 (06:32→17:36)
[2019-09-13] MEDS: Famotidine 20 MG TAB PO SCH ×2 (08:36→19:55)
[2019-09-13] MEDS: Carvedilol 3.125 MG TAB PO SCH ×2 (08:36→17:34)
[2019-09-13] MEDS: Aspirin 81 mg Enteric Coated Tablet PO SCH (08:36)
[2019-09-13] MEDS: Allopurinol 300 MG TAB PO SCH (08:36)
[2019-09-13] MEDS: Acetaminophen 325 MG TAB PO PRN (13:53)
--- NOTE | 2019-09-13 16:09 | PRG ---
DATE OF SERVICE: 09/13/2019 SUBJECTIVE: Subjectively feels some better overall. He did have significant coughing attack a couple of hours ago. He produced a fair amount of white frothy sputum, but it was fairly exhausting for him. It seems to be largely resolved at this point, feels like the breathing treatments might have contributed to the production, otherwise feels overall better than presentation. OBJECTIVE: VITAL SIGNS: Temp 98.4, pulse 89, respirations 20, O2 saturation 90% to 96% on room air, BP 105/55. GENERAL APPEARANCE: Age-appropriate male, in no distress, wearing his CPAP, removes it for the exam. He is in no distress. He is morbidly obese. HEART: Regular rate and rhythm without murmurs. LUNGS: Diminished breath sounds with some mild expiratory wheezes. ABDOMEN: Obese, soft, nontender, and nondistended. EXTREMITIES: Have no edema. LABORATORY DATA: Blood sugars 206. IMPRESSION AND PLAN: 1. Acute systolic congestive heart failure. Continuing with diuresis and Entresto as his blood pressure tolerates. Cardiology following. 2. Ischemic cardiomyopathy with worsening ejection fraction post CABG. He has been seen by EP and the plan is for AICD placement apparently with the BiV pacer on Sunday. 3. Chronic obstructive pulmonary disease. Continue with nebulizer treatments and supplemental oxygen. 4. Hyperlipidemia. Continue atorvastatin at a higher dose of 20 mg. 5. Hypothyroidism. Continue levothyroxine. 6. History of gout. Continue allopurinol. 7. Diabetes mellitus. Fair control. Holding metformin for potential lab studies. Job ID: [id number]
[2019-09-13] MEDS: Atorvastatin Calcium 20 MG TAB PO SCH (19:56)
[2019-09-14 05:20] LABS: #Eosinphils 0.5 thou/uL (0.0-0.7); #Lymphocytes 2.4 thou/uL (1.20-3.40); #Monocytes 0.4 thou/uL (0.11-0.59); #Neutrophils 2.6 thou/uL (1.40-6.50); %Basophils 0.8 % (0.0-1.0); %Lymphocytes 40.1 % (21.0-51.0); %Monocytes 7.2 % (0.0-10.0); %Neutrophils 43.9 % (42.0-75.0); Hemoglobin 13.8 g/dL (14.0-18.0); Mean Corpuscular HGB CONC 33.5 g/dL (32.0-36.0); Mean Corpuscular Hemoglobin 27.5 pg (27.0-31.0); Mean Corpuscular Volume 82.2 fL (78.0-98.0); Platelet Count 102 thou/uL (130-400); RBC Distribution Width 14.2 % (11.5-14.5); Red Blood Cell (RBC) Count 5.01 mill/uL (4.70-6.10); White Blood Cell (WBC) Count 5.9 thou/uL (4.8-10.8)
[2019-09-14 05:38] LABS: Anion Gap 15 mmol/L (10-20); BUN (Urea Nitrogen) 18 mg/dL (8.4-25.7); Calc. Creatinine Clearance 116 mL/min (70-130); Calcium 8.9 mg/dL (7.8-10.44); Carbon Dioxide 25 mmol/L (23-31); Chloride 101 mmol/L (98-107); Estimated GFR-MDRD 69; Glucose 221 mg/dL (83-110); Potassium 3.6 mmol/L (3.5-5.1); Sodium 137 mmol/L (136-145)
[2019-09-14] MEDS: HumaLOG 300 UNITS/3 ML VIAL SC PRN ×3 (06:05→17:51)
[2019-09-14] MEDS: Levothyroxine Sodium 125 MCG TAB PO SCH (06:07)
[2019-09-14] MEDS: Furosemide 40 MG/4 ML VIAL SLOW IVP SCH ×2 (06:07→13:12)
--- NOTE | 2019-09-14 07:41 | RAD ---
EXAM: Single view of the chest HISTORY: Pleural effusion COMPARISON: 07/15/2019 FINDINGS: Single view of the chest shows an enlarged but stable cardiomediastinal silhouette. The pa tient is status post sternotomy. There is a moderate left pleural effusion with adjacent atelectasis. The bones are unremarkable. IMPRESSION: Left pleural effusion
[2019-09-14] MEDS: Famotidine 20 MG TAB PO SCH ×2 (09:51→20:04)
[2019-09-14] MEDS: Allopurinol 300 MG TAB PO SCH (09:51)
[2019-09-14] MEDS: Aspirin 81 mg Enteric Coated Tablet PO SCH (09:51)
[2019-09-14] MEDS: Carvedilol 3.125 MG TAB PO SCH ×2 (09:51→17:52)
[2019-09-14] MEDS: Acetaminophen 325 MG TAB PO PRN (12:00)
[2019-09-14] MEDS: clonazePAM 1 MG TAB PO PRN ×2 (13:12→20:05)
--- NOTE | 2019-09-14 13:24 | PRG ---
DATE OF SERVICE: 09/14/2019 SUBJECTIVE: He is breathing better. He had an x-ray done today, which does not show much change in the pleural effusion. OBJECTIVE: VITAL SIGNS: On examination, temperature 97.3, pulse 92, respirations 20, O2 saturation 95%, and blood pressure 148/81. HEENT: Unremarkable. NECK: No adenopathy or JVD. CHEST: Slight diminished breath sounds at the left base compared to right. CARDIAC: S1 and S2. Regular. ABDOMEN: Soft. EXTREMITIES: No edema. DIAGNOSTIC DATA: Chest x-ray shows small left effusion. It is difficult to tell true extent of the effusion because he has such cardiomegaly. ASSESSMENT: Pleural effusion, which is likely secondary to congestive heart failure or post cardiotomy. PLAN: It looks like the EP Group is planning defibrillator placement tomorrow. The patient mentioned to me this might include pacemaker, although that is not stated in the note. I would like to see how his pleural effusion does his medical management. I would not recommend thoracentesis at this time. Pulmonary is available as needed. Job ID: [id number]
--- NOTE | 2019-09-14 14:21 | PDOC.HOSPP ---
- Subjective Encounter Date: 09/14/19 Encounter Time: 14:20 Subjective: Doing ok. Has signed the consents. Had a lot of company. Says he got a little "discombobulated". A fried just committed suicide a few days ago and that is bothering him as well. Feeling ok now. - Objective Vital Signs & Weight: Vital Signs (12 hours) Temp Pulse Pulse Pulse Resp BP BP 09/14/19 11:35 106 H 96 148/81 H 114/70 09/14/19 11:07 97.3 F L 92 20 09/14/19 07:17 97.7 F 87 20 09/14/19 06:19 76 18 09/14/19 04:15 97.9 F 79 18 09/14/19 03:27 BP Pulse Ox Pulse Ox Pulse Ox 09/14/19 11:35 95 94 L 09/14/19 11:07 123/74 95 09/14/19 07:17 146/68 H 96 09/14/19 06:19 97 09/14/19 04:15 109/73 97 09/14/19 03:27 93 L Weight Weight 283 lb 9.6 oz I&O: 09/13/19 09/14/19 09/15/19 06:59 06:59 06:59 Intake Total 1190 960 360 Output Total 1150 1400 Balance 40 -440 360 Result Diagrams: 09/14/19 05:07 09/14/19 05:07 Additional Labs: Accuchecks 09/14/19 09/14/19 09/13/19 11:15 06:08 20:47 POC Glucose 249 H 202 H 290 H 09/13/19 16:50 POC Glucose 227 H Hospitalist ROS - Medication Medications: Active Medications Generic Name Dose Route Start Last Admin Trade Name Freq PRN Reason Stop Dose Admin Acetaminophen 650 mg 09/12/19 01:35 09/14/19 12:00 Tylenol PO 650 mg Q4H PRN Administration Headache/Fever/Mild Pain (1-3) Albuterol/Ipratropium 3 ml 09/13/19 02:30 09/14/19 13:27 Duoneb NEB Not Given D5BS-HR ALESIA Allopurinol 150 mg 09/12/19 09:00 09/14/19 09:51 Zyloprim PO 150 mg DAILY ALESIA Administration Aspirin 81 mg 09/12/19 09:00 09/14/19 09:51 Ecotrin PO 81 mg DAILY ALESIA Administration Atorvastatin Calcium 20 mg 09/12/19 21:00 09/13/19 19:56 Lipitor PO 20 mg HS ALESIA Administration Carvedilol 3.125 mg 09/12/19 08:00 09/14/19 09:51 Coreg PO 3.125 mg BID-WM ALESIA Administration Clonazepam 1 mg 09/12/19 01:45 09/14/19 13:12 Klonopin PO 1 mg BID PRN Administration Anxiety Famotidine 20 mg 09/12/19 21:00 09/14/19 09:51 Pepcid PO 20 mg Q12HR ALESIA Administration Furosemide 40 mg 09/12/19 06:00 09/14/19 13:12 Lasix SLOW IVP 40 mg 0600,1400 ALESIA Administration Insulin Human Lispro 0 units 09/12/19 01:37 09/14/19 11:57 Humalog SC 3 unit .MILD SLIDING SCALE PRN Administration Mild Correctional Scale Levothyroxine Sodium 125 mcg 09/12/19 06:00 09/14/19 06:07 Synthroid PO 125 mcg 0600 ALESIA Administration Pantoprazole Sodium 40 mg 09/12/19 09:00 09/14/19 09:52 Protonix PO 40 mg DAILY ALESIA Administration Sacubitril/Valsartan 1 tab 09/12/19 09:00 09/14/19 09:52 Entresto 24 Mg-26 Mg Tablet PO 1 tab BID ALESIA Administration Sodium Chloride 10 ml 09/12/19 01:35 09/12/19 19:52 Flush - Normal Saline IVF 10 ml Q12HR PRN Administration Saline Flush Sodium Chloride 10 ml 09/12/19 01:35 09/14/19 13:13 Flush - Normal Saline IVF 10 ml PRN PRN Administration Saline Flush - Exam General Appearance: NAD, awake alert General - other findings: Sleeping with CPAP, but awakens easily. Heart: RRR, no murmur, no gallops, no rubs, normal peripheral pulses Respiratory: CTAB, no wheezes, no rales, no ronchi, normal chest expansion, no tachypnea, normal percussion Gastrointestinal: soft, non-tender, non-distended, normal bowel sounds, no palpable masses, no hepatomegaly, no splenomegaly, no bruit Extremities: no cyanosis, no clubbing, no edema Psychiatric: normal affect, normal behavior, A&O x 3 Hosp A/P (1) S/P CABG (coronary artery bypass graft) Code(s): Z95.1 - PRESENCE OF AORTOCORONARY BYPASS GRAFT Status: Acute (2) Acute on chronic combined systolic and diastolic heart failure Code(s): I50.43 - ACUTE ON CHRONIC COMBINED SYSTOLIC AND DIASTOLIC HRT FAIL Status: Chronic (3) CAD (coronary artery disease) Code(s): I25.10 - ATHSCL HEART DISEASE OF [place] CORONARY ARTERY W/O ANG PCTRS Status: Chronic Qualifiers: Coronary Disease-Associated Artery/Lesion type: bypass graft [place] vs. transplanted heart: [place] heart Associated angina: without angina Qualified Code(s): I25.810 - Atherosclerosis of coronary artery bypass graft(s) without angina pectoris (4) DM2 (diabetes mellitus, type 2) Status: Chronic Qualifiers: Chronic kidney disease stage: stage 2 (mild) (5) Gout Code(s): M10.9 - GOUT, UNSPECIFIED Status: Chronic Qualifiers: Gout site: unspecified site (6) Hypertension Code(s): I10 - ESSENTIAL (PRIMARY) HYPERTENSION Status: Chronic Qualifiers: Hypertension type: essential hypertension Qualified Code(s): I10 - Essential (primary) hypertension (7) Hypothyroidism Code(s): E03.9 - HYPOTHYROIDISM, UNSPECIFIED Status: Chronic Qualifiers: Hypothyroidism type: unspecified Qualified Code(s): E03.9 - Hypothyroidism , unspecified (8) Ischemic cardiomyopathy Code(s): I25.5 - ISCHEMIC CARDIOMYOPATHY Status: Chronic (9) Morbid obesity Code(s): E66.01 - MORBID (SEVERE) OBESITY DUE TO EXCESS CALORIES Status: Chronic (10) LYNDSAY (obstructive sleep apnea) Code(s): G47.33 - OBSTRUCTIVE SLEEP APNEA (ADULT) (PEDIATRIC) Status: Chronic (11) PTSD (post-traumatic stress disorder) Code(s): F43.10 - POST-TRAUMATIC STRESS DISORDER, UNSPECIFIED Status: Chronic (12) CKD (chronic kidney disease), stage II Code(s): N18.2 - CHRONIC KIDNEY DISEASE, STAGE 2 (MILD) Status: Acute - Plan Diuresing. Entresto. Much improved. Plan is for ICD tomorrow by EP. Presumably getting BiV pacer based on what the patient indicated. He is ready for that. Continue other home meds. Continue CPAP.
[2019-09-14] MEDS: Atorvastatin Calcium 20 MG TAB PO SCH (20:04)
[2019-09-15 05:06] LABS: #Basophils 0.1 thou/uL (0.0-0.2); #Eosinphils 0.6 thou/uL (0.0-0.7); #Lymphocytes 3.1 thou/uL (1.20-3.40); #Monocytes 0.7 thou/uL (0.11-0.59); #Neutrophils 5.1 thou/uL (1.40-6.50); %Basophils 0.7 % (0.0-1.0); %Eosinophils 6.4 % (0.0-10.0); %Lymphocytes 32.2 % (21.0-51.0); %Neutrophils 53.6 % (42.0-75.0); Hemoglobin 14.6 g/dL (14.0-18.0); Mean Corpuscular HGB CONC 32.7 g/dL (32.0-36.0); Mean Corpuscular Hemoglobin 27.4 pg (27.0-31.0); Mean Corpuscular Volume 83.8 fL (78.0-98.0); Mean Platelet Volume 10.4 fL (7.4-10.4); Platelet Count 126 thou/uL (130-400); RBC Distribution Width 14.4 % (11.5-14.5); Red Blood Cell (RBC) Count 5.32 mill/uL (4.70-6.10); White Blood Cell (WBC) Count 9.5 thou/uL (4.8-10.8)
[2019-09-15 05:33] LABS: Anion Gap 15 mmol/L (10-20); BUN (Urea Nitrogen) 18 mg/dL (8.4-25.7); Calc. Creatinine Clearance 99 mL/min (70-130); Calcium 9.2 mg/dL (7.8-10.44); Carbon Dioxide 26 mmol/L (23-31); Chloride 99 mmol/L (98-107); Estimated GFR-MDRD 58; Glucose 240 mg/dL (83-110); Potassium 3.8 mmol/L (3.5-5.1); Sodium 136 mmol/L (136-145)
[2019-09-15] MEDS: Carvedilol 3.125 MG TAB PO SCH ×2 (05:55→18:42)
[2019-09-15] MEDS: Levothyroxine Sodium 125 MCG TAB PO SCH (05:55)
[2019-09-15] MEDS: Furosemide 40 MG/4 ML VIAL SLOW IVP SCH ×2 (05:56→18:43)
[2019-09-15] MEDS: clonazePAM 1 MG TAB PO PRN ×2 (07:39→22:03)
[2019-09-15] MEDS ORDERED: Rocuronium Bromide 10 MG/ML (10ML VIAL) ONE (09:38)
[2019-09-15] MEDS ORDERED: PHENYLEPHRINE-NS 100 MCG/ML 10 ML SYRINGE ONE (09:38)
[2019-09-15] MEDS ORDERED: PROPOFOL 200 MG/20 ML VIAL ONE (09:38)
[2019-09-15] MEDS ORDERED: Glycopyrrolate 0.2 MG/ML 5 ML SYRINGE ONE (09:38)
[2019-09-15] MEDS: Famotidine 20 MG TAB PO SCH ×2 (09:40→22:03)
[2019-09-15] MEDS: Aspirin 81 mg Enteric Coated Tablet PO SCH (09:40)
[2019-09-15] MEDS ORDERED: Fentanyl 100 MCG/2 ML VIAL ONE (12:42)
--- NOTE | 2019-09-15 14:55 | RAD ---
EXAM: Single view of the chest HISTORY: Postop pacemaker placement COMPARISON: 09/14/2019 FINDINGS: Single view of the chest shows an enlarged but stable cardiomediastinal silhouette. There is a left subclavian pacemaker with its tip in the right ventricle. The patient is status post sternotomy. Bilateral pulmonary vascular congestion is seen. No pneumothorax is appreciated. The bon es are unremarkable. IMPRESSION: 1. Status post pacemaker placement without evidence of consolidation 2. Findings are consistent with congestive heart failure.
[2019-09-15] MEDS: Senokot S 8.6-50 MG TAB PO SCH ×2 (15:57→22:03)
--- NOTE | 2019-09-15 17:13 | EKG ---
Test Reason : POST ICD Blood Pressure : / mmHG Vent. Rate : 088 BPM Atrial Rate : 088 BPM P-R Int : 208 ms QRS Dur : 104 ms QT Int : 408 ms P-R-T Axes : 069 092 -49 degrees QTc Int : 493 ms Sinus rhythm with frequent Premature ventricular complexes Anterolateral infarct (cited on or before 15-JUL-2019) Nonspecific ST-T changes Abnormal ECG When compared with ECG of 11-SEP-2019 18:12, (Unconfirmed) Nonspecific T wave abnormality, worse in Inferior leads Nonspecific T wave abnormality, improved in Lateral leads Confirmed by DR. Yonathan BLANTON (3) on 09/15/2019 5:13:17 PM Referred By: [facility] Confirmed By:DR. Yonathan BLANTON
[2019-09-15] MEDS: Allopurinol 300 MG TAB PO SCH (18:42)
[2019-09-15] MEDS: metFORMIN 500 MG TAB PO SCH (18:43)
[2019-09-15] MEDS: ceFAZolin 1 GM/D5W 1 GM in Premix Bag 1 BAG IVPB SCH (18:43)
--- NOTE | 2019-09-15 21:00 | PDOC.HOSPP ---
- Subjective Subjective: Doing ok. No complaints except left anterior chest pain. Woke with it. Thinks he probably slept on the monitor box. Otherwise feels ok. - Objective Vital Signs & Weight: Vital Signs (12 hours) Temp Pulse Resp BP BP Pulse Ox 09/15/19 18:49 88 18 98 09/15/19 15:36 98.0 F 94 24 H 100/68 97 09/15/19 10:53 97.8 F 86 20 140/73 96 Weight Weight 281 lb 1.6 oz I&O: 09/14/19 09/15/19 09/16/19 06:59 06:59 06:59 Intake Total 1460 940 240 Output Total 2475 300 Balance -1015 640 240 Result Diagrams: 09/15/19 04:48 09/15/19 04:48 Additional Labs: Accuchecks 09/15/19 09/15/19 16:49 10:53 POC Glucose 198 H 233 H Hospitalist ROS - Medication Medications: Active Medications Generic Name Dose Route Start Last Admin Trade Name Freq PRN Reason Stop Dose Admin Acetaminophen 650 mg 09/12/19 01:35 09/14/19 12:00 Tylenol PO 650 mg Q4H PRN Administration Headache/Fever/Mild Pain (1-3) Albuterol/Ipratropium 3 ml 09/13/19 02:30 09/15/19 18:49 Duoneb NEB 3 ml [id number] ALESIA Administration Allopurinol 150 mg 09/12/19 09:00 09/15/19 18:42 Zyloprim PO Not Given DAILY ALESIA Aspirin 81 mg 09/12/19 09:00 09/15/19 09:40 Ecotrin PO 81 mg DAILY ALESIA Administration Atorvastatin Calcium 20 mg 09/12/19 21:00 09/14/19 20:04 Lipitor PO 20 mg HS ALESIA Administration Carvedilol 3.125 mg 09/12/19 08:00 09/15/19 18:42 Coreg PO Not Given BID-WM ALESIA Clonazepam 1 mg 09/12/19 01:45 09/15/19 07:39 Klonopin PO 1 mg BID PRN Administration Anxiety Famotidine 20 mg 09/12/19 21:00 09/15/19 09:40 Pepcid PO 20 mg Q12HR ALESIA Administration Furosemide 40 mg 09/12/19 06:00 09/15/19 18:43 Lasix SLOW IVP 40 mg 0600,1400 ALESIA Administration Cefazolin Sodium/Dextrose 1 gm 50 mls @ 100 mls/hr 09/15/19 18:00 09/15/19 18 :43 / Device IVPB 09/16/19 02:29 50 mls 0200,1000,1800 ALESIA Administration Insulin Human Lispro 0 units 09/12/19 01:37 09/14/19 17:51 Humalog SC 3 unit .MILD SLIDING SCALE PRN Administration Mild Correctional Scale Levothyroxine Sodium 125 mcg 09/12/19 06:00 09/15/19 05:55 Synthroid PO 125 mcg 0600 ALESIA Administration Metformin HCl 500 mg 09/15/19 17:00 09/15/19 18:43 Glucophage PO Not Given BID-WM ALESIA Pantoprazole Sodium 40 mg 09/12/19 09:00 09/15/19 09:40 Protonix PO 40 mg DAILY ALESIA Administration Sacubitril/Valsartan 1 tab 09/12/19 09:00 09/15/19 15:57 Entresto 24 Mg-26 Mg Tablet PO Not Given BID ALESIA Senna/Docusate Sodium 2 tab 09/15/19 09:00 09/15/19 15:57 Senokot S PO Not Given BID ALESIA Sodium Chloride 10 ml 09/12/19 01:35 09/14/19 20:06 Flush - Normal Saline IVF 10 ml Q12HR PRN Administration Saline Flush Sodium Chloride 10 ml 09/12/19 01:35 09/14/19 13:13 Flush - Normal Saline IVF 10 ml PRN PRN Administration Saline Flush - Exam General Appearance: NAD, awake alert Heart: RRR, no murmur, no gallops, no rubs, normal peripheral pulses Respiratory: CTAB, no wheezes, no rales, no ronchi, normal chest expansion, no tachypnea, normal percussion Gastrointestinal: soft, non-tender, non-distended, normal bowel sounds, no palpable masses, no hepatomegaly, no splenomegaly, no bruit Extremities: no cyanosis, no clubbing, no edema Skin: normal turgor Musculoskeletal: normal tone Psychiatric: normal affect, normal behavior, A&O x 3 Hosp A/P (1) S/P CABG (coronary artery bypass graft) Code(s): Z95.1 - PRESENCE OF AORTOCORONARY BYPASS GRAFT Status: Acute (2) Acute on chronic combined systolic and diastolic heart failure Code(s): I50.43 - ACUTE ON CHRONIC COMBINED SYSTOLIC AND DIASTOLIC HRT FAIL Status: Chronic (3) CAD (coronary artery disease) Code(s): I25.10 - ATHSCL HEART DISEASE OF [place] CORONARY ARTERY W/O ANG PCTRS Status: Chronic Qualifiers: Coronary Disease-Associated Artery/Lesion type: bypass graft [place] vs. transplanted heart: [place] heart Associated angina: without angina Qualified Code(s): I25.810 - Atherosclerosis of coronary artery bypass graft(s) without angina pectoris (4) DM2 (diabetes mellitus, type 2) Status: Chronic Qualifiers: Chronic kidney disease stage: stage 2 (mild) (5) Gout Code(s): M10.9 - GOUT, UNSPECIFIED Status: Chronic Qualifiers: Gout site: unspecified site (6) Hypertension Code(s): I10 - ESSENTIAL (PRIMARY) HYPERTENSION Status: Chronic Qualifiers: Hypertension type: essential hypertension Qualified Code(s): I10 - Essential (primary) hypertension (7) Hypothyroidism Code(s): E03.9 - HYPOTHYROIDISM, UNSPECIFIED Status: Chronic Qualifiers: Hypothyroidism type: unspecified Qualified Code(s): E03.9 - Hypothyroidism , unspecified (8) Ischemic cardiomyopathy Code(s): I25.5 - ISCHEMIC CARDIOMYOPATHY Status: Chronic (9) Morbid obesity Code(s): E66.01 - MORBID (SEVERE) OBESITY DUE TO EXCESS CALORIES Status: Chronic (10) LYNDSAY (obstructive sleep apnea) Code(s): G47.33 - OBSTRUCTIVE SLEEP APNEA (ADULT) (PEDIATRIC) Status: Chronic (11) PTSD (post-traumatic stress disorder) Code(s): F43.10 - POST-TRAUMATIC STRESS DISORDER, UNSPECIFIED Status: Chronic (12) CKD (chronic kidney disease), stage II Code(s): N18.2 - CHRONIC KIDNEY DISEASE, STAGE 2 (MILD) Status: Acute - Plan Diuresing. Entresto. Much improved. ICD today. Continue other home meds. Continue CPAP.
[2019-09-15] MEDS: Atorvastatin Calcium 20 MG TAB PO SCH (22:03)
[2019-09-15] MEDS: HumaLOG 300 UNITS/3 ML VIAL SC PRN (22:05)
--- NOTE | 2019-09-16 01:09 | CON ---
DATE OF CONSULTATION: REQUESTING PHYSICIAN: Tenzin Morton MD REASON FOR CONSULTATION: Urinary retention and difficult Gray catheter placement. HISTORY OF PRESENT ILLNESS: Mr. Odell is a 73-year-old male with no significant past urologic history, who has a history of severe CHF and ischemic cardiomyopathy with a severely reduced EF of 15% to 20%. The patient is managed by Dr. Scales. The patient underwent ICD placement today. Postoperatively, he was unable to void. He was given a significant dose of Lasix. The patient became very uncomfortable. A bladder scan was performed, which demonstrated greater than 1000 mL. Two separate attempts of Gray catheter placement by separate nurses were performed and they were unsuccessful. Urology was consulted for urgent Gray catheter placement. The patient denies any voiding difficulty at home. He does not have any history of BPH and does not take BPH medication. No prior urologic procedures. No gross hematuria. No other complaints. REVIEW OF SYSTEMS: Full 12-point review of systems was performed and is negative other than that mentioned in HPI. PAST MEDICAL HISTORY: 1. Ischemic cardiomyopathy. 2. History of multiple MIs, status post CABG. 3. COPD. 4. Type 2 diabetes. 5. Pneumonia. 6. Hypertension. 7. Gastroesophageal reflux disease. 8. Obesity. 9. PTSD. 10. Hyperlipidemia. PAST SURGICAL HISTORY: 1. Tonsillectomy. 2. Back surgery. 3. Three vessel CABG, April 2019. SOCIAL HISTORY: No tobacco or illicit drug use. No alcohol. He is , lives at home with his . FAMILY HISTORY: Noncontributory. ALLERGIES: NO KNOWN DRUG ALLERGIES. HOME MEDICATIONS: These were reviewed. Please see medicine reconciliation form. There were no changes. PHYSICAL EXAMINATION: VITAL SIGNS: Temperature 97.5, pulse 95, respirations 18, blood pressure 123/76, oxygen saturation 98% on room air. GENERAL: He is awake and alert, in no apparent distress, currently on CPAP. HEENT: Normocephalic, atraumatic. NECK: Supple. No masses or lymphadenopathy. There is a supraclavicular wound, which is clean, dry, and intact from ICD placement. CARDIOVASCULAR: Regular rhythm. PULMONARY: Breathing unlabored. ABDOMEN: Obese, soft, nontender/nondistended. No masses or organomegaly. Positive suprapubic tenderness to palpation. No CVA tenderness. GENITOURINARY: Circumcised penis without concerning lesion. Meatus normal. Scrotum and testes palpably normal. EXTREMITIES: Mild bilateral lower extremity edema. LABORATORY DATA: Hemoglobin 14.6, hematocrit 44.5. Sodium 136, potassium 3.8, chloride 99, bicarb 26, BUN 18, creatinine 1.22. ASSESSMENT: A 73-year-old male with urinary retention and difficult Gray catheter placement. PLAN: The patient was evaluated at the bedside. Under sterile conditions, a single attempt at placement of a 16-Japanese silicone Gray catheter was successful with immediate return of over a liter of clear yellow urine. There was minimal resistance in the distal penile urethra, which was easily bypassed with the Gray catheter. The Gray catheter should remain in place for a minimum of 3 days. Tamsulosin 0.4 mg daily should be started if okay per primary team. The patient can undergo voiding trial potentially as an inpatient if he is still here after 3 days. If he is discharged in the interim, he can be discharged home with his Gray catheter and follow up with Urology as an outpatient for a voiding trial. Job ID: [id number]
[2019-09-16] MEDS: ceFAZolin 1 GM/D5W 1 GM in Premix Bag 1 BAG IVPB SCH (02:33)
[2019-09-16] MEDS: Levothyroxine Sodium 125 MCG TAB PO SCH (06:05)
[2019-09-16] MEDS: HumaLOG 300 UNITS/3 ML VIAL SC PRN ×3 (06:06→21:27)
[2019-09-16] MEDS: Furosemide 40 MG/4 ML VIAL SLOW IVP SCH ×2 (06:13→14:54)
[2019-09-16] MEDS: Tamsulosin HCl 0.4 MG CAP PO SCH (09:21)
[2019-09-16] MEDS: metFORMIN 500 MG TAB PO SCH ×2 (09:21→17:26)
[2019-09-16] MEDS: Allopurinol 300 MG TAB PO SCH (09:21)
[2019-09-16] MEDS: Aspirin 81 mg Enteric Coated Tablet PO SCH (09:21)
[2019-09-16] MEDS: Famotidine 20 MG TAB PO SCH ×2 (09:21→21:20)
[2019-09-16] MEDS: Carvedilol 3.125 MG TAB PO SCH ×2 (09:21→17:26)
[2019-09-16] MEDS: Senokot S 8.6-50 MG TAB PO SCH ×2 (09:25→21:47)
--- NOTE | 2019-09-16 09:45 | PDOC.EP ---
- Subjective Date: 09/16/19 Time: 09:43 Interval History: follow up after ICD implanted 09/15/19. Feeling short of breath this AM and had urine retention overnight requiring guevara placement. + tenderness at implant site when touched. - Review of Systems Constitutional: denies: chills, fever, malaise, sweats, weakness, other Respiratory: reports: shortness of breath. denies: hemoptysis, pleuritic pain, wheezing Cardiology: denies: chest pain, heart racing, light headedness, palpitations, passing out Gastrointestinal: denies: abdominal pain, constipation, diarrhea - Objective Allergies/Adverse Reactions: Allergies Allergy/AdvReac Type Severity Reaction Status Date / Time ketorolac [From Toradol] Allergy Verified 09/11/19 21:45 Current Medications Acetaminophen (Tylenol) 650 mg PO Q4H PRN PRN Reason: Headache/Fever/Mild Pain (1-3) Last Admin: 09/14/19 12:00 Dose: 650 mg Acetaminophen (Tylenol) 650 mg [place] Q4H PRN PRN Reason: Headache/Fever/Mild Pain (1-3) Acetaminophen/Codeine Phosphate (Tylenol #3) 1 tab PO Q4H PRN PRN Reason: Pain Albuterol/Ipratropium (Duoneb) 3 ml NEB [id number] [facility] Last Admin: 09/16/19 06:47 Dose: 3 ml Allopurinol (Zyloprim) 150 mg PO DAILY [facility] Last Admin: 09/16/19 09:21 Dose: 150 mg Aspirin (Ecotrin) 81 mg PO DAILY [facility] Last Admin: 09/16/19 09:21 Dose: 81 mg Atorvastatin Calcium (Lipitor) 20 mg PO HS [facility] Last Admin: 09/15/19 22:03 Dose: 20 mg Carvedilol (Coreg) 3.125 mg PO BID-WM [facility] Last Admin: 09/16/19 09:21 Dose: 3.125 mg Cephalexin (Keflex) 500 mg PO Q6HR [facility] Stop: 09/23/19 06:01 Clonazepam (Klonopin) 1 mg PO BID PRN PRN Reason: Anxiety Last Admin: 09/15/19 22:03 Dose: 1 mg Dextrose/Water (Dextrose 50%) 25 gm SLOW IVP PRN PRN PRN Reason: Hypoglycemia Famotidine (Pepcid) 20 mg PO Q12HR [facility] Last Admin: 09/16/19 09:21 Dose: 20 mg Furosemide (Lasix) 40 mg SLOW IVP 0600,1400 [facility] Last Admin: 09/16/19 06:13 Dose: 40 mg Glucagon (Glucagon) 1 mg IM PRN PRN PRN Reason: Hypoglycemia Dextrose/Water (D5w) 1,000 mls @ 0 mls/hr IV .Q0M PRN PRN Reason: Hypoglycemia Insulin Human Lispro (Humalog) 0 units SC .MILD SLIDING SCALE PRN PRN Reason: Mild Correctional Scale Last Admin: 09/16/19 06:06 Dose: 2 unit Insulin Human Lispro (Humalog) 0 units SC .BEDTIME SLIDING SC PRN PRN Reason: Bedtime Correctional Scale Last Admin: 09/15/19 22:05 Dose: 3 unit Levothyroxine Sodium (Synthroid) 125 mcg PO 0600 [facility] Last Admin: 09/16/19 06:05 Dose: 125 mcg Metformin HCl (Glucophage) 500 mg PO BID[facility] Last Admin: 09/16/19 09:21 Dose: 500 mg Pantoprazole Sodium (Protonix) 40 mg PO DAILY [facility] Last Admin: 09/16/19 09:21 Dose: 40 mg Sacubitril/Valsartan (Entresto 24 Mg-26 Mg Tablet) 0.5 tab PO BID [facility] Senna/Docusate Sodium (Senokot S) 2 tab PO BID [facility] Last Admin: 09/16/19 09:25 Dose: Not Given Sodium Chloride (Flush - Normal Saline) 10 ml IVF Q12HR PRN PRN Reason: Saline Flush Last Admin: 09/14/19 20:06 Dose: 10 ml Sodium Chloride (Flush - Normal Saline) 10 ml IVF PRN PRN PRN Reason: Saline Flush Last Admin: 09/14/19 13:13 Dose: 10 ml Tamsulosin HCl (Flomax) 0.4 mg PO DAILY [facility] Last Admin: 09/16/19 09:21 Dose: 0.4 mg Vital Signs & Weight: Vital Signs Temp Pulse Resp BP Pulse Ox 09/16/19 07:16 97.6 F 71 20 102/68 95 09/16/19 06:47 80 18 09/16/19 00:28 97.8 F 85 20 101/63 97 Weight 284 lb 3.2 oz I/O: I/O 09/15/19 09/16/19 09/17/19 06:59 06:59 06:59 Intake Total 940 1840 Output Total 300 1100 Balance 640 740 - Physical Exam General: alert & oriented x3, appears well, no apparent distress, speech clear HEENT: mucus membranes moist, normocephaly, EOMI Neck: supple neck, midline trachea, no JVD/HJR, no lymphadenopathy Cardiology: regular rate and rhythm, no murmur, regular rate, regular rhythm Lungs: bibasilar rales, oxygen Neurology: cranial nerve 2-12 intact, grossly intact, sensory function intact Abdomen: active bowel sounds, soft, no hepatosplenomegaly, HJR negative Extremities: dry, strong pulses, warm - Labs Result Diagrams: 09/15/19 04:48 09/15/19 04:48 - Assessment/Plan Assessment/Plan: 1. Single chamber ICD - placed 09/15/19 - CXR and device check stable - PO cephalexin x 7 days as ordered post implant 2. Cardiomyopathy 3. CHF -per cardiology OK for DC by EP. Continue antibiotics as ordered x7 days- Rx in chart. 2 week wound/device check will be arranged.
[2019-09-16 09:47] LABS: Bilirubin Negative (Negative); Blood, Urine 3+ (Negative); Clarity Turbid (Clear); Glucose, Urine (Dipstick) Normal (Negative); Leukocyte Negative Leu/uL (Negative); Nitrite Negative (Negative); Protein, Urine (Dipstick) 70 mg/dL (Neg-Trace); Squamous Epithelial None Seen HPF (0-3); Urobilinogen Normal mg/dL (Less than 2); WBC/HPF None Seen HPF (0-3)
[2019-09-16 09:56] LABS: Bacteria/HPF Rare-Few HPF (None Seen)
[2019-09-16 09:57] LABS: Urine Culture Reflex No No
[2019-09-16] MEDS: Cephalexin 250 MG CAP PO SCH ×3 (11:25→23:43)
--- NOTE | 2019-09-16 11:51 | RAD ---
XR Chest 1 View Portable HISTORY: Post pacemaker placement COMPARISON: Previous day FINDINGS: No significant interval change is seen since the previous day's exam IMPRESSION: Stable exam
--- NOTE | 2019-09-16 14:11 | PDOC.HOSPP ---
- Subjective Encounter Date: 09/16/19 Encounter Time: 14:08 Subjective: Patient complaining of discomfort due to the guevara catheter. He developed urine retention, initial attempt to place Guevara by RN unsuccessful due to resistance at 1 inch. Urology consulted and successfully placed Guevara. >1000 mLs on pre-guevara bladder scan. extremely concerned about patient going home with guevara in place. Cleared for d/c with guevara and fup with Urology for TWOC after 3 days and Flomax recommended. From breathing perspective, no changes. He continues with dry cough. No fevers. No chest pain. - Objective Vital Signs & Weight: Vital Signs (12 hours) Temp Pulse Pulse Pulse Resp BP BP 09/16/19 12:51 94 90 118/90 90/70 09/16/19 11:45 97.4 F L 90 20 09/16/19 10:36 90 16 09/16/19 09:42 98 118/90 09/16/19 07:16 97.6 F 71 20 09/16/19 06:47 80 18 BP Pulse Ox Pulse Ox Pulse Ox 09/16/19 12:51 99 96 09/16/19 11:45 119/67 96 09/16/19 10:36 09/16/19 09:42 09/16/19 07:16 102/68 95 09/16/19 06:47 Weight Weight 284 lb 3.2 oz I&O: 09/15/19 09/16/19 09/17/19 06:59 06:59 06:59 Intake Total 940 1840 480 Output Total 300 1100 650 Balance 640 740 -170 Result Diagrams: 09/15/19 04:48 09/15/19 04:48 Additional Labs: Accuchecks 09/16/19 09/16/19 09/15/19 10:45 06:07 21:25 POC Glucose 222 H 194 H 275 H 09/15/19 16:49 POC Glucose 198 H Radiology Reviewed by me: Yes (CXR appears stable compared to recent CXR ) Hospitalist ROS - Review of Systems Constitutional: reports: malaise. denies: fever, chills, sweats, weakness, other Eyes: denies: pain, vision change, conjunctivae inflammation, eyelid inflammation, redness, other Respiratory: reports: cough, shortness of breath (improved) Cardiovascular: reports: orthopnea, paroxysmal noc. dyspnea. denies: chest pain , palpitations, edema, light headedness, other Gastrointestinal: denies: nausea, vomiting, abdominal pain, diarrhea, constipation, melena, hematochezia, other Genitourinary: reports: retention, other (guevara in place) Musculoskeletal: denies: neck pain, shoulder pain, arm pain, back pain, hand pain, leg pain, foot pain, other Skin: denies: rash, lesions, linda, bruising, other - Medication Medications: Active Medications Generic Name Dose Route Start Last Admin Trade Name Freq PRN Reason Stop Dose Admin Acetaminophen 650 mg 09/12/19 01:35 09/14/19 12:00 Tylenol PO 650 mg Q4H PRN Administration Headache/Fever/Mild Pain (1-3) Albuterol/Ipratropium 3 ml 09/13/19 02:30 09/16/19 10:36 Duoneb NEB 3 ml [id number] ALESIA Administration Allopurinol 150 mg 09/12/19 09:00 09/16/19 09:21 Zyloprim PO 150 mg DAILY ALESIA Administration Aspirin 81 mg 09/12/19 09:00 09/16/19 09:21 Ecotrin PO 81 mg DAILY ALESIA Administration Atorvastatin Calcium 20 mg 09/12/19 21:00 09/15/19 22:03 Lipitor PO 20 mg HS ALESIA Administration Carvedilol 3.125 mg 09/12/19 08:00 09/16/19 09:21 Coreg PO 3.125 mg BID-WM ALESIA Administration Cephalexin 500 mg 09/16/19 12:00 09/16/19 11:25 Keflex PO 09/23/19 06:01 500 mg Q6HR ALESIA Administration Clonazepam 1 mg 09/12/19 01:45 09/15/19 22:03 Klonopin PO 1 mg BID PRN Administration Anxiety Famotidine 20 mg 09/12/19 21:00 09/16/19 09:21 Pepcid PO 20 mg Q12HR ALESIA Administration Furosemide 40 mg 09/12/19 06:00 09/16/19 06:13 Lasix SLOW IVP 40 mg 0600,1400 ALESIA Administration Insulin Human Lispro 0 units 09/12/19 01:37 09/16/19 11:25 Humalog SC 3 unit .MILD SLIDING SCALE PRN Administration Mild Correctional Scale Insulin Human Lispro 0 units 09/12/19 01:37 09/15/19 22:05 Humalog SC 3 unit .BEDTIME SLIDING SC PRN Administration Bedtime Correctional Scale Levothyroxine Sodium 125 mcg 09/12/19 06:00 09/16/19 06:05 Synthroid PO 125 mcg 0600 ALESIA Administration Metformin HCl 500 mg 09/15/19 17:00 09/16/19 09:21 Glucophage PO 500 mg BID-WM ALESIA Administration Pantoprazole Sodium 40 mg 09/12/19 09:00 09/16/19 09:21 Protonix PO 40 mg DAILY ALESIA Administration Senna/Docusate Sodium 2 tab 09/15/19 09:00 09/16/19 09:25 Senokot S PO Not Given BID ALESIA Sodium Chloride 10 ml 09/12/19 01:35 09/14/19 20:06 Flush - Normal Saline IVF 10 ml Q12HR PRN Administration Saline Flush Sodium Chloride 10 ml 09/12/19 01:35 09/14/19 13:13 Flush - Normal Saline IVF 10 ml PRN PRN Administration Saline Flush Tamsulosin HCl 0.4 mg 09/16/19 09:00 09/16/19 09:21 Flomax PO 0.4 mg DAILY ALESIA Administration - Exam General Appearance: NAD, awake alert Eye: PERRL, anicteric sclera ENT: normocephalic atraumatic, dry oral mucosa Neck: supple, no lymphadenopathy Heart: RRR, no murmur, no gallops, no rubs Respiratory: CTAB, no wheezes, no rales, no ronchi, normal chest expansion Gastrointestinal: soft (obese), non-tender, non-distended Extremities: no cyanosis, no clubbing, no edema Skin: normal turgor Neurological: cranial nerve grossly intact Musculoskeletal: normal tone Psychiatric: normal affect, A&O x 3 Hosp A/P (1) Urine retention Code(s): R33.9 - RETENTION OF URINE, UNSPECIFIED Status: Acute Plan: S/p guevara catheter. Seen by Urology who assisted with placement. TWOC in 3 days with outpatient follow-up if cleared for discharge before then. Awaiting UA/UCx. (2) Acute exacerbation of CHF (congestive heart failure) Code(s): I50.9 - HEART FAILURE, UNSPECIFIED Status: Acute Qualifiers: Heart failure type: systolic Qualified Code(s): I50.23 - Acute on chronic systolic (congestive) heart failure Plan: Diuresing. Entresto reduced given BP in low 100s, as per Dr. Scales. Cleared to start Tamsulosin as recommended by Urology. Disposition as per Cardiology. (3) S/P CABG (coronary artery bypass graft) Code(s): Z95.1 - PRESENCE OF AORTOCORONARY BYPASS GRAFT Status: Acute (4) CAD (coronary artery disease) Code(s): I25.10 - ATHSCL HEART DISEASE OF [place] CORONARY ARTERY W/O ANG PCTRS Status: Chronic Qualifiers: Coronary Disease-Associated Artery/Lesion type: bypass graft [place] vs. transplanted heart: [place] heart Associated angina: without angina Qualified Code(s): I25.810 - Atherosclerosis of coronary artery bypass graft(s) without angina pectoris (5) DM2 (diabetes mellitus, type 2) Status: Chronic Qualifiers: Chronic kidney disease stage: stage 2 (mild) Plan: Continue to monitor glucose. (6) Hypertension Code(s): I10 - ESSENTIAL (PRIMARY) HYPERTENSION Status: Chronic Qualifiers: Hypertension type: essential hypertension Qualified Code(s): I10 - Essential (primary) hypertension Plan: Continue to monitor BP. As mentioned Dr. Scales has adjusted Entresto. (7) GERD (gastroesophageal reflux disease) Code(s): K21.9 - GASTRO-ESOPHAGEAL REFLUX DISEASE WITHOUT ESOPHAGITIS Status: Chronic Qualifiers: Esophagitis presence: esophagitis presence not specified Qualified Code(s) : K21.9 - Gastro-esophageal reflux disease without esophagitis Plan: Continue PPI (8) Gout Code(s): M10.9 - GOUT, UNSPECIFIED Status: Chronic Qualifiers: Gout site: unspecified site Plan: Continue home meds. (9) Hypothyroidism Code(s): E03.9 - HYPOTHYROIDISM, UNSPECIFIED Status: Chronic Qualifiers: Hypothyroidism type: unspecified Qualified Code(s): E03.9 - Hypothyroidism , unspecified (10) Morbid obesity Code(s): E66.01 - MORBID (SEVERE) OBESITY DUE TO EXCESS CALORIES Status: Chronic (11) LYNDSAY on CPAP Code(s): G47.33 - OBSTRUCTIVE SLEEP APNEA (ADULT) (PEDIATRIC); Z99.89 - DEPENDENCE ON OTHER ENABLING MACHINES AND DEVICES Status: Chronic Plan: Continue CPAP. (12) PTSD (post-traumatic stress disorder) Code(s): F43.10 - POST-TRAUMATIC STRESS DISORDER, UNSPECIFIED Status: Chronic - Plan Status post single chamber ICD on 09/15/19. Continue PO cephalexin as per Dr. Arango (7 days post implant). Cleared by EP for discharge. Will require wound/device check in EP. Patient did have 16 beats of WCT today at 11:38. Will check electrolytes. Replace as necessary.
[2019-09-16 14:28] LABS: #Basophils 0.1 thou/uL (0.0-0.2); #Eosinphils 0.5 thou/uL (0.0-0.7); #Lymphocytes 2.9 thou/uL (1.20-3.40); #Monocytes 0.7 thou/uL (0.11-0.59); %Basophils 0.7 % (0.0-1.0); %Eosinophils 5.3 % (0.0-10.0); %Lymphocytes 28.4 % (21.0-51.0); %Neutrophils 58.6 % (42.0-75.0); Hemoglobin 14.8 g/dL (14.0-18.0); Mean Corpuscular HGB CONC 33.8 g/dL (32.0-36.0); Mean Corpuscular Hemoglobin 28.1 pg (27.0-31.0); Mean Corpuscular Volume 83.3 fL (78.0-98.0); Mean Platelet Volume 10.3 fL (7.4-10.4); Platelet Count 112 thou/uL (130-400); RBC Distribution Width 14.4 % (11.5-14.5); Red Blood Cell (RBC) Count 5.25 mill/uL (4.70-6.10); White Blood Cell (WBC) Count 10.1 thou/uL (4.8-10.8)
[2019-09-16 14:46] LABS: Anion Gap 15 mmol/L (10-20); BUN (Urea Nitrogen) 16 mg/dL (8.4-25.7); Calc. Creatinine Clearance 99 mL/min (70-130); Calcium 9.5 mg/dL (7.8-10.44); Carbon Dioxide 28 mmol/L (23-31); Chloride 100 mmol/L (98-107); Estimated GFR-MDRD 58; Glucose 196 mg/dL (83-110); Magnesium 1.6 mg/dL (1.6-2.6); Sodium 139 mmol/L (136-145)
[2019-09-16] MEDS: Acetaminophen/Codeine 30-300mg Tablet PO PRN (14:54)
[2019-09-16] MEDS: Atorvastatin Calcium 20 MG TAB PO SCH (21:20)
[2019-09-16] MEDS: clonazePAM 1 MG TAB PO PRN (21:20)
[2019-09-17] MEDS ORDERED: clonazePAM 0.5 MG TAB PO PRN (00:06)
[2019-09-17 05:36] LABS: Anion Gap 16 mmol/L (10-20); BUN (Urea Nitrogen) 18 mg/dL (8.4-25.7); Calc. Creatinine Clearance 108 mL/min (70-130); Carbon Dioxide 25 mmol/L (23-31); Chloride 99 mmol/L (98-107); Estimated GFR-MDRD 64; Glucose 208 mg/dL (83-110); Potassium 3.8 mmol/L (3.5-5.1); Sodium 136 mmol/L (136-145)
[2019-09-17] MEDS: Levothyroxine Sodium 125 MCG TAB PO SCH (06:05)
[2019-09-17] MEDS: Furosemide 40 MG/4 ML VIAL SLOW IVP SCH (06:05)
[2019-09-17] MEDS: Cephalexin 250 MG CAP PO SCH ×4 (06:05→23:41)
[2019-09-17] MEDS: HumaLOG 300 UNITS/3 ML VIAL SC PRN ×2 (06:06→11:45)
[2019-09-17] MEDS: Famotidine 20 MG TAB PO SCH ×2 (08:58→20:26)
[2019-09-17] MEDS: metFORMIN 500 MG TAB PO SCH ×2 (08:58→17:25)
[2019-09-17] MEDS: Senokot S 8.6-50 MG TAB PO SCH ×2 (08:58→20:26)
[2019-09-17] MEDS: Allopurinol 300 MG TAB PO SCH (08:58)
[2019-09-17] MEDS: Carvedilol 3.125 MG TAB PO SCH ×2 (08:58→17:24)
[2019-09-17] MEDS: Aspirin 81 mg Enteric Coated Tablet PO SCH (08:58)
[2019-09-17] MEDS: Tamsulosin HCl 0.4 MG CAP PO SCH (08:59)
--- NOTE | 2019-09-17 11:46 | PDOC.CPN ---
- Subjective Date: 09/17/19 Time: 12:01 Interval history: The pt seen and examined. No overnight events. No cardiac complaints. - Objective Allergies/Adverse Reactions: Allergies Allergy/AdvReac Type Severity Reaction Status Date / Time ketorolac [From Toradol] Allergy Verified 09/11/19 21:45 Visit Medications: Current Medications Acetaminophen (Tylenol) 650 mg PO Q4H PRN PRN Reason: Headache/Fever/Mild Pain (1-3) Last Admin: 09/14/19 12:00 Dose: 650 mg Acetaminophen (Tylenol) 650 mg [place] Q4H PRN PRN Reason: Headache/Fever/Mild Pain (1-3) Acetaminophen/Codeine Phosphate (Tylenol #3) 1 tab PO Q4H PRN PRN Reason: Pain Last Admin: 09/16/19 14:54 Dose: 1 tab Albuterol/Ipratropium (Duoneb) 3 ml NEB [id number] [facility] Last Admin: 09/17/19 10:23 Dose: Not Given Allopurinol (Zyloprim) 150 mg PO DAILY [facility] Last Admin: 09/17/19 08:58 Dose: 150 mg Aspirin (Ecotrin) 81 mg PO DAILY [facility] Last Admin: 09/17/19 08:58 Dose: 81 mg Atorvastatin Calcium (Lipitor) 20 mg PO HS [facility] Last Admin: 09/16/19 21:20 Dose: 20 mg Carvedilol (Coreg) 3.125 mg PO BID-[facility] Last Admin: 09/17/19 08:58 Dose: 3.125 mg Cephalexin (Keflex) 500 mg PO Q6HR [facility] Stop: 09/23/19 06:01 Last Admin: 09/17/19 06:05 Dose: 500 mg Clonazepam (Klonopin) 1 mg PO BID PRN PRN Reason: Anxiety Last Admin: 09/16/19 21:20 Dose: 1 mg Clonazepam (Klonopin) 0.5 mg PO ONE PRN PRN Reason: Anxiety Stop: 09/20/19 00:07 Last Admin: 09/17/19 00:13 Dose: 0.5 mg Dextrose/Water (Dextrose 50%) 25 gm SLOW IVP PRN PRN PRN Reason: Hypoglycemia Famotidine (Pepcid) 20 mg PO Q12HR [facility] Last Admin: 09/17/19 08:58 Dose: 20 mg Furosemide (Lasix) 40 mg SLOW IVP 0600,1400 [facility] Last Admin: 09/17/19 06:05 Dose: 40 mg Glucagon (Glucagon) 1 mg IM PRN PRN PRN Reason: Hypoglycemia Dextrose/Water (D5w) 1,000 mls @ 0 mls/hr IV .Q0M PRN PRN Reason: Hypoglycemia Insulin Human Lispro (Humalog) 0 units SC .MILD SLIDING SCALE PRN PRN Reason: Mild Correctional Scale Last Admin: 09/17/19 06:06 Dose: 2 unit Insulin Human Lispro (Humalog) 0 units SC .BEDTIME SLIDING SC PRN PRN Reason: Bedtime Correctional Scale Last Admin: 09/16/19 21:27 Dose: 3 unit Levothyroxine Sodium (Synthroid) 125 mcg PO 0600 [facility] Last Admin: 09/17/19 06:05 Dose: 125 mcg Metformin HCl (Glucophage) 500 mg PO BID-[facility] Last Admin: 09/17/19 08:58 Dose: 500 mg Pantoprazole Sodium (Protonix) 40 mg PO DAILY [facility] Last Admin: 09/17/19 08:58 Dose: 40 mg Sacubitril/Valsartan (Entresto 24 Mg-26 Mg Tablet) 0.5 tab PO BID [facility] Last Admin: 09/17/19 08:58 Dose: 0.5 tab Senna/Docusate Sodium (Senokot S) 2 tab PO BID [facility] Last Admin: 09/17/19 08:58 Dose: 2 tab Sodium Chloride (Flush - Normal Saline) 10 ml IVF Q12HR PRN PRN Reason: Saline Flush Last Admin: 09/14/19 20:06 Dose: 10 ml Sodium Chloride (Flush - Normal Saline) 10 ml IVF PRN PRN PRN Reason: Saline Flush Last Admin: 09/14/19 13:13 Dose: 10 ml Tamsulosin HCl (Flomax) 0.4 mg PO DAILY [facility] Last Admin: 09/17/19 08:59 Dose: 0.4 mg Vital Signs & Weight: Vital Signs Temp Pulse Resp BP BP Pulse Ox 09/17/19 07:30 96 09/17/19 07:29 97.2 F L 78 24 H 106/69 95 09/17/19 04:00 108 H 18 107/74 96 09/17/19 02:39 106 H 32 H 96 09/16/19 23:51 104 H 18 115/74 96 Weight 282 lb 12.8 oz - Physical Exam General: alert & oriented x3 HEENT: mucus membranes moist Neck: supple neck Cardiac: regular rate and rhythm, S1/S2 Lungs: decreased breath sounds Neuro: cranial nerve 2-12 intact Abdomen: unremarkable Extremities: no edema - Labs Result Diagrams: 09/16/19 14:18 09/17/19 04:52 Troponin/CKMB Troponin I Less than 0.010 ng/mL (< 0.028) 09/12/19 00:54 - Telemetry Sinus rhythms and dysrhythmias: sinus rhythm - Assessment/Plan Assessment/Plan: 1. Ischemic CMY with s/p Single chamber AICD on 09/15/19 - OK for DC by EP 2. Acute on Chronic systolic HF with s/p AICD placement - stable with Entresto 24/26 mg 1/2 tab BID; Metolazone x 1 today with IV Lasix for SOB with exertion today with PT 3. CAD with hx of CABG in 04/2019 - stable; on BBlocker, ASA, and statin 4. HTN - stable with current meds 5. HLD - 6. DM - 7. CKD stage 2 - 8. Lt pleural effusion - stable with RA 9. DM type 2 10. LYNDSAY with Cpap at HS 11. BPH with urine retention with s/p guevara cath placement; on Tamsulosin MAR reviewed * Dr. Scales's pt Pt. seen and eval. by me. I agree with the A/P by the COMPUTER SCIENCE INSTRUCTOR. Hopefuly home soon. arti
[2019-09-17] MEDS ORDERED: Metolazone 5 MG TAB PO SCH (13:00)
[2019-09-17] MEDS ORDERED: Metolazone 2.5 MG TAB PO SCH (13:00)
[2019-09-17] MEDS: Acetaminophen/Codeine 30-300mg Tablet PO PRN (13:32)
[2019-09-17] MEDS ORDERED: Furosemide 40 MG/4 ML VIAL SLOW IVP SCH (14:00)
[2019-09-17] MEDS ORDERED: Furosemide 40 MG TAB PO SCH (14:00)
[2019-09-17] MEDS: Atorvastatin Calcium 20 MG TAB PO SCH (20:26)
--- NOTE | 2019-09-17 20:36 | PDOC.HOSPP ---
- Subjective Subjective: Still having some SOB. More SMITH today. - Objective Vital Signs & Weight: Vital Signs (12 hours) Temp Pulse Pulse Pulse Resp BP BP 09/17/19 20:22 72 09/17/19 19:32 97.6 F 74 20 09/17/19 19:13 95 20 09/17/19 15:42 97.3 F L 76 22 H 09/17/19 14:50 09/17/19 12:44 93 81 105/70 104/70 09/17/19 11:15 97.8 F 84 24 H BP Pulse Ox Pulse Ox Pulse Ox 09/17/19 20:22 96/52 L 09/17/19 19:32 85/56 L 97 09/17/19 19:13 65 L 09/17/19 15:42 101/60 95 09/17/19 14:50 102/65 09/17/19 12:44 99 98 09/17/19 11:15 92/61 96 Weight Weight 282 lb 12.8 oz I&O: 09/16/19 09/17/19 09/18/19 06:59 06:59 06:59 Intake Total 1840 1200 Output Total 1100 1425 Balance 740 -225 Result Diagrams: 09/16/19 14:18 09/17/19 04:52 Additional Labs: Accuchecks 09/17/19 09/17/19 16:42 10:42 POC Glucose 187 H 236 H Hospitalist ROS - Medication Medications: Active Medications Generic Name Dose Route Start Last Admin Trade Name Freq PRN Reason Stop Dose Admin Acetaminophen 650 mg 09/12/19 01:35 09/14/19 12:00 Tylenol PO 650 mg Q4H PRN Administration Headache/Fever/Mild Pain (1-3) Acetaminophen/Codeine Phosphate 1 tab 09/15/19 14:37 09/17/19 13:32 Tylenol #3 PO 1 tab Q4H PRN Administration Pain Albuterol/Ipratropium 3 ml 09/13/19 02:30 09/17/19 19:13 Duoneb NEB 3 ml [id number] ALESIA Administration Allopurinol 150 mg 09/12/19 09:00 09/17/19 08:58 Zyloprim PO 150 mg DAILY [facility]IA Administration Aspirin 81 mg 09/12/19 09:00 09/17/19 08:58 Ecotrin PO 81 mg DAILY [facility]IA Administration Atorvastatin Calcium 20 mg 09/12/19 21:00 09/17/19 20:26 Lipitor PO 20 mg HS ALESIA Administration Carvedilol 3.125 mg 09/12/19 08:00 09/17/19 17:24 Coreg PO 3.125 mg BID-WM ALESIA Administration Cephalexin 500 mg 09/16/19 12:00 09/17/19 17:24 Keflex PO 09/23/19 06:01 500 mg Q6HR AL[facility]IA Administration Clonazepam 1 mg 09/12/19 01:45 09/16/19 21:20 Klonopin PO 1 mg BID PRN Administration Anxiety Clonazepam 0.5 mg 09/17/19 00:06 09/17/19 00:13 Klonopin PO 09/20/19 00:07 0.5 mg ONE PRN Administration Anxiety Famotidine 20 mg 09/12/19 21:00 09/17/19 20:26 Pepcid PO 20 mg Q12HR ALESIA Administration Insulin Human Lispro 0 units 09/12/19 01:37 09/17/19 11:45 Humalog SC 3 unit .MILD SLIDING SCALE PRN Administration Mild Correctional Scale Insulin Human Lispro 0 units 09/12/19 01:37 09/16/19 21:27 Humalog SC 3 unit .BEDTIME SLIDING SC PRN Administration Bedtime Correctional Scale Levothyroxine Sodium 125 mcg 09/12/19 06:00 09/17/19 06:05 Synthroid PO 125 mcg 0600 ALESIA Administration Metformin HCl 500 mg 09/15/19 17:00 09/17/19 17:25 Glucophage PO 500 mg BID-WM ALESIA Administration Pantoprazole Sodium 40 mg 09/12/19 09:00 09/17/19 08:58 Protonix PO 40 mg DAILY [facility] Administration Sacubitril/Valsartan 0.5 tab 09/16/19 09:00 09/17/19 20:27 Entresto 24 Mg-26 Mg Tablet PO Not Given BID ALESIA Senna/Docusate Sodium 2 tab 09/15/19 09:00 09/17/19 20:26 Senokot S PO 2 tab BID [facility]IA Administration Sodium Chloride 10 ml 09/12/19 01:35 09/14/19 20:06 Flush - Normal Saline IVF 10 ml Q12HR PRN Administration Saline Flush Sodium Chloride 10 ml 09/12/19 01:35 09/14/19 13:13 Flush - Normal Saline IVF 10 ml PRN PRN Administration Saline Flush Tamsulosin HCl 0.4 mg 09/16/19 09:00 09/17/19 08:59 Flomax PO 0.4 mg DAILY [facility]IA Administration - Exam General Appearance: NAD, awake alert Heart: RRR, no murmur, no gallops, no rubs, normal peripheral pulses Respiratory: rales, tachypneic (mild), wheezes Gastrointestinal: soft, non-tender, non-distended, normal bowel sounds, no palpable masses, no hepatomegaly, no splenomegaly, no bruit Extremities: no edema Neurological: no new deficit Psychiatric: normal affect, normal behavior, A&O x 3 Hosp A/P (1) S/P CABG (coronary artery bypass graft) Code(s): Z95.1 - PRESENCE OF AORTOCORONARY BYPASS GRAFT Status: Acute (2) Acute on chronic combined systolic and diastolic heart failure Code(s): I50.43 - ACUTE ON CHRONIC COMBINED SYSTOLIC AND DIASTOLIC HRT FAIL Status: Chronic (3) CAD (coronary artery disease) Code(s): I25.10 - ATHSCL HEART DISEASE OF [place] CORONARY ARTERY W/O ANG PCTRS Status: Chronic Qualifiers: Coronary Disease-Associated Artery/Lesion type: bypass graft [place] vs. transplanted heart: elim [place] heart Associated angina: without angina Qualified Code(s): I25.810 - Atherosclerosis of coronary artery bypass graft(s) without angina pectoris (4) DM2 (diabetes mellitus, type 2) Status: Chronic Qualifiers: Chronic kidney disease stage: stage 2 (mild) (5) Gout Code(s): M10.9 - GOUT, UNSPECIFIED Status: Chronic Qualifiers: Gout site: unspecified site (6) Hypertension Code(s): I10 - ESSENTIAL (PRIMARY) HYPERTENSION Status: Chronic Qualifiers: Hypertension type: essential hypertension Qualified Code(s): I10 - Essential (primary) hypertension (7) Hypothyroidism Code(s): E03.9 - HYPOTHYROIDISM, UNSPECIFIED Status: Chronic Qualifiers: Hypothyroidism type: unspecified Qualified Code(s): E03.9 - Hypothyroidism , unspecified (8) Ischemic cardiomyopathy Code(s): I25.5 - ISCHEMIC CARDIOMYOPATHY Status: Chronic (9) Morbid obesity Code(s): E66.01 - MORBID (SEVERE) OBESITY DUE TO EXCESS CALORIES Status: Chronic (10) LYNDSAY (obstructive sleep apnea) Code(s): G47.33 - OBSTRUCTIVE SLEEP APNEA (ADULT) (PEDIATRIC) Status: Chronic (11) PTSD (post-traumatic stress disorder) Code(s): F43.10 - POST-TRAUMATIC STRESS DISORDER, UNSPECIFIED Status: Chronic (12) CKD (chronic kidney disease), stage II Code(s): N18.2 - CHRONIC KIDNEY DISEASE, STAGE 2 (MILD) Status: Acute (13) Urine retention Code(s): R33.9 - RETENTION OF URINE, UNSPECIFIED Status: Acute (14) Cirrhosis of liver Code(s): K74.60 - UNSPECIFIED CIRRHOSIS OF LIVER Status: Acute (15) Pleural effusion, left Code(s): J90 - PLEURAL EFFUSION, NOT ELSEWHERE CLASSIFIED Status: Acute - Plan Diuresing. Entresto. Seems to be a little worse. Discussed with Cards. Metolazone will be added. Continue to diurese. ICD placed. Continue other home meds. Continue CPAP. Continue Gray. Cirrhosis and portal hypertension based on prior CT imaging. Will recheck coags in am. If his respiratory status does not significantly improve with addition of the metolazone, may need to consider thoracentesis. Check coags in the morning in light of his cirrhosis.
[2019-09-17] MEDS: clonazePAM 1 MG TAB PO PRN (23:45)
[2019-09-18] MEDS: Cephalexin 250 MG CAP PO SCH ×4 (05:46→23:15)
[2019-09-18 05:47] LABS: INR-International Normal Ratio 1.1; PTT 47.8 SEC (22.9-36.1); Prothrombin Time 14.4 SEC (12.0-14.7)
[2019-09-18] MEDS: Levothyroxine Sodium 125 MCG TAB PO SCH (05:47)
[2019-09-18 06:04] LABS: Anion Gap 14 mmol/L (10-20); BUN (Urea Nitrogen) 18 mg/dL (8.4-25.7); Calc. Creatinine Clearance 105 mL/min (70-130); Carbon Dioxide 27 mmol/L (23-31); Chloride 96 mmol/L (98-107); Estimated GFR-MDRD 63; Glucose 195 mg/dL (83-110); Potassium 3.2 mmol/L (3.5-5.1); Sodium 134 mmol/L (136-145)
[2019-09-18] MEDS ORDERED: Potassium Chloride 20 MEQ TAB PO SCH (07:30)
[2019-09-18] MEDS: Senokot S 8.6-50 MG TAB PO SCH ×2 (09:36→20:45)
[2019-09-18] MEDS: Allopurinol 300 MG TAB PO SCH (09:41)
[2019-09-18] MEDS: metFORMIN 500 MG TAB PO SCH ×2 (09:41→17:44)
[2019-09-18] MEDS: Aspirin 81 mg Enteric Coated Tablet PO SCH (09:41)
[2019-09-18] MEDS: Furosemide 40 MG TAB PO SCH ×2 (09:42→15:00)
[2019-09-18] MEDS ORDERED: traMADol HCl 50 MG TAB PO PRN (11:07)
--- NOTE | 2019-09-18 11:10 | PDOC.HOSPP ---
- Subjective Subjective: Says he does not feel good today. Feels like he has fever, but doesn't. Hurts all over. said essentially fell into the bed after getting up to the bathroom with assist. Breathing is not much improved. - Objective Vital Signs & Weight: Vital Signs (12 hours) Temp Pulse Resp BP Pulse Ox 09/18/19 11:06 87 15 100 09/18/19 08:14 59 L 18 97 09/18/19 07:26 97.3 F L 88 20 97/57 L 97 09/18/19 05:42 97.8 F 72 18 98/65 98 09/18/19 00:09 92 105/58 L 95 09/17/19 23:34 97.5 F L 79 22 H 101/65 97 Weight Weight 280 lb 4 oz I&O: 09/17/19 09/18/19 09/19/19 06:59 06:59 06:59 Intake Total 1200 240 Output Total 1425 1800 Balance -225 -1560 Result Diagrams: 09/16/19 14:18 09/18/19 05:29 Additional Labs: Accuchecks 09/18/19 09/17/19 09/17/19 05:14 20:55 16:42 POC Glucose 188 H 185 H 187 H Hospitalist ROS - Medication Medications: Active Medications Generic Name Dose Route Start Last Admin Trade Name Freq PRN Reason Stop Dose Admin Acetaminophen 650 mg 09/12/19 01:35 09/14/19 12:00 Tylenol PO 650 mg Q4H PRN Administration Headache/Fever/Mild Pain (1-3) Acetaminophen/Codeine Phosphate 1 tab 09/15/19 14:37 09/17/19 13:32 Tylenol #3 PO 1 tab Q4H PRN Administration Pain Albuterol/Ipratropium 3 ml 09/13/19 02:30 09/18/19 11:06 Duoneb NEB 3 ml [id number] ALESIA Administration Allopurinol 150 mg 09/12/19 09:00 09/18/19 09:41 Zyloprim PO 150 mg DAILY [facility]IA Administration Aspirin 81 mg 09/12/19 09:00 09/18/19 09:41 Ecotrin PO 81 mg DAILY AL[facility]IA Administration Atorvastatin Calcium 20 mg 09/12/19 21:00 09/17/19 20:26 Lipitor PO 20 mg HS ALESIA Administration Carvedilol 3.125 mg 09/12/19 08:00 09/17/19 17:24 Coreg PO 3.125 mg BID-WM ALESIA Administration Cephalexin 500 mg 09/16/19 12:00 09/18/19 05:46 Keflex PO 09/23/19 06:01 500 mg Q6HR AL[facility]IA Administration Clonazepam 1 mg 09/12/19 01:45 09/17/19 23:45 Klonopin PO 1 mg BID PRN Administration Anxiety Clonazepam 0.5 mg 09/17/19 00:06 09/17/19 00:13 Klonopin PO 09/20/19 00:07 0.5 mg ONE PRN Administration Anxiety Famotidine 20 mg 09/12/19 21:00 09/17/19 20:26 Pepcid PO 20 mg Q12HR AL[facility]IA Administration Furosemide 40 mg 09/18/19 09:00 09/18/19 09:42 Lasix PO 40 mg 0900,1400 AL[facility]IA Administration Insulin Human Lispro 0 units 09/12/19 01:37 09/17/19 11:45 Humalog SC 3 unit .MILD SLIDING SCALE PRN Administration Mild Correctional Scale Insulin Human Lispro 0 units 09/12/19 01:37 09/16/19 21:27 Humalog SC 3 unit .BEDTIME SLIDING SC PRN Administration Bedtime Correctional Scale Levothyroxine Sodium 125 mcg 09/12/19 06:00 09/18/19 05:47 Synthroid PO 125 mcg 0600 AL[facility]IA Administration Metformin HCl 500 mg 09/15/19 17:00 09/18/19 09:41 Glucophage PO 500 mg BID-WM [facility]IA Administration Pantoprazole Sodium 40 mg 09/12/19 09:00 09/18/19 09:42 Protonix PO 40 mg DAILY [facility]IA Administration Sacubitril/Valsartan 0.5 tab 09/16/19 09:00 09/18/19 09:42 Entresto 24 Mg-26 Mg Tablet PO 0.5 tab BID AL[facility]IA Administration Senna/Docusate Sodium 2 tab 09/15/19 09:00 09/18/19 09:36 Senokot S PO Not Given BID AL[facility]IA Sodium Chloride 10 ml 09/12/19 01:35 09/14/19 20:06 Flush - Normal Saline IVF 10 ml Q12HR PRN Administration Saline Flush Sodium Chloride 10 ml 09/12/19 01:35 09/14/19 13:13 Flush - Normal Saline IVF 10 ml PRN PRN Administration Saline Flush Tamsulosin HCl 0.4 mg 09/16/19 09:00 09/17/19 08:59 Flomax PO 0.4 mg DAILY AL[facility]IA Administration - Exam General Appearance: NAD, awake alert General - other findings: Morbidly obese, on BIPAP. Heart: RRR, no murmur, no gallops, no rubs, normal peripheral pulses Respiratory: rales (Scattered, bilat.) Gastrointestinal: soft, non-tender, non-distended, normal bowel sounds, no palpable masses, no hepatomegaly, no splenomegaly, no bruit Extremities: no edema Skin: normal turgor Neurological: no focal deficits Musculoskeletal: generalized weakness Psychiatric: normal affect, normal behavior, A&O x 3 Hosp A/P (1) Acute on chronic combined systolic and diastolic heart failure Code(s): I50.43 - ACUTE ON CHRONIC COMBINED SYSTOLIC AND DIASTOLIC HRT FAIL Status: Chronic (2) S/P CABG (coronary artery bypass graft) Code(s): Z95.1 - PRESENCE OF AORTOCORONARY BYPASS GRAFT Status: Acute (3) CAD (coronary artery disease) Code(s): I25.10 - ATHSCL HEART DISEASE OF [place] CORONARY ARTERY W/O ANG PCTRS Status: Chronic Qualifiers: Coronary Disease-Associated Artery/Lesion type: bypass graft [place] vs. transplanted heart: [place] heart Associated angina: without angina Qualified Code(s): I25.810 - Atherosclerosis of coronary artery bypass graft(s) without angina pectoris (4) DM2 (diabetes mellitus, type 2) Status: Chronic Qualifiers: Chronic kidney disease stage: stage 2 (mild) (5) Gout Code(s): M10.9 - GOUT, UNSPECIFIED Status: Chronic Qualifiers: Gout site: unspecified site (6) Hypertension Code(s): I10 - ESSENTIAL (PRIMARY) HYPERTENSION Status: Chronic Qualifiers: Hypertension type: essential hypertension Qualified Code(s): I10 - Essential (primary) hypertension (7) Hypothyroidism Code(s): E03.9 - HYPOTHYROIDISM, UNSPECIFIED Status: Chronic Qualifiers: Hypothyroidism type: unspecified Qualified Code(s): E03.9 - Hypothyroidism , unspecified (8) Ischemic cardiomyopathy Code(s): I25.5 - ISCHEMIC CARDIOMYOPATHY Status: Chronic (9) Morbid obesity Code(s): E66.01 - MORBID (SEVERE) OBESITY DUE TO EXCESS CALORIES Status: Chronic (10) LYNDSAY (obstructive sleep apnea) Code(s): G47.33 - OBSTRUCTIVE SLEEP APNEA (ADULT) (PEDIATRIC) Status: Chronic (11) PTSD (post-traumatic stress disorder) Code(s): F43.10 - POST-TRAUMATIC STRESS DISORDER, UNSPECIFIED Status: Chronic (12) CKD (chronic kidney disease), stage II Code(s): N18.2 - CHRONIC KIDNEY DISEASE, STAGE 2 (MILD) Status: Acute (13) Urine retention Code(s): R33.9 - RETENTION OF URINE, UNSPECIFIED Status: Acute (14) Cirrhosis of liver Code(s): K74.60 - UNSPECIFIED CIRRHOSIS OF LIVER Status: Acute (15) Pleural effusion, left Code(s): J90 - PLEURAL EFFUSION, NOT ELSEWHERE CLASSIFIED Status: Acute - Plan Diuresing. Entresto. Metolazone added yesterday as a one time 2.5 mg dose. Does look like he had better UOP and diruesed a little with that. Will give that again today. His BP does not allow aggressive diuresis. ICD placed. Continue CPAP. If he dos not improve with diuresis, may need to consider thoracentesis. Continue Gray. Can DC tomorrow for voiding trial. Cirrhosis and portal hypertension based on prior CT imaging. Will check orthostatic vitals. He is on Tamsulosin per the recs of Urology and approved by Cardiology. Concerned that his BP is relatively low and the tamsulosin is contributing to that and putting him at risk for falls. If orthostatic, will DC the tamsulosin. Overall, his prognosis is not great. He has severe ischemic CM that got worse after CABG. Maximizing meds, but he is not responding well.
[2019-09-18] MEDS: Acetaminophen/Codeine 30-300mg Tablet PO PRN (11:18)
[2019-09-18] MEDS: Tamsulosin HCl 0.4 MG CAP PO SCH (11:19)
[2019-09-18] MEDS: Carvedilol 3.125 MG TAB PO SCH ×2 (11:19→17:44)
[2019-09-18] MEDS: Famotidine 20 MG TAB PO SCH ×2 (11:22→20:44)
[2019-09-18] MEDS: Metolazone 2.5 MG TAB PO SCH (13:37)
[2019-09-18] MEDS: HumaLOG 300 UNITS/3 ML VIAL SC PRN ×2 (17:45→21:47)
[2019-09-18] MEDS: Acetaminophen 325 MG TAB PO PRN (17:51)
[2019-09-18] MEDS: Atorvastatin Calcium 20 MG TAB PO SCH (20:44)
[2019-09-18] MEDS: clonazePAM 1 MG TAB PO PRN (21:47)
[2019-09-19 05:21] LABS: Anion Gap 13 mmol/L (10-20); BUN (Urea Nitrogen) 22 mg/dL (8.4-25.7); Calc. Creatinine Clearance 90 mL/min (70-130); Carbon Dioxide 30 mmol/L (23-31); Chloride 96 mmol/L (98-107); Estimated GFR-MDRD 52; Glucose 165 mg/dL (83-110); Potassium 3.4 mmol/L (3.5-5.1); Sodium 136 mmol/L (136-145)
[2019-09-19] MEDS: Cephalexin 250 MG CAP PO SCH ×4 (06:01→23:38)
[2019-09-19] MEDS: Levothyroxine Sodium 125 MCG TAB PO SCH (06:01)
[2019-09-19] MEDS ORDERED: Furosemide 40 MG/4 ML VIAL SLOW IVP SCH (09:00)
[2019-09-19] MEDS ORDERED: Metolazone 2.5 MG TAB PO SCH (09:00)
[2019-09-19] MEDS: Senokot S 8.6-50 MG TAB PO SCH ×2 (09:46→20:47)
[2019-09-19] MEDS: Carvedilol 3.125 MG TAB PO SCH ×2 (09:48→18:11)
[2019-09-19] MEDS: Tamsulosin HCl 0.4 MG CAP PO SCH (09:48)
[2019-09-19] MEDS: Aspirin 81 mg Enteric Coated Tablet PO SCH (09:48)
[2019-09-19] MEDS: Allopurinol 300 MG TAB PO SCH (09:49)
[2019-09-19] MEDS: metFORMIN 500 MG TAB PO SCH ×2 (09:49→18:11)
[2019-09-19] MEDS: Famotidine 20 MG TAB PO SCH ×2 (09:49→20:46)
[2019-09-19] MEDS ORDERED: Potassium Chloride 20 MEQ TAB PO SCH (13:30)
--- NOTE | 2019-09-19 13:41 | PDOC.HOSPP ---
- Subjective Subjective: Feels remarkably better today. Ready for the Gray to be removed. - Objective Vital Signs & Weight: Vital Signs (12 hours) Temp Pulse Pulse Pulse Resp BP BP 09/19/19 11:47 97.5 F L 93 26 H 09/19/19 11:29 99 85 129/60 102/65 09/19/19 11:22 93 16 09/19/19 08:17 09/19/19 07:58 83 16 09/19/19 07:29 98.1 F 84 20 09/19/19 05:55 97.7 F 74 18 09/19/19 02:06 89 16 BP Pulse Ox Pulse Ox Pulse Ox 09/19/19 11:47 119/65 94 L 09/19/19 11:29 96 96 09/19/19 11:22 09/19/19 08:17 94 L 09/19/19 07:58 94 L 09/19/19 07:29 100/63 95 09/19/19 05:55 96/58 L 97 09/19/19 02:06 95 Weight Weight 278 lb 5 oz I&O: 09/18/19 09/19/19 09/20/19 06:59 06:59 06:59 Intake Total 240 720 Output Total 4612 101 5977 Balance -1560 70 -1400 Result Diagrams: 09/16/19 14:18 09/19/19 04:45 Additional Labs: Accuchecks 09/18/19 09/18/19 19:29 16:42 POC Glucose 275 H 240 H Hospitalist ROS - Medication Medications: Active Medications Generic Name Dose Route Start Last Admin Trade Name Freq PRN Reason Stop Dose Admin Acetaminophen 650 mg 09/12/19 01:35 09/18/19 17:51 Tylenol PO 650 mg Q4H PRN Administration Headache/Fever/Mild Pain (1-3) Acetaminophen/Codeine Phosphate 1 tab 09/15/19 14:37 09/18/19 11:18 Tylenol #3 PO 1 tab Q4H PRN Administration Pain Albuterol/Ipratropium 3 ml 09/13/19 02:30 09/19/19 11:22 Duoneb NEB 3 ml [id number] ALESIA Administration Allopurinol 150 mg 09/12/19 09:00 09/19/19 09:49 Zyloprim PO 150 mg DAILY ALESIA Administration Aspirin 81 mg 09/12/19 09:00 09/19/19 09:48 Ecotrin PO 81 mg DAILY ALESIA Administration Atorvastatin Calcium 20 mg 09/12/19 21:00 09/18/19 20:44 Lipitor PO 20 mg HS ALESIA Administration Carvedilol 3.125 mg 09/12/19 08:00 09/19/19 09:48 Coreg PO 3.125 mg BID-WM ALESIA Administration Cephalexin 500 mg 09/16/19 12:00 09/19/19 06:01 Keflex PO 09/23/19 06:01 500 mg Q6HR ALESIA Administration Clonazepam 1 mg 09/12/19 01:45 09/18/19 21:47 Klonopin PO 1 mg BID PRN Administration Anxiety Clonazepam 0.5 mg 09/17/19 00:06 09/17/19 00:13 Klonopin PO 09/20/19 00:07 0.5 mg ONE PRN Administration Anxiety Famotidine 20 mg 09/12/19 21:00 09/19/19 09:49 Pepcid PO 20 mg Q12HR ALESIA Administration Insulin Human Lispro 0 units 09/12/19 01:37 09/18/19 17:45 Humalog SC 3 unit .MILD SLIDING SCALE PRN Administration Mild Correctional Scale Insulin Human Lispro 0 units 09/12/19 01:37 09/18/19 21:47 Humalog SC 3 unit .BEDTIME SLIDING SC PRN Administration Bedtime Correctional Scale Levothyroxine Sodium 125 mcg 09/12/19 06:00 09/19/19 06:01 Synthroid PO 125 mcg 0600 ALESIA Administration Metolazone 2.5 mg 09/18/19 13:00 09/18/19 13:37 Zaroxolyn PO 2.5 mg 1300 ALESIA Administration Pantoprazole Sodium 40 mg 09/12/19 09:00 09/19/19 09:49 Protonix PO 40 mg DAILY ALESIA Administration Sacubitril/Valsartan 0.5 tab 09/16/19 09:00 09/19/19 09:47 Entresto 24 Mg-26 Mg Tablet PO 0.5 tab BID ALESIA Administration Senna/Docusate Sodium 2 tab 09/15/19 09:00 09/19/19 09:46 Senokot S PO Not Given BID [facility] Sodium Chloride 10 ml 09/12/19 01:35 09/14/19 20:06 Flush - Normal Saline IVF 10 ml Q12HR PRN Administration Saline Flush Sodium Chloride 10 ml 09/12/19 01:35 09/14/19 13:13 Flush - Normal Saline IVF 10 ml PRN PRN Administration Saline Flush Tamsulosin HCl 0.4 mg 09/16/19 09:00 09/19/19 09:48 Flomax PO 0.4 mg DAILY ALESIA Administration - Exam General Appearance: NAD, awake alert General - other findings: Wearing CPAP Heart: RRR, no murmur, no gallops, no rubs, normal peripheral pulses Respiratory - other findings: Minimal rales. Much improved. Extremities: no cyanosis, no clubbing, no edema Skin: normal turgor Musculoskeletal: generalized weakness Psychiatric: normal affect, normal behavior, A&O x 3 Hosp A/P (1) Acute on chronic combined systolic and diastolic heart failure Code(s): I50.43 - ACUTE ON CHRONIC COMBINED SYSTOLIC AND DIASTOLIC HRT FAIL Status: Chronic (2) S/P CABG (coronary artery bypass graft) Code(s): Z95.1 - PRESENCE OF AORTOCORONARY BYPASS GRAFT Status: Acute (3) CAD (coronary artery disease) Code(s): I25.10 - ATHSCL HEART DISEASE OF [place] CORONARY ARTERY W/O ANG PCTRS Status: Chronic Qualifiers: Coronary Disease-Associated Artery/Lesion type: bypass graft [place] vs. transplanted heart: [place] heart Associated angina: without angina Qualified Code(s): I25.810 - Atherosclerosis of coronary artery bypass graft(s) without angina pectoris (4) DM2 (diabetes mellitus, type 2) Status: Chronic Qualifiers: Chronic kidney disease stage: stage 2 (mild) (5) Gout Code(s): M10.9 - GOUT, UNSPECIFIED Status: Chronic Qualifiers: Gout site: unspecified site (6) Hypertension Code(s): I10 - ESSENTIAL (PRIMARY) HYPERTENSION Status: Chronic Qualifiers: Hypertension type: essential hypertension Qualified Code(s): I10 - Essential (primary) hypertension (7) Hypothyroidism Code(s): E03.9 - HYPOTHYROIDISM, UNSPECIFIED Status: Chronic Qualifiers: Hypothyroidism type: unspecified Qualified Code(s): E03.9 - Hypothyroidism , unspecified (8) Ischemic cardiomyopathy Code(s): I25.5 - ISCHEMIC CARDIOMYOPATHY Status: Chronic (9) Morbid obesity Code(s): E66.01 - MORBID (SEVERE) OBESITY DUE TO EXCESS CALORIES Status: Chronic (10) LYNDSAY (obstructive sleep apnea) Code(s): G47.33 - OBSTRUCTIVE SLEEP APNEA (ADULT) (PEDIATRIC) Status: Chronic (11) PTSD (post-traumatic stress disorder) Code(s): F43.10 - POST-TRAUMATIC STRESS DISORDER, UNSPECIFIED Status: Chronic (12) Urine retention Code(s): R33.9 - RETENTION OF URINE, UNSPECIFIED Status: Acute (13) Cirrhosis of liver Code(s): K74.60 - UNSPECIFIED CIRRHOSIS OF LIVER Status: Acute (14) Pleural effusion, left Code(s): J90 - PLEURAL EFFUSION, NOT ELSEWHERE CLASSIFIED Status: Acute (15) CKD (chronic kidney disease), stage III Code(s): N18.3 - CHRONIC KIDNEY DISEASE, STAGE 3 (MODERATE) Status: Acute - Plan Diuresing. Entresto. Metolazone added yesterday as a one time 2.5 mg dose as it had been the day before. Does not look like he made much urine though. Changed to IV Lasix and po metolazone. His BP does not allow aggressive diuresis. ICD placed. Doing well. Continue CPAP as needed 24/. If he dos not improve with diuresis, may need to consider thoracentesis. DC Gray, voiding trial discussed with nurse. Cirrhosis and portal hypertension based on prior CT imaging. Will check orthostatic vitals. He is on Tamsulosin per the recs of Urology and approved by Cardiology. Concerned that his BP is relatively low and the tamsulosin is contributing to that and putting him at risk for falls. Orthostatics were ok. Overall, his prognosis is not great. He has severe ischemic CM that got worse after CABG. Maximizing meds, but he is not responding well. Nonetheless, he feels much improved today. Will give another day of diuresis. Make sure he can void without the Gray. If he feels ok tomorrow, may be able to DC. He was getting OP PT and should resume that after DC.
[2019-09-19] MEDS: Metolazone 2.5 MG TAB PO SCH (13:42)
[2019-09-19] MEDS: Furosemide 40 MG/4 ML VIAL SLOW IVP SCH (13:47)
[2019-09-19] MEDS: HumaLOG 300 UNITS/3 ML VIAL SC PRN ×2 (18:10→20:54)
[2019-09-19] MEDS: Atorvastatin Calcium 20 MG TAB PO SCH (20:46)
[2019-09-20 05:52] LABS: Anion Gap 16 mmol/L (10-20); BUN (Urea Nitrogen) 24 mg/dL (8.4-25.7); Calc. Creatinine Clearance 90 mL/min (70-130); Calcium 9.2 mg/dL (7.8-10.44); Carbon Dioxide 29 mmol/L (23-31); Chloride 95 mmol/L (98-107); Estimated GFR-MDRD 53; Glucose 189 mg/dL (83-110); Potassium 3.3 mmol/L (3.5-5.1); Sodium 137 mmol/L (136-145)
[2019-09-20] MEDS: Furosemide 40 MG/4 ML VIAL SLOW IVP SCH (06:18)
[2019-09-20] MEDS: HumaLOG 300 UNITS/3 ML VIAL SC PRN (06:18)
[2019-09-20] MEDS: Levothyroxine Sodium 125 MCG TAB PO SCH (06:18)
[2019-09-20] MEDS: Cephalexin 250 MG CAP PO SCH (06:18)
[2019-09-20 08:11] VITALS: TEMP 97.9
[2019-09-20] MEDS: Allopurinol 300 MG TAB PO SCH (09:04)
[2019-09-20] MEDS: Carvedilol 3.125 MG TAB PO SCH (09:04)
[2019-09-20] MEDS: Famotidine 20 MG TAB PO SCH (09:04)
[2019-09-20] MEDS: Aspirin 81 mg Enteric Coated Tablet PO SCH (09:04)
[2019-09-20] MEDS: metFORMIN 500 MG TAB PO SCH (09:04)
[2019-09-20] MEDS: Senokot S 8.6-50 MG TAB PO SCH (09:05)
[2019-09-20] MEDS: Tamsulosin HCl 0.4 MG CAP PO SCH (09:05)
[2019-09-20] MEDS: clonazePAM 1 MG TAB PO PRN (09:43)
[2019-09-20 11:12] VITALS: BP 100/61
--- NOTE | 2019-09-21 03:55 | DIS ---
DATE OF ADMISSION: 09/12/2019 DATE OF DISCHARGE: 09/20/2019 ADMITTING HISTORY OF PRESENT ILLNESS: With shortness of breath; has severely reduced ejection fraction, last known around 15% to 20%, systolic; has known pleural effusions with associated cirrhotic features in the last few months, followed by Dr. Scales from Cardiology on outpatient basis, notable medium term history of a CABG in April of 2019. Past medical history includes COPD, type 2 diabetes, hypertension, GERD, CABG with three-vessel. Cardiology was consulted, Critical Care was consulted as well as Electrophysiology, Dr. Arango and Urology, Dr. Calvillo. The patient's pleural effusion and ascites were trended with chest x-rays, laboratory work, and physical exam. During his hospital stay, he had subsequent urinary retention and Gray catheter placement. Dr. Arango had placed AICD on 09/15/2019, appeared to be stable. Recommended continuation of Keflex x7 days in the postoperative period. Signed off to follow up on outpatient basis. Dr. Calvillo evaluated urinary retention. The patient was improved on tamsulosin and successfully discontinued Gray catheter. During the patient's stay, the patient did show signs of respiratory distress, so that Critical Care with Pulmonology was consulted, which improved following IV Lasix, which required several more days of hospitalization for patient. Subsequently, the patient had hypokalemia, which was replaced. The patient was ambulatory on room air prior to discharge. Traditionally, the patient's PCP is with the [facility]; however, we will have patient follow up with [facility]. Charge nurse will e-mail Sanjuanita for scheduling purposes on Sunday. The patient was fairly adamant that he did not want to stay the rest of the week and to titrate from IV to orals regarding Lasix and potassium. Instructed the patient that he must get his potassium rechecked in the next week for safety. The patient verbalized understanding. Family members at bedside said they would try, but the patient is hard-headed. DISCHARGE MEDICATIONS: Include, 1. Tamsulosin 0.4 mg daily. 2. Potassium chloride 20 mEq daily. 3. Zaroxolyn 2.5 mg daily. 4. Lasix 40 mg p.o. b.i.d. 5. Keflex 500 mg twice daily for the remainder of seven-day balance from the . 6. Atorvastatin 10 mg p.o. at bedtime. 7. Entresto 24/26 mg one tablet p.o. b.i.d. 8. Omeprazole 20 mg daily. 9. Metformin 500 mg p.o. b.i.d. 10. Levothyroxine 125 mcg p.o. daily. 11. Clonazepam 1 mg p.o. b.i.d. p.r.n. anxiety. 12. Coreg 3.125 mg p.o. b.i.d. 13. Aspirin 81 mg daily. 14. Allopurinol 300 mg daily. DISCHARGE INSTRUCTIONS: The patient was discharged home with a heart healthy diet, diabetic diet, ADA 1800 calories. Ambulation without restrictions. Followup, as above. Job ID: [id number]
== END 2019-09-20 13:04 | disposition home or self-care (01) | DRG 226 ==
LOC: ERS 17:57 → 2SW 21:29 → OBSVTOIN 09-12 01:31
PROVIDERS: ADMIT Emergency Medicine; ATTEND Emergency Medicine
PROC: 0JH608Z Insertion of Defibrillator Generator into Chest Subcutaneous Tissue and Fascia, Open Approach (ICD-10-PCS; principal; 2019-09-15)
PROC: 02HK3KZ Insertion of Defibrillator Lead into Right Ventricle, Percutaneous Approach (ICD-10-PCS; 2019-09-15)
DX: I13.0 Hypertensive heart and chronic kidney disease with heart failure and stage 1 through stage 4 chronic kidney disease, or unspecified chronic kidney disease (principal); I50.43 Acute on chronic combined systolic (congestive) and diastolic (congestive) heart failure; Z68.41 Body mass index [BMI] 40.0-44.9, adult; J44.9 Chronic obstructive pulmonary disease, unspecified; K21.9 Gastro-esophageal reflux disease without esophagitis; E87.6 Hypokalemia; I25.10 Atherosclerotic heart disease of native coronary artery without angina pectoris; F43.10 Post-traumatic stress disorder, unspecified; E03.9 Hypothyroidism, unspecified; E11.22 Type 2 diabetes mellitus with diabetic chronic kidney disease; I25.5 Ischemic cardiomyopathy; E66.01 Morbid (severe) obesity due to excess calories; K76.0 Fatty (change of) liver, not elsewhere classified; M10.9 Gout, unspecified; G47.33 Obstructive sleep apnea (adult) (pediatric); N18.2 Chronic kidney disease, stage 2 (mild); R33.8 Other retention of urine; N40.1 Benign prostatic hyperplasia with lower urinary tract symptoms; K74.60 Unspecified cirrhosis of liver; Z95.1 Presence of aortocoronary bypass graft; I25.2 Old myocardial infarction; Z79.4 Long term (current) use of insulin; Z98.49 Cataract extraction status, unspecified eye; Z82.49 Family history of ischemic heart disease and other diseases of the circulatory system; Z87.01 Personal history of pneumonia (recurrent)
CPT/HCPCS: 33249; 36005; 36415; 36416; 71045; 71046; 75820; 80048; 80053; 81001; 82550; 83735; 83880; 84484; 85025; 85610; 85730; 93005; 93641; 93798; 94640; 96374; C1777; C1786; J0690; J1940; J2704; J3010; J3490; J7611; J7620; S0028

== ENCOUNTER 2020-02-23 09:05 | Outpatient (CLI) | payer OTHER ==
--- NOTE | 2020-02-23 14:07 | RAD ---
TWO VIEWS CHEST: Date: 02-23-2020 Provided Clinical History: Dyspnea FINDINGS: Comparison 09-16-19. Cardiac and mediastinal silhouette is unchanged in appearance. Median sternotomy changes and left sub clavian cardiac pacing device are re-demonstrated. Persistent left pleural fluid with adjacent atelec tasis and/or infiltrate. Pulmonary vascular and interstitial prominence persists. There is no evidenc e of pneumothorax. IMPRESSION: Stable radiograph of the chest. POS: AH
== END 2020-02-23 09:06 | disposition home or self-care (01) ==
LOC: BICRAD 09:05
PROVIDERS: ATTEND Internal Medicine Critical Care Medicine
DX: R06.00 Dyspnea, unspecified (principal)
CPT/HCPCS: 71046